=== PATIENT | male | born 1965 | race Caucasian/White ===

== ENCOUNTER 2017-05-30 10:52 | Emergency (ER) | payer OTHER ==
[2017-05-30 11:02] VITALS: BP 137/88; PULSE 98; TEMP 97.7; BMI 39.4
--- NOTE | 2017-05-30 12:10 | PDOC ---
History of Present Illness - General Chief Complaint: Edema Stated Complaint: SWOLLEN LEGS (PCP SENT) Time Seen by Provider: 05/30/17 12:10 - History of Present Illness Initial Comments: 05/30/17 12:34 Mr. Bangura is a 52 yo male w/ pmh of bilateral lower extremity edema and HTN, CKDIII who presents from [facility] Mat[facility]. Per patient he was told to come to the Emergency Room to receive a kidney biopsy. His complaints at this time include 3 weeks of leg swelling as well as some right shoulder pain. The patient denies chest pain, shortness of breath, headache and dizziness. Denies fever, chills, nausea, vomit, diarrhea and constipation. Denies dysuria, frequency, urgency and hematuria. Allergies: NKDA Past History - Past Medical History Allergies/Adverse Reactions: Allergies Allergy/AdvReac Type Severity Reaction Status Date / Time No Known Allergies Allergy Verified 05/30/17 11:03 Home Medications: Ambulatory Orders Meloxicam [Mobic] 15 mg PO DAILY #30 tablet MDD 15mg 08/17/16 COPD: No Other medical history: DENIES MEDICAL HX - Suicide/Smoking/Psychosocial Hx Smoking History: Never smoked Hx Alcohol Use: No (STOPPED DRINKING 1 YEAR AGO) Drug/Substance Use Hx: No Review of Systems - Review of Systems Comments:: 05/30/17 12:38 GENERAL/CONSTITUTIONAL: No fever or chills. No weakness. HEAD, EYES, EARS, NOSE AND THROAT: No change in vision. No ear pain or discharge. No sore throat. CARDIOVASCULAR: No chest pain or shortness of breath RESPIRATORY: No cough, wheezing, or hemoptysis. GASTROINTESTINAL: No nausea, vomiting, diarrhea or constipation. GENITOURINARY: No dysuria, frequency, or change in urination. MUSCULOSKELETAL: +Some Right shoulder pain with movement. Bilateral leg swelling reported for the last. No neck or back pain. SKIN: No rash NEUROLOGIC: No headache, vertigo, loss of consciousness, or change in strength/ sensation. ENDOCRINE: No increased thirst. No abnormal weight change HEMATOLOGIC/LYMPHATIC: No anemia, easy bleeding, or history of blood clots. ALLERGIC/IMMUNOLOGIC: No hives or skin allergy. *Physical Exam - Vital Signs Last Vital Signs Temp Pulse Resp BP Pulse Ox 97.7 F 98 H 16 137/88 98 05/30/17 10:59 05/30/17 10:59 05/30/17 10:59 05/30/17 10:59 05/30/17 10:59 - Physical Exam Comments: 05/30/17 12:39 GENERAL: Awake, alert, and fully oriented, in no acute distress HEAD: No signs of trauma, normocephalic, atraumatic EYES: PERRLA, EOMI, sclera anicteric, conjunctiva clear ENT: Auricles normal inspection, hearing grossly normal, nares patent, oropharynx clear without exudates. Moist mucosa NECK: Normal ROM, supple, no lymphadenopathy, JVD, or masses LUNGS: No distress, speaks full sentences, clear to auscultation bilaterally HEART: Regular rate and rhythm, normal S1 and S2, no murmurs, rubs or gallops, peripheral pulses normal and equal bilaterally. ABDOMEN: Soft, nontender, normoactive bowel sounds. No guarding, no rebound. No masses EXTREMITIES: +Bilateral 2+ Pedal edema. Normal range of motion. No clubbing or cyanosis. NEUROLOGICAL: Cranial nerves II through XII grossly intact. Normal speech, normal gait, no focal sensorimotor deficits SKIN: Warm, Dry, normal turgor, no rashes or lesions noted. ED Treatment Course - LABORATORY CBC & Chemistry Diagram: 05/30/17 13:07 05/30/17 13:07 Medical Decision Making - Medical Decision Making 05/30/17 12:46 Mr. Bangura is a 52 yo male w/ pmh of CKD stage 3, HTN, and bilateral edema who presents per Dr. Matias for admission for kidney biopsy. Dr. Matias consulted and able to provide more information - patient suspected to have glomerulonephritis and discussion w/ Dr. Mayorga had prompted decision for patient to present for admission to hospitalist for renal workup. Dr. Mayorga consulted for further discussion. 05/30/17 13:[address] Mayorga who expressed he was initially concerned as he did not think patient had insurance for outpatient visit. Discussed with director case management and patient is insured - Dr. Mayorga will see him outpatient pending normal labs for further follow-up. Dr. Mayorga discussed this with Dr. Matias who is in agreement. 05/30/17 13:50 Patient labs grossly wnl; will follow-up outpatient as outlined above. Patient verbalized understanding and agreement with this plan. *DC/Admit/Observation/Transfer Diagnosis at time of Disposition: Chronic kidney disease Qualifiers: Chronic kidney disease stage: stage 3 (moderate) Qualified Code(s): N18.3 - Chronic kidney disease, stage 3 (moderate) - Discharge Dispostion Disposition: HOME - Referrals Referrals: Stephon Mayorga MD [Staff Physician] - - Patient Instructions Printed Discharge Instructions: Chronic Renal Failure Additional Instructions: Please follow-up with Dr. Mayorga as discussed. Call office at provide number to schedule a tuesday appointment. Please return if you have any pain, fever, chills, or other concerning symptoms. - Post Discharge Activity
--- NOTE | 2017-05-30 12:59 | PDOC ---
Attending Attestation - HPI HPI: 05/30/17 13:51 Pt is a 52 yo M with PMHx of bilateral lower extremity edema, HTN, CKD III who presents to the ED with lower extremity edema and R shoulder pain for the past 3 weeks. Patient was seen at rheumatologists office and was sent to the ED for Kidney biopsy. Rheum: Kevin Matias - Medical Decision Making 05/30/17 13:51 12:[address] Matias via office number. Discussed patients case. Documentation prepared by Inez Tapia, acting as medical massage therapist for Inna Moore MD <Inez Tapia - Last Filed: 05/30/17 13:51> - Resident Resident Name: Chucho Nava - ED Attending Attestation I have performed the following: I have examined & evaluated the patient, The case was reviewed & discussed with the resident, I agree w/resident's findings & plan, Exceptions are as noted - Physicial Exam PE: GENERAL: Awake, alert, and fully oriented, in no acute distress HEAD: No signs of trauma EYES: PERRLA, EOMI, sclera anicteric, conjunctiva clear ENT: Auricles normal inspection, hearing grossly normal, nares patent, oropharynx clear without exudates. Moist mucosa NECK: Normal ROM, supple, no lymphadenopathy, JVD, or masses LUNGS: Breath sounds equal, clear to auscultation bilaterally. No wheezes, and no crackles HEART: Regular rate and rhythm, normal S1 and S2, no murmurs, rubs or gallops ABDOMEN: Soft, nontender, normoactive bowel sounds. No guarding, no rebound. No masses EXTREMITIES: Normal range of motion, no edema. No clubbing or cyanosis. No cords, erythema, or tenderness NEUROLOGICAL: Cranial nerves II through XII grossly intact. Normal speech, normal gait SKIN: Warm, Dry, normal turgor, no rashes or lesions noted. - Medical Decision Making Pt sent for admission for kidney biopsy, however, discussed with Dr. Mayorga. He can schedule it outpatient. Requested labs, and if electrolytes wnl, DC home. <Inna Moore - Last Filed: 05/30/17 18:20>
[2017-05-30 13:25] LABS: INR 0.96 (0.82-1.09); PROTHROMBIN TIME (PATIENT) 10.8 SEC (9.98-11.88)
[2017-05-30 13:28] LABS: ACTIVATED PTT 30.7 SECONDS (26.9-34.4)
[2017-05-30 13:30] LABS: HEMATOCRIT 33.7 % (35.4-49); HEMOGLOBIN 11.3 GM/dL (11.7-16.9); MCH 28.4 pg (25.7-33.7); MCHC 33.6 g/dl (32.0-35.9); MEAN CELL VOLUME 84.4 fl (80-96); MEAN PLT VOLUME 7.4 fl (7.5-11.1); PLATELET COUNT 304 K/MM3 (134-434); RBC 3.99 M/mm3 (4.00-5.60); RDW 15.8 % (11.9-15.9); WHITE BLOOD COUNT 6.7 K/mm3 (4.0-10.0)
[2017-05-30 13:37] LABS: ALBUMIN 2.5 g/dl (3.4-5.0); ALK PHOS 90 U/L (45-117); ANION GAP 6 (8-16); BILIRUBIN,TOTAL 0.4 mg/dL (0.2-1.0); BLOOD UREA NITROGEN 40 mg/dL (7-18); CALCIUM 8.4 mg/dL (8.5-10.1); CHLORIDE 108 mmol/L (98-107); CO2 28 mmol/L (21-32); CREATININE 2.1 mg/dL (0.7-1.3); GLUCOSE,RANDOM 95 mg/dL (74-106); POTASSIUM 4.5 mmol/L (3.5-5.1); SGOT/AST 15 U/L (15-37); SGPT/ALT 18 U/L (12-78); SODIUM 142 mmol/L (136-145); TOT PROT 6.3 g/dl (6.4-8.2)
[2017-05-30 14:01] LABS: URINE APPEARANCE CLEAR; URINE BILIRUBIN NEGATIVE (NEGATIVE); URINE BLOOD 3+ (NEGATIVE); URINE COLOR LTYELLOW; URINE GLUCOSE (UA) NEGATIVE (NEGATIVE); URINE KETONE NEGATIVE (NEGATIVE); URINE LEUK ESTERASE NEGATIVE (NEGATIVE); URINE NITRITE NEGATIVE (NEGATIVE); URINE UROBILINOGEN NEGATIVE mg/dL (0.2-1.0)
[2017-05-30 14:04] LABS: URINE PROTEIN 3+ (NEGATIVE)
[2017-05-30 14:12] LABS: EPI CELLS RARE /HPF (FEW); URINE HYALINE CAST 12 /lpf; URINE MUCUS RARE; YEAST RARE
--- NOTE | 2017-05-30 14:55 | CONSULT ---
Consult Consult Specialty:: Nephrology Reason for Consultation:: CKD - History of Present Illness Chief Complaint: lower ext edema History of Present Illness: Pt is a 52 year old make with pmhx of CKD, DM and lower extremity edema who presents to the ER for evaluation of his kidney disease. He denies shortness of breath. He denies chest pain. He denies nsaid use. He may be on meloxicam however. He does not know what meds he is on. He was under the impression that he was getting a kidney biopsy today. He has a serologic workup that is pending. He does not want to be admitted to the hospital. He denies dysuria or hematuria. - History Source History Provided By: Patient, Medical Record - Past Medical History Endocrine: Yes: Diabetes Mellitus - Alcohol/Substance Use Hx Alcohol Use: No (STOPPED DRINKING 1 YEAR AGO) - Smoking History Smoking history: Never smoked Home Medications - Allergies Allergies/Adverse Reactions: Allergies Allergy/AdvReac Type Severity Reaction Status Date / Time No Known Allergies Allergy Verified 05/30/17 11:03 - Home Medications Home Medications: Ambulatory Orders Meloxicam [Mobic] 15 mg PO DAILY #30 tablet MDD 15mg 08/17/16 Family Disease History - Family Disease History Family History: Denies Review of Systems - Review of Systems Constitutional: reports: No Symptoms Eyes: reports: No Symptoms HENT: reports: No Symptoms Neck: reports: No Symptoms Cardiovascular: reports: Edema Respiratory: reports: No Symptoms Gastrointestinal: reports: No Symptoms Genitourinary: reports: No Symptoms Musculoskeletal: reports: No Symptoms Integumentary: reports: No Symptoms Neurological: reports: No Symptoms Endocrine: reports: No Symptoms Hematology/Lymphatic: reports: No Symptoms Psychiatric: reports: No Symptoms Physical Exam Vital Signs: Vital Signs Temperature 97.7 F 05/30/17 10:59 Pulse Rate 98 H 05/30/17 10:59 Respiratory Rate 16 05/30/17 10:59 Blood Pressure 137/88 05/30/17 10:59 O2 Sat by Pulse Oximetry (%) 98 05/30/17 10:59 Constitutional: Yes: Calm Eyes: Yes: Conjunctiva Clear HENT: Yes: Atraumatic Neck: Yes: Supple Cardiovascular: Yes: S1, S2 Respiratory: Yes: CTA Bilaterally Gastrointestinal: Yes: Soft Renal/: Yes: WNL Musculoskeletal: Yes: WNL Edema: Yes Edema: LLE: Trace, RLE: Trace Neurological: Yes: Oriented Psychiatric: Yes: Oriented Labs: CBC, BMP 05/30/17 13:07 05/30/17 13:07 Laboratory Tests 05/26/17 05/27/17 05/30/17 13:50 16:34 13:07 WBC 6.7 Hgb 11.3 L Sodium BUN Creatinine Urine Protein Urine Blood BRE & SPEP Interp Pending Total Protein (BRE) Pending Albumin (BRE) Pending Albumin/Globulin (BRE) Pending DAVIDA Screen Negative c-ANCA Pending Proteinase 3 (PR3) Pending p-ANCA Pending Atypical p-ANCA Pending Double Strand DNA Ab <1 Complement C3 127 Complement C4 24 Hep Bs Antigen Negative Hep Bs Antibody Non reactive Hep Bs Antibody, Quant <3.1 L Hepatitis C Antibody 0.1 05/30/17 05/30/17 13:07 13:54 WBC Hgb Sodium 142 BUN 40 H Creatinine 2.1 H Urine Protein 3+ H Urine Blood 3+ H BRE & SPEP Interp Total Protein (BRE) Albumin (BRE) Albumin/Globulin (BRE) DAVIDA Screen c-ANCA Proteinase 3 (PR3) p-ANCA Atypical p-ANCA Double Strand DNA Ab Complement C3 Complement C4 Hep Bs Antigen Hep Bs Antibody Hep Bs Antibody, Quant Hepatitis C Antibody Problem List - Problems (1) Diabetes mellitus Code(s): E11.9 - TYPE 2 DIABETES MELLITUS WITHOUT COMPLICATIONS (2) Chronic kidney disease Code(s): N18.9 - CHRONIC KIDNEY DISEASE, UNSPECIFIED Qualifiers: Chronic kidney disease stage: stage 3 (moderate) Qualified Code(s): N18.3 - Chronic kidney disease, stage 3 (moderate) Assessment/Plan Impression 1. CKD 2. proteinuria 3. DM Plan - serologic workup is wending - will see pt in office on Tuesday - pt will bring all of his pill bottles for review - biopsy can be scheduled as outpt (pt does not want to stay anyway) - will follow serologic workup - called and discussed with rheumatology
--- NOTE | 2017-06-01 11:06 | EKG ---
Test Reason : Blood Pressure : / mmHG Vent. Rate : 058 BPM Atrial Rate : 058 BPM P-R Int : 178 ms QRS Dur : 092 ms QT Int : 412 ms P-R-T Axes : 012 021 033 degrees QTc Int : 404 ms SINUS BRADYCARDIA OTHERWISE NORMAL ECG NO PREVIOUS ECGS AVAILABLE Confirmed by ANGELO HO MD ([id number]) on 06/01/2017 11:06:09 AM Referred By: Confirmed By:ANGELO HO MD
== END 2017-05-30 14:11 | disposition home or self-care (01) ==
LOC: JER 10:52
DX: I12.9 Hypertensive chronic kidney disease with stage 1 through stage 4 chronic kidney disease, or unspecified chronic kidney disease (principal); E11.22 Type 2 diabetes mellitus with diabetic chronic kidney disease; N18.3 Chronic kidney disease, stage 3 (moderate); N17.8 Other acute kidney failure; Z79.84 Long term (current) use of oral hypoglycemic drugs
CPT/HCPCS: 36415; 80053; 81003; 81015; 85027; 85610; 85730; 86850; 86900; 86901; 93005; 93010; 99283-25

== ENCOUNTER 2017-06-09 09:26 | Day surgery (SDC) | payer OTHER ==
[2017-06-09 10:36] VITALS: BMI 39.4
[2017-06-09 10:38] VITALS: TEMP 97.5
[2017-06-09 17:55] VITALS: BP 147/90; PULSE 67
--- NOTE | 2017-06-24 14:17 | PATH ---
Surgical Pathology Report Patient Name: DENICE FELICIANO [facility]. Rec. #: [id number] /Age/Gender: 1965 (Age: 52) / M Account: [id number] Location: RADIOLOGY NUCLE Taken: 06/09/2017 Received: 06/09/2017 Reported: 06/24/2017 Physicians: Jenna Dominguez M.D. Specimen(s) Received RENAL BIOPSY Clinical History 52-year-old male with CKD STAGE III Intraoperative Consult Diagnosis Renal biopsy: Glomeruli present. Jenise Apple M.D., 06/09/17 Final Diagnosis KIDNEY, BIOPSY: FOCAL CRESCENTIC GLOMERULONEPHRITIS, PAUCI IMMUNE TYPE (PR3 ANCA-ASSOCIATED/CLINICAL), WITH MILD ACTIVITY AND MODERATE CHRONICITY. TUBULAR ATROPHY, INTERSTITIAL FIBROSIS AND INTERSTITIAL INFLAMMATION, MODERATE TO SEVERE. ARTERIOSCLEROSIS, MILD. SEE COMMENT. Comment: The immunofluorescence findings are consistent with a diagnosis of pauci immune PR3 ANCA-related glomerulonephritis. There is mild histologic activity and moderate chronicity. Electron microscopy is pending and will be reported separately in an addendum. Case sent for consultation to Dr. Phil Clark from [place], [place] ([id number]), the diagnosis above reflects his opinion. See complete report ([id number]) from [place], [place] for additional details. Electronically Signed Yolie Parks M.D. Gross Description Received in saline labeled "right renal biopsy," is a 1.5 cm in length x 0.1 cm in diameter rice, cylindrical portion of soft tissue. An intraoperative consultation is performed. The specimen is divided, placed into 10% buffered formalin, Gregory fixative and glutaraldehyde. The specimen is sent to [facility] for further studies. /06/09/201706/09/2017
== END 2017-06-09 17:30 | disposition home or self-care (01) ==
LOC: JRADIR 09:26
PROVIDERS: ATTEND Internal Medicine
PROC: 0TB03ZX Excision of Right Kidney, Percutaneous Approach, Diagnostic (ICD-10-PCS; principal; 2017-06-09)
PROC: BT41ZZZ Ultrasonography of Right Kidney (ICD-10-PCS; 2017-06-09)
DX: N05.7 Unspecified nephritic syndrome with diffuse crescentic glomerulonephritis (principal); N18.9 Chronic kidney disease, unspecified
CPT/HCPCS: 50200; 76942-TC; 87899; 88300-TC

== ENCOUNTER 2017-07-09 17:08 | Inpatient (IN) | payer OTHER ==
--- NOTE | 2017-07-09 17:52 | PDOC ---
History of Present Illness - History of Present Illness Initial Comments: 07/09/17 18:23 The patient is a 52 year old male with a history of HTN, CKD, Lower extremity Edema who presents for evaluation of lower extremity edema and rash. The patient notes that he had a recent kidney biopsy a few weeks ago and was diagnosed with glumerularnephritis and placed on predinisone. The patient noted today worsening edema as well as a rash on his right leg prompting his presentation to the ED for further evaluation. He otherwise denies fevers, chills, SOB, chest pain, abdominal pain, nausea, vomiting, or changes with urination or bowel movements. <Willie Kovacs - Last Filed: 07/09/17 18:27> <Saul Newton - Last Filed: 07/09/17 21:09> - General Chief Complaint: Edema Stated Complaint: SWELLING Time Seen by Provider: 07/09/17 17:42 Past History - Past Medical History Anemia: No Asthma: No Cancer: No Cardiac Disorders: No CVA: No COPD: No CHF: No Dementia: No Diabetes: No (DENIES) GI Disorders: No Disorders: No HTN: Yes Hypercholesterolemia: No Liver Disease: No Seizures: No Thyroid Disease: No Other medical history: kidney problems - Surgical History Abdominal Surgery: No Appendectomy: No Cardiac Surgery: No Lung Surgery: No Neurologic Surgery: No Orthopedic Surgery: Yes (RIGHT FOOT SX - 20 YRS AGO) - Suicide/Smoking/Psychosocial Hx Smoking History: Never smoked Have you smoked in the past 12 months: No Information on smoking cessation initiated: No Hx Alcohol Use: No (STOPPED DRINKING 1 YEAR AGO) Drug/Substance Use Hx: No Substance Use Type: None Hx Substance Use Treatment: No <Willie Kovacs - Last Filed: 07/09/17 18:27> <Saul Newton - Last Filed: 07/09/17 21:09> - Past Medical History Allergies/Adverse Reactions: Allergies Allergy/AdvReac Type Severity Reaction Status Date / Time No Known Allergies Allergy Verified 07/09/17 17:27 Home Medications: Ambulatory Orders Amlodipine Besylate [Norvasc -] 10 mg PO DAILY 07/09/17 Furosemide [Lasix] 20 mg PO DAILY 07/09/17 Prednisone [Deltasone] 20 mg PO BID 07/09/17 Review of Systems - Review of Systems Comments:: 07/09/17 18:25 Constitutional: No fevers, chills, fatigue, malaise HEENT: No Rhinorrhea, nasal congestion, visual changes Cardiovascular: No chest pain, syncope, palpitations, lightheadedness Respiratory: No Cough, SOB, Hemoptysis, Gastrointestinal: No Abdominal pain, Nausea, Vomiting, Constipation, Diarrhea, Melena Genitourinary: No Dysuria, Frequency, Urgency, Hesitancy, Hematuria, Flank pain Musculoskeletal: No Myalgia, arthralgia Skin: Rash, Lower Extremity Edema. No itching, bruising, pallor Neurologic: No Headache, Dizziness, Numbness, Weakness, or Tingling Psychiatric: No Hallucinations. No SI or HI <Willie Kovacs - Last Filed: 07/09/17 18:27> *Physical Exam - Vital Signs Last Vital Signs Temp Pulse Resp BP Pulse Ox 98.2 F 89 18 135/91 99 07/09/17 17:22 07/09/17 17:22 07/09/17 17:22 07/09/17 17:22 07/09/17 17:22 - Physical Exam Comments: 07/09/17 18:26 General Appearance: Nourished. No Apparent Distress HEENT: EOMI, RU. No Pharyngeal Erythema, Tonsillar Exudate, Tonsillar Erythema Neck: No Cervical Lymphadenopathy Respiratory/Chest: Lungs Clear, Normal Breath Sounds. No Crackles, Rales, Rhonchi, Wheezing Cardiovascular: Regular Rhythm, Regular Rate. No Murmur, Gallops, Rubs Gastrointestinal/Abdominal: Normal Bowel Sounds, Soft. No Guarding, Rebound, Tenderness Musculoskeletal: No CVA Tenderness Extremity: 3+ Pitting edema in the lower extremities bilaterally. Petechial rash noted on exam on the right thigh. Normal Capillary Refill Integumentary: Normal Color, Dry, Warm Neurologic: Fully Oriented, Alert, Normal Mood/Affect, Normal Response, <Willie Kovacs - Last Filed: 07/09/17 18:27> - Vital Signs Last Vital Signs Temp Pulse Resp BP Pulse Ox 98.2 F 76 18 135/91 98 07/09/17 17:22 07/09/17 18:59 07/09/17 17:22 07/09/17 17:22 07/09/17 18:59 <Saul Newton - Last Filed: 07/09/17 21:09> ED Treatment Course - LABORATORY CBC & Chemistry Diagram: 07/09/17 18:40 07/09/17 18:40 - ADDITIONAL ORDERS Additional order review: Laboratory Results 07/09/17 03 18:40 18:33 Sodium 139 Potassium 4.8 Chloride 108 H Carbon Dioxide 23 Anion Gap 8 BUN 68 H D Creatinine 2.8 H Creat Clearance w eGFR 24.01 Random Glucose 138 H D Calcium 6.9 L* Total Bilirubin 0.2 D AST 26 D ALT 37 D Alkaline Phosphatase 76 D Total Protein 4.0 L D Albumin 1.7 L D Urine Color Straw Urine Appearance Clear Urine pH 5.0 Ur Specific [place] 1.012 Urine Protein 3+ H Urine Glucose (UA) Negative Urine Ketones Negative Urine Blood 2+ H Urine Nitrite Negative Urine Bilirubin Negative Urine Urobilinogen Negative Ur Leukocyte Esterase Negative Urine WBC (Auto) 4 Urine RBC (Auto) 45 Urine Bacteria Rare Hyaline Casts 1 Granular Casts 2 Urine Mucus Rare 07/09/17 18:40 RBC 4.09 MCV 85.5 MCHC 33.8 RDW 14.1 MPV 7.0 L Neutrophils % Account Associate Lymphocytes % Account Associate Monocytes % Account Associate Eosinophils % Account Associate Basophils % Account Associate - RADIOLOGY Radiology Studies Ordered: Category Date Time Status CHEST - PA [RAD] Stat Radiology 07/09/17 20:38 Ordered <Saul Newton - Last Filed: 07/09/17 21:09> Medical Decision Making - Medical Decision Making 07/09/17 18:30 The patient is a 52 year old male with a history of HTN, CKD, Lower extremity Edema who presents for evaluation of lower extremity edema and rash. Differential includes but is not limited to: MARIUSZ, Cushings, Infectious, Metabolic Derangement. Given the patient history we will obtain a cbc, cmp, ua , dvt US to evaluate further for possible etiologies. Although it is likely his symptoms are due to his recent predinisone use. We will continue to monitor and reassess in the meantime. <Willie Kovacs - Last Filed: 07/09/17 18:27> *DC/Admit/Observation/Transfer <Willie Kovacs - Last Filed: 07/09/17 18:27> - Discharge Dispostion Admit: Yes <Saul Newton - Last Filed: 07/09/17 21:09> Diagnosis at time of Disposition: Acute on chronic renal failure Qualifiers: Acute renal failure type: unspecified Chronic kidney disease stage: unspecified stage Qualified Code(s): N17.9 - Acute kidney failure, unspecified; N18.9 - Chronic kidney disease, unspecified; N18.9 - Chronic kidney disease, unspecified Edema Qualifiers: Edema type: generalized Qualified Code(s): R60.1 - Generalized edema - Discharge Dispostion Condition at time of disposition: Fair - Referrals Referrals: Robert Snow MD [Primary Care Provider] - - Patient Instructions - Post Discharge Activity
--- NOTE | 2017-07-09 17:59 | PDOC ---
Attending Attestation - Resident Resident Name: Willie Kovacs - ED Attending Attestation I have performed the following: I have examined & evaluated the patient, The case was reviewed & discussed with the resident, I agree w/resident's findings & plan, Exceptions are as noted - Physicial Exam PE: 07/09/17 18:25 Patient is awake and alert, afebrile, hemodynamically stable; Normocephalic, atraumatic + Increased soft tissue to the upper back area consistent with buffalo hump; Face is plethoric cta rrr no sacral edema + 3 pretibial edema bilaterally + rle petechiael rash - Medical Decision Making 07/09/17 18:25 52-year-old male with history of chronic renal insufficiency, presents with worsening lower extremity edema as well as petechial rash primarily to the right thigh and right lower extremity. Will obtain CBC/CMP to evaluate for worsening renal function. Will obtain UA. Will rule out DVT with Doppler ultrasound. I suspect patient's symptoms may be related to exogenous steroid therapy. Will reassess. 07/09/17 20:[address] Joseph of renal and Dr. Matias of rheumatology. 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 Patient will require admission with increased prednisone dose to 20mg po 3 times a day by mouth for initiation of further immunosuppression by disease modifying agents. <Saul Newton - Last Filed: 07/09/17 20:23> - HPI HPI: 07/09/17 19:06 The patient is a 52 year old male, with a significant past medical history of HTN, CKD, glomerulonephritis (diagnosed a few weeks ago on prednisone) and right lower extremity edema, who presents to the emergency department with, a lower extremity edema with associated rash. As per patient his edema and rash has worsened. - Medical Decision Making 07/09/17 19:[address] Vipin Valencia, case was discussed. 07/09/17 19:[address] Stephon Mayorga's answering service, awaiting call back. 8:05: Call returned from Dr. Aguero, covering doctor for Dr. Mayorga, case was discussed 07/09/17 20:[address] Matias's answering service, awaiting call back. EXAM: Ultrasound bilateral lower extremity venous duplex HISTORY: 52-year-old male evaluate for deep vein thrombus COMPARISON: None. FINDINGS: The left and right common femoral vein proximal greater saphenous vein femoral vein popliteal vein posterior tibial vein have normal compressibility normal color flow and normal spectral Doppler waveforms. IMPRESSION:No evidence of a left or right lower extremity deep vein thrombus. Read by: Ayad Rodriguez MD 10:24pm Vent rate: 70 bpm NE interval: 172 ms QRS duration: 92 ms QT/QTc: 396/427 ms P-R-T axes: 35 7 38 Normal sinus rhythm, normal ECG <Jean Watson - Last Filed: 07/09/17 23:18> Attestations - Attestations 07/09/17 19:07 Documentation prepared by Jean Watson, acting as medical device sales representative for Saul Newton MD. <Jean Watson - Last Filed: 07/09/17 23:18>
[2017-07-09 18:47] LABS: HEMOGLOBIN 11.8 GM/dL (11.7-16.9); MCH 28.9 pg (25.7-33.7); MCHC 33.8 g/dl (32.0-35.9); MEAN CELL VOLUME 85.5 fl (80-96); PLATELET COUNT 249 K/MM3 (134-434); RBC 4.09 M/mm3 (4.00-5.60); RDW 14.1 % (11.9-15.9); WHITE BLOOD COUNT 11.2 K/mm3 (4.0-10.0)
[2017-07-09 19:08] LABS: ALBUMIN 1.7 g/dl (3.4-5.0); ALK PHOS 76 U/L (45-117); ANION GAP 8 (8-16); BILIRUBIN,TOTAL 0.2 mg/dL (0.2-1.0); BLOOD UREA NITROGEN 68 mg/dL (7-18); CHLORIDE 108 mmol/L (98-107); CO2 23 mmol/L (21-32); CREATININE 2.8 mg/dL (0.7-1.3); GLUCOSE,RANDOM 138 mg/dL (74-106); POTASSIUM 4.8 mmol/L (3.5-5.1); SGOT/AST 26 U/L (15-37); SGPT/ALT 37 U/L (12-78); SODIUM 139 mmol/L (136-145)
--- NOTE | 2017-07-09 19:48 | PDOC ---
*Physical Exam - Vital Signs Last Vital Signs Temp Pulse Resp BP Pulse Ox 98.2 F 76 18 135/91 98 07/09/17 17:22 07/09/17 18:59 07/09/17 17:22 07/09/17 17:22 07/09/17 18:59 07/09/17 19:46 Patient's care signed out to me at shift change. This is a 52 YOM with h/o HTN, CKD, glomerulonephritis (dx weeks ago via renal bx, on prednisone now) and chronic BLE edema who presents with worsening BLE edema, petechial thigh rash to RLE. If labs and US are at baseline, he can F/U with Vipin Valencia. ED Treatment Course - LABORATORY CBC & Chemistry Diagram: 07/12/17 06:00 07/12/17 06:00 - ADDITIONAL ORDERS Additional order review: Laboratory Results 07/09/17 18:40 Sodium 139 Potassium 4.8 Chloride 108 H Carbon Dioxide 23 Anion Gap 8 BUN 68 H D Creatinine 2.8 H Creat Clearance w eGFR 24.01 Random Glucose 138 H D Total Bilirubin 0.2 D AST 26 D ALT 37 D Alkaline Phosphatase 76 D Total Protein 4.0 L D Albumin 1.7 L D 07/09/17 18:40 RBC 4.09 MCV 85.5 MCHC 33.8 RDW 14.1 MPV 7.0 L Neutrophils % Wagon Driver Salesperson Lymphocytes % Wagon Driver Salesperson Monocytes % Wagon Driver Salesperson Eosinophils % Wagon Driver Salesperson Basophils % Wagon Driver Salesperson Medical Decision Making - Medical Decision Making Patient's renal function has worsened (BUN/Cr 68/2.8), also modest WBC elevation. No DVT on Duplex study. Dr. Newton spoke with Vipin Valencia, Dr. Aguero (on-call for Dr. Mayorga), and Dr. Matias. Patient's admission proceedings as noted per Dr. Newton's note. Decision to Admit order placed by Dr. Newton to IP Med/Surg Dr. Patel. *DC/Admit/Observation/Transfer Diagnosis at time of Disposition: Acute on chronic renal failure Qualifiers: Acute renal failure type: unspecified Chronic kidney disease stage: unspecified stage Qualified Code(s): N17.9 - Acute kidney failure, unspecified Edema Qualifiers: Edema type: generalized Qualified Code(s): R60.1 - Generalized edema - Referrals - Patient Instructions - Post Discharge Activity
[2017-07-09 19:54] LABS: CALCIUM 6.9 mg/dL (8.5-10.1)
[2017-07-09 20:45] LABS: URINE APPEARANCE CLEAR; URINE BILIRUBIN NEGATIVE (<2.0 mg/dL); URINE BLOOD 2+ (NEGATIVE); URINE COLOR STRAW; URINE GLUCOSE (UA) NEGATIVE (NEGATIVE); URINE KETONE NEGATIVE (NEGATIVE); URINE LEUK ESTERASE NEGATIVE (NEGATIVE); URINE NITRITE NEGATIVE (NEGATIVE); URINE UROBILINOGEN NEGATIVE mg/dL (0.2-1.0)
[2017-07-09 20:47] LABS: URINE PROTEIN 3+ (NEGATIVE)
[2017-07-09 20:48] LABS: GRANULAR CASTS 2 /lpf; URINE BACTERIA RARE /hpf (NONE SEEN); URINE HYALINE CAST 1 /lpf; URINE MUCUS RARE
--- NOTE | 2017-07-09 21:37 | HP ---
CHIEF COMPLAINT: swelling PCP: HISTORY OF PRESENT ILLNESS: This is a 52 year old male with a recent diagnosis of autoimmune glomerulonephritis with worsening renal failure who presents with complaints of bilateral leg swelling and fu/thickness, feeling of liquid in his abdomen that started this morning. No other associated symptoms. Denies BAIN, fever, chills,. n , v, abdominal pain, numbness or tingling, changes in bowel or bladder. Nephro and rheum consulted in ER. Recent Travel: no PAST MEDICAL HISTORY: ckd; dm; glomerulonephritis PAST SURGICAL HISTORY: Social History: Smoking:no Alcohol:quit many years ago; but used to drink " a lot" Drugs: no Family History: Allergies No Known Allergies Allergy (Verified 07/09/17 17:27) HOME MEDICATIONS: Home Medications Medication Instructions Recorded Amlodipine Besylate [Norvasc -] 10 mg PO DAILY 07/09/17 Furosemide [Lasix] 20 mg PO DAILY 07/09/17 Prednisone [Deltasone] 20 mg PO BID 07/09/17 REVIEW OF SYSTEMS as above PHYSICAL EXAMINATION Vital Signs - 24 hr 07/09/17 07/09/17 17:22 18:59 Temperature 98.2 F Pulse Rate 89 76 Respiratory 18 Rate Blood Pressure 135/91 O2 Sat by Pulse 99 98 Oximetry (%) GENERAL: Awake, alert, and fully oriented, in no acute distress. HEAD: Normal with no signs of trauma. EYES: Pupils equal, round and reactive to light, extraocular movements intact, sclera anicteric, conjunctiva clear. No lid lag. EARS, NOSE, THROAT: Ears normal, nares patent, oropharynx clear without exudates. Moist mucous membranes. NECK: Normal range of motion, supple without lymphadenopathy, JVD, or masses. LUNGS: Breath sounds equal, clear to auscultation bilaterally. No wheezes, and no crackles. No accessory muscle use. HEART: Regular rate and rhythm, normal S1 and S2 without murmur, rub or gallop. ABDOMEN: Soft, nontender, mildly distended, normoactive bowel sounds, some mild possible fluid shift MUSCULOSKELETAL: Normal range of motion at all joints. No bony deformities or tenderness. No CVA tenderness. UPPER EXTREMITIES: 2+ pulses, warm, well-perfused. No cyanosis. No clubbing. No peripheral edema. LOWER EXTREMITIES: 2+ pulses, warm, well-perfused. No calf tenderness. No peripheral edema. NEUROLOGICAL: Cranial nerves II-XII intact. Normal speech. Normal gait. motor 5 /5 all major muscle groups; sensation decreased on dordsum of bilateral feet to light touch; reflexes 2+ knee/ankle; pedal pulse 2+ PSYCHIATRIC: Cooperative. Good eye contact. Appropriate mood and affect. SKIN: Warm, dry, normal turgor, no rashes or lesions noted, normal capillary refill. Laboratory Results - last 24 hr 07/09/17 07/09/17 07/09/17 18:33 18:40 18:40 WBC 11.2 H D RBC 4.09 Hgb 11.8 Hct 35.0 L MCV 85.5 MCH 28.9 MCHC 33.8 RDW 14.1 Plt Count 249 MPV 7.0 L Neutrophils % Education Dean Neutrophils % (Manual) 88.0 H Lymphocytes % Education Dean Lymphocytes % (Manual) 8.0 Monocytes % Education Dean Monocytes % (Manual) 4 Eosinophils % Education Dean Eosinophils % (Manual) 0.0 Basophils % Education Dean Basophils % (Manual) 0.0 Sodium 139 Potassium 4.8 Chloride 108 H Carbon Dioxide 23 Anion Gap 8 BUN 68 H D Creatinine 2.8 H Creat Clearance w eGFR 24.01 Random Glucose 138 H D Calcium 6.9 L* Total Bilirubin 0.2 D AST 26 D ALT 37 D Alkaline Phosphatase 76 D Total Protein 4.0 L D Albumin 1.7 L D Urine Color Straw Urine Appearance Clear Urine pH 5.0 Ur Specific [place] 1.012 Urine Protein 3+ H Urine Glucose (UA) Negative Urine Ketones Negative Urine Blood 2+ H Urine Nitrite Negative Urine Bilirubin Negative Urine Urobilinogen Negative Ur Leukocyte Esterase Negative Urine WBC (Auto) 4 Urine RBC (Auto) 45 Urine Bacteria Rare Hyaline Casts 1 Granular Casts 2 Urine Mucus Rare ASSESSMENT/PLAN: This is a 52 year old male with history of CKD, DM, recent diagnosis of glomulernephritis; presents with b/ edema. 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 Patel. Visit type - Emergency Visit Emergency Visit: Yes ED Registration Date: 07/09/17 Care time: The patient presented to the Emergency Department on the above date and was hospitalized for further evaluation of their emergent condition. - New Patient This patient is new to me today: Yes Date on this admission: 07/10/17 - Critical Care Critical Care patient: No Hospitalist Screening - Colonoscopy Questionnaire Colonoscopy Questionnaire: Colonoscopy Questionnaire - Patient: 50 - 75 years old and never had a screening colonoscopy: Yes History of colon or rectal polyps, or CA: Unknown History of IBD, Crohn's disease or UC: Unknown History of abdominal radiation therapy as a child: Unknown - Relative: 1 with colon or rectal CA, or polyps at age 60 or younger: Unknown Colon or rectal CA diagnosed at age 45 or younger: Unknown Multiple relatives with colon or rectal CA: Unknown - Outcome: Screening Result: Positive Screen
[2017-07-09] MEDS ORDERED: FUROSEMIDE 40 MG TABLET (FP) PO ONE (22:00)
[2017-07-09] MEDS ORDERED: HEPARIN NA (PORCINE) 5,000 UNITS/ML 1ML VIAL ONE (22:17)
[2017-07-09] MEDS ORDERED: FUROSEMIDE 40 MG TABLET (FP) ONE (22:17)
[2017-07-09] MEDS: HEPARIN NA (PORCINE) 5,000 UNITS/ML 1ML VIAL SQ SCH (22:30)
--- NOTE | 2017-07-09 23:01 | PN ---
Teaching Attending Note Name of Resident: Maria Luisa Seaman ATTENDING PHYSICIAN STATEMENT I saw and evaluated the patient. I reviewed the resident's note and discussed the case with the resident. I agree with the resident's findings and plan as documented. SUBJECTIVE: This is a 52 year old man with a history of HTN, stage 3 CKD, who comes to the ED complaining of swelling of both legs with a rash. 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 He has been on Prednisone since then. Today he noted swelling of both legs with a rash on his right leg. The rash is not painful or itchy. He denies fever, SOB, CP. OBJECTIVE: Vital Signs Period Temp Pulse Resp BP Sys/Burch Pulse Ox Last 24 Hr 98.2 F 76-89 18 135/91 98-99 HEART: S1S2, RRR LUNGS: Clear ABDOMEN: Obese, soft, non-tender, non-distended, normal BS EXTREMITIES: 2+ edema, non-blanching purpuric rash on right leg Laboratory Tests 07/09/17 07/09/17 07/09/17 18:33 18:40 18:40 WBC 11.2 H D RBC 4.09 Hgb 11.8 Hct 35.0 L MCV 85.5 MCH 28.9 MCHC 33.8 RDW 14.1 Plt Count 249 MPV 7.0 L Neutrophils % Credit Administration Officer Neutrophils % (Manual) 88.0 H Lymphocytes % Credit Administration Officer Lymphocytes % (Manual) 8.0 Monocytes % Credit Administration Officer Monocytes % (Manual) 4 Eosinophils % Credit Administration Officer Eosinophils % (Manual) 0.0 Basophils % Credit Administration Officer Basophils % (Manual) 0.0 Sodium 139 Potassium 4.8 Chloride 108 H Carbon Dioxide 23 Anion Gap 8 BUN 68 H D Creatinine 2.8 H Creat Clearance w eGFR 24.01 Random Glucose 138 H D Calcium 6.9 L* Total Bilirubin 0.2 D AST 26 D ALT 37 D Alkaline Phosphatase 76 D Total Protein 4.0 L D Albumin 1.7 L D Urine Color Straw Urine Appearance Clear Urine pH 5.0 Ur Specific [place] 1.012 Urine Protein 3+ H Urine Glucose (UA) Negative Urine Ketones Negative Urine Blood 2+ H Urine Nitrite Negative Urine Bilirubin Negative Urine Urobilinogen Negative Ur Leukocyte Esterase Negative Urine WBC (Auto) 4 Urine RBC (Auto) 45 Urine Bacteria Rare Hyaline Casts 1 Granular Casts 2 Urine Mucus Rare Home Medications Medication Instructions Recorded Amlodipine Besylate [Norvasc -] 10 mg PO DAILY 07/09/17 Furosemide [Lasix] 20 mg PO DAILY 07/09/17 Prednisone [Deltasone] 20 mg PO BID 07/09/17 ASSESSMENT AND PLAN: This is a 52 year old man with a history of HTN, pauci immune glomerulonephritis , stage 3 CKD, who presented to the ED with swelling of both legs and a rash on his right leg. 1. Worsening stage 3 CKD secondary to pauci immune glomerulonephritis - Not responding to Prednisone - Increase Prednisone to 60 mg daily - Nephrology, rheumatology consults 2. Hypocalcemia - Corrected calcium is 8.7 3. Hypertension - Continue Norvasc, Lasix 4. Leg edema - Likely multifactorial secondary to hypoalbuminemia, Norvasc, Prednisone, worsening renal function
[2017-07-10] MEDS: HEPARIN NA (PORCINE) 5,000 UNITS/ML 1ML VIAL SQ SCH ×3 (06:20→22:22)
[2017-07-10 07:29] LABS: BASO % 0.4 % (0-2.0); EOS % 0.9 % (0-4.5); HEMATOCRIT 34.4 % (35.4-49); HEMOGLOBIN 11.8 GM/dL (11.7-16.9); LYMPH % 20.5 % (8-40); MCH 29.2 pg (25.7-33.7); MCHC 34.3 g/dl (32.0-35.9); MEAN CELL VOLUME 85.4 fl (80-96); MEAN PLT VOLUME 6.9 fl (7.5-11.1); MONO % 6.2 % (3.8-10.2); PLATELET COUNT 238 K/MM3 (134-434); RBC 4.03 M/mm3 (4.00-5.60); RDW 14.5 % (11.9-15.9); WHITE BLOOD COUNT 8.6 K/mm3 (4.0-10.0)
[2017-07-10] MEDS: amLODIPine BESYLATE 10 MG TABLET (FP) PO SCH (09:16)
[2017-07-10] MEDS: predniSONE 20 MG TABLET (UD) PO SCH (09:16)
[2017-07-10 11:06] LABS: CHLORIDE 104 mmol/L (98-107); POTASSIUM 3.8 mmol/L (3.5-5.1); SODIUM 138 mmol/L (136-145)
[2017-07-10 11:33] LABS: ALBUMIN 1.7 g/dl (3.4-5.0); ALK PHOS 65 U/L (45-117); ANION GAP 10 (8-16); BILIRUBIN,TOTAL 0.5 mg/dL (0.2-1.0); BLOOD UREA NITROGEN 62 mg/dL (7-18); CO2 24 mmol/L (21-32); CREATININE 2.3 mg/dL (0.7-1.3); GLUCOSE,RANDOM 94 mg/dL (74-106); SGOT/AST 23 U/L (15-37); SGPT/ALT 31 U/L (12-78); TOT PROT 3.8 g/dl (6.4-8.2)
--- NOTE | 2017-07-10 12:47 | CON.NEP ---
Consult Consult Specialty:: Nephrology Referred by:: Dr Patel Reason for Consultation:: Acute on CKD - History of Present Illness Chief Complaint: LE edema that has worsened History of Present Illness: This is a 52 year old male with a recent diagnosis of pauci immune ANCA related glomerulonephritis and HTN that presented to the ED with worsening LE edema. Pt noted to have some worsening azotemia compared to his baseline from a month ago while on steroid therapy so admitted for further evaluation. Pt also reports a new rash on his neck and thighs in addition to his usual facial rash. No C/O small joint pains. 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 No NSAID use No Dysuria - History Source History Provided By: Patient, Medical Record - Past Medical History Endocrine: Yes: Diabetes Mellitus - Alcohol/Substance Use Hx Alcohol Use: No (STOPPED DRINKING 1 YEAR AGO) - Smoking History Smoking history: Former smoker Have you smoked in the past 12 months: No Home Medications - Allergies Allergies/Adverse Reactions: Allergies Allergy/AdvReac Type Severity Reaction Status Date / Time No Known Allergies Allergy Verified 07/09/17 17:27 - Home Medications Home Medications: Ambulatory Orders Amlodipine Besylate [Norvasc -] 10 mg PO DAILY 07/09/17 Furosemide [Lasix] 20 mg PO DAILY 07/09/17 Prednisone [Deltasone] 20 mg PO BID 07/09/17 Family Disease History - Family Disease History Family History: Unremarkable (No F/H of lupus or vasculitis) Nephrology Consult - Height Height: 5 ft 1 in - Lab Results CBC,BMP: Laboratory Tests 05/26/17 05/26/17 05/27/17 13:50 13:50 16:34 BUN 45 H Creatinine 2.2 H Creat Clearance w eGFR Random Glucose Calcium Total Bilirubin AST ALT Alkaline Phosphatase Total Protein Albumin Urine Color Urine Appearance Urine pH Ur Specific [place] Urine Protein Urine Glucose (UA) Urine Ketones Urine Blood Urine Nitrite Urine Bilirubin Urine Urobilinogen Ur Leukocyte Esterase Urine WBC (Auto) Urine RBC (Auto) DAVIDA Screen Negative c-ANCA 1:40 H Proteinase 3 (PR3) 62.5 H p-ANCA <1:20 Atypical p-ANCA <1:20 Myeloperoxidase Ab <9.0 Double Strand DNA Ab <1 Complement C3 127 Complement C4 24 Hep Bs Antigen Negative Hep Bs Antibody Non reactive Hep Bs Antibody, Quant <3.1 L Hepatitis C Antibody 0.1 TB Test (QFT) 05/30/17 06/23/17 06/23/17 13:07 14:00 14:00 BUN 40 H 48 H Creatinine 2.1 H 2.6 H D Creat Clearance w eGFR 33.46 Random Glucose Calcium Total Bilirubin AST ALT Alkaline Phosphatase Total Protein Albumin Urine Color Urine Appearance Urine pH Ur Specific [place] Urine Protein Urine Glucose (UA) Urine Ketones Urine Blood Urine Nitrite Urine Bilirubin Urine Urobilinogen Ur Leukocyte Esterase Urine WBC (Auto) 3 Urine RBC (Auto) 312 DAVIDA Screen c-ANCA Proteinase 3 (PR3) p-ANCA Atypical p-ANCA Myeloperoxidase Ab Double Strand DNA Ab Complement C3 Complement C4 Hep Bs Antigen Hep Bs Antibody Hep Bs Antibody, Quant Hepatitis C Antibody TB Test (QFT) 06/23/17 07/09/17 07/09/17 14:00 18:33 18:40 BUN 68 H D Creatinine 2.8 H Creat Clearance w eGFR Random Glucose Calcium Total Bilirubin AST ALT Alkaline Phosphatase Total Protein Albumin Urine Color Straw Urine Appearance Clear Urine pH 5.0 Ur Specific [place] 1.012 Urine Protein 3+ H Urine Glucose (UA) Negative Urine Ketones Negative Urine Blood 2+ H Urine Nitrite Negative Urine Bilirubin Negative Urine Urobilinogen Negative Ur Leukocyte Esterase Negative Urine WBC (Auto) 4 Urine RBC (Auto) 45 DAVIDA Screen c-ANCA Proteinase 3 (PR3) p-ANCA Atypical p-ANCA Myeloperoxidase Ab Double Strand DNA Ab Complement C3 Complement C4 Hep Bs Antigen Hep Bs Antibody Hep Bs Antibody, Quant Hepatitis C Antibody TB Test (QFT) Negative 07/10/17 06:00 BUN Creatinine Creat Clearance w eGFR 30.13 Random Glucose 94 D Calcium 7.0 L Total Bilirubin 0.5 D AST 23 ALT 31 Alkaline Phosphatase 65 Total Protein 3.8 L Albumin 1.7 L Urine Color Urine Appearance Urine pH Ur Specific [place] Urine Protein Urine Glucose (UA) Urine Ketones Urine Blood Urine Nitrite Urine Bilirubin Urine Urobilinogen Ur Leukocyte Esterase Urine WBC (Auto) Urine RBC (Auto) DAVIDA Screen c-ANCA Proteinase 3 (PR3) p-ANCA Atypical p-ANCA Myeloperoxidase Ab Double Strand DNA Ab Complement C3 Complement C4 Hep Bs Antigen Hep Bs Antibody Hep Bs Antibody, Quant Hepatitis C Antibody TB Test (QFT) Laboratory Tests 07/10/17 06:00 Sodium 138 Potassium 3.8 D Chloride 104 Carbon Dioxide 24 Anion Gap 10 BUN 62 H Creatinine 2.3 H - Imaging Chest X-ray: Report Reviewed Other: Other (N/A) - Physical Examination Vital Signs: Selected Entries 07/10/17 07/10/17 01:28 08:38 Temperature 98.0 F Pulse Rate 64 Respiratory 16 Rate Blood Pressure 142/99 O2 Sat by Pulse 96 Oximetry (%) Constitutional: Yes: No Distress Cardiovascular: Yes: S1, S2. No: JVD Respiratory: Yes: CTA Bilaterally Gastrointestinal: Yes: Soft, Distention. No: Tenderness, Rebound Renal/: No: Bladder Distention Extremities: Yes: Other (Siri negative) Edema: LLE: 2+ (Up to pretibial region ), RLE: 2+ (Up to pretibial region ) Integumentary: Yes: Other (Macular rash most prominent on the neck and right lateral thigh but also on faintly on the face and lower back) Neurological: Yes: Alert, Oriented Assessment/Plan Impression Acute on CKD vs progression of the pauci immune GN that is ANCA related now with skin rash- Though creatinine is close to levels in May the BUN has risen on the steroid therapy. Note that the pathology 06/09/17 - showed Mild Histologic Activity and Moderate Chronicity HTN with Fluid retention Borderline anemia Pyuria- R/O UTI though likely from the GN Plan Continue with Prednisone as ordered for now Add Lasix 40 mgs PO daily to help control the edema and BP for now Add ACEi/Arb if azotemia remains stable Urine for Pro/cr ratio and for C+S Await Rheumatology opinion prior to considerin adding another agent for the vasculitis Dr Mayorga who is pt's usual pharmacy innovation assistant is returning tomorrow Discussed with the Hospitalist Dr Aguero
[2017-07-10] MEDS ORDERED: FUROSEMIDE 40 MG TABLET (FP) PO ONE ×2 (13:10→14:28)
[2017-07-10 14:42] VITALS: BMI 41.4
--- NOTE | 2017-07-10 14:42 | CON.NEP ---
Consult Consult Specialty:: Nephrology Referred by:: Dr Patel Reason for Consultation:: Acute on CKD - History of Present Illness Chief Complaint: LE edema History of Present Illness: This is a 52 year old man with a history of HTN, and recently diagnosed pauci immune GN that is ANCA related. Pt presented to the ED complaining of swelling of both legs with a rash. He underwent renal biopsy on 06/09/17 for worsening CKD and was found to have pauci immune glomerulonephritis that histologically was minimally active and moderate chronicity was seen. Pt was apparently discharged on BID Prednisone. 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 No NKDA - History Source History Provided By: Patient, Medical Record - Past Medical History Endocrine: Yes: Diabetes Mellitus - Alcohol/Substance Use Hx Alcohol Use: No (STOPPED DRINKING 1 YEAR AGO) - Smoking History Smoking history: Never smoked Have you smoked in the past 12 months: No Home Medications - Allergies Allergies/Adverse Reactions: Allergies Allergy/AdvReac Type Severity Reaction Status Date / Time No Known Allergies Allergy Verified 07/09/17 17:27 - Home Medications Home Medications: Ambulatory Orders Amlodipine Besylate [Norvasc -] 10 mg PO DAILY 07/09/17 Furosemide [Lasix] 20 mg PO DAILY 07/09/17 Prednisone [Deltasone] 20 mg PO BID 07/09/17 Family Disease History - Family Disease History Family History: Unremarkable (No FH of Vasculitis or SLE) Nephrology Consult - Height Height: 5 ft 1 in - Weight Weight: 219 lb 3.2 oz - BMI Body Mass Index (BMI): 41.4 - Lab Results CBC,BMP: CBC, BMP 07/10/17 06:00 07/10/17 06:00 Laboratory Tests 05/26/17 07/09/17 13:50 18:40 BUN 68 H D Creatinine 2.2 H 2.8 H U/A: Laboratory Tests 07/09/17 18:33 Urine Color Straw Urine Appearance Clear Urine pH 5.0 Ur Specific [place] 1.012 Urine Protein 3+ H Urine Glucose (UA) Negative Urine Ketones Negative Urine Blood 2+ H Urine Nitrite Negative Urine Bilirubin Negative Urine Urobilinogen Negative Ur Leukocyte Esterase Negative Urine WBC (Auto) 4 Urine RBC (Auto) 45 Hyaline Casts 1 Granular Casts 2 Anion Gap: Anion Gap Anion Gap 10 (8-16) 07/10/17 06:00 - Imaging Chest X-ray: Report Reviewed EKG: Other (N/A) - Physical Examination Vital Signs: Vital Signs Temperature 98.3 F 07/10/17 14:35 Pulse Rate 76 07/10/17 14:35 Respiratory Rate 18 07/10/17 14:35 Blood Pressure 137/90 07/10/17 14:35 O2 Sat by Pulse Oximetry (%) 96 07/10/17 01:28 Constitutional: Yes: No Distress Cardiovascular: Yes: S1, S2. No: JVD Respiratory: Yes: CTA Bilaterally Gastrointestinal: Yes: Soft. No: Tenderness, Rebound Extremities: Yes: Other (B/L Siri negative) Edema: LLE: 1+, RLE: 1+ Integumentary: Yes: Other (Macular rash on right thigh and neck regions and to lesser extend to the trunk face and hands) Neurological: Yes: Alert, Oriented Assessment/Plan Impression Acute on CKD vs progression of the pauci immune GN that is ANCA related now with skin rash- Though creatinine is close to levels in May the BUN has risen on the steroid therapy. Note that the pathology 06/09/17 - showed Mild Histologic Activity and Moderate Chronicity HTN with Fluid retention Borderline anemia Pyuria- R/O UTI though likely from the GN Corrected Ca wnl Plan Continue with Prednisone as ordered for now Add Lasix 40 mgs PO daily to help control the edema and BP for now Add ACEi/Arb if azotemia remains stable Urine for Pro/cr ratio and for C+S Await Rheumatology opinion prior to considering adding another agent for the vasculitis Dr Mayorga who is pt's usual social services specialist is returning tomorrow Discussed with the Hospitalist Dr Aguero
--- NOTE | 2017-07-10 18:54 | PN ---
Progress Note (short form) - Note Progress Note: Subjective: no fever or chills , no SOB. has LE edma . complains of rash Objective: Vital Signs: Last Vital Signs Temp Pulse Resp BP Pulse Ox 98.3 F 76 18 137/90 94 L 07/10/17 14:35 07/10/17 14:35 07/10/17 14:35 07/10/17 14:35 07/10/17 09:00 Laboratory Results - last 24 hr 07/09/17 07/09/17 07/09/17 18:33 18:40 18:40 WBC RBC Hgb Hct MCV MCH MCHC RDW Plt Count MPV Neutrophils % Neutrophils % (Manual) 88.0 H Lymphocytes % Lymphocytes % (Manual) 8.0 Monocytes % Monocytes % (Manual) 4 Eosinophils % Eosinophils % (Manual) 0.0 Basophils % Basophils % (Manual) 0.0 Sodium 139 Potassium 4.8 Chloride 108 H Carbon Dioxide 23 Anion Gap 8 BUN 68 H D Creatinine 2.8 H Creat Clearance w eGFR 24.01 Random Glucose 138 H D Calcium 6.9 L* Total Bilirubin 0.2 D AST 26 D ALT 37 D Alkaline Phosphatase 76 D Total Protein 4.0 L D Albumin 1.7 L D Urine Color Straw Urine Appearance Clear Urine pH 5.0 Ur Specific [place] 1.012 Urine Protein 3+ H Urine Glucose (UA) Negative Urine Ketones Negative Urine Blood 2+ H Urine Nitrite Negative Urine Bilirubin Negative Urine Urobilinogen Negative Ur Leukocyte Esterase Negative Urine WBC (Auto) 4 Urine RBC (Auto) 45 Urine Bacteria Rare Hyaline Casts 1 Granular Casts 2 Urine Mucus Rare 07/10/17 07/10/17 06:00 06:00 WBC 8.6 RBC 4.03 Hgb 11.8 Hct 34.4 L MCV 85.4 MCH 29.2 MCHC 34.3 RDW 14.5 Plt Count 238 MPV 6.9 L Neutrophils % 72.0 D Neutrophils % (Manual) Lymphocytes % 20.5 D Lymphocytes % (Manual) Monocytes % 6.2 Monocytes % (Manual) Eosinophils % 0.9 Eosinophils % (Manual) Basophils % 0.4 Basophils % (Manual) Sodium 138 Potassium 3.8 D Chloride 104 Carbon Dioxide 24 Anion Gap 10 BUN 62 H Creatinine 2.3 H Creat Clearance w eGFR 30.13 Random Glucose 94 D Calcium 7.0 L Total Bilirubin 0.5 D AST 23 ALT 31 Alkaline Phosphatase 65 Total Protein 3.8 L Albumin 1.7 L Urine Color Urine Appearance Urine pH Ur Specific [place] Urine Protein Urine Glucose (UA) Urine Ketones Urine Blood Urine Nitrite Urine Bilirubin Urine Urobilinogen Ur Leukocyte Esterase Urine WBC (Auto) Urine RBC (Auto) Urine Bacteria Hyaline Casts Granular Casts Urine Mucus Physical Exam: NAD , pleasant MMM CV: RRR Lungs; CTAB And; soft , NT, ND , NL BS Ext" 2+ pitting edema especially on feet skin " papular rash on upper thighs , upper chest, and dry thick crusted rash on lower back and dorsal hands Assessment/Plan: 52 y/o man with h/o HTN and 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 now cr back to [facility] renal bx on 06/09 with cresentic glomerulonephritis /Pauci immune cont prednisone 60 daily lasix daily d/w Dr. bass follow renal and rheum recs 2- HTN: cont norvasc DVT PX Visit type - Emergency Visit Emergency Visit: Yes ED Registration Date: 07/09/17 Care time: The patient presented to the Emergency Department on the above date and was hospitalized for further evaluation of their emergent condition. - New Patient This patient is new to me today: Yes Date on this admission: 07/10/17 - Critical Care Critical Care patient: No
--- NOTE | 2017-07-10 21:32 | EKG ---
Test Reason : Blood Pressure : / mmHG Vent. Rate : 070 BPM Atrial Rate : 070 BPM P-R Int : 172 ms QRS Dur : 092 ms QT Int : 396 ms P-R-T Axes : 035 007 038 degrees QTc Int : 427 ms NORMAL SINUS RHYTHM NORMAL ECG WHEN COMPARED WITH ECG OF 30-MAY-2017 13:36, NO SIGNIFICANT CHANGE WAS FOUND Confirmed by AMOS ALEXANDRE MD ([id number]) on 07/10/2017 9:31:51 PM Referred By: Confirmed By:AMOS ALEXANDRE MD
[2017-07-10] MEDS ORDERED: predniSONE 20 MG TABLET (UD) PO SCH (21:34)
[2017-07-10 21:50] LABS: URINE CREATININE 66.3 mg/dL (20-370)
[2017-07-10 21:51] LABS: RATIO URIN PROTEIN/URIN CREAT 6.015 MG/DL
[2017-07-11] MEDS: HEPARIN NA (PORCINE) 5,000 UNITS/ML 1ML VIAL SQ SCH ×3 (06:06→22:24)
[2017-07-11] MEDS: FUROSEMIDE 40 MG TABLET (FP) PO SCH (09:15)
[2017-07-11] MEDS: predniSONE 20 MG TABLET (UD) PO SCH (09:15)
[2017-07-11] MEDS: amLODIPine BESYLATE 10 MG TABLET (FP) PO SCH (09:15)
[2017-07-11 09:41] LABS: ANION GAP 8 (8-16); BLOOD UREA NITROGEN 59 mg/dL (7-18); CHLORIDE 105 mmol/L (98-107); CO2 25 mmol/L (21-32); CREATININE 2.4 mg/dL (0.7-1.3); GLUCOSE,RANDOM 149 mg/dL (74-106); POTASSIUM 4.2 mmol/L (3.5-5.1); SODIUM 138 mmol/L (136-145)
[2017-07-11 09:49] LABS: CALCIUM 6.9 mg/dL (8.5-10.1)
--- NOTE | 2017-07-11 12:44 | CONSULT ---
Consult Consult Specialty:: Rheumatology - History of Present Illness History of Present Illness: 52 year old male with Granulomatosis with Polyangiitis, limited (kidney involvement). The patient was admitted with progressive edema in face and lower limbs. . On August 2016 the patient had an episode of precordial chest pain. He was admitted at [facility] and he had angioplasty. Few days later (n 09/02/16) the patient had surgery for sinusitis. After the surgery he developed arthralgia in most peripheral joints which resolved spontaneously. I initially saw him in my office on 05/26/17. The patient denies skin rash, oral ulcers, dry eyes, dry mouth, Raynaud's phenomenon, shortness of breath, chest pain, abdominal pain or fever. Laboratory work-up from 05/31/17 revealed a CBC with a WBC of 4.8, Hgb 10.3, HCT 30.6 and platelets 314. Glucose was 107, creatinine 2.18, BUN 46, eGFR34, protein 5.4, and liver function tests were normal. Laboratory work-up from 05/26/17 revealed C-ANCA 1:40 and proteinase-3: 62.5. DAVIDA , anti-DNAds, P-ANCA, myeloperoxidase, serology for hepatitis B and C were all negative. Complement was normal (C3:127 and C4: 24). On 05/30/17 Creatinine was 2.1, and urinalysis with protein 3+ and blood 3+. Work-up from 06/23/16 revealed a creatinine of 2.6. Quantiferon negative, CBC with WBC of 6.9, Hgb 11.7, Hgb 33.1 and platelets 310. Urinalysis with protein 3 + and blood 3+. 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 Tubular atrophy, interstitial fibrosis and interstitial inflammation, moderate to severe. The patient was started on Prednisone 60 mg /d and we were awaiting for insurance authorization to start Rituximab. In the last few days he had progressive edema in face and lower limbs, He denies joint pain, cough, chest pain or shortness of breath. On admission Duplex US was negative for DVT and CXR was normal. - History Source History Provided By: Patient, Medical Record Limitations to Obtaining History: No Limitations - Past Medical History Cardio/Vascular: Yes: Other (History of chest pain. Cardiac cathetherization was apparently normal.) Rheumatology: Yes: Other (See HPI) Endocrine: Yes: Diabetes Mellitus - Alcohol/Substance Use Hx Alcohol Use: No (STOPPED DRINKING 1 YEAR AGO) - Smoking History Smoking history: Never smoked Have you smoked in the past 12 months: No Home Medications - Allergies Allergies/Adverse Reactions: Allergies Allergy/AdvReac Type Severity Reaction Status Date / Time No Known Allergies Allergy Verified 07/09/17 17:27 - Home Medications Home Medications: Ambulatory Orders Amlodipine Besylate [Norvasc -] 10 mg PO DAILY 07/09/17 Furosemide [Lasix] 20 mg PO DAILY 07/09/17 Prednisone [Deltasone] 20 mg PO BID 07/09/17 Review of Systems - Review of Systems Constitutional: reports: Malaise, Night Sweats Eyes: reports: No Symptoms HENT: reports: No Symptoms, Ocular Prosthesis Neck: reports: No Symptoms Cardiovascular: reports: No Symptoms Respiratory: reports: No Symptoms Gastrointestinal: reports: No Symptoms Musculoskeletal: reports: Other (Peripheral edema) Physical Exam Vital Signs: Vital Signs Temperature 98.0 F 07/11/17 09:00 Pulse Rate 70 07/11/17 09:00 Respiratory Rate 18 07/11/17 09:00 Blood Pressure 146/98 07/11/17 09:00 O2 Sat by Pulse Oximetry (%) 98 07/11/17 09:00 Constitutional: Yes: No Distress Eyes: Yes: WNL HENT: Yes: WNL Neck: Yes: WNL Cardiovascular: Yes: WNL Respiratory: Yes: WNL Gastrointestinal: Yes: WNL Extremities: Yes: Other Edema: Yes (Pitting edema in both leg) Labs: CBC, BMP 07/10/17 06:00 07/11/17 08:50 Laboratory Tests 07/09/17 07/10/17 07/10/17 18:33 06:00 20:15 Calcium 7.0 L Total Bilirubin 0.5 D AST 23 ALT 31 Alkaline Phosphatase 65 Total Protein 3.8 L Albumin 1.7 L Urine Color Straw Urine Appearance Clear Urine pH 5.0 Ur Specific Red[place] 1.012 Urine Protein 3+ H Urine Glucose (UA) Negative Urine Ketones Negative Urine Blood 2+ H Urine Nitrite Negative Urine Bilirubin Negative Urine Urobilinogen Negative Ur Leukocyte Esterase Negative Urine WBC (Auto) 4 Urine RBC (Auto) 45 Urine Bacteria Rare Hyaline Casts 1 Urine Mucus Rare U Random Total Protein 397 H Urine Creatinine 66.3 Protein/Creatinin Ratio 6.015 Problem List - Problems (1) Granulomatosis with polyangiitis with renal involvement Assessment/Plan: Active renal disease. No evidence of lung or other organ involvement. Plan: Rituximab with Rave protocol (375 mg/m2 once per week for 4 doses). Continue Prednisone 60 mg/d. I sent the protocol to the 7th floor. Probably it will be started tomorrow. Code(s): M31.31 - SONYA'S GRANULOMATOSIS WITH RENAL INVOLVEMENT
[2017-07-11 13:32] LABS: BASO % 0.8 % (0-2.0); EOS % 0.8 % (0-4.5); HEMATOCRIT 39.6 % (35.4-49); HEMOGLOBIN 13.2 GM/dL (11.7-16.9); LYMPH % 15.7 % (8-40); MCH 28.7 pg (25.7-33.7); MCHC 33.2 g/dl (32.0-35.9); MEAN CELL VOLUME 86.5 fl (80-96); MEAN PLT VOLUME 7.4 fl (7.5-11.1); NEUT % 78.7 % (42.8-82.8); PLATELET COUNT 270 K/MM3 (134-434); RBC 4.58 M/mm3 (4.00-5.60); RDW 14.9 % (11.9-15.9); WHITE BLOOD COUNT 12.2 K/mm3 (4.0-10.0)
[2017-07-11 13:41] LABS: PHOSPHOROUS 3.9 mg/dL (2.5-4.9)
--- NOTE | 2017-07-11 15:05 | PN ---
Physical Exam: SUBJECTIVE: Patient seen and examined No acute events overnight. Patient feels well this morning. Patient has diffuse rash. OBJECTIVE: Vital Signs Period Temp Pulse Resp BP Sys/Burch Pulse Ox Last 24 Hr 97.4 F-98.1 F 70-88 16-18 138-155/79-98 97-98 GENERAL: The patient is awake, alert, and fully oriented, in no acute distress. HEAD: Normal with no signs of trauma. EYES: Extraocular movements intact, sclera anicteric, conjunctiva clear. No ptosis. ENT: Oropharynx clear without exudates, moist mucous membranes. +oral lesions NECK: Trachea midline, full range of motion, supple. LUNGS: Breath sounds equal, clear to auscultation bilaterally, no wheezes, no crackles, no accessory muscle use. HEART: Regular rate and rhythm, S1, S2 without murmur, rub or gallop. ABDOMEN: Soft, nontender, nondistended, normoactive bowel sounds, no guarding, no rebound, no hepatosplenomegaly, no masses. EXTREMITIES: 2+ pulses, warm, well-perfused, 2+ pitting pedal edema NEUROLOGICAL: Cranial nerves II through XII grossly intact. Normal speech, gait not observed. PSYCH: Normal mood, normal affect. SKIN: Warm, dry, normal turgor, maculopapular rash on neck, shoulders, thighs and hyperpigmented scaly plaques on bilateral dorsal hands. Laboratory Results - last 24 hr 07/10/17 07/11/17 07/11/17 20:15 08:50 08:50 WBC 12.2 H D RBC 4.58 Hgb 13.2 D Hct 39.6 D MCV 86.5 MCH 28.7 MCHC 33.2 RDW 14.9 Plt Count 270 MPV 7.4 L Neutrophils % 78.7 Lymphocytes % 15.7 D Monocytes % 4.0 Eosinophils % 0.8 Basophils % 0.8 Sodium Cancelled Potassium Cancelled Chloride Cancelled Carbon Dioxide Cancelled Anion Gap Cancelled BUN Cancelled Creatinine Cancelled Random Glucose Cancelled Calcium Cancelled Phosphorus Cancelled U Random Total Protein 397 H Urine Creatinine 66.3 Protein/Creatinin Ratio 6.015 07/11/17 08:50 WBC RBC Hgb Hct MCV MCH MCHC RDW Plt Count MPV Neutrophils % Lymphocytes % Monocytes % Eosinophils % Basophils % Sodium 138 Potassium 4.2 Chloride 105 Carbon Dioxide 25 Anion Gap 8 BUN 59 H Creatinine 2.4 H Random Glucose 149 H D Calcium 6.9 L* Phosphorus 3.9 U Random Total Protein Urine Creatinine Protein/Creatinin Ratio Active Medications Generic Name Dose Route Start Last Admin Trade Name Freq PRN Reason Stop Dose Admin Amlodipine Besylate 10 mg 07/10/17 10:00 07/11/17 09:15 Norvasc - PO 10 mg DAILY RADHA Administration Furosemide 40 mg 07/11/17 10:00 07/11/17 09:15 Lasix - PO 40 mg DAILY RADHA Administration Heparin Sodium (Porcine) 5,000 unit 07/09/17 22:00 07/11/17 13:52 Heparin - SQ 5,000 unit TID RADHA Administration Prednisone 60 mg 07/10/17 00:36 07/11/17 09:15 Deltasone - PO 60 mg DAILY RADHA Administration ASSESSMENT/PLAN: 52 year old M with pmh of HTN and recent diagnosis of pauci immune glomerulonephritis presented with LE edema and diffuse maculopapular rash #CKD, likely 2/2 to Granulomatosis with polyangiitis. Cr back to baseline -Continue prednisone 60 mg po daily -Will be transferred to 7th floor for rituxamab and Rave protocol per Dr. Matias -Lasix 40 mg po daily -Rheum/Renal consulted #HTN -Continue norvasc 10 mg po daily #FEN/GI -No IVF -wnl -Sodium controlled/Renal diet PPx: Heparin 5000 u sq tid Visit type - Emergency Visit Emergency Visit: Yes ED Registration Date: 07/09/17 Care time: The patient presented to the Emergency Department on the above date and was hospitalized for further evaluation of their emergent condition. - New Patient This patient is new to me today: No - Critical Care Critical Care patient: No
[2017-07-11] MEDS ORDERED: FUROSEMIDE 40 MG TABLET (FP) PO ONE (16:14)
--- NOTE | 2017-07-11 16:14 | PN ---
Progress Note, Physician History of Present Illness: Pt seen and examined at bedside. He is awake and alert. He denies cough or hemoptysis. He denies gross hematuria. He complains of lower ext swelling. - Current Medication List Current Medications: Active Medications Acetaminophen (Tylenol -) 1,000 mg PO ONCE ONE Stop: 07/12/17 10:01 Amlodipine Besylate (Norvasc -) 10 mg PO DAILY [facility] Last Admin: 07/11/17 09:15 Dose: 10 mg Diphenhydramine HCl (Benadryl -) 25 mg PO ONCE ONE Stop: 07/12/17 08:01 Furosemide (Lasix -) 40 mg PO DAILY [facility] Last Admin: 07/11/17 09:15 Dose: 40 mg Heparin Sodium (Porcine) (Heparin -) 5,000 unit SQ TID [facility] Last Admin: 07/11/17 13:52 Dose: 5,000 unit Rituximab 757 mg/ Dextrose 378 mls @ 94.5 mls/hr IVPB ONCE ONE Stop: 07/12/17 12:29 Methylprednisolone Sodium Succinate (Solu-Medrol -) 100 mg IVPUSH ONCE ONE Stop: 07/12/17 08:01 Prednisone (Deltasone -) 60 mg PO DAILY [facility] Last Admin: 07/11/17 09:15 Dose: 60 mg - Objective Vital Signs: Vital Signs Temperature 98.1 F 07/11/17 15:46 Pulse Rate 91 H 07/11/17 15:46 Respiratory Rate 20 07/11/17 15:46 Blood Pressure 161/97 07/11/17 15:46 O2 Sat by Pulse Oximetry (%) 98 07/11/17 09:00 Constitutional: Yes: Calm Eyes: Yes: Conjunctiva Clear HENT: Yes: Atraumatic Cardiovascular: Yes: S1, S2 Respiratory: Yes: CTA Bilaterally Gastrointestinal: Yes: Soft, Abdomen, Obese Genitourinary: Yes: WNL Musculoskeletal: Yes: WNL Edema: Yes Edema: LLE: 2+, RLE: 2+ Integumentary: Yes: Rash Neurological: Yes: Oriented Psychiatric: Yes: Oriented Labs: CBC, BMP 07/11/17 08:50 07/11/17 08:50 - ....Imaging Chest X-ray: Report Reviewed Problem List - Problems (1) Edema Code(s): R60.9 - EDEMA, UNSPECIFIED Qualifiers: Edema type: generalized Qualified Code(s): R60.1 - Generalized edema (2) Granulomatosis with polyangiitis with renal involvement Code(s): M31.31 - SONYA'S GRANULOMATOSIS WITH RENAL INVOLVEMENT (3) Chronic kidney disease Code(s): N18.9 - CHRONIC KIDNEY DISEASE, UNSPECIFIED Qualifiers: Chronic kidney disease stage: stage 3 (moderate) Qualified Code(s): N18.3 - Chronic kidney disease, stage 3 (moderate) (4) Diabetes mellitus Code(s): E11.9 - TYPE 2 DIABETES MELLITUS WITHOUT COMPLICATIONS Assessment/Plan Current Medications Generic Name Dose Route Start Last Admin Trade Name Freq PRN Reason Stop Dose Admin Acetaminophen 1,000 mg 07/12/17 10:00 Tylenol - PO 07/12/17 10:01 ONCE ONE Amlodipine Besylate 10 mg 07/10/17 10:00 07/11/17 09:15 Norvasc - PO 10 mg DAILY RADHA Administration Diphenhydramine HCl 25 mg 07/12/17 08:00 Benadryl - PO 07/12/17 08:01 ONCE ONE Furosemide 40 mg 07/11/17 10:00 07/11/17 09:15 Lasix - PO 40 mg DAILY RADHA Administration Heparin Sodium (Porcine) 5,000 unit 07/09/17 22:00 07/11/17 13:52 Heparin - SQ 5,000 unit TID RADHA Administration Rituximab 757 mg/ Dextrose 378 mls @ 94.5 mls/hr 07/12/17 08:30 IVPB 07/12/17 12:29 ONCE ONE Methylprednisolone Sodium Succinate 100 mg 07/12/17 08:00 Solu-Medrol - IVPUSH 07/12/17 08:01 ONCE ONE Prednisone 60 mg 07/10/17 00:36 07/11/17 09:15 Deltasone - PO 60 mg DAILY RADHA Administration Impression 1. vasculitis - pauci-immunie 2. CKD 3. proteinuria 4. HTN Plan - cont with steroids - pt to start rituximab - cont lasix, can give extra dose - repeat labs in am - will repeat urine studies in a few days Dr Mayorga
--- NOTE | 2017-07-11 17:52 | PN ---
Teaching Attending Note Name of Resident: Wilmer Quinn ATTENDING PHYSICIAN STATEMENT I saw and evaluated the patient. I reviewed the resident's note and discussed the case with the resident. I agree with the resident's findings and plan as documented. 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
[2017-07-12] MEDS: HEPARIN NA (PORCINE) 5,000 UNITS/ML 1ML VIAL SQ SCH ×3 (06:19→22:45)
[2017-07-12 07:45] LABS: BASO % 0.7 % (0-2.0); EOS % 0.5 % (0-4.5); HEMATOCRIT 34.9 % (35.4-49); HEMOGLOBIN 11.7 GM/dL (11.7-16.9); LYMPH % 14.6 % (8-40); MCH 28.8 pg (25.7-33.7); MCHC 33.7 g/dl (32.0-35.9); MEAN CELL VOLUME 85.4 fl (80-96); NEUT % 78.2 % (42.8-82.8); PLATELET COUNT 229 K/MM3 (134-434); RBC 4.08 M/mm3 (4.00-5.60); RDW 14.3 % (11.9-15.9); WHITE BLOOD COUNT 9.8 K/mm3 (4.0-10.0)
[2017-07-12] MEDS ORDERED: methylPREDNISolone NA SUCC 125 MG/2 ML VIAL IVPUSH ONE (08:00)
[2017-07-12] MEDS ORDERED: diphenhydrAMINE HCL 25 MG CAPSULE (FP) PO ONE (08:00)
[2017-07-12 08:02] LABS: CHLORIDE 105 mmol/L (98-107); SODIUM 140 mmol/L (136-145)
[2017-07-12 08:09] LABS: ALBUMIN 1.7 g/dl (3.4-5.0); ALK PHOS 69 U/L (45-117); ANION GAP 11 (8-16); BILIRUBIN,TOTAL 0.6 mg/dL (0.2-1.0); BLOOD UREA NITROGEN 67 mg/dL (7-18); CHOLESTEROL 395 mg/dL (50-200); CO2 24 mmol/L (21-32); CREATININE 2.3 mg/dL (0.7-1.3); GLUCOSE,RANDOM 100 mg/dL (74-106); HDL CHOLESTEROL 56 mg/dL (40-60); LDL CHOLESTEROL (ONLY SJRH) 282 mg/dL (5-100); MAGNESIUM 2.1 mg/dL (1.8-2.4); PHOSPHOROUS 3.9 mg/dL (2.5-4.9); SGOT/AST 9 U/L (15-37); SGPT/ALT 24 U/L (12-78); TOT PROT 4.1 g/dl (6.4-8.2); TRIGLYCERIDES 310 mg/dL (35-160)
[2017-07-12] MEDS ORDERED: DEXTROSE 5% IVPB ONE (08:30)
[2017-07-12] MEDS ORDERED: RITUXIMAB IVPB ONE (08:30)
[2017-07-12] MEDS ORDERED: WATER IVPB ONE (08:30)
[2017-07-12 08:44] LABS: CALCIUM 6.6 mg/dL (8.5-10.1)
[2017-07-12] MEDS: amLODIPine BESYLATE 10 MG TABLET (FP) PO SCH (09:11)
[2017-07-12] MEDS: predniSONE 20 MG TABLET (UD) PO SCH (09:11)
[2017-07-12] MEDS: FUROSEMIDE 40 MG TABLET (FP) PO SCH (09:11)
[2017-07-12] MEDS ORDERED: ACETAMINOPHEN 500 MG TABLET (FP) PO ONE (10:00)
[2017-07-12] MEDS ORDERED: FAMOTIDINE 20 MG/50 ML IVPB 20 MG/50 ML MG IVPB ONE (12:15)
[2017-07-12] MEDS ORDERED: SODIUM CHLORIDE 500 ML IV ONE (12:15)
[2017-07-12] MEDS ORDERED: FUROSEMIDE 40 MG TABLET (FP) PO ONE ×2 (13:26→14:48)
[2017-07-12] MEDS ORDERED: methylPREDNISolone NA SUCC 40 MG/1 ML VIAL IVPUSH ONE (13:30)
--- NOTE | 2017-07-12 13:55 | PN ---
Physical Exam: SUBJECTIVE: Patient seen and examined No acute events overnight. Patient feels well this morning. Rash is improving OBJECTIVE: Vital Signs Period Temp Pulse Resp BP Sys/Burch Pulse Ox Last 24 Hr 97.4 F-98.2 F 67-91 18-20 131-161/76-98 98-100 GENERAL: The patient is awake, alert, and fully oriented, in no acute distress. HEAD: Normal with no signs of trauma. EYES: Extraocular movements intact, sclera anicteric, conjunctiva clear. No ptosis. ENT: Oropharynx clear without exudates, moist mucous membranes. +oral lesions-- improving NECK: Trachea midline, full range of motion, supple. LUNGS: Breath sounds equal, clear to auscultation bilaterally, no wheezes, no crackles, no accessory muscle use. HEART: Regular rate and rhythm, S1, S2 without murmur, rub or gallop. ABDOMEN: Soft, nontender, nondistended, normoactive bowel sounds, no guarding, no rebound, no hepatosplenomegaly, no masses. EXTREMITIES: 2+ pulses, warm, well-perfused, 2+ pitting pedal edema NEUROLOGICAL: Cranial nerves II through XII grossly intact. Normal speech, gait not observed. PSYCH: Normal mood, normal affect. SKIN: Warm, dry, normal turgor, maculopapular rash on neck, shoulders, thighs and hyperpigmented scaly plaques on bilateral dorsal hands. Laboratory Results - last 24 hr 07/11/17 07/12/17 07/12/17 08:50 06:00 06:00 WBC 12.2 H D 9.8 RBC 4.58 4.08 Hgb 13.2 D 11.7 D Hct 39.6 D 34.9 L MCV 86.5 85.4 MCH 28.7 28.8 MCHC 33.2 33.7 RDW 14.9 14.3 Plt Count 270 229 MPV 7.4 L 7.0 L Neutrophils % 78.7 78.2 Lymphocytes % 15.7 D 14.6 Monocytes % 4.0 6.0 Eosinophils % 0.8 0.5 Basophils % 0.8 0.7 Sodium 140 Potassium 4.0 Chloride 105 Carbon Dioxide 24 Anion Gap 11 BUN 67 H Creatinine 2.3 H Creat Clearance w eGFR 30.13 Random Glucose 100 D Calcium 6.6 L* Phosphorus 3.9 Magnesium 2.1 Total Bilirubin 0.6 AST 9 L D ALT 24 D Alkaline Phosphatase 69 Total Protein 4.1 L Albumin 1.7 L Triglycerides Cholesterol Total LDL Cholesterol HDL Cholesterol 07/12/17 06:00 WBC RBC Hgb Hct MCV MCH MCHC RDW Plt Count MPV Neutrophils % Lymphocytes % Monocytes % Eosinophils % Basophils % Sodium Potassium Chloride Carbon Dioxide Anion Gap BUN Creatinine Creat Clearance w eGFR Random Glucose Calcium Phosphorus Magnesium Total Bilirubin AST ALT Alkaline Phosphatase Total Protein Albumin Triglycerides 310 H Cholesterol 395 H Total LDL Cholesterol 282 H HDL Cholesterol 56 Active Medications Generic Name Dose Route Start Last Admin Trade Name Freq PRN Reason Stop Dose Admin Amlodipine Besylate 10 mg 07/10/17 10:00 07/12/17 09:11 Norvasc - PO 10 mg DAILY RADHA Administration Atorvastatin Calcium 20 mg 07/12/17 22:00 Lipitor - PO HS RADHA Furosemide 40 mg 07/11/17 10:00 07/12/17 09:11 Lasix - PO 40 mg DAILY RADHA Administration Heparin Sodium (Porcine) 5,000 unit 07/09/17 22:00 07/12/17 06:19 Heparin - SQ 5,000 unit TID RADHA Administration Prednisone 60 mg 07/10/17 00:36 07/12/17 09:11 Deltasone - PO 60 mg DAILY RADHA Administration ASSESSMENT/PLAN: 52 year old M with pmh of HTN and recent diagnosis of pauci immune glomerulonephritis presented with LE edema and diffuse maculopapular rash #CKD, likely 2/2 to Granulomatosis with polyangiitis. Cr back to baseline -Continue prednisone 60 mg po daily -Rituxamab and Rave protocol per Dr. Matias, pt unable to tolerate 2/2 to reaction. -Lasix 40 mg po daily, extra dose of lasix today given -Rheum/Renal consulted #HTN -Continue norvasc 10 mg po daily #HLD -Lipitor 20 mg started #FEN/GI -No IVF -wnl -Sodium controlled/Renal diet PPx: Heparin 5000 u sq tid Visit type - Emergency Visit Emergency Visit: Yes ED Registration Date: 07/09/17 Care time: The patient presented to the Emergency Department on the above date and was hospitalized for further evaluation of their emergent condition. - New Patient This patient is new to me today: No - Critical Care Critical Care patient: No
--- NOTE | 2017-07-12 14:48 | PN ---
Progress Note, Physician History of Present Illness: Pt seen and examined at bedside. He is awake and alert. He had an allergic reaction to the rituximab yesterday. - Current Medication List Current Medications: Active Medications Amlodipine Besylate (Norvasc -) 10 mg PO DAILY [facility] Last Admin: 07/12/17 09:11 Dose: 10 mg Atorvastatin Calcium (Lipitor -) 20 mg PO HS [facility] Furosemide (Lasix -) 40 mg PO DAILY [facility] Last Admin: 07/12/17 09:11 Dose: 40 mg Heparin Sodium (Porcine) (Heparin -) 5,000 unit SQ TID [facility] Last Admin: 07/12/17 06:19 Dose: 5,000 unit Prednisone (Deltasone -) 60 mg PO DAILY [facility] Last Admin: 07/12/17 09:11 Dose: 60 mg - Objective Vital Signs: Vital Signs Temperature 98.0 F 07/12/17 14:35 Pulse Rate 83 07/12/17 14:35 Respiratory Rate 20 07/12/17 14:35 Blood Pressure 136/86 07/12/17 14:35 O2 Sat by Pulse Oximetry (%) 100 07/12/17 13:15 Constitutional: Yes: Calm Eyes: Yes: Conjunctiva Clear HENT: Yes: Atraumatic Cardiovascular: Yes: S1, S2 Respiratory: Yes: CTA Bilaterally Gastrointestinal: Yes: Normal Bowel Sounds, Soft Genitourinary: Yes: WNL Musculoskeletal: Yes: WNL Edema: Yes Edema: LLE: 2+, RLE: 2+ Integumentary: Yes: Rash Neurological: Yes: Oriented Psychiatric: Yes: Oriented Labs: CBC, BMP 07/12/17 06:00 07/12/17 06:00 Problem List - Problems (1) Edema Code(s): R60.9 - EDEMA, UNSPECIFIED Qualifiers: Edema type: generalized Qualified Code(s): R60.1 - Generalized edema (2) Granulomatosis with polyangiitis with renal involvement Code(s): M31.31 - SONYA'S GRANULOMATOSIS WITH RENAL INVOLVEMENT (3) Chronic kidney disease Code(s): N18.9 - CHRONIC KIDNEY DISEASE, UNSPECIFIED Qualifiers: Chronic kidney disease stage: stage 3 (moderate) Qualified Code(s): N18.3 - Chronic kidney disease, stage 3 (moderate) (4) Diabetes mellitus Code(s): E11.9 - TYPE 2 DIABETES MELLITUS WITHOUT COMPLICATIONS Assessment/Plan Current Medications Generic Name Dose Route Start Last Admin Trade Name Jeremy PRN Reason Stop Dose Admin Amlodipine Besylate 10 mg 07/10/17 10:00 07/12/17 09:11 Norvasc - PO 10 mg DAILY RADHA Administration Atorvastatin Calcium 20 mg 07/12/17 22:00 Lipitor - PO HS RADHA Furosemide 40 mg 07/11/17 10:00 07/12/17 09:11 Lasix - PO 40 mg DAILY RADHA Administration Heparin Sodium (Porcine) 5,000 unit 07/09/17 22:00 07/12/17 06:19 Heparin - SQ 5,000 unit TID RDAHA Administration Prednisone 60 mg 07/10/17 00:36 07/12/17 09:11 Deltasone - PO 60 mg DAILY RADHA Administration Impression 1. vasculitis - pauci-immunie 2. CKD 3. proteinuria 4. 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
[2017-07-12] MEDS ORDERED: PT OWN MED DRAWER 7, Y5N ONE (16:54)
--- NOTE | 2017-07-12 18:26 | PN ---
Teaching Attending Note Name of Resident: Wilmer Quinn ATTENDING PHYSICIAN STATEMENT I saw and evaluated the patient. I reviewed the resident's note and discussed the case with the resident. I agree with the resident's findings and plan as documented. SUBJECTIVE: No fever or chills. has no Abd pain or SOB OBJECTIVE: NAD , pleasant MMM CV: RRR Lungs; CTAB Ext: 2+ pitting edema especially on feet skin: papular rash on upper thighs , upper chest,and upper arms , improved .almost resolved on neck . 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 - possibly for Cyclophosphamide - cont prednisone 60 - cont lasix . 2- HTN: Norvasc , possible switch to HANY I tomorrow if renal function remains stable DVT px
[2017-07-12] MEDS: ATORVASTATIN CA 20 MG TABLET (FP) PO SCH (22:45)
[2017-07-12] MEDS ORDERED: METOPROLOL TARTRATE 25 MG TABLET (FP) PO ONE (22:58)
[2017-07-13] MEDS: HEPARIN NA (PORCINE) 5,000 UNITS/ML 1ML VIAL SQ SCH ×3 (06:07→21:21)
[2017-07-13 07:33] LABS: BASO % 0.2 % (0-2.0); HEMATOCRIT 34.5 % (35.4-49); HEMOGLOBIN 11.6 GM/dL (11.7-16.9); LYMPH % 3.4 % (8-40); MCH 28.6 pg (25.7-33.7); MCHC 33.6 g/dl (32.0-35.9); MEAN PLT VOLUME 6.8 fl (7.5-11.1); MONO % 2.1 % (3.8-10.2); NEUT % 94.3 % (42.8-82.8); PLATELET COUNT 235 K/MM3 (134-434); RBC 4.06 M/mm3 (4.00-5.60); RDW 14.6 % (11.9-15.9); WHITE BLOOD COUNT 10.9 K/mm3 (4.0-10.0)
[2017-07-13 07:55] LABS: ANION GAP 9 (8-16); BLOOD UREA NITROGEN 68 mg/dL (7-18); CHLORIDE 106 mmol/L (98-107); CO2 23 mmol/L (21-32); CREATININE 2.7 mg/dL (0.7-1.3); GLUCOSE,RANDOM 159 mg/dL (74-106); POTASSIUM 4.3 mmol/L (3.5-5.1); SODIUM 138 mmol/L (136-145)
[2017-07-13 09:28] LABS: CALCIUM 6.9 mg/dL (8.5-10.1)
[2017-07-13] MEDS: predniSONE 20 MG TABLET (UD) PO SCH (11:15)
[2017-07-13] MEDS: FUROSEMIDE 40 MG TABLET (FP) PO SCH (11:17)
[2017-07-13] MEDS: amLODIPine BESYLATE 10 MG TABLET (FP) PO SCH (11:17)
--- NOTE | 2017-07-13 13:28 | PN ---
Progress Note, Physician History of Present Illness: Pt seen and examined at bedside. He is awake and alert. He denies shortness of breath. - Current Medication List Current Medications: Active Medications Amlodipine Besylate (Norvasc -) 10 mg PO DAILY [facility] Last Admin: 07/13/17 11:17 Dose: 10 mg Atorvastatin Calcium (Lipitor -) 20 mg PO HS [facility] Last Admin: 07/12/17 22:45 Dose: 20 mg Furosemide (Lasix -) 40 mg PO DAILY [facility] Last Admin: 07/13/17 11:17 Dose: 40 mg Heparin Sodium (Porcine) (Heparin -) 5,000 unit SQ TID [facility] Last Admin: 07/13/17 06:07 Dose: 5,000 unit Prednisone (Deltasone -) 60 mg PO DAILY [facility] Last Admin: 07/13/17 11:15 Dose: 60 mg - Objective Vital Signs: Vital Signs Temperature 98 F 07/13/17 11:11 Pulse Rate 68 07/13/17 11:11 Respiratory Rate 18 07/13/17 11:11 Blood Pressure 159/80 07/13/17 11:11 O2 Sat by Pulse Oximetry (%) 100 07/12/17 22:00 Constitutional: Yes: Calm Eyes: Yes: Conjunctiva Clear HENT: Yes: Atraumatic Neck: Yes: Supple Cardiovascular: Yes: S1, S2 Respiratory: Yes: CTA Bilaterally Gastrointestinal: Yes: Soft Genitourinary: Yes: WNL Musculoskeletal: Yes: WNL Edema: Yes Edema: LLE: 2+, RLE: 2+ Neurological: Yes: Oriented Psychiatric: Yes: Oriented Labs: CBC, BMP 07/13/17 06:00 07/13/17 06:00 Problem List - Problems (1) Edema Code(s): R60.9 - EDEMA, UNSPECIFIED Qualifiers: Edema type: generalized Qualified Code(s): R60.1 - Generalized edema (2) Granulomatosis with polyangiitis with renal involvement Code(s): M31.31 - SONYA'S GRANULOMATOSIS WITH RENAL INVOLVEMENT (3) Chronic kidney disease Code(s): N18.9 - CHRONIC KIDNEY DISEASE, UNSPECIFIED Qualifiers: Chronic kidney disease stage: stage 3 (moderate) Qualified Code(s): N18.3 - Chronic kidney disease, stage 3 (moderate) (4) Diabetes mellitus Code(s): E11.9 - TYPE 2 DIABETES MELLITUS WITHOUT COMPLICATIONS Assessment/Plan Current Medications Generic Name Dose Route Start Last Admin Trade Name Jeremy PRN Reason Stop Dose Admin Amlodipine Besylate 10 mg 07/10/17 10:00 07/13/17 11:17 Norvasc - PO 10 mg DAILY RADHA Administration Atorvastatin Calcium 20 mg 07/12/17 22:00 07/12/17 22:45 Lipitor - PO 20 mg HS RADHA Administration Furosemide 40 mg 07/11/17 10:00 07/13/17 11:17 Lasix - PO 40 mg DAILY RADHA Administration Heparin Sodium (Porcine) 5,000 unit 07/09/17 22:00 07/13/17 06:07 Heparin - SQ 5,000 unit TID RADHA Administration Prednisone 60 mg 07/10/17 00:36 07/13/17 11:15 Deltasone - PO 60 mg DAILY RADHA Administration Impression 1. vasculitis - pauci-immunie 2. CKD 3. proteinuria 4. 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
--- NOTE | 2017-07-13 13:37 | PN ---
<Wilmer Quinn - Last Filed: 07/13/17 13:46> Physical Exam: SUBJECTIVE: Patient seen and examined No acute events overnight. Patient feels well this morning. Rash is improving. denies fever, chills, sob, chest pain, abd pain OBJECTIVE: Vital Signs Period Temp Pulse Resp BP Sys/Burch Pulse Ox Last 24 Hr 97.3 F-98.5 F 65-85 18-20 136-163/71-96 100 GENERAL: The patient is awake, alert, and fully oriented, in no acute distress. HEAD: Normal with no signs of trauma. EYES: Extraocular movements intact, sclera anicteric, conjunctiva clear. No ptosis. ENT: Oropharynx clear without exudates, moist mucous membranes. +oral lesions-- improving NECK: Trachea midline, full range of motion, supple. LUNGS: Breath sounds equal, clear to auscultation bilaterally, no wheezes, no crackles, no accessory muscle use. HEART: Regular rate and rhythm, S1, S2 without murmur, rub or gallop. ABDOMEN: Soft, nontender, nondistended, normoactive bowel sounds, no guarding, no rebound, no hepatosplenomegaly, no masses. EXTREMITIES: 2+ pulses, warm, well-perfused, 2+ pitting pedal edema NEUROLOGICAL: Cranial nerves II through XII grossly intact. Normal speech, gait not observed. PSYCH: Normal mood, normal affect. SKIN: Warm, dry, normal turgor, maculopapular rash on neck, shoulders, thighs and hyperpigmented scaly plaques on bilateral dorsal hands--improving Laboratory Results - last 24 hr 07/13/17 07/13/17 07/13/17 06:00 06:00 11:13 WBC 10.9 H RBC 4.06 Hgb 11.6 L Hct 34.5 L MCV 85.0 MCH 28.6 MCHC 33.6 RDW 14.6 Plt Count 235 MPV 6.8 L Neutrophils % 94.3 H D Lymphocytes % 3.4 L D Monocytes % 2.1 L Eosinophils % 0.0 D Basophils % 0.2 Sodium 138 Potassium 4.3 Chloride 106 Carbon Dioxide 23 Anion Gap 9 BUN 68 H Creatinine 2.7 H POC Glucometer 114 Random Glucose 159 H D Calcium 6.9 L* Active Medications Generic Name Dose Route Start Last Admin Trade Name Freq PRN Reason Stop Dose Admin Amlodipine Besylate 10 mg 07/10/17 10:00 07/13/17 11:17 Norvasc - PO 10 mg DAILY RADHA Administration Atorvastatin Calcium 20 mg 07/12/17 22:00 07/12/17 22:45 Lipitor - PO 20 mg HS RADHA Administration Furosemide 40 mg 07/11/17 10:00 07/13/17 11:17 Lasix - PO 40 mg DAILY RADHA Administration Heparin Sodium (Porcine) 5,000 unit 07/09/17 22:00 07/13/17 06:07 Heparin - SQ 5,000 unit TID RADHA Administration Prednisone 60 mg 07/10/17 00:36 07/13/17 11:15 Deltasone - PO 60 mg DAILY RADHA Administration ASSESSMENT/PLAN: 52 year old M with pmh of HTN and recent diagnosis of pauci immune glomerulonephritis presented with LE edema and diffuse maculopapular rash #CKD, likely 2/2 to Granulomatosis with polyangiitis. Cr back to baseline -Continue prednisone 60 mg po daily -Patient unable to tolerate Rituxamab and Rave protocol -Continue lasix 40 mg po daily -Rheum/Renal consulted #HTN -Continue norvasc 10 mg po daily, will hold off on Wu-I or ARB #HLD -Lipitor 20 mg started #FEN/GI -No IVF -wnl -Sodium controlled/Renal diet PPx: Heparin 5000 u sq tid Visit type - Emergency Visit Emergency Visit: Yes ED Registration Date: 07/09/17 Care time: The patient presented to the Emergency Department on the above date and was hospitalized for further evaluation of their emergent condition. - New Patient This patient is new to me today: No - Critical Care Critical Care patient: No <Fernanda Frausto - Last Filed: 07/13/17 19:39> Physical Exam: Patient seen and examined. Patient is a 52 year old M with pmh of HTN and recent diagnosis of pauci immune glomerulonephritis presented with LE edema and diffuse maculopapular rash with CKD with Granulomatosis with polyangiitis. Cr back to baseline, on prednisone 60 mg po daily. s/p Rituxamab, patient had an allergic rxn to it. and was discontinued. Rheum/Renal consult appreciated. Vital Signs Temperature 97.8 F 07/13/17 18:09 Pulse Rate 68 07/13/17 18:09 Respiratory Rate 18 07/13/17 18:09 Blood Pressure 147/89 07/13/17 18:09 O2 Sat by Pulse Oximetry (%) 100 07/12/17 22:00 CBCD WBC 10.9 K/mm3 (4.0-10.0) H 07/13/17 06:00 RBC 4.06 M/mm3 (4.00-5.60) 07/13/17 06:00 Hgb 11.6 GM/dL (11.7-16.9) L 07/13/17 06:00 Hct 34.5 % (35.4-49) L 07/13/17 06:00 MCV 85.0 fl (80-96) 07/13/17 06:00 MCHC 33.6 g/dl (32.0-35.9) 07/13/17 06:00 RDW 14.6 % (11.9-15.9) 07/13/17 06:00 Plt Count 235 K/MM3 (134-434) 07/13/17 06:00 MPV 6.8 fl (7.5-11.1) L 07/13/17 06:00 CMP Sodium 138 mmol/L (136-145) 07/13/17 06:00 Potassium 4.3 mmol/L (3.5-5.1) 07/13/17 06:00 Chloride 106 mmol/L (98-107) 07/13/17 06:00 Carbon Dioxide 23 mmol/L (21-32) 07/13/17 06:00 Anion Gap 9 (8-16) 07/13/17 06:00 BUN 68 mg/dL (7-18) H 07/13/17 06:00 Creatinine 2.7 mg/dL (0.7-1.3) H 07/13/17 06:00 Creat Clearance w eGFR 30.13 (>60) 07/12/17 06:00 Random Glucose 159 mg/dL (74-106) H D 07/13/17 06:00 Calcium 6.9 mg/dL (8.5-10.1) L* 07/13/17 06:00 Total Bilirubin 0.6 mg/dL (0.2-1.0) 07/12/17 06:00 AST 9 U/L (15-37) L D 07/12/17 06:00 ALT 24 U/L (12-78) D 07/12/17 06:00 Alkaline Phosphatase 69 U/L (45-117) 07/12/17 06:00 Total Protein 4.1 g/dl (6.4-8.2) L 07/12/17 06:00 Albumin 1.7 g/dl (3.4-5.0) L 07/12/17 06:00 Current Medications Generic Name Dose Route Start Last Admin Trade Name Jeremy PRN Reason Stop Dose Admin Amlodipine Besylate 10 mg 07/10/17 10:00 07/13/17 11:17 Norvasc - PO 10 mg DAILY RADHA Administration Atorvastatin Calcium 20 mg 07/12/17 22:00 07/12/17 22:45 Lipitor - PO 20 mg HS RADHA Administration Furosemide 40 mg 07/11/17 10:00 07/13/17 11:17 Lasix - PO 40 mg DAILY RADHA Administration Heparin Sodium (Porcine) 5,000 unit 07/09/17 22:00 07/13/17 16:55 Heparin - SQ Not Given TID RADHA Prednisone 60 mg 07/10/17 00:36 07/13/17 11:15 Deltasone - PO 60 mg DAILY RADHA Administration Home Medications Medication Instructions Recorded Amlodipine Besylate [Norvasc -] 10 mg PO DAILY 07/09/17 Furosemide [Lasix] 20 mg PO DAILY 07/09/17 Prednisone [Deltasone] 20 mg PO BID 07/09/17
[2017-07-13] MEDS: ATORVASTATIN CA 20 MG TABLET (FP) PO SCH (21:21)
[2017-07-14] MEDS: HEPARIN NA (PORCINE) 5,000 UNITS/ML 1ML VIAL SQ SCH ×3 (06:06→21:34)
[2017-07-14 07:59] LABS: ANION GAP 10 (8-16); BLOOD UREA NITROGEN 64 mg/dL (7-18); CALCIUM 7.1 mg/dL (8.5-10.1); CHLORIDE 106 mmol/L (98-107); CO2 25 mmol/L (21-32); GLUCOSE,RANDOM 118 mg/dL (74-106); POTASSIUM 4.2 mmol/L (3.5-5.1); SODIUM 141 mmol/L (136-145)
[2017-07-14 08:01] LABS: CREATININE 2.3 mg/dL (0.7-1.3)
[2017-07-14 08:02] LABS: BASO % 0.4 % (0-2.0); EOS % 0.1 % (0-4.5); HEMATOCRIT 35.7 % (35.4-49); HEMOGLOBIN 12.1 GM/dL (11.7-16.9); LYMPH % 7.5 % (8-40); MCH 28.8 pg (25.7-33.7); MCHC 33.8 g/dl (32.0-35.9); MEAN CELL VOLUME 85.1 fl (80-96); MEAN PLT VOLUME 6.9 fl (7.5-11.1); PLATELET COUNT 234 K/MM3 (134-434); RBC 4.19 M/mm3 (4.00-5.60); RDW 14.4 % (11.9-15.9); WHITE BLOOD COUNT 11.2 K/mm3 (4.0-10.0)
[2017-07-14] MEDS: predniSONE 20 MG TABLET (UD) PO SCH (09:16)
[2017-07-14] MEDS: amLODIPine BESYLATE 10 MG TABLET (FP) PO SCH (09:16)
[2017-07-14] MEDS: FUROSEMIDE 40 MG TABLET (FP) PO SCH (09:17)
--- NOTE | 2017-07-14 11:06 | PN ---
<Wilmer Quinn - Last Filed: 07/14/17 16:20> Physical Exam: SUBJECTIVE: Patient seen and examined No acute events overnight. Patient feels well this morning. Rash is improving. denies fever, chills, sob, chest pain, abd pain OBJECTIVE: Vital Signs Period Temp Pulse Resp BP Sys/Bruch Pulse Ox Last 24 Hr 97.7 F-98.2 F 60-80 18-18 134-159/80-97 96-98 GENERAL: The patient is awake, alert, and fully oriented, in no acute distress. HEAD: Normal with no signs of trauma. EYES: Extraocular movements intact, sclera anicteric, conjunctiva clear. No ptosis. ENT: Oropharynx clear without exudates, moist mucous membranes. +oral lesions NECK: Trachea midline, full range of motion, supple. LUNGS: Breath sounds equal, clear to auscultation bilaterally, no wheezes, no crackles, no accessory muscle use. HEART: Regular rate and rhythm, S1, S2 without murmur, rub or gallop. ABDOMEN: Soft, nontender, nondistended, normoactive bowel sounds, no guarding, no rebound, no hepatosplenomegaly, no masses. EXTREMITIES: 2+ pulses, warm, well-perfused, 2+ pitting pedal edema NEUROLOGICAL: Cranial nerves II through XII grossly intact. Normal speech, gait not observed. PSYCH: Normal mood, normal affect. SKIN: Warm, dry, normal turgor, maculopapular rash on neck, shoulders, thighs and hyperpigmented scaly plaques on bilateral dorsal hands--improving Laboratory Results - last 24 hr 07/13/17 07/13/17 07/14/17 11:13 17:35 06:00 WBC 11.2 H RBC 4.19 Hgb 12.1 Hct 35.7 MCV 85.1 MCH 28.8 MCHC 33.8 RDW 14.4 Plt Count 234 MPV 6.9 L Neutrophils % 86.0 H Lymphocytes % 7.5 L D Monocytes % 6.0 D Eosinophils % 0.1 D Basophils % 0.4 Sodium Potassium Chloride Carbon Dioxide Anion Gap BUN Creatinine POC Glucometer 114 256 Random Glucose Calcium 07/14/17 06:00 WBC RBC Hgb Hct MCV MCH MCHC RDW Plt Count MPV Neutrophils % Lymphocytes % Monocytes % Eosinophils % Basophils % Sodium 141 Potassium 4.2 Chloride 106 Carbon Dioxide 25 Anion Gap 10 BUN 64 H Creatinine 2.3 H POC Glucometer Random Glucose 118 H D Calcium 7.1 L Active Medications Generic Name Dose Route Start Last Admin Trade Name Jeremy PRN Reason Stop Dose Admin Amlodipine Besylate 10 mg 07/10/17 10:00 07/14/17 09:16 Norvasc - PO 10 mg DAILY RADHA Administration Atorvastatin Calcium 20 mg 07/12/17 22:00 07/13/17 21:21 Lipitor - PO 20 mg HS RADHA Administration Furosemide 40 mg 07/11/17 10:00 07/14/17 09:17 Lasix - PO 40 mg DAILY RADHA Administration Heparin Sodium (Porcine) 5,000 unit 07/09/17 22:00 07/14/17 06:06 Heparin - SQ 5,000 unit TID RADHA Administration Prednisone 60 mg 07/10/17 00:36 07/14/17 09:16 Deltasone - PO 60 mg DAILY RADHA Administration ASSESSMENT/PLAN: 52 year old M with pmh of HTN and recent diagnosis of pauci immune glomerulonephritis presented with LE edema and diffuse maculopapular rash #CKD, likely 2/2 to Granulomatosis with polyangiitis. Cr back to baseline -Continue prednisone 60 mg po daily -Patient was unable to tolerate Rituxamab and Rave protocol -Cytoxan tomorrow -Continue lasix 40 mg po daily -Rheum/Renal consulted #HTN -Continue norvasc 10 mg po daily, will hold off on Wu-I or ARB #HLD -Lipitor 20 mg #FEN/GI -No IVF -wnl -Sodium controlled/Renal diet PPx: Heparin 5000 u sq tid Visit type - Emergency Visit Emergency Visit: Yes ED Registration Date: 07/09/17 Care time: The patient presented to the Emergency Department on the above date and was hospitalized for further evaluation of their emergent condition. - New Patient This patient is new to me today: No - Critical Care Critical Care patient: No <Fernanda Frausto - Last Filed: 07/14/17 19:02> Physical Exam: Patient's allergic reaction is improving due to Ritaxan, is arranged to receive to have Cytoxan IV, will monitor closely since had a reaction to Ritaxan.
--- NOTE | 2017-07-14 14:36 | PN ---
Progress Note, Physician History of Present Illness: Pt seen and examined at bedside. He is awake and alert. He denies shortness of breath. - Current Medication List Current Medications: Active Medications Amlodipine Besylate (Norvasc -) 10 mg PO DAILY [facility] Last Admin: 07/14/17 09:16 Dose: 10 mg Atorvastatin Calcium (Lipitor -) 20 mg PO HS [facility] Last Admin: 07/13/17 21:21 Dose: 20 mg Furosemide (Lasix -) 40 mg PO DAILY [facility] Last Admin: 07/14/17 09:17 Dose: 40 mg Heparin Sodium (Porcine) (Heparin -) 5,000 unit SQ TID [facility] Last Admin: 07/14/17 13:48 Dose: 5,000 unit Cyclophosphamide 1,000 mg/ (Sodium Chloride) 300 mls @ 300 mls/hr IVPB ONCE ONE Stop: 07/15/17 10:59 Prednisone (Deltasone -) 60 mg PO DAILY [facility] Last Admin: 07/14/17 09:16 Dose: 60 mg - Objective Vital Signs: Vital Signs Temperature 98.2 F 07/14/17 09:00 Pulse Rate 80 07/14/17 09:00 Respiratory Rate 18 07/14/17 09:00 Blood Pressure 140/92 07/14/17 09:00 O2 Sat by Pulse Oximetry (%) 98 07/14/17 09:00 Constitutional: Yes: Calm Eyes: Yes: Conjunctiva Clear HENT: Yes: Atraumatic Neck: Yes: Supple Cardiovascular: Yes: S1, S2 Respiratory: Yes: CTA Bilaterally Gastrointestinal: Yes: Normal Bowel Sounds Genitourinary: Yes: WNL Musculoskeletal: Yes: WNL Edema: Yes Edema: LLE: 2+, RLE: 2+ Neurological: Yes: Oriented Psychiatric: Yes: Oriented Labs: CBC, BMP 07/14/17 06:00 07/14/17 06:00 Problem List - Problems (1) Edema Code(s): R60.9 - EDEMA, UNSPECIFIED Qualifiers: Edema type: generalized Qualified Code(s): R60.1 - Generalized edema (2) Granulomatosis with polyangiitis with renal involvement Code(s): M31.31 - SONYA'S GRANULOMATOSIS WITH RENAL INVOLVEMENT (3) Chronic kidney disease Code(s): N18.9 - CHRONIC KIDNEY DISEASE, UNSPECIFIED Qualifiers: Chronic kidney disease stage: stage 3 (moderate) Qualified Code(s): N18.3 - Chronic kidney disease, stage 3 (moderate) (4) Diabetes mellitus Code(s): E11.9 - TYPE 2 DIABETES MELLITUS WITHOUT COMPLICATIONS Assessment/Plan Current Medications Generic Name Dose Route Start Last Admin Trade Name Jeremy PRN Reason Stop Dose Admin Amlodipine Besylate 10 mg 07/10/17 10:00 07/14/17 09:16 Norvasc - PO 10 mg DAILY RADHA Administration Atorvastatin Calcium 20 mg 07/12/17 22:00 07/13/17 21:21 Lipitor - PO 20 mg HS RADHA Administration Furosemide 40 mg 07/11/17 10:00 07/14/17 09:17 Lasix - PO 40 mg DAILY RADHA Administration Heparin Sodium (Porcine) 5,000 unit 07/09/17 22:00 07/14/17 13:48 Heparin - SQ 5,000 unit TID RADHA Administration Cyclophosphamide 1,000 mg/ 300 mls @ 300 mls/hr 07/15/17 10:00 Sodium Chloride IVPB 07/15/17 10:59 ONCE ONE Prednisone 60 mg 07/10/17 00:36 07/14/17 09:16 Deltasone - PO 60 mg DAILY RADHA Administration Impression 1. vasculitis - pauci-immunie 2. CKD 3. proteinuria 4. HTN Plan - will start low dose amanda and titrate as tolerated - discussed with rheum, pt will start cytoxan tomorrow - discussed with medica team - cont with lasix - cont steroids - elevate legs Dr Mayorga
--- NOTE | 2017-07-14 15:25 | PN ---
Progress Note (short form) - Note Progress Note: Patient is feeling well. Improvement in edema. He denies SOB, arthralgia or skin rash. P/E Lungs clear, no active joints. Pitting edema in legs. I am aware of intolerance to Rituximab. As discussed with Dr. Mayorga, I will start Cyclophosphamide IV monthly pulses. I explained to the patient possible side effects, he agreed to the treatment. Based on chronic kidneydisease I will start 500 mg/m2. Protocol in chart. Loraine Matias MD ] Problem List - Problems (1) Granulomatosis with polyangiitis with renal involvement Code(s): M31.31 - SONYA'S GRANULOMATOSIS WITH RENAL INVOLVEMENT
[2017-07-14] MEDS: ATORVASTATIN CA 20 MG TABLET (FP) PO SCH (21:34)
[2017-07-15] MEDS: HEPARIN NA (PORCINE) 5,000 UNITS/ML 1ML VIAL SQ SCH ×2 (06:33→13:09)
[2017-07-15 08:15] LABS: BASO % 0.4 % (0-2.0); EOS % 0.3 % (0-4.5); HEMATOCRIT 36.9 % (35.4-49); HEMOGLOBIN 12.5 GM/dL (11.7-16.9); LYMPH % 10.8 % (8-40); MCH 28.9 pg (25.7-33.7); MCHC 33.8 g/dl (32.0-35.9); MEAN CELL VOLUME 85.5 fl (80-96); MONO % 5.8 % (3.8-10.2); NEUT % 82.7 % (42.8-82.8); PLATELET COUNT 240 K/MM3 (134-434); RBC 4.31 M/mm3 (4.00-5.60); WHITE BLOOD COUNT 10.2 K/mm3 (4.0-10.0)
[2017-07-15 08:35] LABS: CHLORIDE 103 mmol/L (98-107); POTASSIUM 4.4 mmol/L (3.5-5.1); SODIUM 138 mmol/L (136-145)
[2017-07-15 08:43] LABS: ANION GAP 7 (8-16); BLOOD UREA NITROGEN 57 mg/dL (7-18); CO2 28 mmol/L (21-32); CREATININE 2.2 mg/dL (0.7-1.3); GLUCOSE,RANDOM 97 mg/dL (74-106)
[2017-07-15] MEDS: amLODIPine BESYLATE 10 MG TABLET (FP) PO SCH (09:42)
[2017-07-15] MEDS: predniSONE 20 MG TABLET (UD) PO SCH (09:42)
[2017-07-15] MEDS: FUROSEMIDE 40 MG TABLET (FP) PO SCH (09:42)
[2017-07-15] MEDS ORDERED: SODIUM CHLORIDE 0.45% 1,000 ML IV ONE ×2 (09:45→13:45)
[2017-07-15] MEDS ORDERED: CYCLOPHOSPHAMIDE INJECTION 1,000 MG in SODIUM CHLORIDE 250 ML IVPB ONE ×2 (10:00→12:45)
[2017-07-15 11:12] LABS: ALBUMIN 1.7 g/dl (3.4-5.0); ALK PHOS 78 U/L (45-117); BILIRUBIN,TOTAL 0.3 mg/dL (0.2-1.0); MAGNESIUM 1.8 mg/dL (1.8-2.4); PHOSPHOROUS 3.3 mg/dL (2.5-4.9); SGOT/AST 10 U/L (15-37); SGPT/ALT 33 U/L (12-78); TOT PROT 4.1 g/dl (6.4-8.2); URIC ACID 7.2 mg/dL (2.6-7.2)
[2017-07-15] MEDS ORDERED: GRANISETRON HCL 1 MG TABLET PO ONE (11:15)
[2017-07-15] MEDS ORDERED: MESNA IVPB ONE ×3 (11:45→16:45)
[2017-07-15] MEDS ORDERED: WATER IVPB ONE ×3 (11:45→16:45)
[2017-07-15] MEDS ORDERED: DEXTROSE 5% IVPB ONE ×3 (11:45→16:45)
--- NOTE | 2017-07-15 14:38 | PN ---
Progress Note, Physician History of Present Illness: Pt seen and examined at bedside. He is currently getting cyclophosphamide. He denies shortness of breath. - Current Medication List Current Medications: Active Medications Amlodipine Besylate (Norvasc -) 10 mg PO DAILY [facility] Last Admin: 07/15/17 09:42 Dose: 10 mg Atorvastatin Calcium (Lipitor -) 20 mg PO HS [facility] Last Admin: 07/14/17 21:34 Dose: 20 mg Furosemide (Lasix -) 40 mg PO DAILY [facility] Last Admin: 07/15/17 09:42 Dose: 40 mg Heparin Sodium (Porcine) (Heparin -) 5,000 unit SQ TID [facility] Last Admin: 07/15/17 13:09 Dose: 5,000 unit Sodium Chloride (1/2 Normal Saline) 1,600 mls @ 400 mls/hr IV ONCE ONE Stop: 07/15/17 17:44 Last Admin: 07/15/17 14:07 Dose: 400 mls/hr [place] 330 mg/ Dextrose 103.3 mls @ 206.6 mls/hr IVPB ONCE ONE Stop: 07/15/17 15:14 Mes[place] 330 mg/ Dextrose 103.3 mls @ 206.6 mls/hr IVPB ONCE ONE Stop: 07/15/17 17:14 Lisinopril (Prinivil) 5 mg PO DAILY [facility] Prednisone (Deltasone -) 60 mg PO DAILY [facility] Last Admin: 07/15/17 09:42 Dose: 60 mg - Objective Vital Signs: Vital Signs Temperature 98.0 F 07/15/17 09:00 Pulse Rate 78 07/15/17 09:00 Respiratory Rate 19 07/15/17 09:00 Blood Pressure 162/105 07/15/17 09:00 O2 Sat by Pulse Oximetry (%) 97 07/15/17 09:00 Constitutional: Yes: Calm Eyes: Yes: Conjunctiva Clear HENT: Yes: Atraumatic Neck: Yes: Supple Cardiovascular: Yes: S1, S2 Respiratory: Yes: CTA Bilaterally Gastrointestinal: Yes: Soft Genitourinary: Yes: WNL Musculoskeletal: Yes: WNL Edema: Yes Edema: LLE: 1+, RLE: 1+ Neurological: Yes: Oriented Psychiatric: Yes: Oriented Labs: CBC, BMP 07/15/17 06:00 Problem List - Problems (1) Edema Code(s): R60.9 - EDEMA, UNSPECIFIED Qualifiers: Edema type: generalized Qualified Code(s): R60.1 - Generalized edema (2) Granulomatosis with polyangiitis with renal involvement Code(s): M31.31 - SONYA'S GRANULOMATOSIS WITH RENAL INVOLVEMENT (3) Chronic kidney disease Code(s): N18.9 - CHRONIC KIDNEY DISEASE, UNSPECIFIED Qualifiers: Chronic kidney disease stage: stage 3 (moderate) Qualified Code(s): N18.3 - Chronic kidney disease, stage 3 (moderate) (4) Diabetes mellitus Code(s): E11.9 - TYPE 2 DIABETES MELLITUS WITHOUT COMPLICATIONS Assessment/Plan Current Medications Generic Name Dose Route Start Last Admin Trade Name Freq PRN Reason Stop Dose Admin Amlodipine Besylate 10 mg 07/10/17 10:00 07/15/17 09:42 Norvasc - PO 10 mg DAILY RADHA Administration Atorvastatin Calcium 20 mg 07/12/17 22:00 07/14/17 21:34 Lipitor - PO 20 mg HS RADHA Administration Furosemide 40 mg 07/11/17 10:00 07/15/17 09:42 Lasix - PO 40 mg DAILY RADHA Administration Heparin Sodium (Porcine) 5,000 unit 07/09/17 22:00 07/15/17 13:09 Heparin - SQ 5,000 unit TID RADHA Administration Sodium Chloride 1,600 mls @ 400 mls/hr 07/15/17 13:45 07/15/17 14:07 1/2 Normal Saline IV 07/15/17 17:44 400 mls/hr ONCE ONE Administration Mesna 330 mg/ Dextrose 103.3 mls @ 206.6 mls/hr 07/15/17 14:45 IVPB 07/15/17 15:14 ONCE ONE [place] 330 mg/ Dextrose 103.3 mls @ 206.6 mls/hr 07/15/17 16:45 IVPB 07/15/17 17:14 ONCE ONE Lisinopril 5 mg 07/16/17 10:00 Prinivil PO DAILY RADHA Prednisone 60 mg 07/10/17 00:36 07/15/17 09:42 Deltasone - PO 60 mg DAILY RADHA Administration Impression 1. vasculitis - pauci-immunie 2. CKD 3. proteinuria 4. HTN Plan - pt getting cyclophosphamide today - start lisinopril for proteinuria, please give script on discharge - rheum input appreciated - discussed with medical team - cont with lasix - cont steroids - elevate legs Dr Mayorga
--- NOTE | 2017-07-15 18:17 | DS ---
Physical Exam: Microbiology 07/10/17 20:15 Urine - Urine Clean Catch Urine Culture - Final NO GROWTH OBTAINED Selected Entries 07/15/17 07/15/17 09:00 15:10 Temperature 98.2 F Pulse Rate 86 Respiratory 20 Rate Blood Pressure 155/86 O2 Sat by Pulse 97 Oximetry (%) Oxygen Delivery Room Air Method Laboratory Tests 07/12/17 07/12/17 07/13/17 06:00 06:00 06:00 WBC Hgb Hct Plt Count Sodium Potassium Chloride Carbon Dioxide Anion Gap BUN Creatinine 2.3 H 2.7 H Triglycerides 310 H Cholesterol 395 H Total LDL Cholesterol 282 H HDL Cholesterol 56 07/14/17 07/15/17 07/15/17 06:00 06:00 06:00 WBC 10.2 H Hgb 12.5 Hct 36.9 Plt Count 240 Sodium 138 Potassium 4.4 Chloride 103 Carbon Dioxide 28 Anion Gap 7 L BUN 57 H Creatinine 2.3 H 2.2 H Triglycerides Cholesterol Total LDL Cholesterol HDL Cholesterol Imaging- Vascular study- No acute DVT CXR- Negative Echo- LV normal, Mild LA dilation, no pericardial effusion HOSPITAL COURSE: Date of Admission:07/09/17 Date of Discharge: 07/15/17 52 year old male with a recent diagnosis of Pauci-immune glomerulonephritis with worsening renal failure who presented with complaints of bilateral leg swelling and rash. He was admitted for acute on chronic CKD vs progression of his glomerulonephritis. Patient was treated with PO lasix, prednisone 60 mg, and norvasc for BP. Patient was initially started on rituximab and rave protocol , but had an adverse reaction with facial and truncal redness, hives all under chin and on neck, and rash of ant/post chest. Rituximab was stopped. patient was treated via hypersensitivity guideliens. On 07/15, patient underwent treatment with cyclophosphamide. Patient will f/u outpatient with Tierra Villanueva, and his PCP. He will need his CBC, CMP, Mg, Phos, and UA checked outpatient. Prior to d/c he was started on Lisinopril 5 mg, which he will continue. Minutes to complete discharge: 45 Discharge Summary Reason For Visit: ACUTE RENAL FAILURE SUPERIMPOSED ON CHRONIC KIDNEY Current Active Problems Acute on chronic renal failure (Acute) Granulomatosis with polyangiitis with renal involvement (Acute) HLD (hyperlipidemia) (Chronic) HTN (hypertension) (Chronic) Condition: Stable - Instructions Diet, Activity, Other Instructions: You were in the hospital for worsening lower leg swelling and a rash. This was found to be worsening of your kidney disease. You had an allergic reaction to rituximab, please avoid this medication in the future. Please follow up with your pcp within 1 week. Please follow up with Dr. Matias in 2 weeks. Please follow up with Dr. Mayorga within 1 week. You will need labs before you go to Dr. Matias's office. You have been given a prescription. You will also need a lipid panel in 6-8 weeks. Your next cyclophosphamide treatment will be in 1 month. The following adjustments to your medications have been made: Please take lipitor 40 mg at night, lisinopril 5 mg daily, and take lasix 40 mg by mouth daily. Otherwise, continue your other home medications. If you have chest pain, shortness of breath, or any new/worsening symptoms please come back to the hospital immediately. Referrals: Kevin Matias MD [Staff Physician] - 2 Weeks Robert Snow MD [Primary Care Provider] - Stephon Mayorga MD [Staff Physician] - 07/20/17 Disposition: HOME - Home Medications Comprehensive Discharge Medication List: Ambulatory Orders Amlodipine Besylate [Norvasc -] 10 mg PO DAILY 07/09/17 Prednisone [Deltasone] 20 mg PO BID 07/09/17 Atorvastatin Ca [Lipitor] 20 mg PO HS #30 tablet 07/15/17 Furosemide [Lasix -] 40 mg PO DAILY #30 tablet 07/15/17 Lisinopril [Prinivil] 5 mg PO DAILY #30 tablet 07/15/17 Miscellaneous Drug Not In Syst [Outpatient Lab Test] 1 each ASDIR #1 misc This patient is new to me today: No Emergency Visit: Yes ED Registration Date: 07/09/17 Care time: The patient presented to the Emergency Department on the above date and was hospitalized for further evaluation of their emergent condition. Critical Care patient: No - Discharge Referral Referred to [facility] No
[2017-07-15 19:53] VITALS: BP 154/92; PULSE 87; TEMP 98
[2017-07-16] MEDS ORDERED: LISINOPRIL 5 MG TABLET (FP) PO SCH (10:00)
== END 2017-07-15 20:52 | disposition home or self-care (01) | DRG 546 ==
LOC: JER 17:08 → JERBED 21:09 → J5S 07-10 00:35 → J7W 07-11 15:40
PROVIDERS: ADMIT Internal Medicine; ATTEND Internal Medicine
DX: M30.0 Polyarteritis nodosa (principal); N17.9 Acute kidney failure, unspecified; I13.0 Hypertensive heart and chronic kidney disease with heart failure and stage 1 through stage 4 chronic kidney disease, or unspecified chronic kidney disease; L92.8 Other granulomatous disorders of the skin and subcutaneous tissue; E11.22 Type 2 diabetes mellitus with diabetic chronic kidney disease; N18.3 Chronic kidney disease, stage 3 (moderate); E83.51 Hypocalcemia; R21 Rash and other nonspecific skin eruption; L27.0 Generalized skin eruption due to drugs and medicaments taken internally; T45.1X5A Adverse effect of antineoplastic and immunosuppressive drugs, initial encounter
CPT/HCPCS: 36415; 71045-TC-FY; 71046-TC-FY; 80048; 80053; 80061; 81003; 81015; 82570; 82962; 83721; 83735; 84100; 84156; 84550; 85025; 87086; 93005; 93010; 93306-TC; 93970-TC; 96367; 96375; 96413; 99283-25; 99285-25; J1644; J9070; J9209; J9310

== ENCOUNTER 2017-08-17 09:10 | Day surgery (SDC) | payer OTHER ==
[~2017-08-17 09:10] MED LIST: SODIUM CHLORIDE 0.45% 1,000 ML IV ONE
[2017-08-17] MEDS ORDERED: DEXTROSE 5% IVPB ONE ×3 (10:00→15:30)
[2017-08-17] MEDS ORDERED: MESNA IVPB ONE ×3 (10:00→15:30)
[2017-08-17] MEDS ORDERED: WATER IVPB ONE ×3 (10:00→15:30)
[2017-08-17] MEDS ORDERED: GRANISETRON HCL 1 MG TABLET PO ONE (10:00)
[2017-08-17] MEDS ORDERED: CYCLOPHOSPHAMIDE INJECTION 1,000 MG in SODIUM CHLORIDE 250 ML IVPB ONE (10:30)
[2017-08-17 10:39] LABS: HEMATOCRIT 29.5 % (35.4-49); HEMOGLOBIN 10.2 GM/dL (11.7-16.9); MCH 30.1 pg (25.7-33.7); MCHC 34.7 g/dl (32.0-35.9); MEAN CELL VOLUME 86.6 fl (80-96); MEAN PLT VOLUME 6.7 fl (7.5-11.1); PLATELET COUNT 257 K/MM3 (134-434); RBC 3.41 M/mm3 (4.00-5.60); RDW 15.9 % (11.9-15.9); WHITE BLOOD COUNT 9.4 K/mm3 (4.0-10.0)
[2017-08-17 11:07] LABS: ALBUMIN 2.5 g/dl (3.4-5.0); ANION GAP 11 (8-16); BILIRUBIN,TOTAL 0.4 mg/dL (0.2-1.0); BLOOD UREA NITROGEN 73 mg/dL (7-18); CALCIUM 7.7 mg/dL (8.5-10.1); CHLORIDE 109 mmol/L (98-107); CO2 19 mmol/L (21-32); CREATININE 2.3 mg/dL (0.7-1.3); GLUCOSE,RANDOM 159 mg/dL (74-106); POTASSIUM 4.7 mmol/L (3.5-5.1); SGOT/AST 34 U/L (15-37); SGPT/ALT 52 U/L (12-78); SODIUM 139 mmol/L (136-145); TOT PROT 4.6 g/dl (6.4-8.2)
[2017-08-17 11:08] LABS: ALK PHOS 82 U/L (45-117)
[2017-08-17] MEDS ORDERED: SODIUM CHLORIDE 0.45% 1,000 ML IV SCH (11:30)
[2017-08-17 18:45] VITALS: BP 136/87; PULSE 86; TEMP 98.1
== END 2017-08-17 18:45 | disposition home or self-care (01) ==
LOC: JINFUSION 09:10 → J7W 09:13 → JINFUSION 18:45
PROVIDERS: ATTEND Internal Medicine Rheumatology
PROC: 3E03305 Introduction of Other Antineoplastic into Peripheral Vein, Percutaneous Approach (ICD-10-PCS; principal; 2017-08-17)
PROC: 3E0337Z Introduction of Electrolytic and Water Balance Substance into Peripheral Vein, Percutaneous Approach (ICD-10-PCS; 2017-08-17)
DX: Z51.11 Encounter for antineoplastic chemotherapy (principal); N18.3 Chronic kidney disease, stage 3 (moderate); M31.31 Wegener's granulomatosis with renal involvement
CPT/HCPCS: 36415; 80053; 85025; 96361; 96413; 96415; 96417; J9070; J9209

== ENCOUNTER 2017-09-16 08:20 | Day surgery (SDC) | payer OTHER ==
[2017-09-16] MEDS ORDERED: GRANISETRON HCL 1 MG TABLET PO ONE (09:30)
[2017-09-16] MEDS ORDERED: DEXTROSE 5% IVPB ONE ×3 (10:00→15:30)
[2017-09-16] MEDS ORDERED: WATER IVPB ONE ×3 (10:00→15:30)
[2017-09-16] MEDS ORDERED: MESNA IVPB ONE ×3 (10:00→15:30)
[2017-09-16] MEDS ORDERED: CYCLOPHOSPHAMIDE INJECTION 1,000 MG in SODIUM CHLORIDE 250 ML IVPB ONE (10:30)
[2017-09-16 10:36] LABS: BASO % 0.6 % (0-2.0); HEMOGLOBIN 8.9 GM/dL (11.7-16.9); LYMPH % 36.6 % (8-40); MCH 30.3 pg (25.7-33.7); MCHC 34.4 g/dl (32.0-35.9); MEAN CELL VOLUME 88.1 fl (80-96); MEAN PLT VOLUME 6.1 fl (7.5-11.1); MONO % 10.3 % (3.8-10.2); NEUT % 51.5 % (42.8-82.8); PLATELET COUNT 360 K/MM3 (134-434); RBC 2.95 M/mm3 (4.00-5.60); RDW 16.5 % (11.9-15.9); WHITE BLOOD COUNT 4.6 K/mm3 (4.0-10.0)
[2017-09-16 11:01] LABS: ALBUMIN 2.7 g/dl (3.4-5.0); ALK PHOS 108 U/L (45-117); ANION GAP 7 (8-16); BILIRUBIN,TOTAL 0.3 mg/dL (0.2-1.0); BLOOD UREA NITROGEN 49 mg/dL (7-18); CALCIUM 7.9 mg/dL (8.5-10.1); CHLORIDE 109 mmol/L (98-107); CO2 26 mmol/L (21-32); CREATININE 2.6 mg/dL (0.7-1.3); GLUCOSE,RANDOM 105 mg/dL (74-106); POTASSIUM 4.7 mmol/L (3.5-5.1); SGOT/AST 16 U/L (15-37); SGPT/ALT 21 U/L (12-78); SODIUM 142 mmol/L (136-145); TOT PROT 5.4 g/dl (6.4-8.2)
[2017-09-16 11:16] LABS: URINE APPEARANCE CLEAR; URINE BILIRUBIN NEGATIVE (<2.0 mg/dL); URINE BLOOD NEGATIVE (NEGATIVE); URINE COLOR STRAW; URINE GLUCOSE (UA) NEGATIVE (NEGATIVE); URINE KETONE NEGATIVE (NEGATIVE); URINE LEUK ESTERASE NEGATIVE (NEGATIVE); URINE NITRITE NEGATIVE (NEGATIVE); URINE UROBILINOGEN NEGATIVE mg/dL (0.2-1.0)
[2017-09-16 11:19] LABS: URINE PROTEIN 2+ (NEGATIVE)
[2017-09-16 11:20] LABS: URINE MUCUS RARE
[2017-09-16] MEDS ORDERED: SODIUM CHLORIDE 0.45% 1,000 ML IV SCH (11:30)
[2017-09-16 13:04] LABS: ERYTHROCYTE SEDIMENTATION RATE 102 mm/hr (0-20)
[2017-09-16 18:32] VITALS: BP 135/75; PULSE 82; TEMP 98.1
== END 2017-09-16 18:36 | disposition home or self-care (01) ==
LOC: JINFUSION 08:20 → J7W 08:23 → JINFUSION 18:36
PROVIDERS: ATTEND Internal Medicine Rheumatology
PROC: 3E04305 Introduction of Other Antineoplastic into Central Vein, Percutaneous Approach (ICD-10-PCS; principal; 2017-09-16)
PROC: 3E043GC Introduction of Other Therapeutic Substance into Central Vein, Percutaneous Approach (ICD-10-PCS; 2017-09-16)
PROC: 3E0437Z Introduction of Electrolytic and Water Balance Substance into Central Vein, Percutaneous Approach (ICD-10-PCS; 2017-09-16)
DX: Z51.11 Encounter for antineoplastic chemotherapy (principal); M31.31 Wegener's granulomatosis with renal involvement
CPT/HCPCS: 36415; 80053; 81003; 81015; 85025; 85651; 96361; 96366; 96367; 96413; 96415; 96417; J9070; J9209

== ENCOUNTER 2017-09-30 20:17 | Emergency (ER) | payer OTHER ==
[2017-09-30 20:29] VITALS: BP 127/67; PULSE 85; TEMP 98.1; BMI 36.6
--- NOTE | 2017-09-30 21:36 | PDOC ---
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 Past History - Travel Traveled outside of the country in the last 30 days: No Close contact w/someone who was outside of country & ill: No - Past Medical History Allergies/Adverse Reactions: Allergies Allergy/AdvReac Type Severity Reaction Status Date / Time rituximab [From Rituxan] AdvReac Intermediate Hives Verified 09/30/17 20:25 Home Medications: Ambulatory Orders Atorvastatin Ca [Lipitor] 20 mg PO HS #30 tablet 07/15/17 Furosemide [Lasix -] 40 mg PO DAILY #30 tablet 07/15/17 Lisinopril [Prinivil] 5 mg PO DAILY #30 tablet 07/15/17 Amlodipine Besylate 10 mg PO ASDIR 09/30/17 Montelukast Na [Singulair -] 10 mg PO HS 09/30/17 Pentoxifylline [Trental -] 400 mg PO BID 09/30/17 Sulfamethoxazole/Trimethoprim [Bactrim Ds -] 1 tab PO DAILY 09/30/17 Anemia: No Asthma: No Cancer: No Cardiac Disorders: No CVA: No COPD: No CHF: No Dementia: No Diabetes: No (DENIES) GI Disorders: No Disorders: No HTN: Yes Hypercholesterolemia: Yes Liver Disease: No Seizures: No Thyroid Disease: No - Surgical History Abdominal Surgery: No Appendectomy: No Cardiac Surgery: No Lung Surgery: No Neurologic Surgery: No Orthopedic Surgery: Yes (RIGHT FOOT SX - 20 YRS AGO) - Suicide/Smoking/Psychosocial Hx Smoking History: Never smoked Have you smoked in the past 12 months: No Hx Alcohol Use: No (STOPPED DRINKING 1 YEAR AGO) Drug/Substance Use Hx: No Substance Use Type: None Hx Substance Use Treatment: No Review of Systems - Review of Systems Able to Perform ROS?: Yes Is the patient limited Luxembourgish proficient: Yes Constitutional: Yes: See HPI. No: Symptoms Reported, Fever, Malaise HEENTM: No: Symptoms Reported Respiratory: No: Symptoms reported Integumentary: Yes: Symptoms Reported, See HPI, Lesions, Other All Other Systems: Reviewed and Negative *Physical Exam - Vital Signs Last Vital Signs Temp Pulse Resp BP Pulse Ox 98.1 F 85 18 127/67 100 09/30/17 20:25 09/30/17 20:25 09/30/17 20:25 09/30/17 20:25 09/30/17 20:25 - Physical Exam General Appearance: Yes: Nourished, Appropriately Dressed. No: Apparent Distress HEENT: positive: RU, Normal ENT Inspection, TMs Normal, Pharynx Normal Neck: positive: Supple. negative: Tender, Lymphadenopathy (R), Lymphadenopathy (L) Respiratory/Chest: positive: Lungs Clear Gastrointestinal/Abdominal: positive: Soft (small 3 cm live tick embedded in left lateral abdomen wall. No redness, swelling, tenderness at site.) Integumentary: positive: Normal Color, Dry, Warm Neurologic: positive: cylinder checker II-XII NML intact, Fully Oriented, Alert, Normal Mood/ Affect, Normal Response, Motor Strength 5/5 Progress Note - Progress Note Progress Note: Live tick excised from left abdomen, dressed with bacitracin and bandage. Given 200 mg of doxycycline *DC/Admit/Observation/Transfer Diagnosis at time of Disposition: Tick bite of abdomen Qualifiers: Encounter type: initial encounter Qualified Code(s): S30.861A - Insect bite ( nonvenomous) of abdominal wall, initial encounter; W57.XXXA - Bitten or stung by nonvenomous insect and other nonvenomous arthropods, initial encounter - Discharge Dispostion Disposition: HOME Condition at time of disposition: Stable Decision to Admit order: No - Referrals Referrals: Robert Snow MD [Primary Care Provider] - - Patient Instructions Printed Discharge Instructions: How to Remove a Tick Additional Instructions: apply warm soaks to abdomen 3-4 times a day And reapply bacitracin ointment to area. You may received 200 mg of doxycycline as 1 time treatment for deer tick and possible Lyme's disease exposure. Notify physician you have been treated for potential Lyme disease and follow-up as needed - Post Discharge Activity Forms/Work/School Notes: Back to Work
[2017-09-30] MEDS ORDERED: DOXYCYCLINE HYCLATE 100 MG CAPSULE PO ONE ×2 (21:54→21:55)
[2017-09-30] MEDS ORDERED: BACITRACIN 15 GM TUBE TOPICAL OINTMENT ONE (21:54)
== END 2017-09-30 22:03 | disposition home or self-care (01) ==
LOC: JER 20:17 → JERFT 20:17
DX: S30.861A Insect bite (nonvenomous) of abdominal wall, initial encounter (principal); W57.XXXA Bitten or stung by nonvenomous insect and other nonvenomous arthropods, initial encounter; Y93.H2 Activity, gardening and landscaping; Y92.89 Other specified places as the place of occurrence of the external cause; Y99.0 Civilian activity done for income or pay
CPT/HCPCS: 99281-25

== ENCOUNTER 2017-10-17 08:41 | Day surgery (SDC) | payer OTHER ==
[2017-10-17] MEDS ORDERED: DEXTROSE 5% IVPB ONE ×3 (10:00→15:30)
[2017-10-17] MEDS ORDERED: WATER IVPB ONE ×3 (10:00→15:30)
[2017-10-17] MEDS ORDERED: MESNA IVPB ONE ×3 (10:00→15:30)
[2017-10-17] MEDS ORDERED: GRANISETRON HCL 1 MG TABLET PO ONE (10:00)
[2017-10-17 10:13] VITALS: BP 118/74; PULSE 72; TEMP 98.1
[2017-10-17] MEDS ORDERED: CYCLOPHOSPHAMIDE INJECTION 1,000 MG in SODIUM CHLORIDE 250 ML IVPB ONE (10:30)
[2017-10-17] MEDS ORDERED: SODIUM CHLORIDE 0.45% 1,000 ML IV SCH (11:30)
== END 2017-10-17 20:54 | disposition home or self-care (01) ==
LOC: JINFUSION 08:41 → J7W 08:44 → JINFUSION 20:54
PROVIDERS: ATTEND Internal Medicine Rheumatology
PROC: 3E03305 Introduction of Other Antineoplastic into Peripheral Vein, Percutaneous Approach (ICD-10-PCS; principal; 2017-10-17)
PROC: 3E0337Z Introduction of Electrolytic and Water Balance Substance into Peripheral Vein, Percutaneous Approach (ICD-10-PCS; 2017-10-17)
DX: M31.31 Wegener's granulomatosis with renal involvement (principal)
CPT/HCPCS: 96361; 96367; 96413; 96417; J9070; J9209

== ENCOUNTER 2017-11-16 08:31 | Day surgery (SDC) | payer OTHER ==
[~2017-11-16 08:31] MED LIST changes: +CYCLOPHOSPHAMIDE INJECTION 1,000 MG in SODIUM CHLORIDE 250 ML IVPB ONE; +DEXTROSE 5% IVPB ONE; +GRANISETRON HCL 1 MG TABLET PO ONE; +MESNA IVPB ONE; +SODIUM CHLORIDE 0.45% IV ONE; +WATER IVPB ONE
[2017-11-16] MEDS ORDERED: GRANISETRON HCL 1 MG TABLET PO ONE (09:30)
[2017-11-16] MEDS ORDERED: MESNA IVPB ONE ×3 (09:30→15:00)
[2017-11-16] MEDS ORDERED: DEXTROSE 5% IVPB ONE ×3 (09:30→15:00)
[2017-11-16] MEDS ORDERED: WATER IVPB ONE ×3 (09:30→15:00)
[2017-11-16] MEDS: SODIUM CHLORIDE 0.45% 1,000 ML IV ONE ×2 (09:45→11:15)
[2017-11-16] MEDS ORDERED: CYCLOPHOSPHAMIDE INJECTION 1,000 MG in SODIUM CHLORIDE 250 ML IVPB ONE (10:00)
[2017-11-16 10:18] LABS: BASO % 1.1 % (0-2.0); EOS % 1.3 % (0-4.5); HEMOGLOBIN 10.1 GM/dL (11.7-16.9); LYMPH % 27.7 % (8-40); MCH 30.8 pg (25.7-33.7); MCHC 34.9 g/dl (32.0-35.9); MEAN CELL VOLUME 88.4 fl (80-96); MEAN PLT VOLUME 7.5 fl (7.5-11.1); MONO % 9.4 % (3.8-10.2); NEUT % 60.5 % (42.8-82.8); PLATELET COUNT 254 K/MM3 (134-434); RBC 3.28 M/mm3 (4.00-5.60); RDW 12.6 % (11.9-15.9); WHITE BLOOD COUNT 3.8 K/mm3 (4.0-10.0)
[2017-11-16 10:32] LABS: ALBUMIN 3.5 g/dl (3.4-5.0); ANION GAP 9 (8-16); BLOOD UREA NITROGEN 50 mg/dL (7-18); CALCIUM 8.4 mg/dL (8.5-10.1); CHLORIDE 111 mmol/L (98-107); CO2 24 mmol/L (21-32); CREATININE 2.8 mg/dL (0.7-1.3); MAGNESIUM 2.2 mg/dL (1.8-2.4); POTASSIUM 4.8 mmol/L (3.5-5.1); SGOT/AST 15 U/L (15-37); SGPT/ALT 22 U/L (12-78); SODIUM 144 mmol/L (136-145)
[2017-11-16 10:37] LABS: ALK PHOS 95 U/L (45-117); BILIRUBIN,TOTAL 0.5 mg/dL (0.2-1.0); GLUCOSE,RANDOM 95 mg/dL (74-106); PREALBUMIN 35.3 mg/dl (20-40); TOT PROT 5.8 g/dl (6.4-8.2)
[2017-11-16] MEDS ORDERED: SODIUM CHLORIDE 0.45% IV ONE (11:05)
[2017-11-16 12:25] LABS: URINE APPEARANCE CLEAR; URINE BILIRUBIN NEGATIVE (<2.0 mg/dL); URINE COLOR STRAW; URINE GLUCOSE (UA) NEGATIVE (NEGATIVE); URINE KETONE NEGATIVE (NEGATIVE); URINE LEUK ESTERASE NEGATIVE (NEGATIVE); URINE NITRITE NEGATIVE (NEGATIVE); URINE UROBILINOGEN NEGATIVE mg/dL (0.2-1.0)
[2017-11-16 12:26] LABS: URINE PROTEIN 2+ (NEGATIVE)
[2017-11-16 12:37] LABS: URINE MUCUS RARE
[2017-11-16 13:45] VITALS: TEMP 97.9
[2017-11-16 17:47] VITALS: BP 141/94; PULSE 69
== END 2017-11-16 19:23 | disposition home or self-care (01) ==
LOC: JINFUSION 08:31 → J7W 08:31 → JINFUSION 19:23
PROVIDERS: ATTEND Internal Medicine Rheumatology
DX: M31.31 Wegener's granulomatosis with renal involvement (principal)
CPT/HCPCS: 36415; 80053; 81003; 81015; 83735; 84134; 85025; 96361; 96413; 96417; J9070; J9209

== ENCOUNTER 2017-12-23 07:47 | Day surgery (SDC) | payer OTHER ==
[~2017-12-23 07:47] MED LIST changes: -CYCLOPHOSPHAMIDE INJECTION 1,000 MG in SODIUM CHLORIDE 250 ML IVPB ONE; -DEXTROSE 5% IVPB ONE; -GRANISETRON HCL 1 MG TABLET PO ONE; -MESNA IVPB ONE; -SODIUM CHLORIDE 0.45% 1,000 ML IV ONE; -WATER IVPB ONE
[2017-12-23] MEDS ORDERED: SODIUM CHLORIDE 0.45% 1,000 ML IV ONE (08:00)
[2017-12-23 08:41] LABS: BASO % 1.1 % (0-2.0); EOS % 1.6 % (0-4.5); HEMATOCRIT 32.2 % (35.4-49); HEMOGLOBIN 11.1 GM/dL (11.7-16.9); LYMPH % 20.3 % (8-40); MCH 29.6 pg (25.7-33.7); MCHC 34.4 g/dl (32.0-35.9); MEAN PLT VOLUME 7.4 fl (7.5-11.1); PLATELET COUNT 256 K/MM3 (134-434); RBC 3.74 M/mm3 (4.00-5.60); RDW 13.1 % (11.9-15.9); WHITE BLOOD COUNT 5.1 K/mm3 (4.0-10.0)
[2017-12-23 08:55] VITALS: TEMP 98.1
[2017-12-23 09:00] LABS: ALBUMIN 2.3 g/dl (3.4-5.0); ANION GAP 8 MMOL/L (8-16); BLOOD UREA NITROGEN 43 mg/dL (7-18); CHLORIDE 125 mmol/L (98-107); CO2 17 mmol/L (21-32); CREATININE 1.9 mg/dL (0.7-1.3); GLUCOSE,RANDOM 72 mg/dL (74-106); SGPT/ALT 17 U/L (12-78); SODIUM 150 mmol/L (136-145)
[2017-12-23 09:11] LABS: ALK PHOS 72 U/L (45-117); BILIRUBIN,TOTAL 0.4 mg/dL (0.2-1.0); PREALBUMIN 26.4 mg/dl (20-40); TOT PROT 4.2 g/dl (6.4-8.2)
[2017-12-23 09:12] LABS: MAGNESIUM 1.6 mg/dL (1.8-2.4); POTASSIUM 3.6 mmol/L (3.5-5.1); SGOT/AST 25 U/L (15-37)
[2017-12-23 09:13] LABS: CALCIUM 5.7 mg/dL (8.5-10.1)
[2017-12-23] MEDS ORDERED: MESNA IVPB ONE ×3 (10:00→15:30)
[2017-12-23] MEDS ORDERED: DEXTROSE 5% IVPB ONE ×3 (10:00→15:30)
[2017-12-23] MEDS ORDERED: GRANISETRON HCL 1 MG TABLET PO ONE (10:00)
[2017-12-23] MEDS ORDERED: WATER IVPB ONE ×3 (10:00→15:30)
[2017-12-23] MEDS ORDERED: CYCLOPHOSPHAMIDE INJECTION 1,000 MG in SODIUM CHLORIDE 250 ML IVPB ONE (10:30)
[2017-12-23] MEDS ORDERED: MAGNESIUM SULF 50% (8.12 MEQ/2 ML-1 GM VIAL) IVPB ONE (11:00)
[2017-12-23 18:10] VITALS: BP 124/73; PULSE 70
== END 2017-12-23 18:10 | disposition home or self-care (01) ==
LOC: JINFUSION 07:47 → J7W 07:54 → JINFUSION 18:10
PROVIDERS: ATTEND Internal Medicine Rheumatology
DX: M31.31 Wegener's granulomatosis with renal involvement (principal)
CPT/HCPCS: 36415; 80053; 83735; 84134; 85025; 96361; 96367; 96413; 96417; J9070; J9209

== ENCOUNTER 2018-01-07 16:57 | Emergency (ER) | payer OTHER ==
[2018-01-07 17:39] VITALS: BP 132/74; PULSE 69; TEMP 99.6; BMI 31.6
[2018-01-07] MEDS ORDERED: ACETAMINOPHEN 325 MG TABLET (FP) PO ONE (18:21)
[2018-01-07] MEDS ORDERED: ACETAMINOPHEN 325 MG TABLET (FP) ONE (18:26)
--- NOTE | 2018-01-07 18:26 | PDOC ---
History of Present Illness - General Chief Complaint: Pain, Acute Stated Complaint: PAIN Time Seen by Provider: 01/07/18 18:05 History Source: Patient Exam Limitations: No Limitations (joint pain X 1yr) Past History - Travel Traveled outside of the country in the last 30 days: No Close contact w/someone who was outside of country & ill: No - Past Medical History Allergies/Adverse Reactions: Allergies Allergy/AdvReac Type Severity Reaction Status Date / Time rituximab [From Rituxan] AdvReac Intermediate Hives Verified 01/07/18 17:32 Home Medications: Ambulatory Orders Atorvastatin Ca [Lipitor] 20 mg PO HS #30 tablet 07/15/17 Furosemide [Lasix -] 40 mg PO DAILY #30 tablet 07/15/17 Lisinopril [Prinivil] 5 mg PO DAILY #30 tablet 07/15/17 Amlodipine Besylate 10 mg PO ASDIR 09/30/17 Montelukast Na [Singulair -] 10 mg PO HS 09/30/17 Pentoxifylline [Trental -] 400 mg PO BID 09/30/17 Anemia: No Asthma: No Cancer: No Cardiac Disorders: No CVA: No COPD: No CHF: No Dementia: No Diabetes: No (DENIES) GI Disorders: No Disorders: No HTN: Yes Hypercholesterolemia: Yes Liver Disease: No Seizures: No Thyroid Disease: No - Surgical History Abdominal Surgery: No Appendectomy: No Cardiac Surgery: No Lung Surgery: No Neurologic Surgery: No Orthopedic Surgery: Yes (RIGHT FOOT SX - 20 YRS AGO) - Suicide/Smoking/Psychosocial Hx Smoking History: Never smoked Have you smoked in the past 12 months: No Hx Alcohol Use: No Drug/Substance Use Hx: No Substance Use Type: None Hx Substance Use Treatment: No Review of Systems - Review of Systems Able to Perform ROS?: Yes Is the patient limited Swazi proficient: No Constitutional: No: Chills, Fever Musculoskeletal: Yes: Joint Pain. No: Gout, Joint Swelling, Muscle Pain, Muscle Weakness, Neck Pain, Joint Stiffness, Other *Physical Exam - Vital Signs Last Vital Signs Temp Pulse Resp BP Pulse Ox 99.6 F 69 18 132/74 99 01/07/18 17:32 01/07/18 17:32 01/07/18 17:32 01/07/18 17:32 01/07/18 17:32 - Physical Exam General Appearance: Yes: Nourished Respiratory/Chest: positive: Lungs Clear, Normal Breath Sounds Cardiovascular: positive: Regular Rhythm, Regular Rate, S1, S2 Extremity: positive: Normal Capillary Refill, Normal Inspection Integumentary: positive: Normal Color, Dry Neurologic: positive: career services manager II-XII NML intact, Fully Oriented, Alert Medical Decision Making - Medical Decision Making 01/07/18 18:22 52 years old with hypertension chronic renal insufficiency with a baseline creatinine of 2< he presents with generalized joint pain x 1 year, denies any joint pain, f/c. plan Tylenol rheum referral *DC/Admit/Observation/Transfer Diagnosis at time of Disposition: Joint pain Qualifiers: Joint pain location: unspecified Qualified Code(s): M25.50 - Pain in unspecified joint - Discharge Dispostion Disposition: HOME Condition at time of disposition: Good Decision to Admit order: No - Referrals Referrals: Yoni Muller MD [Staff Physician] - 3 days - Patient Instructions Printed Discharge Instructions: DI for Arthralgia Additional Instructions: please take Tylenol for pain f/u with Rheumology as previously advised - Post Discharge Activity
== END 2018-01-07 18:27 | disposition home or self-care (01) ==
LOC: JER 16:57 → JERFT 16:57
DX: M25.50 Pain in unspecified joint (principal); I10 Essential (primary) hypertension; E78.00 Pure hypercholesterolemia, unspecified
CPT/HCPCS: 99281-25

== ENCOUNTER 2018-10-25 20:24 | Inpatient (IN) | payer OTHER ==
--- NOTE | 2018-10-25 20:30 | PDOC ---
Rapid Medical Evaluation Time Seen by Provider: 10/25/18 20:27 Medical Evaluation: Allergies Allergy/AdvReac Type Severity Reaction Status Date / Time rituximab [From Rituxan] AdvReac Intermediate Hives Verified 01/07/18 17:32 10/25/18 20:28 HPI: nausea, vomiting and diarrhea tic on neck 6 days PE:No gross deficits ORDERS: tic panel Discharge Disposition - Diagnosis Tick bite - Referrals - Patient Instructions - Post Discharge Activity
[2018-10-25] MEDS ORDERED: SODIUM CHLORIDE 0.9% 500 ML INFUS.BAG IV ONE (21:45)
[2018-10-25] MEDS ORDERED: ONDANSETRON 4 MG/2 ML VIAL IVPUSH ONE (21:57)
--- NOTE | 2018-10-25 22:00 | PDOC ---
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 He denies any abdominal pain, fever, chills, sick contacts, travel, or unusual foods, and also denies any blood in the vomit or diarrhea. He states that he has not felt like eating anything, but he has tried to stay hydrated. However, everything he tries to drink results in vomiting, including water and Pedialyte. He stopped taking his medications after Tuesday as he was unable to keep them down. In addition to the diarrhea and vomiting, his also noted a tick on the left side of his neck today. He thinks that it may have been present since last , as that was the last time he was out in the [facility]. Past History - Past Medical History Allergies/Adverse Reactions: Allergies Allergy/AdvReac Type Severity Reaction Status Date / Time rituximab [From Rituxan] AdvReac Intermediate Hives Verified 10/25/18 20:36 Home Medications: Ambulatory Orders Atorvastatin Ca [Lipitor] 20 mg PO HS #30 tablet 07/15/17 Furosemide [Lasix -] 40 mg PO DAILY #30 tablet 07/15/17 Lisinopril [Prinivil] 5 mg PO DAILY #30 tablet 07/15/17 Amlodipine Besylate 10 mg PO ASDIR 09/30/17 Montelukast Na [Singulair -] 10 mg PO HS 09/30/17 Pentoxifylline [Trental -] 400 mg PO BID 09/30/17 Anemia: No Asthma: No Cancer: No Cardiac Disorders: No CVA: No COPD: No CHF: No Dementia: No Diabetes: No (DENIES) GI Disorders: No Disorders: No HTN: Yes Hypercholesterolemia: Yes Liver Disease: No Seizures: No Thyroid Disease: No - Surgical History Abdominal Surgery: No Appendectomy: No Cardiac Surgery: No Lung Surgery: No Neurologic Surgery: No Orthopedic Surgery: Yes (RIGHT FOOT SX - 20 YRS AGO) - Suicide/Smoking/Psychosocial Hx Smoking History: Unknown if ever smoked Have you smoked in the past 12 months: No Information on smoking cessation initiated: No Hx Alcohol Use: No Drug/Substance Use Hx: No Substance Use Type: None Hx Substance Use Treatment: No Review of Systems - Review of Systems Comments:: General: No fevers, no chills, no weight or appetite change, no malaise HEENT: No changes in vision, no changes in hearing, no congestion, no sore throat CV: No chest pain, no palpitations, no LE edema Pulm: No SOB, no cough, no wheezing GI: No nausea or vomiting, +diarrhea, no melena : No frequency, no urgency, no dysuria Musc: No back pain, no joint swelling, no recent injury Skin: No rash, no lesions, no erythema Endo: No excessive thirst, no heat/cold intolerance Heme: No unusual bruising or bleeding, no swollen glands Neuro: No syncope, no numbness/tingling, no focal weakness Vasc: No claudication Psych: No recent change in mood, no SI or HI *Physical Exam - Vital Signs Last Vital Signs Temp Pulse Resp BP Pulse Ox 98.5 F 116 H 16 134/77 100 10/25/18 20:31 10/25/18 20:31 10/25/18 20:31 10/25/18 20:31 10/25/18 20:31 - Physical Exam Comments: General: Comfortable, no acute distress HEENT: PERRL, EOMI, MMM, voice normal, normal neck ROM Cards: RRR, no murmur appreciated Pulm: Comfortable on room air, clear to auscultation bilaterally Abd: Soft, nontender, nondistended Rectal: Normal tone, no blood noted, no perianal lesions Ext: Atraumatic. No LE edema. ROM intact Vasc: Extremities WWP Skin: Normal color, no rashes or lesions. Tick on left neck. 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 He was also noted to have a tick on the left neck. - Most likely gastroenteritis as he has no fever or systemic s/s of infection. Could have electrolyte abnormalities - Tick to be removed - CBC, chemistry, IVF, zofran - Tick panel ordered in [facility] 10/25/18 22:43 - Thorough skin exam completed, no additional ticks noted - Tick removed. Head intact. Appears to be a dog tick - IV placed, labs sent, fluid started by wv 10/26/18 00:24 - EKG w/ NSR, HR 60, normal axis, normal intervals, no ST changes. - Labs notable for leukopenia. Anemia to 7.3, most recent in August was 8.9. Will send FOBT - MARIUSZ w/ creatinine to 4.0 from 3 previously, likely due to dehydration - Will likely need admission for repeat CBC, monitoring - FOBT sent by Dr Parker 10/26/18 01:33 - Occult blood negative - Microblog sent to hospitalist for admission 10/26/18 02:12 - Updated pt regarding results and plan for admission. Agrees w plan - Sign out given to Dr Mejía. Will admit to Dr Davies's team Discussed with Dr Moore. Melody Barber PGY2 *DC/Admit/Observation/Transfer Diagnosis at time of Disposition: Vomiting and diarrhea Acute on chronic renal failure Qualifiers: Acute renal failure type: unspecified Chronic kidney disease stage: unspecified stage Qualified Code(s): N17.9 - Acute kidney failure, unspecified Anemia Qualifiers: Anemia type: due to chronic kidney disease Chronic kidney disease stage: unspecified stage Qualified Code(s): N18.9 - Chronic kidney disease, unspecified - Discharge Dispostion Decision to Admit order: Yes - Referrals - Patient Instructions - Post Discharge Activity
[2018-10-25] MEDS ORDERED: ONDANSETRON 4 MG/2 ML VIAL ONE (22:45)
[2018-10-25 22:47] LABS: BASO % 0.6 % (0-2.0); EOS % 1.8 % (0-4.5); HEMATOCRIT 21.5 % (35.4-49); HEMOGLOBIN 7.3 GM/dL (11.7-16.9); LYMPH % 53.4 % (8-40); MCH 33.5 pg (25.7-33.7); MCHC 33.7 g/dl (32.0-35.9); MEAN CELL VOLUME 99.4 fl (80-96); MEAN PLT VOLUME 6.5 fl (7.5-11.1); NEUT % 38.2 % (42.8-82.8); PLATELET COUNT 199 K/MM3 (134-434); RBC 2.17 M/mm3 (4.00-5.60); RDW 17.9 % (11.9-15.9); WHITE BLOOD COUNT 2.1 K/mm3 (4.0-10.0)
--- NOTE | 2018-10-25 23:06 | PDOC ---
Attending Attestation - Resident Resident Name: Melody Barber - ED Attending Attestation I have performed the following: I have examined & evaluated the patient, The case was reviewed & discussed with the resident, I agree w/resident's findings & plan - HPI HPI: 10/25/18 23:04 53-year-old male with nausea vomiting diarrhea and abdominal bloating. - Physicial Exam PE: 10/25/18 23:04 agree with resident exam - Medical Decision Making 10/25/18 23:04 53-year-old well-appearing male with vomiting diarrhea and abdominal bloating Patient was incidentally found to have a tick which was removed in its entirety from the left neck There is no concerning associated rash or headache Plan for labs, IV fluids and antiemetics reevaluation and hopeful discharge home if improved
[2018-10-26 00:11] LABS: ALBUMIN 3.4 g/dl (3.4-5.0); ALK PHOS 63 U/L (45-117); ANION GAP 7 MMOL/L (8-16); BILIRUBIN,TOTAL 1.1 mg/dL (0.2-1); BLOOD UREA NITROGEN 55.1 mg/dL (7-18); CALCIUM 7.7 mg/dL (8.5-10.1); CHLORIDE 114 mmol/L (98-107); CO2 22 mmol/L (21-32); GLUCOSE,RANDOM 83 mg/dL (74-106); POTASSIUM 4.7 mmol/L (3.5-5.1); SGOT/AST 12 U/L (15-37); SGPT/ALT 22 U/L (13-61); SODIUM 143 mmol/L (136-145); TOT PROT 5.5 g/dl (6.4-8.2)
--- NOTE | 2018-10-26 01:56 | PN ---
Teaching Attending Note Name of Resident: Morena Mejía ATTENDING PHYSICIAN STATEMENT I saw and evaluated the patient. I reviewed the resident's note and discussed the case with the resident. I agree with the resident's findings and plan as documented. SUBJECTIVE: Seen and examined; please refer to resident note for HPI/PMH/PSH/FH/SH/ROS. Briefly, this is a 53 y/o presenting for bloating and abdominal pain with several days of diarrhea and 1 day NBNB vomiting found to have MARIUSZ on CKD and incidental tick bite. OBJECTIVE: NAD, AAO, resting comfortably in bed No rashes, bite area noted. NC AT EOMI PERRLA RRR s1/2 no mgr Lungs CTAB, w/ sym exp NT ND +BS CN2-12 wnl, no fnd Normal mood, appropriate behavior. EKG reviewed CBC reviewed; Hb 7-range which is a >1g drop from earlier baseline with MCV99 and increased RDW. 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 Following up CT abdomen/ pelvis and empirically hydrating with LR (given hyperchloremia) and PRN antiemitics. If gastritis component giving trial of protonix. Consider stool studies if persistent diarrhea when inpatient. -MARIUSZ could be 2/2 prerenal vs. worsening underlying glomerulonephritis (hasn't taken meds in several days, follows with Dr. Matias). Checking FeUrea. Is on multiple nephrotoxic medications (TMP/SMX, lasix, HANY) which will be held. Can look at renal anatomy on CT. Trend BMP and UOP. -Hasn't been on medications for several days for his rheum issues; is supposed to be on MTX and steroids and gets cyclophosphamide. Can resume and consider consulting his rheum. -Check RUQ US -Macrocytic anemia noted; med list also noted. Given negative FOBT and new macrocytosis will check B12/folate; lymphocytosis with low-normal plts noted, as well as leukopenia. Consider heme consult. Check peripheral smear and reticulocyte count, as well. -In terms of the tick bite, it would have been recent considering the tick is still attached. There is no rash or symptoms of erlichosis, babesiosis, or lyme. Furthermore it would be near impossible for the titers to come positive in such a quick matter, so I chose to DC the labs ordered in ER. He can followup OP vs IP for this if he develops stereotyped sx of tick-bourne illness. Monitor for rashes, etc. If this happens would be more helpful sending titers later; unclear of time of exact exposure to tick and would want more time for Ab develop
[2018-10-26] MEDS ORDERED: LACTATED RINGERS SOLUTION 1,000 ML IV SCH (04:00)
[2018-10-26] MEDS ORDERED: ONDANSETRON 4 MG/2 ML VIAL IVPUSH PRN (04:10)
[2018-10-26] MEDS ORDERED: amLODIPine BESYLATE 10 MG TABLET (FP) PO SCH (04:30)
--- NOTE | 2018-10-26 04:43 | HP ---
<Morena Mejía - Last Filed: 10/26/18 09:14> CHIEF COMPLAINT:Diarrhea and vomiting PCP: HISTORY OF PRESENT ILLNESS: 53 year old male with PMH significant for granulomatis polyangitis with glomerulonephritis, HTN, HLD, CKD stage3, who presents today with diarrhea for 6 days, and vomiting of 1 day. He has 2-3 episodes per day of diarrhea over the last 6 days, and 2 episodes of vomiting today which is what brought him to the hospital. He denies any blood in the stool, and no blood seen in his vomitus. He reports decreased appetite, and has not eaten solid foods for the last 3 days which has led to him missing all of his medication since then. He feels as though he is distended today. He denies any abdominal pain, nausea, fever, chills, dysuria, hematuria, chest pain, SOB, and no one at home is having similar symptoms to him, and no changes in his diet. He has never had a colonoscopy or EGD done. ER course was notable for: (1)Dog Tick was found on neck and removed. (2)Zofran was given and 1L NS (3)FOBT was done and found to be negative in ED. EKG was completed- no change. Recent Travel: none PAST MEDICAL HISTORY: granulomatosis polyangitis with glomerulonephritis, HTN, HLD, CKD stage 3 PAST SURGICAL HISTORY: RIght foot surgery 20 years ago Social History: Smoking:Denies Alcohol:Denies Drugs: Denies Family History: Denies significant family medical history Allergies rituximab [From Rituxan] Adverse Reaction (Intermediate, Verified 10/25/18 20:36 ) Hives 07/12/17 SUSPECTED ADR TO RITUXAN RX: MILD: ERYTHEMA. MODERATE: URTICARIA, HIVES. HSR PROTOCOL GUIDELINES INITIATED WHICH INCLUDED: BENADRYL,SOLU-MEDROL, FAMOTIDINE AND NS BEING GIVEN. NOTIFIED HOME MEDICATIONS: Home Medications Medication Instructions Recorded Atorvastatin Ca [Lipitor] 20 mg PO HS #30 tablet 07/15/17 Furosemide [Lasix -] 40 mg PO DAILY #30 tablet 07/15/17 Lisinopril [Prinivil] 5 mg PO DAILY #30 tablet 07/15/17 Amlodipine Besylate 10 mg PO ASDIR 09/30/17 Montelukast Na [Singulair -] 10 mg PO HS 09/30/17 Pentoxifylline [Trental -] 400 mg PO BID 09/30/17 REVIEW OF SYSTEMS As above CONSTITUTIONAL: loss of appetite Absent: fever, chills, diaphoresis, generalized weakness, malaise, CARDIOVASCULAR: Absent: chest pain, syncope, palpitations, irregular heart rate, lightheadedness , peripheral edema RESPIRATORY: Absent: cough, shortness of breath, dyspnea with exertion, orthopnea, wheezing, stridor, hemoptysis GASTROINTESTINAL:abdominal distension, Absent: abdominal pain, nausea, constipation, melena, hematochezia GENITOURINARY: Absent: dysuria, frequency, urgency, hesitancy, hematuria, flank pain, genital pain HEMATOLOGIC/IMMUNOLOGIC: Absent: easy bleeding, easy bruising, lymphadenopathy, frequent infections NEUROLOGIC: Absent: headache, focal weakness or paresthesias, dizziness, unsteady gait, seizure, mental status changes, PHYSICAL EXAMINATION Vital Signs - 24 hr 10/25/18 20:31 Temperature 98.5 F Pulse Rate 116 H Respiratory 16 Rate Blood Pressure 134/77 O2 Sat by Pulse 100 Oximetry (%) GENERAL: Awake, alert, and fully oriented, in no acute distress. HEAD: Normal with no signs of trauma. EARS, NOSE, THROAT: Ears normal, nares patent, oropharynx clear without exudates. Moist mucous membranes. NECK: Normal range of motion, supple without lymphadenopathy, JVD, or masses. LUNGS: Breath sounds equal, clear to auscultation bilaterally. No wheezes, and no crackles. No accessory muscle use. HEART: Regular rate and rhythm, normal S1 and S2 without murmur, rub or gallop. ABDOMEN: Soft, nontender, normoactive bowel sounds, no guarding, no rebound, no masses. No hepatomegaly or splenomegaly. MUSCULOSKELETAL: Normal range of motion at all joints. No bony deformities or tenderness. No CVA tenderness. UPPER EXTREMITIES: 2+ pulses, warm, well-perfused. No cyanosis. No clubbing. No peripheral edema. LOWER EXTREMITIES: 2+ pulses, warm, well-perfused. No calf tenderness. No peripheral edema. . SKIN: Warm, dry, normal turgor, no rashes or lesions noted, normal capillary refill. Laboratory Results - last 24 hr 10/25/18 10/25/18 10/25/18 22:40 23:30 23:30 WBC 2.1 L RBC 2.17 L Hgb 7.3 L Hct 21.5 L D MCV 99.4 H D MCH 33.5 MCHC 33.7 RDW 17.9 H Plt Count 199 D MPV 6.5 L D Absolute Neuts (auto) 0.8 L Neutrophils % 38.2 L D Lymphocytes % 53.4 H D Monocytes % 6.0 Eosinophils % 1.8 Basophils % 0.6 Nucleated RBC % 0 Sodium 143 Potassium 4.7 Chloride 114 H Carbon Dioxide 22 Anion Gap 7 L BUN 55.1 H Creatinine 4.0 H Est GFR (CKD-EPI)AfAm 18.68 Est GFR (CKD-EPI)NonAf 16.12 Random Glucose 83 Calcium 7.7 L Total Bilirubin 1.1 H AST 12 L ALT 22 Alkaline Phosphatase 63 Creatine Kinase 148 Cancelled Troponin I < 0.02 Cancelled Total Protein 5.5 L Albumin 3.4 Stool Occult Blood 10/26/18 00:50 WBC RBC Hgb Hct MCV MCH MCHC RDW Plt Count MPV Absolute Neuts (auto) Neutrophils % Lymphocytes % Monocytes % Eosinophils % Basophils % Nucleated RBC % Sodium Potassium Chloride Carbon Dioxide Anion Gap BUN Creatinine Est GFR (CKD-EPI)AfAm Est GFR (CKD-EPI)NonAf Random Glucose Calcium Total Bilirubin AST ALT Alkaline Phosphatase Creatine Kinase Troponin I Total Protein Albumin Stool Occult Blood Negative ASSESSMENT/PLAN: 53 M with PMH significant for granulomatosis with polyangitis with glomerulonephritis, CKD stage 3, HTN, HLD, who presents with diarrhea for 6 days and 1 day of NBNB emesis. Patient has not been able to eat, has noted drop of hemoglobin to 7.3, and MARIUSZ on CKD. 1)6 days of diarrhea and 1 day NBNB emesis LR @75 ml/hr CT Abd/pelvis to rule out colitis and narrow differential Protonix 40 mg PO QDaily for possible gastritis Zofran 2mg IV Q6H PRN 2) MARIUSZ on CKD FeUrea Urine Creatinine levels Trend BMP Holding lasix, TMP-SMX, lisinopril Assess kidney on CT Abd/Pelvis 3) Anemia and Leukopenia B12 Folate ESR CRP 4)Granulomatosis with polyangitis Restart prednisone 5mg PO Qdaily Restart montelukast 10 mg PO BID 5) HTN Restart amlodipine 10 mg Qdaily 6) HLD Restart Atorvastatin 20 mg Qdaily DVT prophylaxis: SCDs F: 75 ml/hr LR E: Monitor BMP N: Sodium controlled diet Dispo: Admit to medicine floors Problem List - Problem (1) Acute on chronic renal failure Code(s): N17.9 - ACUTE KIDNEY FAILURE, UNSPECIFIED; N18.9 - CHRONIC KIDNEY DISEASE, UNSPECIFIED Qualifiers: Acute renal failure type: unspecified Chronic kidney disease stage: unspecified stage Qualified Code(s): N17.9 - Acute kidney failure, unspecified ; N18.9 - Chronic kidney disease, unspecified (2) Anemia Code(s): D64.9 - ANEMIA, UNSPECIFIED Qualifiers: Anemia type: due to chronic kidney disease Chronic kidney disease stage: unspecified stage Qualified Code(s): N18.9 - Chronic kidney disease, unspecified; D63.1 - Anemia in chronic kidney disease (3) Vomiting and diarrhea Code(s): R11.10 - VOMITING, UNSPECIFIED; R19.7 - DIARRHEA, UNSPECIFIED (4) Chronic kidney disease Code(s): N18.9 - CHRONIC KIDNEY DISEASE, UNSPECIFIED Qualifiers: Chronic kidney disease stage: stage 3 (moderate) Qualified Code(s): N18.3 - Chronic kidney disease, stage 3 (moderate) (5) Diabetes mellitus Code(s): E11.9 - TYPE 2 DIABETES MELLITUS WITHOUT COMPLICATIONS (6) Granulomatosis with polyangiitis with renal involvement Code(s): M31.31 - SONYA'S GRANULOMATOSIS WITH RENAL INVOLVEMENT (7) Joint pain Code(s): M25.50 - PAIN IN UNSPECIFIED JOINT Qualifiers: Joint pain location: unspecified Qualified Code(s): M25.50 - Pain in unspecified joint (8) Tick bite of abdomen Code(s): S30.861A - INSECT BITE (NONVENOMOUS) OF ABDOMINAL WALL, INIT ENCNTR; W57.XXXA - BIT/STUNG BY NONVENOM INSECT & OTH NONVENOM ARTHROPODS, INIT Qualifiers: Encounter type: initial encounter Qualified Code(s): S30.861A - Insect bite (nonvenomous) of abdominal wall, initial encounter; W57.XXXA - Bitten or stung by nonvenomous insect and other nonvenomous arthropods, initial encounter (9) HLD (hyperlipidemia) Code(s): E78.5 - HYPERLIPIDEMIA, UNSPECIFIED (10) HTN (hypertension) Code(s): I10 - ESSENTIAL (PRIMARY) HYPERTENSION Visit type - Emergency Visit Emergency Visit: Yes ED Registration Date: 10/26/18 Care time: The patient presented to the Emergency Department on the above date and was hospitalized for further evaluation of their emergent condition. - New Patient This patient is new to me today: Yes Date on this admission: 10/26/18 - Critical Care Critical Care patient: No ATTENDING PHYSICIAN STATEMENT I saw and evaluated the patient. I reviewed the resident's note and discussed the case with the resident. I agree with the resident's findings and plan as documented. SUBJECTIVE: OBJECTIVE: ASSESSMENT AND PLAN: <Ky Davies - Last Filed: 11/26/18 20:33> Seen and examined; verified all vital parts of historical info and PE. Please see my own note for further discussion. Agree with above aside from as supplemented by myself. FH asked and noncontributory ATTENDING PHYSICIAN STATEMENT I saw and evaluated the patient. I reviewed the resident's note and discussed the case with the resident. I agree with the resident's findings and plan as documented. SUBJECTIVE: OBJECTIVE: ASSESSMENT AND PLAN:
[2018-10-26] MEDS ORDERED: amLODIPine BESYLATE 5 MG TABLET (FP) ONE (04:47)
[2018-10-26 06:31] LABS: BASO % 0.5 % (0-2.0); HEMATOCRIT 20.3 % (35.4-49); MCH 33.5 pg (25.7-33.7); MCHC 33.6 g/dl (32.0-35.9); MEAN CELL VOLUME 99.6 fl (80-96); MEAN PLT VOLUME 6.3 fl (7.5-11.1); MONO % 5.7 % (3.8-10.2); NEUT % 32.8 % (42.8-82.8); PLATELET COUNT 183 K/MM3 (134-434); RBC 2.03 M/mm3 (4.00-5.60); RDW 17.8 % (11.9-15.9)
[2018-10-26 06:58] LABS: WHITE BLOOD COUNT 1.9 K/mm3 (4.0-10.0)
[2018-10-26 06:59] LABS: HEMOGLOBIN 6.8 GM/dL (11.7-16.9)
[2018-10-26 07:27] LABS: ALBUMIN 3.2 g/dl (3.4-5.0); BILIRUBIN,TOTAL 0.9 mg/dL (0.2-1); BLOOD UREA NITROGEN 52.8 mg/dL (7-18); CALCIUM 7.7 mg/dL (8.5-10.1); CREATININE 3.6 mg/dL (0.55-1.3); POTASSIUM 4.4 mmol/L (3.5-5.1); TOT PROT 5.1 g/dl (6.4-8.2)
[2018-10-26 08:39] LABS: EPI CELLS 0.3 /HPF (0-5/HPF); HYALINE CASTS 4 /lpf (0-8); URINE APPEARANCE CLEAR; URINE BACTERIA 0.8 /hpf (NEGATIVE); URINE BILIRUBIN NEGATIVE (NEGATIVE); URINE COLOR YELLOW; URINE GLUCOSE (UA) NEGATIVE (NEGATIVE); URINE KETONE NEGATIVE (NEGATIVE); URINE LEUK ESTERASE NEGATIVE (NEGATIVE); URINE NITRITE NEGATIVE (NEGATIVE); URINE PROTEIN 2+ (NEGATIVE); URINE RBC 1 /hpf (0-4); URINE UROBILINOGEN 0.2 mg/dL (0.2-1.0); URINE WBC 0 /hpf (0-5)
[2018-10-26 10:56] LABS: ANISOCYTOSIS 0; MACROCYTOSIS 0; PLATELET ESTIMATE NORMAL
[2018-10-26] MEDS: PANTOPRAZOLE 40 MG TABLET (FP) PO SCH (11:22)
[2018-10-26] MEDS: DOXYCYCLINE INJECTION 100 MG in DEXTROSE 5%-WATER - 100 ML IVPB SCH ×2 (11:22→21:25)
[2018-10-26] MEDS: predniSONE 5 MG TABLET (UD) PO SCH (11:22)
[2018-10-26 12:18] VITALS: BMI 30.2
--- NOTE | 2018-10-26 12:37 | PN ---
Teaching Attending Note Name of Resident: Marce Whyte ATTENDING PHYSICIAN STATEMENT I saw and evaluated the patient. I reviewed the resident's note and discussed the case with the resident. I agree with the resident's findings and plan as documented. SUBJECTIVE:states nausea/vomiting and diarrhea has resolved. was having diarrhea for 5 days about 3-4/day and developed vomiting yesterday which prompted his ER visit. has not had appetite during this time and did not take his home medications as he does not take them on an empty stomach. Engorged tick was found on him in the ER and removed. 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 has been on stable dose of prednisone for over a year. denies CP, SOB , fever, chills, N/V/C/D, hematuria, melena or BRBPR. never had colonoscopy or blood transfusion in the past nobody else in household is sick with similar symptoms. no medications changes, no recent travel OBJECTIVE: Last Vital Signs Temp Pulse Resp BP Pulse Ox 98.7 F 61 20 124/73 99 10/26/18 12:13 10/26/18 12:13 10/26/18 12:13 10/26/18 12:13 10/26/18 08:29 General NAD HEENT no ticks appreciated on the scalp. location where tick was removed there is no erythema or rashes CV S1 S2 RRR no murmur/rub/gallop lungs CTA B/L no wheezing/rales/rhonchi Abdomen soft NT/ND no rebound or guarding. no BS Extremities no pedal edema skin no rashes or lesions. no other ticks found ASSESSMENT AND PLAN: 53yo M with PMH HTN, CKD, wegners on MTX and prednisone presented to the ER with Nausea/vomiting and diarrhea and found to have an engorged tick on him in the ER 1.Sepsis due to suspected GI source vs ricketsial infection- tachy with neutropenia on presentation. symptoms abated. CT abdomen done but awaiting read. would have to r/o common symptoms of colitis or diverticulitis although those typically present also with abdominal pain. also found to have tick on him for unknown period of time. concern for erhlichia or anaplasmosis with pancytopenia although normal liver enzymes. will try to determine if tick was sent for analysis. check stools for O&P and culture, check retic count, Bcx, HIV , rickettsial titers. ID consult. neutropenic precautions. will ideally need colonoscopy but not emergent at this time. FOBT negative 2. Macrocytic anemia- no reports of bleeding. repeat CBC and transfuse PRBC if hgb <7. Vitamin B12 and folate levels pending. 3. acute on CKD- possible due to dehydration from volume losses vs not taking his medication. will give gentle hydration and encourage po intake of fluids. monitor renal function. f/u CT scan to evaluate kidneys as well 4. GB polyp- found on u/s imaging. will need repeat u/s to follow up 5. HTN- controlled. re-start home medications 6. Wegners- on mtx and pred. will cont 7. DVT ppx- scd. hold pharmacologic in setting of acute anemia
--- NOTE | 2018-10-26 12:43 | PN ---
Progress Note (short form) - Note Progress Note: ID CONSULT DICTATED 53 Y/O MALE PMH VASCULITIS ON MTX/PREDNISONE ADMITTED WITH N/V/D. TICK REMOVED FROM NECK ON PRESENTATION. 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 NO F/C, HEADACHE, OR RASH PLT, LFTS WNL ?TICK RELATED ILLNESS ( ANAPLASMA, BABESIA) ? MTX RELATED OBTAIN TICK SEROLOGIES EMPIRIC DOXYCYCLINE ANEMIA/ HEMOLYSIS W/U HOLD MTX NEUTROPENIC PRECAUTIONS
--- NOTE | 2018-10-26 13:31 | CONS ---
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 He was admitted to the hospital on October 25, 2018, with a several-day history of non-bloody diarrhea, 1-day history of nausea, vomiting. 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 He lives in [place]. He states that no other people in his family have been suffering from gastrointestinal illnesses. He denies any recent antibiotic use. No recent travel. He presented to the hospital, where he was found to be leukopenic and neutropenic as well as severely anemic. His renal function was slightly worse than his baseline. While being evaluated, he was noted to have a tick imbedded on the left posterior neck, which was removed. He denies any fever or chills. No arthralgias or myalgias. No rash. Past medical history positive for Adelaida's diagnosed in 2018. He has been treated with prednisone 5 mg daily and weekly methotrexate. Past medical history also includes hypertension, hyperlipidemia, chronic kidney disease. Allergies to RITUXAN (hives). MEDICATIONS: Lipitor, Lasix, lisinopril, amlodipine, Singulair, Trental, prednisone 5 mg daily, methotrexate weekly. SOCIAL HISTORY: As per HPI. He is originally from [facility]. He has been living in the [place] for 30 years. Nonsmoker, nondrinker. No history of illicit drugs. LABORATORY DATA: White count 2.1, 32 neutrophils, 59 lymphocytes, 5 monocytes, 2 eosinophils, absolute neutrophil count 600. Hematocrit 20.3, platelets 183. BUN 52, creatinine 3.6. Urinalysis negative. Sedimentation rate 19. PHYSICAL EXAMINATION: General: He is awake and alert, he is not acutely toxic appearing. No acute distress. Vital Signs: Temperature 99.1. Blood pressure 130/70. Pulse 70, regular. Respirations 18 per minute. ENT: Sclerae anicteric. Oropharynx negative. Neck: Supple. No palpable nodes. Heart Sounds: S1, S2. No murmur. Lungs: Clear. Abdomen: Soft. No tenderness elicited. No palpable liver or spleen. Extremities: Negative for edema. No rashes noted. IMPRESSION: A 53-year-old man with a history of vasculitis, on methotrexate and prednisone, now admitted with nausea, vomiting, and diarrhea. Tick removed from neck on presentation. Noted to be leukopenic/neutropenic and anemic. 1. Rule out tick-related illness (anaplasma, Babesia, Lyme, [place] spotted fever). 2. Rule out methotrexate-related leukopenia. 3. Vasculitis, on immunosuppressive therapy. 4. Chronic kidney disease. Obtain tick serologies, Lyme titer and a plasma PCR, Ehrlichia titer, Babesia PCR, peripheral smear for parasites. Empiric doxycycline. Anemia and hemolysis workup. Would consider hematology evaluation. Would hold methotrexate. Neutropenia precautions. Thank you for the kind referral. AMARIS LOGAN M.D. YAMILEX/[id number]
[2018-10-26 14:15] LABS: BASO % 0.5 % (0-2.0); EOS % 2.4 % (0-4.5); HEMATOCRIT 21.1 % (35.4-49); HEMOGLOBIN 7.1 GM/dL (11.7-16.9); RDW 17.6 % (11.9-15.9)
[2018-10-26 14:22] LABS: LYMPH % 54.5 % (8-40); MCH 33.4 pg (25.7-33.7); MCHC 33.7 g/dl (32.0-35.9); MEAN CELL VOLUME 99.1 fl (80-96); MEAN PLT VOLUME 6.3 fl (7.5-11.1); MONO % 5.9 % (3.8-10.2); NEUT % 36.7 % (42.8-82.8); PLATELET COUNT 187 K/MM3 (134-434); RBC 2.13 M/mm3 (4.00-5.60)
[2018-10-26 14:48] LABS: ALBUMIN 3.3 g/dl (3.4-5.0); BILIRUBIN,TOTAL 0.7 mg/dL (0.2-1); BLOOD UREA NITROGEN 50.1 mg/dL (7-18); CALCIUM 7.9 mg/dL (8.5-10.1); CREATININE 3.5 mg/dL (0.55-1.3); POTASSIUM 4.2 mmol/L (3.5-5.1); TOT PROT 5.3 g/dl (6.4-8.2)
[2018-10-26 15:15] LABS: ANISOCYTOSIS 1+; MACROCYTOSIS 1+; PLATELET ESTIMATE NORMAL
[2018-10-26 15:18] LABS: WHITE BLOOD COUNT 1.7 K/mm3 (4.0-10.0)
--- NOTE | 2018-10-26 16:58 | PN ---
Physical Exam: SUBJECTIVE: Patient seen and examined at bedside. Endorsed 2 episodes non- bloody diarrhea this morning. No emesis today. OBJECTIVE: Vital Signs Period Temp Pulse Resp BP Sys/Burhc Pulse Ox Last 24 Hr 98.1 F-99.1 F 61-116 16-20 121-134/70-77 98-100 GENERAL: The patient is awake, alert, and fully oriented, in no acute distress. HEENT: NCAT. No jaundice. LUNGS: Breath sounds equal, clear to auscultation bilaterally, no wheezes, no crackles, no accessory muscle use. HEART: Regular rate and rhythm, S1, S2 without murmur, rub or gallop. ABDOMEN: Soft, diffuse mild tenderness to palpation. Bowel sounds +. EXTREMITIES: No edema noted Laboratory Results - last 24 hr Laboratory Last Values WBC 1.7 K/mm3 (4.0-10.0) L* 10/26/18 13:39 RBC 2.13 M/mm3 (4.00-5.60) L 10/26/18 13:39 Hgb 7.1 GM/dL (11.7-16.9) L 10/26/18 13:39 Hct 21.1 % (35.4-49) L 10/26/18 13:39 MCV 99.1 fl (80-96) H 10/26/18 13:39 MCH 33.4 pg (25.7-33.7) 10/26/18 13:39 MCHC 33.7 g/dl (32.0-35.9) 10/26/18 13:39 RDW 17.6 % (11.9-15.9) H 10/26/18 13:39 Plt Count 187 K/MM3 (134-434) 10/26/18 13:39 MPV 6.3 fl (7.5-11.1) L 10/26/18 13:39 Absolute Neuts (auto) 0.6 K/mm3 (1.5-8.0) L 10/26/18 13:39 Total Counted Cancelled 10/26/18 13:39 Neutrophils % 36.7 % (42.8-82.8) L 10/26/18 13:39 Neutrophils % (Manual) 31.0 % (42.8-82.8) L D 10/26/18 13:39 Band Neutrophils % 0.0 % 10/26/18 13:39 Lymphocytes % 54.5 % (8-40) H 10/26/18 13:39 Lymphocytes % (Manual) 56.0 % (8-40) H 10/26/18 13:39 Monocytes % 5.9 % (3.8-10.2) 10/26/18 13:39 Monocytes % (Manual) 7 % (3.8-10.2) 10/26/18 13:39 Eosinophils % 2.4 % (0-4.5) 10/26/18 13:39 Eosinophils % (Manual) 2.0 % (0-4.5) 10/26/18 13:39 Basophils % 0.5 % (0-2.0) 10/26/18 13:39 Basophils % (Manual) 0.0 % (0-2.0) 10/26/18 13:39 Myelocytes % (Man) 0 % (0-2) 10/26/18 13:39 Promyelocytes % (Man) 0 % (0-2) 10/26/18 13:39 Blast Cells % (Manual) 0 % (0-0) 10/26/18 13:39 Nucleated RBC % 0 % (0-0) 10/26/18 13:39 Metamyelocytes 0 % (0-2) 10/26/18 13:39 Differential Comment Cancelled 10/26/18 13:39 Hypersegmented Neuts Cancelled 10/26/18 13:39 Plasma Cells Cancelled 10/26/18 13:39 Smudge Cells Cancelled 10/26/18 13:39 Other Cell Type Cancelled 10/26/18 13:39 Hypochromia 0 10/26/18 13:39 Toxic Granulation Cancelled 10/26/18 13:39 Dohle Bodies Cancelled 10/26/18 13:39 Mitchell Rods Cancelled 10/26/18 13:39 Platelet Estimate Normal 10/26/18 13:39 Platelet Comment Cancelled 10/26/18 13:39 Platelet Comment Cancelled 10/26/18 13:39 Polychromasia 1+ 10/26/18 13:39 Poikilocytosis 1+ 10/26/18 13:39 Basophilic Stippling Cancelled 10/26/18 13:39 Anisocytosis 1+ 10/26/18 13:39 Microcytosis 0 10/26/18 13:39 Macrocytosis 1+ 10/26/18 13:39 Spherocytes Cancelled 10/26/18 13:39 Siderocytes Cancelled 10/26/18 13:39 Sickle Cells Cancelled 10/26/18 13:39 Target Cells Cancelled 10/26/18 13:39 Tear Drop Cells Cancelled 10/26/18 13:39 Ovalocytes Cancelled 10/26/18 13:39 Stomatocytes Cancelled 10/26/18 13:39 Helmet Cells Cancelled 10/26/18 13:39 [place] Bodies Cancelled 10/26/18 13:39 [place] Rings Cancelled 10/26/18 13:39 Rossi Cells Cancelled 10/26/18 13:39 Acanthocytes (Spur) Cancelled 10/26/18 13:39 Rouleaux Cancelled 10/26/18 13:39 Fragmented RBCs Cancelled 10/26/18 13:39 Schistocytes Cancelled 10/26/18 13:39 ESR 19 mm/hr (0-20) 10/26/18 06:18 Retic Count 0.48 % (0.5-1.5) L 10/26/18 10:05 Sodium 143 mmol/L (136-145) 10/26/18 13:39 Potassium 4.2 mmol/L (3.5-5.1) 10/26/18 13:39 Chloride 113 mmol/L (98-107) H 10/26/18 13:39 Carbon Dioxide 24 mmol/L (21-32) 10/26/18 13:39 Anion Gap 6 MMOL/L (8-16) L 10/26/18 13:39 BUN 50.1 mg/dL (7-18) H 10/26/18 13:39 Creatinine 3.5 mg/dL (0.55-1.3) H 10/26/18 13:39 Est GFR (CKD-EPI)AfAm 21.96 10/26/18 13:39 Est GFR (CKD-EPI)NonAf 18.94 10/26/18 13:39 Random Glucose 92 mg/dL (74-106) 10/26/18 13:39 Calcium 7.9 mg/dL (8.5-10.1) L 10/26/18 13:39 Magnesium 2.0 mg/dL (1.8-2.4) 10/26/18 06:18 Total Bilirubin 0.7 mg/dL (0.2-1) 10/26/18 13:39 AST 8 U/L (15-37) L 10/26/18 13:39 ALT 21 U/L (13-61) 10/26/18 13:39 Alkaline Phosphatase 62 U/L (45-117) 10/26/18 13:39 Creatine Kinase 148 U/L (26-308) 10/25/18 23:30 Troponin I < 0.02 ng/ml (0.00-0.05) 10/25/18 23:30 C-Reactive Protein 2.1 MG/DL (0.00-0.3) H 10/26/18 06:18 Total Protein 5.3 g/dl (6.4-8.2) L 10/26/18 13:39 Albumin 3.3 g/dl (3.4-5.0) L 10/26/18 13:39 Vitamin B12 289 pg/ml (193-986) 10/26/18 06:18 Serum Folate 12 ng/mL (3.1-17.5) 10/26/18 06:18 Urine Color Yellow 10/26/18 08:20 Urine Appearance Clear 10/26/18 08:20 Urine pH 5.0 (5.0-8.0) 10/26/18 08:20 Ur Specific [place] 1.010 (1.010-1.035) 10/26/18 08:20 Urine Protein 2+ (NEGATIVE) H 10/26/18 08:20 Urine Glucose (UA) Negative (NEGATIVE) 10/26/18 08:20 Urine Ketones Negative (NEGATIVE) 10/26/18 08:20 Urine Blood Negative (NEGATIVE) 10/26/18 08:20 Urine Nitrite Negative (NEGATIVE) 10/26/18 08:20 Urine Bilirubin Negative (NEGATIVE) 10/26/18 08:20 Urine Urobilinogen 0.2 mg/dL (0.2-1.0) 10/26/18 08:20 Ur Leukocyte Esterase Negative (NEGATIVE) 10/26/18 08:20 Urine WBC (Auto) 0 /hpf (0-5) 10/26/18 08:20 Urine RBC (Auto) 1 /hpf (0-4) 10/26/18 08:20 Urine Casts (Auto) 4 /lpf (0-8) 10/26/18 08:20 U Epithel Cells (Auto) 0.3 /HPF (0-5/HPF) 10/26/18 08:20 Urine Bacteria (Auto) 0.8 /hpf (NEGATIVE) 10/26/18 08:20 Ur Random Creatinine 83.0 mg/dL (30-150) 10/26/18 08:20 Ur Random Urea Nitrogn 431 mg/dL (350-1000) 10/26/18 08:20 Stool Occult Blood Negative (NEGATIVE) 10/26/18 00:50 HIV 1&2 Antibody Screen Negative 10/26/18 10:05 HIV P24 Antigen Negative 10/26/18 10:05 Active Medications Generic Name Dose Route Start Last Admin Trade Name Freq PRN Reason Stop Dose Admin Amlodipine Besylate 10 mg 10/26/18 04:30 10/26/18 04:57 Norvasc - PO 10 mg ASDIR RADHA Administration Atorvastatin Calcium 20 mg 10/26/18 22:00 Lipitor - PO HS RADHA Lactated Ringer's 1,000 mls @ 75 mls/hr 10/26/18 04:00 10/26/18 04:57 Lactated Ringers Solution IV 75 mls/hr ASDIR RADHA Administration Doxycycline Hyclate 100 mg/ 100 mls @ 100 mls/hr 10/26/18 10:45 10/26/18 11: 22 Dextrose IVPB 100 mls/hr BID RADHA Administration Montelukast Sodium 10 mg 10/26/18 22:00 Singulair - PO HS RADHA Ondansetron HCl 2 mg 10/26/18 04:10 Zofran Injection IVPUSH Q6H PRN NAUSEA Pantoprazole Sodium 40 mg 10/26/18 10:00 10/26/18 11:22 Protonix - PO 40 mg DAILY RADHA Administration Prednisone 5 mg 10/26/18 10:00 10/26/18 11:22 Deltasone - PO 5 mg DAILY RADHA Administration ASSESSMENT/PLAN: 53 y.o. male w/ PMH significant for granulomatis polyangitis with glomerulonephritis, HTN, HLD, CKD stage 3, who presented with diarrhea x 6 d & emesis x 1 day. #Sepsis 2/2 Diarrhea of undetermined origin -Tachycardia on adm, resolved -Neutropenia; on neutropenic precautions -Abd U/S: Fatty infiltration of the liver. 0.3 cm the gallbladder neck polyp. Follow-up ultrasound in one year is suggested. -CT abd/pel pending read -No recent hx of travel;stool studies ordered -f/u HIV test -IVF: LR -Pantoprazole 40 #Tick bite -F/u Lyme series -Monitor for rashes/ fevers -Doxycycline 100mg IV BID #MARIUSZ on CKD -trend cr -avoid nephrotoxic drugs #Wegeners granulomatosis -On prednisone -Holding MTX as per ID #HTN -Amlodipine 10 #HLD -Atorvastatin 20 #FEN -IVF: LR -Hyperchloremic -Sodium controlled diet #DVT PPX -SCDs Visit type - Emergency Visit Emergency Visit: No - New Patient This patient is new to me today: No - Critical Care Critical Care patient: No ATTENDING PHYSICIAN STATEMENT I saw and evaluated the patient. I reviewed the resident's note and discussed the case with the resident. I agree with the resident's findings and plan as documented. SUBJECTIVE: OBJECTIVE: ASSESSMENT AND PLAN:
[2018-10-26] MEDS ORDERED: MONTELUKAST NA 10 MG TABLET PO SCH (22:00)
[2018-10-26] MEDS ORDERED: ATORVASTATIN CA 20 MG TABLET (FP) PO SCH (22:00)
[2018-10-27 07:28] LABS: BASO % 0.3 % (0-2.0); HEMATOCRIT 20.5 % (35.4-49); HEMOGLOBIN 7.1 GM/dL (11.7-16.9); LYMPH % 40.3 % (8-40); MCH 34.2 pg (25.7-33.7); MCHC 34.5 g/dl (32.0-35.9); MEAN CELL VOLUME 98.9 fl (80-96); MEAN PLT VOLUME 6.8 fl (7.5-11.1); MONO % 5.4 % (3.8-10.2); PLATELET COUNT 171 K/MM3 (134-434); RBC 2.07 M/mm3 (4.00-5.60); RDW 17.6 % (11.9-15.9); WHITE BLOOD COUNT 2.4 K/mm3 (4.0-10.0)
[2018-10-27 08:02] LABS: ALBUMIN 3.2 g/dl (3.4-5.0); BILIRUBIN,TOTAL 0.6 mg/dL (0.2-1); BLOOD UREA NITROGEN 46.1 mg/dL (7-18); CREATININE 3.1 mg/dL (0.55-1.3); PHOSPHOROUS 3.4 mg/dL (2.5-4.9); POTASSIUM 4.3 mmol/L (3.5-5.1); TOT PROT 5.1 g/dl (6.4-8.2)
[2018-10-27] MEDS: PANTOPRAZOLE 40 MG TABLET (FP) PO SCH (09:58)
[2018-10-27] MEDS: DOXYCYCLINE INJECTION 100 MG in DEXTROSE 5%-WATER - 100 ML IVPB SCH (09:58)
[2018-10-27] MEDS: predniSONE 5 MG TABLET (UD) PO SCH (09:59)
[2018-10-27] MEDS ORDERED: amLODIPine BESYLATE 10 MG TABLET (FP) PO SCH (10:00)
--- NOTE | 2018-10-27 12:54 | PN ---
Physical Exam: SUBJECTIVE: Patient seen and examined at bedside. No episodes of diarrhea or emesis overnight. Patient denies any pain. OBJECTIVE: Vital Signs Period Temp Pulse Resp BP Sys/Burch Pulse Ox Last 24 Hr 97.6 F-98.4 F 60-68 18-20 108-144/67-76 98-100 GENERAL: AOx3. NAD HEENT: NCAT LUNGS: Breath sounds equal, clear to auscultation bilaterally, no wheezes, no crackles, no accessory muscle use. HEART: Regular rate and rhythm, S1, S2 without murmur, rub or gallop. ABDOMEN: Soft, nontender, nondistended, normoactive bowel sounds, no guarding, no masses. EXTREMITIES: 2+ pulses b/l UE & LE, no edema. Skin: No rashes or lesions noted Laboratory Results - last 24 hr Laboratory Last Values WBC 2.4 K/mm3 (4.0-10.0) L 10/27/18 05:58 RBC 2.07 M/mm3 (4.00-5.60) L 10/27/18 05:58 Hgb 7.1 GM/dL (11.7-16.9) L 10/27/18 05:58 Hct 20.5 % (35.4-49) L 10/27/18 05:58 MCV 98.9 fl (80-96) H 10/27/18 05:58 MCH 34.2 pg (25.7-33.7) H 10/27/18 05:58 MCHC 34.5 g/dl (32.0-35.9) 10/27/18 05:58 RDW 17.6 % (11.9-15.9) H 10/27/18 05:58 Plt Count 171 K/MM3 (134-434) 10/27/18 05:58 MPV 6.8 fl (7.5-11.1) L 10/27/18 05:58 Absolute Neuts (auto) 1.2 K/mm3 (1.5-8.0) L 10/27/18 05:58 Total Counted Cancelled 10/26/18 13:39 Neutrophils % 52.0 % (42.8-82.8) D 10/27/18 05:58 Neutrophils % (Manual) 31.0 % (42.8-82.8) L D 10/26/18 13:39 Band Neutrophils % 0.0 % 10/26/18 13:39 Lymphocytes % 40.3 % (8-40) H D 10/27/18 05:58 Lymphocytes % (Manual) 56.0 % (8-40) H 10/26/18 13:39 Monocytes % 5.4 % (3.8-10.2) 10/27/18 05:58 Monocytes % (Manual) 7 % (3.8-10.2) 10/26/18 13:39 Eosinophils % 2.0 % (0-4.5) 10/27/18 05:58 Eosinophils % (Manual) 2.0 % (0-4.5) 10/26/18 13:39 Basophils % 0.3 % (0-2.0) 10/27/18 05:58 Basophils % (Manual) 0.0 % (0-2.0) 10/26/18 13:39 Myelocytes % (Man) 0 % (0-2) 10/26/18 13:39 Promyelocytes % (Man) 0 % (0-2) 10/26/18 13:39 Blast Cells % (Manual) 0 % (0-0) 10/26/18 13:39 Nucleated RBC % 0 % (0-0) 10/27/18 05:58 Metamyelocytes 0 % (0-2) 10/26/18 13:39 Differential Comment Cancelled 10/26/18 13:39 Hypersegmented Neuts Cancelled 10/26/18 13:39 Plasma Cells Cancelled 10/26/18 13:39 Smudge Cells Cancelled 10/26/18 13:39 Other Cell Type Cancelled 10/26/18 13:39 Hypochromia 0 10/26/18 13:39 Toxic Granulation Cancelled 10/26/18 13:39 Dohle Bodies Cancelled 10/26/18 13:39 Mitchell Rods Cancelled 10/26/18 13:39 Platelet Estimate Normal 10/26/18 13:39 Platelet Comment Cancelled 10/26/18 13:39 Platelet Comment Cancelled 10/26/18 13:39 Polychromasia 1+ 10/26/18 13:39 Poikilocytosis 1+ 10/26/18 13:39 Basophilic Stippling Cancelled 10/26/18 13:39 Anisocytosis 1+ 10/26/18 13:39 Microcytosis 0 10/26/18 13:39 Macrocytosis 1+ 10/26/18 13:39 Spherocytes Cancelled 10/26/18 13:39 Siderocytes Cancelled 10/26/18 13:39 Sickle Cells Cancelled 10/26/18 13:39 Target Cells Cancelled 10/26/18 13:39 Tear Drop Cells Cancelled 10/26/18 13:39 Ovalocytes Cancelled 10/26/18 13:39 Stomatocytes Cancelled 10/26/18 13:39 Helmet Cells Cancelled 10/26/18 13:39 Banda-[place] Bodies Cancelled 10/26/18 13:39 [place] Rings Cancelled 10/26/18 13:39 [place] Cells Cancelled 10/26/18 13:39 Acanthocytes (Spur) Cancelled 10/26/18 13:39 Rouleaux Cancelled 10/26/18 13:39 Fragmented RBCs Cancelled 10/26/18 13:39 Schistocytes Cancelled 10/26/18 13:39 ESR 19 mm/hr (0-20) 10/26/18 06:18 Retic Count 0.48 % (0.5-1.5) L 10/26/18 10:05 Sodium 142 mmol/L (136-145) 10/27/18 05:58 Potassium 4.3 mmol/L (3.5-5.1) 10/27/18 05:58 Chloride 113 mmol/L (98-107) H 10/27/18 05:58 Carbon Dioxide 24 mmol/L (21-32) 10/27/18 05:58 Anion Gap 4 MMOL/L (8-16) L 10/27/18 05:58 BUN 46.1 mg/dL (7-18) H 10/27/18 05:58 Creatinine 3.1 mg/dL (0.55-1.3) H 10/27/18 05:58 Est GFR (CKD-EPI)AfAm 25.43 10/27/18 05:58 Est GFR (CKD-EPI)NonAf 21.94 10/27/18 05:58 Random Glucose 90 mg/dL (74-106) 10/27/18 05:58 Calcium 8.0 mg/dL (8.5-10.1) L 10/27/18 05:58 Phosphorus 3.4 mg/dL (2.5-4.9) 10/27/18 05:58 Magnesium 2.0 mg/dL (1.8-2.4) 10/27/18 05:58 Total Bilirubin 0.6 mg/dL (0.2-1) 10/27/18 05:58 AST 9 U/L (15-37) L 10/27/18 05:58 ALT 19 U/L (13-61) 10/27/18 05:58 Alkaline Phosphatase 64 U/L (45-117) 10/27/18 05:58 LD Total 164 U/L (87-246) 10/26/18 13:39 Creatine Kinase 148 U/L (26-308) 10/25/18 23:30 Troponin I < 0.02 ng/ml (0.00-0.05) 10/25/18 23:30 C-Reactive Protein 2.1 MG/DL (0.00-0.3) H 10/26/18 06:18 Total Protein 5.1 g/dl (6.4-8.2) L 10/27/18 05:58 Albumin 3.2 g/dl (3.4-5.0) L 10/27/18 05:58 Vitamin B12 289 pg/ml (193-986) 10/26/18 06:18 Folate 914 ng/mL (>498) 10/26/18 06:18 Serum Folate 12 ng/mL (3.1-17.5) 10/26/18 06:18 Folate Hemolysate 184.7 ng/mL (Not Estab.) 10/26/18 06:18 Urine Color Yellow 10/26/18 08:20 Urine Appearance Clear 10/26/18 08:20 Urine pH 5.0 (5.0-8.0) 10/26/18 08:20 Ur Specific [place] 1.010 (1.010-1.035) 10/26/18 08:20 Urine Protein 2+ (NEGATIVE) H 10/26/18 08:20 Urine Glucose (UA) Negative (NEGATIVE) 10/26/18 08:20 Urine Ketones Negative (NEGATIVE) 10/26/18 08:20 Urine Blood Negative (NEGATIVE) 10/26/18 08:20 Urine Nitrite Negative (NEGATIVE) 10/26/18 08:20 Urine Bilirubin Negative (NEGATIVE) 10/26/18 08:20 Urine Urobilinogen 0.2 mg/dL (0.2-1.0) 10/26/18 08:20 Ur Leukocyte Esterase Negative (NEGATIVE) 10/26/18 08:20 Urine WBC (Auto) 0 /hpf (0-5) 10/26/18 08:20 Urine RBC (Auto) 1 /hpf (0-4) 10/26/18 08:20 Urine Casts (Auto) 4 /lpf (0-8) 10/26/18 08:20 U Epithel Cells (Auto) 0.3 /HPF (0-5/HPF) 10/26/18 08:20 Urine Bacteria (Auto) 0.8 /hpf (NEGATIVE) 10/26/18 08:20 Ur Random Creatinine 83.0 mg/dL (30-150) 10/26/18 08:20 Ur Random Urea Nitrogn 431 mg/dL (350-1000) 10/26/18 08:20 Stool Occult Blood Negative (NEGATIVE) 10/26/18 00:50 HIV 1&2 Antibody Screen Negative 10/27/18 05:58 HIV P24 Antigen Negative 10/27/18 05:58 Active Medications Generic Name Dose Route Start Last Admin Trade Name Freq PRN Reason Stop Dose Admin Amlodipine Besylate 10 mg 10/27/18 10:00 10/27/18 09:59 Norvasc - PO 10 mg DAILY RADHA Administration Atorvastatin Calcium 20 mg 10/26/18 22:00 10/26/18 21:25 Lipitor - PO 20 mg HS RADHA Administration Doxycycline Hyclate 100 mg/ 100 mls @ 100 mls/hr 10/26/18 10:45 10/27/18 09: 58 Dextrose IVPB 100 mls/hr BID RADHA Administration Montelukast Sodium 10 mg 10/26/18 22:00 10/26/18 21:25 Singulair - PO 10 mg HS RADHA Administration Ondansetron HCl 2 mg 10/26/18 04:10 Zofran Injection IVPUSH Q6H PRN NAUSEA Pantoprazole Sodium 40 mg 10/26/18 10:00 10/27/18 09:58 Protonix - PO 40 mg DAILY RADHA Administration Prednisone 5 mg 10/26/18 10:00 10/27/18 09:59 Deltasone - PO 5 mg DAILY RADHA Administration ASSESSMENT/PLAN: 53 y.o. M PMH granulomatis polyangitis with glomerulonephritis, HTN, HLD, CKD stage 3 presented with diarrhea x 6 d and emesis x 1 day. #Sepsis 2/2 diarrhea of undeterined origin, resolving -Diarrhea resolved; emesis resolved -VS WNL -Neutropenia resolving (WBC 2.4); ANC 1248, d/c'ed neutropenic precautions -Abd US neg for acute pathology -CT abd/pel: No evidence of colitis or acute pathology within the abdomen or pelvis. -Blood cx NGTD -Periph blod smear neg for parasite -HIV neg -Pt tolerating PO water; IVF d/c'ed -Pantoprazole 40 -Holding MTX -ID following: recs PCR #Tick bite -F/u Lyme series: Ehrlichia, anaplasma, babesia -Empiric Doxy 100mg IV BID (Day #2 abx) #MARIUSZ on CKD -Cr downtrending -Holding MTX -F/u nephro outpatient (Dr. Mayorga) #Granulomatis polyangitis with glomerulonephritis -On prednisone -Holding MTX #HTN -Amlodipine 10 #HLD -Atorvastatin 2 #FEN -No IVF; pt tolerating PO -Monitoring lytes -Sodium controlled diet #DVT PPX -SCDs ATTENDING PHYSICIAN STATEMENT I saw and evaluated the patient. I reviewed the resident's note and discussed the case with the resident. I agree with the resident's findings and plan as documented. SUBJECTIVE: OBJECTIVE: ASSESSMENT AND PLAN:
--- NOTE | 2018-10-27 13:57 | PN ---
Teaching Attending Note Name of Resident: Marce Whyte ATTENDING PHYSICIAN STATEMENT I saw and evaluated the patient. I reviewed the resident's note and discussed the case with the resident. I agree with the resident's findings and plan as documented. SUBJECTIVE:asymptomatic. states nausea and diarrhea has resolved. denies CP, SOB , fever, chills, N/V/C/D OBJECTIVE: Last Vital Signs Temp Pulse Resp BP Pulse Ox 98.4 F 60 18 123/76 98 10/27/18 08:46 10/27/18 08:46 10/27/18 09:00 10/27/18 08:46 10/27/18 09:00 General NAD CV S1 S2 RRR no murmur/rub/gallop lungs CTA B/L no wheezing/rales/rhonchi Abdomen soft NT/ND no rebound or guarding. no BS Extremities no pedal edema skin no rashes or lesions. no other ticks found ASSESSMENT AND PLAN: 53yo M with PMH HTN, CKD, wegners on MTX and prednisone presented to the ER with Nausea/vomiting and diarrhea and found to have an engorged tick on him in the ER 1.Sepsis due to suspected GI source vs ricketsial infection- asymptomatic. neutropenia improving. Bcx and blood smear negative. can d/c on doxy for total of 14 days. ID recommends holding MTX until evaluated by rheumatology. will need to f/u with serologies with ID as outpatient. 2. Macrocytic anemia- no reports of bleeding. Hgb stable. Vitamin B12 and folate levels normal 3. acute on CKD- possible due to dehydration from volume losses vs not taking his medication.resolved. can d/c IVF 4. GB polyp- found on u/s imaging. will need repeat u/s to follow up 5. HTN- controlled. re-start home medications 6. Wegners- on mtx and pred. will cont 7. DVT ppx- scd. hold pharmacologic in setting of acute anemia 8. can d/c home with rheum and ID follow up as outpatient
[2018-10-27 15:11] VITALS: BP 117/60; PULSE 69; TEMP 98.8
--- NOTE | 2018-10-27 15:24 | PN ---
Progress Note, Physician History of Present Illness: FEELS WELL OOB IN CHAIR OFFERS NO COMPLAINT NO C/O FEVER/ CHILLS NO HEADACHE NO BODYACHE AFEBRILE WBC IMPROVED - Current Medication List Current Medications: Active Medications Amlodipine Besylate (Norvasc -) 10 mg PO DAILY [facility] Last Admin: 10/27/18 09:59 Dose: 10 mg Atorvastatin Calcium (Lipitor -) 20 mg PO HS [facility] Last Admin: 10/26/18 21:25 Dose: 20 mg Doxycycline Hyclate 100 mg/ (Dextrose) 100 mls @ 100 mls/hr IVPB BID [facility] Last Admin: 10/27/18 09:58 Dose: 100 mls/hr Montelukast Sodium (Singulair -) 10 mg PO HS [facility] Last Admin: 10/26/18 21:25 Dose: 10 mg Ondansetron HCl (Zofran Injection) 2 mg IVPUSH Q6H PRN PRN Reason: NAUSEA Pantoprazole Sodium (Protonix -) 40 mg PO DAILY [facility] Last Admin: 10/27/18 09:58 Dose: 40 mg Prednisone (Deltasone -) 5 mg PO DAILY [facility] Last Admin: 10/27/18 09:59 Dose: 5 mg - Objective Vital Signs: Vital Signs Temperature 98.8 F 10/27/18 15:09 Pulse Rate 69 10/27/18 15:09 Respiratory Rate 18 10/27/18 15:09 Blood Pressure 117/60 10/27/18 15:09 O2 Sat by Pulse Oximetry (%) 98 10/27/18 09:00 Constitutional: Yes: No Distress Eyes: Yes: Conjunctiva Clear Cardiovascular: Yes: Regular Rate and Rhythm, S1, S2 Respiratory: Yes: CTA Bilaterally Gastrointestinal: Yes: Normal Bowel Sounds, Soft. No: Tenderness Edema: No Labs: CBC, BMP 10/27/18 05:58 10/27/18 05:58 Assessment/Plan LEUKOPENIA/ ANEMIA ? MTX-INDUCED R/O TICK RELATED ILLNESS AWAIT SEROLOGIES COMPLETE 14D COURSE DOXYCYCLINE OUTPATIENT RHEUMATOLOGY F/U
--- NOTE | 2018-10-27 17:08 | DS ---
Physical Exam: SUBJECTIVE: Patient seen and examined at bedside. No episodes of diarrhea or emesis overnight. Patient denies any pain. OBJECTIVE: Vital Signs Period Temp Pulse Resp BP Sys/Burch Pulse Ox Last 24 Hr 97.6 F-98.8 F 60-69 18-20 108-144/60-76 98-100 PHYSICAL EXAM GENERAL: AOx3. NAD HEENT: NCAT LUNGS: Breath sounds equal, clear to auscultation bilaterally, no wheezes, no crackles, no accessory muscle use. HEART: Regular rate and rhythm, S1, S2 without murmur, rub or gallop. ABDOMEN: Soft, nontender, nondistended, normoactive bowel sounds, no guarding, no masses. EXTREMITIES: 2+ pulses b/l UE & LE, no edema. Skin: No rashes or lesions noted LABS Laboratory Results - last 24 hr Laboratory Last Values WBC 2.4 K/mm3 (4.0-10.0) L 10/27/18 05:58 RBC 2.07 M/mm3 (4.00-5.60) L 10/27/18 05:58 Hgb 7.1 GM/dL (11.7-16.9) L 10/27/18 05:58 Hct 20.5 % (35.4-49) L 10/27/18 05:58 MCV 98.9 fl (80-96) H 10/27/18 05:58 MCH 34.2 pg (25.7-33.7) H 10/27/18 05:58 MCHC 34.5 g/dl (32.0-35.9) 10/27/18 05:58 RDW 17.6 % (11.9-15.9) H 10/27/18 05:58 Plt Count 171 K/MM3 (134-434) 10/27/18 05:58 MPV 6.8 fl (7.5-11.1) L 10/27/18 05:58 Absolute Neuts (auto) 1.2 K/mm3 (1.5-8.0) L 10/27/18 05:58 Total Counted Cancelled 10/26/18 13:39 Neutrophils % 52.0 % (42.8-82.8) D 10/27/18 05:58 Neutrophils % (Manual) 31.0 % (42.8-82.8) L D 10/26/18 13:39 Band Neutrophils % 0.0 % 10/26/18 13:39 Lymphocytes % 40.3 % (8-40) H D 10/27/18 05:58 Lymphocytes % (Manual) 56.0 % (8-40) H 10/26/18 13:39 Monocytes % 5.4 % (3.8-10.2) 10/27/18 05:58 Monocytes % (Manual) 7 % (3.8-10.2) 10/26/18 13:39 Eosinophils % 2.0 % (0-4.5) 10/27/18 05:58 Eosinophils % (Manual) 2.0 % (0-4.5) 10/26/18 13:39 Basophils % 0.3 % (0-2.0) 10/27/18 05:58 Basophils % (Manual) 0.0 % (0-2.0) 10/26/18 13:39 Myelocytes % (Man) 0 % (0-2) 10/26/18 13:39 Promyelocytes % (Man) 0 % (0-2) 10/26/18 13:39 Blast Cells % (Manual) 0 % (0-0) 10/26/18 13:39 Nucleated RBC % 0 % (0-0) 10/27/18 05:58 Metamyelocytes 0 % (0-2) 10/26/18 13:39 Differential Comment Cancelled 10/26/18 13:39 Hypersegmented Neuts Cancelled 10/26/18 13:39 Plasma Cells Cancelled 10/26/18 13:39 Smudge Cells Cancelled 10/26/18 13:39 Other Cell Type Cancelled 10/26/18 13:39 Hypochromia 0 10/26/18 13:39 Toxic Granulation Cancelled 10/26/18 13:39 Dohle Bodies Cancelled 10/26/18 13:39 Mitchell Rods Cancelled 10/26/18 13:39 Platelet Estimate Normal 10/26/18 13:39 Platelet Comment Cancelled 10/26/18 13:39 Platelet Comment Cancelled 10/26/18 13:39 Polychromasia 1+ 10/26/18 13:39 Poikilocytosis 1+ 10/26/18 13:39 Basophilic Stippling Cancelled 10/26/18 13:39 Anisocytosis 1+ 07/11/19 13:39 Microcytosis 0 10/26/18 13:39 Macrocytosis 1+ 10/26/18 13:39 Spherocytes Cancelled 10/26/18 13:39 Siderocytes Cancelled 10/26/18 13:39 Sickle Cells Cancelled 10/26/18 13:39 Target Cells Cancelled 10/26/18 13:39 Tear Drop Cells Cancelled 10/26/18 13:39 Ovalocytes Cancelled 10/26/18 13:39 Stomatocytes Cancelled 10/26/18 13:39 Helmet Cells Cancelled 10/26/18 13:39 Banda-[place] Bodies Cancelled 10/26/18 13:39 Alpha Rings Cancelled 10/26/18 13:39 [place] Cells Cancelled 10/26/18 13:39 Acanthocytes (Spur) Cancelled 10/26/18 13:39 Rouleaux Cancelled 10/26/18 13:39 Fragmented RBCs Cancelled 10/26/18 13:39 Schistocytes Cancelled 10/26/18 13:39 ESR 19 mm/hr (0-20) 10/26/18 06:18 Retic Count 0.48 % (0.5-1.5) L 10/26/18 10:05 Hematology Comments No Result Required. 10/26/18 06:18 Sodium 142 mmol/L (136-145) 10/27/18 05:58 Potassium 4.3 mmol/L (3.5-5.1) 10/27/18 05:58 Chloride 113 mmol/L (98-107) H 10/27/18 05:58 Carbon Dioxide 24 mmol/L (21-32) 10/27/18 05:58 Anion Gap 4 MMOL/L (8-16) L 10/27/18 05:58 BUN 46.1 mg/dL (7-18) H 10/27/18 05:58 Creatinine 3.1 mg/dL (0.55-1.3) H 10/27/18 05:58 Est GFR (CKD-EPI)AfAm 25.43 10/27/18 05:58 Est GFR (CKD-EPI)NonAf 21.94 10/27/18 05:58 Random Glucose 90 mg/dL (74-106) 10/27/18 05:58 Calcium 8.0 mg/dL (8.5-10.1) L 10/27/18 05:58 Phosphorus 3.4 mg/dL (2.5-4.9) 10/27/18 05:58 Magnesium 2.0 mg/dL (1.8-2.4) 10/27/18 05:58 Total Bilirubin 0.6 mg/dL (0.2-1) 10/27/18 05:58 AST 9 U/L (15-37) L 10/27/18 05:58 ALT 19 U/L (13-61) 10/27/18 05:58 Alkaline Phosphatase 64 U/L (45-117) 10/27/18 05:58 LD Total 164 U/L (87-246) 10/26/18 13:39 Creatine Kinase 148 U/L (26-308) 10/25/18 23:30 Troponin I < 0.02 ng/ml (0.00-0.05) 10/25/18 23:30 C-Reactive Protein 2.1 MG/DL (0.00-0.3) H 10/26/18 06:18 Total Protein 5.1 g/dl (6.4-8.2) L 10/27/18 05:58 Albumin 3.2 g/dl (3.4-5.0) L 10/27/18 05:58 Vitamin B12 289 pg/ml (193-986) 10/26/18 06:18 Folate 914 ng/mL (>498) 10/26/18 06:18 Serum Folate 12 ng/mL (3.1-17.5) 10/26/18 06:18 Folate Hemolysate 184.7 ng/mL (Not Estab.) 10/26/18 06:18 Urine Color Yellow 10/26/18 08:20 Urine Appearance Clear 10/26/18 08:20 Urine pH 5.0 (5.0-8.0) 10/26/18 08:20 Ur Specific [place] 1.010 (1.010-1.035) 10/26/18 08:20 Urine Protein 2+ (NEGATIVE) H 10/26/18 08:20 Urine Glucose (UA) Negative (NEGATIVE) 10/26/18 08:20 Urine Ketones Negative (NEGATIVE) 10/26/18 08:20 Urine Blood Negative (NEGATIVE) 10/26/18 08:20 Urine Nitrite Negative (NEGATIVE) 10/26/18 08:20 Urine Bilirubin Negative (NEGATIVE) 10/26/18 08:20 Urine Urobilinogen 0.2 mg/dL (0.2-1.0) 10/26/18 08:20 Ur Leukocyte Esterase Negative (NEGATIVE) 10/26/18 08:20 Urine WBC (Auto) 0 /hpf (0-5) 10/26/18 08:20 Urine RBC (Auto) 1 /hpf (0-4) 10/26/18 08:20 Urine Casts (Auto) 4 /lpf (0-8) 10/26/18 08:20 U Epithel Cells (Auto) 0.3 /HPF (0-5/HPF) 10/26/18 08:20 Urine Bacteria (Auto) 0.8 /hpf (NEGATIVE) 10/26/18 08:20 Ur Random Creatinine 83.0 mg/dL (30-150) 10/26/18 08:20 Ur Random Urea Nitrogn 431 mg/dL (350-1000) 10/26/18 08:20 Stool Occult Blood Negative (NEGATIVE) 10/26/18 00:50 HIV 1&2 Antibody Screen Negative 10/27/18 05:58 HIV P24 Antigen Negative 10/27/18 05:58 HOSPITAL COURSE: 53 y.o. M PMH granulomatous polyangitis with glomerulonephritis, HTN, HLD, CKD stage 3 presented with diarrhea x 6 d and emesis x 1 day. Pt admitted for multiple episodes diarrhea and vomiting which has since resolved. He was also found to have a tick on his neck which was removed. Lymes series sent, no rashes observed. While in the hospital he received IVF and doxycycline for empiric Lymes coverage. He will continue taking doxycycline for a total of 2 weeks. Methotrexate held d/t diarrhea. Pt will f/u with his master at arms for optimization of his granulomatous polyangitis medications. Incidental finding of 0.3cm GB polyp for which patient will f/u with his PCP. Pt is clinically stable. Date of Admission:10/26/18 CT abd/pel: No evidence of colitis or acute pathology within the abdomen or pelvis. Please see above discussion. US abd: Fatty infiltration of the liver. 0.3 cm the gallbladder neck polyp. Follow-up ultrasound in one year is suggested. Date of Discharge: 10/27/18 Minutes to complete discharge: 36 Discharge Summary Reason For Visit: VOMITING AND DIARRHEA, ANEMIA, ACUTE RENAL FAILURE Current Active Problems Acute on chronic renal failure (Acute) Anemia (Acute) Vomiting and diarrhea (Acute) - Instructions Diet, Activity, Other Instructions: You presented to the hospital for diarrhea. You had imaging done which did not reveal any signs of infection. You were treated with IV fluids. While you were here, you had an ultrasound of your abdomen which showed a polyp in your gallbladder. It is very important that you follow up with your primary care doctor for a repeat ultrasound and management as this can possibly be cancerous. Medication Changes: 1. Please do not take your methotrexate until you follow up with your master at arms as this medication may have caused your diarrhea. 2. Please continue taking Doxycycline 100mg twice per day. You will stop taking this medication on 11/08/18. Follow up with the following physicians: 1. Primary care provider in 1 week 2. Hr Shared Services Consultant (Dr. Matias) in 1 week. 3. Marketing Executive (Dr. Mayorga) in 1 week You are being discharged to your home. Please continue taking all other medications as prescribed. Please return to the ER if you have any signs or symptoms of chest pain, shortness of breath, confusion, dizziness, abdominal pain, diarrhea, fatigue, fevers, vomiting, muscle pains or weakness. Please return to the ER if symptoms persist, worsen, or new symptoms arise. Referrals: Kevin Matias MD [Primary Care Provider] - Stephon Mayorga MD [Staff Physician] - - Home Medications Comprehensive Discharge Medication List: Ambulatory Orders Atorvastatin Ca [Lipitor] 20 mg PO HS #30 tablet 07/15/17 Furosemide [Lasix -] 40 mg PO DAILY #30 tablet 07/15/17 Amlodipine Besylate 10 mg PO ASDIR 09/30/17 Montelukast Na [Singulair -] 10 mg PO HS 09/30/17 Allopurinol [Zyloprim -] 200 mg PO DAILY 10/26/18 Folic Acid 1 mg PO DAILY 10/26/18 Methotrexate [Mexate -] 2.5 mg PO WEEKLY 10/26/18 Prednisone 5 mg PO DAILY 10/26/18 Doxycycline Monohydrate [Monodox] 100 mg PO Q12H #24 capsule 10/27/18 This patient is new to me today: No Emergency Visit: No Critical Care patient: No - Discharge Referral Referred to [facility] No ATTENDING PHYSICIAN STATEMENT I saw and evaluated the patient. I reviewed the resident's note and discussed the case with the resident. I agree with the resident's findings and plan as documented. SUBJECTIVE: OBJECTIVE: ASSESSMENT AND PLAN:
[2018-10-30 14:10] LABS: E.chaff HME IgG Negative (Neg:<1:64)
[2018-10-30 18:09] LABS: BABESIA MICROTI ANTIBODY IGG <1:10 (Neg:<1:10); BABESIA MICROTI ANTIBODY IGM <1:10 (Neg:<1:10)
--- NOTE | 2018-12-11 14:04 | EKG ---
Test Reason : Blood Pressure : / mmHG Vent. Rate : 060 BPM Atrial Rate : 060 BPM P-R Int : 168 ms QRS Dur : 086 ms QT Int : 420 ms P-R-T Axes : 039 032 043 degrees QTc Int : 420 ms NORMAL SINUS RHYTHM NORMAL ECG WHEN COMPARED WITH ECG OF 09-JUL-2017 22:20, NO SIGNIFICANT CHANGE WAS FOUND Confirmed by AMANDA GALVEZ MD ([id number]) on 10/26/2018 5:07:57 PM Also confirmed by AMANDA GALVEZ MD ([id number]), [employer] ([id number]) on 12/11/2018 2:03:57 PM Referred By: Confirmed By:AMANDA GALVEZ MD
== END 2018-10-27 18:10 | disposition home or self-care (01) | DRG 469 ==
LOC: JER 20:24 → JERBED 10-26 02:14 → J7W 10-26 10:02
PROVIDERS: ADMIT Internal Medicine; ATTEND Internal Medicine
DX: N17.9 Acute kidney failure, unspecified (principal); E78.00 Pure hypercholesterolemia, unspecified; E86.0 Dehydration; I12.9 Hypertensive chronic kidney disease with stage 1 through stage 4 chronic kidney disease, or unspecified chronic kidney disease; N18.3 Chronic kidney disease, stage 3 (moderate); S30.861A Insect bite (nonvenomous) of abdominal wall, initial encounter; W57.XXXA Bitten or stung by nonvenomous insect and other nonvenomous arthropods, initial encounter; D63.1 Anemia in chronic kidney disease; R00.0 Tachycardia, unspecified; K82.4 Cholesterolosis of gallbladder; E87.8 Other disorders of electrolyte and fluid balance, not elsewhere classified; R19.7 Diarrhea, unspecified; D70.9 Neutropenia, unspecified; E78.5 Hyperlipidemia, unspecified; M30.0 Polyarteritis nodosa; L92.9 Granulomatous disorder of the skin and subcutaneous tissue, unspecified; M31.30 Wegener's granulomatosis without renal involvement; R11.2 Nausea with vomiting, unspecified
CPT/HCPCS: 36415; 74176-TC; 76705-TC; 80053; 81003; 82272; 82550; 82565; 82607; 82746; 82747; 82930; 83010; 83615; 83735; 84100; 84484; 84540; 85014; 85025; 85044; 85651; 86140; 86618; 86666; 86753; 87040; 87207; 87389; 87798; 93005; 93010; 99284-25

== ENCOUNTER 2019-03-22 16:48 | Inpatient (IN) | payer MEDICARE, OTHER ==
--- NOTE | 2019-03-22 18:54 | PDOC ---
History of Present Illness - General Chief Complaint: Back Pain Stated Complaint: DIALYSIS Time Seen by Provider: 03/22/19 17:46 - History of Present Illness Initial Comments: 03/22/19 18:55 53M with no pmh sent by Dr. Mayorga for evaluation and dialysis tomorrow. Patient found to be in renal failure, acute on chronic, with creatinine increasing from 5.7 to 7.8, possibly from vascvulitis/use of antibiotics every day for a year. Patient is asymptomatic, still produces urine. Denies fever, chills, n/v/d, abdominal pain or flank pain. No dysuria. PCP: Dr. Rodríguez Past History - Past Medical History Allergies/Adverse Reactions: Allergies Allergy/AdvReac Type Severity Reaction Status Date / Time rituximab [From Rituxan] Allergy Intermediate Hives Verified 03/22/19 17:10 Home Medications: Ambulatory Orders Atorvastatin Ca [Lipitor] 20 mg PO HS #30 tablet 07/15/17 Furosemide [Lasix -] 40 mg PO DAILY #30 tablet 07/15/17 Amlodipine Besylate 10 mg PO ASDIR 09/30/17 Montelukast Na [Singulair -] 10 mg PO HS 09/30/17 Allopurinol [Zyloprim -] 200 mg PO DAILY 10/26/18 Folic Acid 1 mg PO DAILY 10/26/18 Methotrexate [Mexate -] 2.5 mg PO WEEKLY 10/26/18 Prednisone 5 mg PO DAILY 10/26/18 Doxycycline Monohydrate [Monodox] 100 mg PO Q12H #24 capsule 10/27/18 Anemia: No Asthma: No Cancer: No Cardiac Disorders: No CVA: No COPD: No CHF: No Dementia: No Diabetes: No (DENIES) GI Disorders: No Disorders: Yes (CKD STAGE 3) HTN: Yes Hypercholesterolemia: Yes Liver Disease: No Seizures: No Thyroid Disease: No - Surgical History Abdominal Surgery: No Appendectomy: No Cardiac Surgery: No Lung Surgery: No Neurologic Surgery: No Orthopedic Surgery: Yes (RIGHT FOOT SX - 20 YRS AGO) - Psycho Social/Smoking Cessation Hx Smoking History: Never smoked Have you smoked in the past 12 months: No Number of Cigarettes Smoked Daily: 0 Hx Alcohol Use: No Drug/Substance Use Hx: No Substance Use Type: None Hx Substance Use Treatment: No Review of Systems - Review of Systems Able to Perform ROS?: Yes Is the patient limited Malaysian proficient: No Constitutional: No: Symptoms Reported HEENTM: No: Symptoms Reported Respiratory: No: Symptoms reported Cardiac (ROS): No: Symptoms Reported ABD/GI: No: Symptoms Reported : No: Symptoms Reported Musculoskeletal: No: Symptoms Reported Integumentary: No: Symptoms Reported Neurological: No: Symptoms reported All Other Systems: Reviewed and Negative *Physical Exam - Vital Signs Last Vital Signs Temp Pulse Resp BP Pulse Ox 98.5 F 78 18 153/93 94 L 03/22/19 18:36 03/22/19 18:36 03/22/19 17:11 03/22/19 18:36 03/22/19 18:36 - Physical Exam General Appearance: Yes: Nourished, Appropriately Dressed. No: Apparent Distress HEENT: positive: EOMI, RU, Normal ENT Inspection Respiratory/Chest: positive: Lungs Clear, Normal Breath Sounds. negative: Chest Tender, Respiratory Distress Cardiovascular: positive: Regular Rhythm, Regular Rate, S1, S2 Gastrointestinal/Abdominal: positive: Normal Bowel Sounds, Flat, Soft. negative : Tender Musculoskeletal: positive: Normal Inspection. negative: CVA Tenderness Extremity: positive: Normal Capillary Refill, Normal Inspection, Normal Range of Motion Integumentary: positive: Normal Color, Dry, Warm Neurologic: positive: Fully Oriented, Alert, Normal Mood/Affect, Normal Response , Motor Strength 5/5 ED Treatment Course - LABORATORY CBC & Chemistry Diagram: 03/22/19 18:20 03/22/19 18:20 - RADIOLOGY Radiology Studies Ordered: Category Date Time Status CHEST X-RAY PORTABLE* [RAD] Stat Radiology 03/22/19 18:04 Ordered Medical Decision Making - Medical Decision Making 03/22/19 19:02 Asymtpomatic 53m with ESRD requiring dialysis. Will get basic labs, ekg, CXR and admit to hospitalist. Discharge - Discharge Information Problems reviewed: Yes Clinical Impression/Diagnosis: End-stage renal disease needing dialysis Condition: Guarded - Admission Yes - Follow up/Referral Referrals: Jocelin Leon MD [Primary Care Provider] - - Patient Discharge Instructions - Post Discharge Activity
[2019-03-22 18:55] LABS: BASO % 0.7 % (0-2.0); EOS % 0.9 % (0-4.5); HEMATOCRIT 26.3 % (35.4-49); HEMOGLOBIN 8.8 GM/dL (11.7-16.9); LYMPH % 11.9 % (8-40); MCH 29.6 pg (25.7-33.7); MCHC 33.3 g/dl (32.0-35.9); MEAN CELL VOLUME 88.7 fl (80-96); MONO % 8.4 % (3.8-10.2); NEUT % 78.1 % (42.8-82.8); PLATELET COUNT 274 K/MM3 (134-434); RBC 2.97 M/mm3 (4.00-5.60); RDW 15.3 % (11.9-15.9); WHITE BLOOD COUNT 7.4 K/mm3 (4.0-10.0)
[2019-03-22 19:07] LABS: PROTHROMBIN TIME (PATIENT) 11.8 SEC (9.7-13.0)
[2019-03-22 19:10] LABS: ACTIVATED PTT 31.5 SECONDS (25.2-36.5)
--- NOTE | 2019-03-22 19:16 | PN ---
Teaching Attending Note Name of Resident: Olga Fritz ATTENDING PHYSICIAN STATEMENT I saw and evaluated the patient. I reviewed the resident's note and discussed the case with the resident. I agree with the resident's findings and plan as documented. 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 He was advised by his baseball sewer hand to report to the ER for AV fistula placement and dialysis. While in the ER, patients only complaint is 1 day of left posterior chest wall pain worsened when sitting and decreased appetite. He denies shortness of breath, fevers, chills, headache, dizziness, nausea, vomiting, diarrhea, constipation, dysuria, frequency, urgency or hematuria. 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 Denies tobacco, alcohol or illicit drug use. No recent travel or sick contact. OBJECTIVE: Alert Vital Signs Period Temp Pulse Resp BP Sys/Burch Pulse Ox Last 24 Hr 98.4 F-98.5 F 78-85 18 153-155/88-93 94-97 HEENT: No Jaundice, eye redness or discharge, PERRLA, EOMI. Normocephalic, atraumatic. External ears are normal and hearing is grossly intact. No nasal discharge. Neck: Supple, nontender. No palpable adenopathy or thyromegaly. No JVD Chest: Good effort. Clear to auscultation and percussion. Heart: Regular. No S3, rub or murmur Abdomen: Not distended, soft, nontender and no HSM. No rebound or guarding. Normal bowel sounds. Ext: Peripheral pulses intact. No leg edema. Skin: Warm and dry. No petechiae, rash or ecchymosis. Neuro: Alert. Oriented x3. CN 2-12 grossly intact. Sensation grossly intact in all four extremities and DTR are symmetric. Psych: Appropriate mood and affect. Good insight. Home Medications Medication Instructions Recorded Atorvastatin Ca [Lipitor] 20 mg PO HS #30 tablet 07/15/17 Furosemide [Lasix -] 40 mg PO DAILY #30 tablet 07/15/17 Amlodipine Besylate 10 mg PO ASDIR 09/30/17 Montelukast Na [Singulair -] 10 mg PO HS 09/30/17 Allopurinol [Zyloprim -] 200 mg PO DAILY 10/26/18 Folic Acid 1 mg PO DAILY 10/26/18 Methotrexate [Mexate -] 2.5 mg PO WEEKLY 10/26/18 Prednisone 5 mg PO DAILY 10/26/18 Doxycycline Monohydrate [Monodox] 100 mg PO Q12H #24 capsule 10/27/18 Abnormal Lab Results 03/22/19 03/22/19 18:20 18:20 RBC 2.97 L Hgb 8.8 L Hct 26.3 L MPV 7.0 L Chloride 109 H BUN 95.8 H Creatinine 7.6 H* Random Glucose 109 H Calcium 7.1 L Total Protein 5.9 L Albumin 3.1 L ASSESSMENT AND PLAN: 1. ESRD for AV fistula creation - CKD caused by Adelaida's granulomatosis. Hypocalcemia likely a component of renal osteodystrophy/2o hyperparathyroidism. Will check PTH and phosphate and treat accordingly. Will consult nephrology and vascular surgery. EKG shows NSR with no ischemic changes. Continue to avoid nephrotoxic agents such as NSAIDS, aminoglycosides, contrast dyes and certain Alternative medicine products. Will continue comprehensive care for all of patients comorbid conditions. 2. Hypoalbuminemia - Possibly due to combined effects of malnutrition and inflammation associated with comorbid chronic conditions. Will ensure adequate dietary protein intake and also consult senior planning analyst. 3. Anemia - Likely mostly due to CKD. Will do basic anemia work up including serial stool guaiacs, reticulocyte count and iron studies. Would benefit from Procrit therapy once iron replete. 4. Overweight Counseled on the risks associated with being overweight. Will provide patient all the necessary assistance, counseling and positive reinforcement to facilitate weight loss. Consult senior planning analyst. 5. Hypertension - Restart suitable outpatient antihypertensive drugs when clinically appropriate and ensure adequate dialytic fluid removal. Revise regimen to ensure [id number] excellent BP control and public relations counselor patient on the injurious effects of uncontrolled hypertension. Nonpharmacologic measures to control hypertension like weight loss, salt restriction and exercise discussed. Importance of adherence to treatment regimen and attainment of normotension emphasized. 6. DVT prophylaxis - Heparin 5000u sq tid. 7. Advance directives - Full code
--- NOTE | 2019-03-22 19:19 | PDOC ---
*Physical Exam - Vital Signs Last Vital Signs Temp Pulse Resp BP Pulse Ox 98.5 F 78 18 153/93 94 L 03/22/19 18:36 03/22/19 18:36 03/22/19 17:11 03/22/19 18:36 03/22/19 18:36 ED Treatment Course - LABORATORY CBC & Chemistry Diagram: 03/22/19 18:20 03/22/19 18:20 - ADDITIONAL ORDERS Additional order review: Laboratory Results 03/22/19 18:20 PT with INR 11.80 INR 1.00 PTT (Actin FS) 31.5 03/22/19 18:20 RBC 2.97 L MCV 88.7 MCHC 33.3 RDW 15.3 MPV 7.0 L Neutrophils % 78.1 D Lymphocytes % 11.9 D Monocytes % 8.4 Eosinophils % 0.9 Basophils % 0.7 Medical Decision Making - Medical Decision Making 03/22/19 19:[address] Jaimes, patient sent by Dr. Mayorga for dialysis. Will f/u labs, admit. 03/22/19 19:53 Cr 7.6, patient admitted for dialysis. Discharge - Discharge Information Problems reviewed: Yes Clinical Impression/Diagnosis: End-stage renal disease needing dialysis Condition: Guarded - Follow up/Referral - Patient Discharge Instructions - Post Discharge Activity
--- NOTE | 2019-03-22 19:24 | PDOC ---
Documentation entered by Jean Watson SCRIBE, acting as scribe for Ursula Stock MD. Ursula Stock MD: This documentation has been prepared by the Shirley jules Nirvannie, SCRIBE, under my direction and personally reviewed by me in its entirety. I confirm that the documentation accurately reflects all work, treatment, procedures, and medical decision making performed by me. Attending Attestation - Resident Resident Name: Alfonso Jaimes - ED Attending Attestation I have performed the following: I have examined & evaluated the patient, The case was reviewed & discussed with the resident, I agree w/resident's findings & plan - HPI HPI: 03/22/19 19:13 The patient is a 53 year old male, with a significant past medical history of HTN, vasculitis (on Cyclosporin), CKD, and recent flu who presents to the emergency department for dialysis placement. As per patient, he was advised by his semiconductor manufacturing technician to report to the ED for fistula placement and dialysis. While in the ED, patients only complaint is 1 day of left posterior flank ,posterior rib pain. worsened when sitting and overall decreased appetite. He denies any recent shortness of breath. denies chest pain. He denies any recent fevers, chills, headache or dizziness. He denies any recent nausea, vomit , diarrhea or constipation. . He denies any recent dysuria, frequency, urgency or hematuria. Allergies: NKA Primary Care Physician: Dr. Leon 03/22/19 19:22 - Physicial Exam PE: 03/22/19 19:22 Awake alert no acute distress lungs are clear bilaterally heart is regular without murmurs rubs or gallops abdomen is soft nontender extremities are warm and well-perfused there is no noted peripheral edema calf soft nontender patient has 2+ peripheral and symmetric pulses neurologically awake alert and oriented x3 - Medical Decision Making 03/22/19 19:23 53-year-old male history of end-stage renal disease from vasculitis previously on cyclosporine here today for worsening renal disease and needing dialysis. Patient denies any shortness of breath does have recent decreased appetite denies any chest pain or dizziness does have some left posterior upper rib pain and flank pain. Denies any dysuria or frequency urgency or hematuria. Differential includes hyperkalemia, pulmonary edema, UTI pyelonephritis, plan CBC CMP UA chest x-ray EKG patient will likely require admission for worsening renal disease will require dialysis access and likely dialysis. Will discuss with 's morning and patient's PCP for admission Heart Score/ECG Review #1 General ECG Interpretation: Sinus Rhythm (79), Normal Rate, Normal Intervals, No acute ischemic changes
[2019-03-22 19:26] LABS: ALBUMIN 3.1 g/dl (3.4-5.0); BILIRUBIN,TOTAL 0.4 mg/dL (0.2-1); BLOOD UREA NITROGEN 95.8 mg/dL (7-18); CALCIUM 7.1 mg/dL (8.5-10.1); POTASSIUM 4.4 mmol/L (3.5-5.1); TOT PROT 5.9 g/dl (6.4-8.2)
[2019-03-22 19:28] LABS: CREATININE 7.6 mg/dL (0.55-1.3)
--- NOTE | 2019-03-22 20:27 | HP ---
CHIEF COMPLAINT: ESRD for HD PCP: Dr. 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 Patient was diagnosed with GPA about 2 years ago and since then has been followed up closely by rheum and nephro. Patient reports recent flu a few days ago and since has resolved, and currently denies any fevers, chills, headache, dizziness, chest pain, SOB, abdominal pain, diarrhea, urinary symptoms. Patient admitted for AV fistula placement and dialysis. 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 MODERATE: URTICARIA, HIVES. HSR PROTOCOL GUIDELINES INITIATED WHICH INCLUDED: BENADRYL,SOLU-MEDROL, FAMOTIDINE AND NS BEING GIVEN. NOTIFIED HOME MEDICATIONS: Home Medications Medication Instructions Recorded Atorvastatin Ca [Lipitor] 20 mg PO HS #30 tablet 07/15/17 Furosemide [Lasix -] 40 mg PO DAILY #30 tablet 07/15/17 Amlodipine Besylate 10 mg PO ASDIR 09/30/17 Montelukast Na [Singulair -] 10 mg PO HS 09/30/17 Allopurinol [Zyloprim -] 200 mg PO DAILY 10/26/18 Folic Acid 1 mg PO DAILY 10/26/18 Methotrexate [Mexate -] 2.5 mg PO WEEKLY 10/26/18 Prednisone 5 mg PO DAILY 10/26/18 Doxycycline Monohydrate [Monodox] 100 mg PO Q12H #24 capsule 10/27/18 REVIEW OF SYSTEMS CONSTITUTIONAL: Absent: fever, chills, diaphoresis, generalized weakness, malaise, loss of appetite, weight change HEENT: Absent: rhinorrhea, nasal congestion, throat pain, throat swelling, difficulty swallowing, mouth swelling, ear pain, eye pain, visual changes CARDIOVASCULAR: Absent: chest pain, syncope, palpitations, irregular heart rate, lightheadedness , peripheral edema RESPIRATORY: Absent: cough, shortness of breath, dyspnea with exertion, orthopnea, wheezing, stridor, hemoptysis GASTROINTESTINAL: Absent: abdominal pain, abdominal distension, nausea, vomiting, diarrhea, constipation, melena, hematochezia GENITOURINARY: Absent: dysuria, frequency, urgency, hesitancy, hematuria, flank pain, genital pain MUSCULOSKELETAL: Absent: myalgia, arthralgia, joint swelling, back pain, neck pain SKIN: Absent: rash, itching, pallor HEMATOLOGIC/IMMUNOLOGIC: Absent: easy bleeding, easy bruising, lymphadenopathy, frequent infections ENDOCRINE: Absent: unexplained weight gain, unexplained weight loss, heat intolerance, cold intolerance NEUROLOGIC: Absent: headache, focal weakness or paresthesias, dizziness, unsteady gait, seizure, mental status changes, bladder or bowel incontinence PSYCHIATRIC: Absent: anxiety, depression, suicidal or homicidal ideation, hallucinations. PHYSICAL EXAMINATION Vital Signs - 24 hr 03/22/19 03/22/19 17:11 18:36 Temperature 98.4 F 98.5 F Pulse Rate 85 Pulse Rate [ 78 Left Apical] Respiratory 18 Rate Blood Pressure 155/88 Blood Pressure 153/93 [Right Arm] O2 Sat by Pulse 97 94 L Oximetry (%) GENERAL: Awake, alert, and fully oriented, in no acute distress. HEAD: Normal with no signs of trauma. EYES: PERRLA, EOMI, sclera anicteric, conjunctiva clear. EARS, NOSE, THROAT: Moist mucous membranes. NECK: Normal range of motion, supple without lymphadenopathy, JVD, or masses. LUNGS: Breath sounds equal, clear to auscultation bilaterally. HEART: Regular rate and rhythm, normal S1 and S2 without murmur, rub or gallop. ABDOMEN: Soft, nontender, not distended, normoactive bowel sounds. MUSCULOSKELETAL: Normal range of motion at all joints. UPPER EXTREMITIES: 2+ pulses, warm, well-perfused. LOWER EXTREMITIES: 2+ pulses, warm, well-perfused. No peripheral edema. NEUROLOGICAL: Cranial nerves II-XII intact. Normal speech. Normal gait. PSYCHIATRIC: Cooperative. Good eye contact. Appropriate mood and affect. SKIN: Warm, dry, normal turgor. Laboratory Results - last 24 hr 03/22/19 03/22/19 03/22/19 18:20 18:20 18:20 WBC 7.4 RBC 2.97 L Hgb 8.8 L Hct 26.3 L MCV 88.7 MCH 29.6 MCHC 33.3 RDW 15.3 Plt Count 274 MPV 7.0 L Absolute Neuts (auto) 5.8 Neutrophils % 78.1 D Lymphocytes % 11.9 D Monocytes % 8.4 Eosinophils % 0.9 Basophils % 0.7 Nucleated RBC % 0 PT with INR 11.80 INR 1.00 PTT (Actin FS) 31.5 Sodium 139 Potassium 4.4 Chloride 109 H Carbon Dioxide 21 Anion Gap 9 BUN 95.8 H Creatinine 7.6 H* Est GFR (CKD-EPI)AfAm 8.60 Est GFR (CKD-EPI)NonAf 7.42 Random Glucose 109 H Calcium 7.1 L Total Bilirubin 0.4 AST 26 ALT 34 Alkaline Phosphatase 111 Total Protein 5.9 L Albumin 3.1 L Blood Type Antibody Screen 03/22/19 18:20 WBC RBC Hgb Hct MCV MCH MCHC RDW Plt Count MPV Absolute Neuts (auto) Neutrophils % Lymphocytes % Monocytes % Eosinophils % Basophils % Nucleated RBC % PT with INR INR PTT (Actin FS) Sodium Potassium Chloride Carbon Dioxide Anion Gap BUN Creatinine Est GFR (CKD-EPI)AfAm Est GFR (CKD-EPI)NonAf Random Glucose Calcium Total Bilirubin AST ALT Alkaline Phosphatase Total Protein Albumin Blood Type O POSITIVE Antibody Screen Negative ASSESSMENT/PLAN: Patient is a 53 year old male with past medical history of HTN, HLD, 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 #CKD 2/2 GPA with GN -Cr 7.6 with GFR of 8.6 -Nephrology (Dr. Mayorga) consulted. -Vascular (Dr. Mir) consulted -for AV fistula creation -Plan for dialysis -will keep patient NPO for now for possible surgery tomorrow -continue home meds Leflunomide and Prednisone -continue home Lasix #Normocytic anemia -likely 2/2 ACD, CKD -will do iron studies, stool occult and retic ct -continue to monitor H/H #Hypertension -On Lasix 40mg daily #Hyperlipidemia -Continue home Lipitor #FEN -Not on any standing fluids -Electrolytes wnl, routine bmp monitoring -NPO except meds #Prophylaxis -SCDs -early ambulation #Disposition -full code -admit to med surg Visit type - Emergency Visit Emergency Visit: Yes ED Registration Date: 03/22/19 Care time: The patient presented to the Emergency Department on the above date and was hospitalized for further evaluation of their emergent condition. - New Patient This patient is new to me today: Yes Date on this admission: 03/22/19 - Critical Care Critical Care patient: No ATTENDING PHYSICIAN STATEMENT I saw and evaluated the patient. I reviewed the resident's note and discussed the case with the resident. I agree with the resident's findings and plan as documented. SUBJECTIVE: OBJECTIVE: ASSESSMENT AND PLAN:
[2019-03-22] MEDS ORDERED: FLUTICASONE PROP 0.05% 16 GM NASAL SPRAY NS PRN (22:12)
[2019-03-23] MEDS ORDERED: HEPARIN NA (PORCINE) 5,000 UNITS/ML 1ML VIAL SQ SCH (06:00)
[2019-03-23 07:35] LABS: BASO % 0.7 % (0-2.0); EOS % 1.2 % (0-4.5); HEMATOCRIT 22.6 % (35.4-49); HEMOGLOBIN 7.6 GM/dL (11.7-16.9); LYMPH % 16.7 % (8-40); MCH 29.7 pg (25.7-33.7); MCHC 33.6 g/dl (32.0-35.9); MEAN CELL VOLUME 88.4 fl (80-96); MEAN PLT VOLUME 7.1 fl (7.5-11.1); MONO % 10.8 % (3.8-10.2); NEUT % 70.6 % (42.8-82.8); PLATELET COUNT 248 K/MM3 (134-434); RBC 2.56 M/mm3 (4.00-5.60); RDW 15.3 % (11.9-15.9); WHITE BLOOD COUNT 6.6 K/mm3 (4.0-10.0)
[2019-03-23 07:42] LABS: BLOOD UREA NITROGEN 93.9 mg/dL (7-18); CALCIUM 7.3 mg/dL (8.5-10.1); MAGNESIUM 2.1 mg/dL (1.8-2.4); PHOSPHOROUS 4.7 mg/dL (2.5-4.9); POTASSIUM 3.7 mmol/L (3.5-5.1)
[2019-03-23 07:44] LABS: CREATININE 7.7 mg/dL (0.55-1.3)
[2019-03-23] MEDS ORDERED: FUROSEMIDE 40 MG TABLET (FP) PO SCH (10:00)
[2019-03-23] MEDS ORDERED: LEFLUNOMIDE 20 MG PO SCH (10:00)
[2019-03-23] MEDS ORDERED: predniSONE 5 MG TABLET (UD) PO SCH (10:00)
[2019-03-23] MEDS ORDERED: ALLOPURINOL 100 MG TABLET (FP) PO SCH (10:00)
[2019-03-23] MEDS ORDERED: FOLIC ACID 1 MG TABLET (FP) PO SCH (10:00)
[2019-03-23] MEDS ORDERED: LEFLUNOMIDE 10 MG TABLET PO SCH (10:00)
[2019-03-23 10:25] LABS: INR 1.04 (0.83-1.09); PROTHROMBIN TIME (PATIENT) 12.3 SEC (9.7-13.0)
[2019-03-23 10:27] LABS: ACTIVATED PTT 30.8 SECONDS (25.2-36.5)
--- NOTE | 2019-03-23 10:44 | CONSULT ---
- Consultation REQUESTING PROVIDER: CONSULT REQUEST: We have been asked to surgically evaluate this patient for renal failure and need for access. PCP:Ravin Garces MD HISTORY OF PRESENT ILLNESS: 53yo M h/o renal failure for autoimmune issues. Pt was seen by Dr. Mayorga and was felt that he needed to start HD so was sent for access and initiate HD. Pt denies any acute issues at this time, except for some mild nausea. Pt states he has never had HD before. PMHx: HLD, HTN, Glomerulonephritis, vasculitis Home Medications Medication Instructions Recorded Atorvastatin Ca [Lipitor] 20 mg PO HS #30 tablet 07/15/17 Furosemide [Lasix -] 40 mg PO DAILY #30 tablet 07/15/17 Montelukast Na [Singulair -] 10 mg PO HS 09/30/17 Allopurinol [Zyloprim -] 300 mg PO DAILY 10/26/18 Folic Acid 1 mg PO DAILY 10/26/18 Methotrexate [Mexate -] 2.5 mg PO WEEKLY 10/26/18 Prednisone 5 mg PO DAILY 10/26/18 Doxycycline Monohydrate [Monodox] 100 mg PO Q12H #24 capsule 10/27/18 Leflunomide 20 mg PO DAILY 03/22/19 Sulfamethoxazole/Trimethoprim 1 tablet PO WEEKLY 03/22/19 [Sulfamethoxazole-Tmp Ds Tablet] Allergies Allergy/AdvReac Type Severity Reaction Status Date / Time rituximab [From Rituxan] Allergy Intermediate Hives Verified 03/22/19 17:10 REVIEW OF SYSTEMS: CONSTITUTIONAL: Absent: fever, chills, diaphoresis, generalized weakness, malaise, loss of appetite, weight change CARDIOVASCULAR: Absent: chest pain, syncope, palpitations, irregular heart rate, lightheadedness , peripheral edema RESPIRATORY: Absent: cough, shortness of breath, dyspnea with exertion, wheezing, stridor, hemoptysis GASTROINTESTINAL: Absent: abdominal pain, abdominal distension, vomiting, diarrhea, constipation, melena, hematochezia PHYSICAL EXAM: GENERAL: Awake, alert, and fully oriented, in no acute distress. HEAD: Normal with no signs of trauma. EYES: PERRL, sclera anicteric, conjunctiva clear. NECK: Normal ROM, supple without lymphadenopathy, JVD, or masses. LUNGS: breathing comfortably, No accessory muscle use. HEART: Regular rate and rhythm. ABDOMEN: Soft, nontender, not distended, normoactive bowel sounds, no guarding, no rebound, no masses. No organomegaly. UPPER EXTREMITIES: 2+ pulses, warm, well-perfused. No cyanosis. Cap refill <2 seconds. No peripheral edema. NEUROLOGICAL: Normal speech, gait not observed. PSYCH: Cooperative. Good eye contact. Appropriate mood and affect. SKIN: Warm, dry, normal turgor, no rashes or lesions noted. Vital Signs Temperature 99.1 F 03/23/19 07:23 Pulse Rate 88 03/23/19 10:16 Respiratory Rate 20 03/23/19 10:16 Blood Pressure 148/82 03/23/19 10:16 O2 Sat by Pulse Oximetry (%) 95 03/23/19 10:16 Lab Results WBC 6.6 K/mm3 (4.0-10.0) 03/23/19 06:30 RBC 2.56 M/mm3 (4.00-5.60) L 03/23/19 06:30 Hgb 7.6 GM/dL (11.7-16.9) L 03/23/19 06:30 Hct 22.6 % (35.4-49) L 03/23/19 06:30 MCV 88.4 fl (80-96) 03/23/19 06:30 MCHC 33.6 g/dl (32.0-35.9) 03/23/19 06:30 RDW 15.3 % (11.9-15.9) 03/23/19 06:30 Plt Count 248 K/MM3 (134-434) 03/23/19 06:30 Sodium 141 mmol/L (136-145) 03/23/19 06:30 Potassium 3.7 mmol/L (3.5-5.1) 03/23/19 06:30 Chloride 110 mmol/L (98-107) H 03/23/19 06:30 Carbon Dioxide 22 mmol/L (21-32) 03/23/19 06:30 Anion Gap 9 MMOL/L (8-16) 03/23/19 06:30 BUN 93.9 mg/dL (7-18) H 03/23/19 06:30 Creatinine 7.7 mg/dL (0.55-1.3) H* 03/23/19 06:30 Random Glucose 84 mg/dL (74-106) 03/23/19 06:30 Calcium 7.3 mg/dL (8.5-10.1) L 03/23/19 06:30 Blood Type O POSITIVE 03/22/19 18:20 Antibody Screen Negative 03/22/19 18:20 INR 1.04 (0.83-1.09) 03/23/19 06:30 Problem List - Problems (1) Chronic kidney disease Assessment/Plan: Plan -will plan to place permacath today in the OR. -NPO, IV fluids -medical clearance Case discussed with Dr. Mir who agrees with plan Code(s): N18.9 - CHRONIC KIDNEY DISEASE, UNSPECIFIED Qualifiers: Chronic kidney disease stage: stage 3 (moderate) Qualified Code(s): N18.3 - Chronic kidney disease, stage 3 (moderate)
--- NOTE | 2019-03-23 11:43 | EKG ---
Test Reason : Blood Pressure : / mmHG Vent. Rate : 079 BPM Atrial Rate : 079 BPM P-R Int : 148 ms QRS Dur : 096 ms QT Int : 390 ms P-R-T Axes : 030 005 036 degrees QTc Int : 447 ms NORMAL SINUS RHYTHM NORMAL ECG WHEN COMPARED WITH ECG OF 25-OCT-2018 23:37, NO SIGNIFICANT CHANGE WAS FOUND Confirmed by AMARIS ESPINOSA MD ([id number]) on 03/23/2019 11:43:14 AM Referred By: Confirmed By:AMARIS ESPINOSA MD
[2019-03-23] MEDS ORDERED: LIDOCAINE HCL 1%, 10 MG/ML (20ML VIAL) ONE (12:20)
[2019-03-23] MEDS ORDERED: MIDAZOLAM HCL 2 MG/2 ML SINGLE DOSE VIAL ONE (13:00)
[2019-03-23] MEDS ORDERED: ceFAZolin SODIUM 1 GM VIAL IVPB ONE (13:02)
[2019-03-23] MEDS ORDERED: LIDOCAINE HCL 1%, 10 MG/ML (20ML VIAL) NR ONE ×2 (13:16)
[2019-03-23] MEDS ORDERED: HEPARIN NA (PORCINE) 5,000 UNITS/ML 1ML VIAL IP ONE ×2 (13:18)
--- NOTE | 2019-03-23 14:34 | OP ---
Operative Note - Note: Operative Date: 03/30/19 Pre-Operative Diagnosis: ARF Operation: Insertion of permacath Post-Operative Diagnosis: Same as Pre-op Surgeon: Raad Mir Anesthesia: Fractional Estimated Blood Loss (mls): 10 Operative Report Dictated: Yes
[2019-03-23] MEDS ORDERED: SODIUM CHLORIDE 250 ML IV PRN (15:10)
[2019-03-23] MEDS ORDERED: FLU VACCINE QUAD 60 MCG/0.5 ML (MDV 19-20) IM ONE (15:16)
--- NOTE | 2019-03-23 15:16 | CONSULT ---
Consult Consult Specialty:: Nephrology Reason for Consultation:: CKD - History of Present Illness Chief Complaint: sent in for worsening renal function History of Present Illness: Pt is a 53 year old male with pmhx of vasculitis, htn. and ckd who presents to the ER with worsening application internship. I saw him in the office on Tuesday. He has history of vasculitis. His renal function has been progressively worsening. He has increased fatigue and decreased appetite. he denies chest pain. He agreed to come to the hospital to start HD. - History Source History Provided By: Patient, Medical Record - Past Medical History Cardio/Vascular: Yes: HTN, Other (History of chest pain. Cardiac cathetherization was apparently normal.) Renal/: Yes: Renal Inusuff Rheumatology: Yes: Other (pauci immunie vasculitis) Endocrine: Yes: Diabetes Mellitus - Alcohol/Substance Use Hx Alcohol Use: No - Smoking History Smoking history: Never smoked Have you smoked in the past 12 months: No Aproximately how many cigarettes per day: 0 Home Medications - Allergies Allergies/Adverse Reactions: Allergies Allergy/AdvReac Type Severity Reaction Status Date / Time rituximab [From Rituxan] Allergy Intermediate Hives Verified 03/22/19 17:10 - Home Medications Home Medications: Ambulatory Orders Atorvastatin Ca [Lipitor] 20 mg PO HS #30 tablet 07/15/17 Furosemide [Lasix -] 40 mg PO DAILY #30 tablet 07/15/17 Montelukast Na [Singulair -] 10 mg PO HS 09/30/17 Allopurinol [Zyloprim -] 300 mg PO DAILY 10/26/18 Folic Acid 1 mg PO DAILY 10/26/18 Methotrexate [Mexate -] 2.5 mg PO WEEKLY 10/26/18 Prednisone 5 mg PO DAILY 10/26/18 Doxycycline Monohydrate [Monodox] 100 mg PO Q12H #24 capsule 10/27/18 Leflunomide 20 mg PO DAILY 03/22/19 Sulfamethoxazole/Trimethoprim [Sulfamethoxazole-Tmp Ds Tablet] 1 tablet PO WEEKLY 03/22/19 Family Medical History Family History: Denies Review of Systems - Review of Systems Constitutional: reports: Malaise Eyes: reports: No Symptoms HENT: reports: No Symptoms Neck: reports: No Symptoms Cardiovascular: reports: No Symptoms Respiratory: reports: No Symptoms Gastrointestinal: reports: No Symptoms Genitourinary: reports: No Symptoms Musculoskeletal: reports: No Symptoms Integumentary: reports: No Symptoms Neurological: reports: No Symptoms Endocrine: reports: No Symptoms Hematology/Lymphatic: reports: No Symptoms Psychiatric: reports: No Symptoms Physical Exam Vital Signs: Vital Signs Temperature 99.2 F 03/23/19 14:30 Pulse Rate 87 03/23/19 14:30 Respiratory Rate 20 03/23/19 14:30 Blood Pressure 156/94 03/23/19 14:30 O2 Sat by Pulse Oximetry (%) 95 03/23/19 14:30 Constitutional: Yes: Calm Eyes: Yes: Conjunctiva Clear HENT: Yes: Atraumatic Neck: Yes: Supple Cardiovascular: Yes: S1, S2 Respiratory: Yes: CTA Bilaterally Gastrointestinal: Yes: Normal Bowel Sounds, Soft Renal/: Yes: WNL Musculoskeletal: Yes: WNL Edema: No Neurological: Yes: Oriented Psychiatric: Yes: Oriented Labs: CBC, BMP 03/23/19 06:30 03/23/19 06:30 Imaging - Results Chest X-ray: Report Reviewed Problem List - Problems (1) End-stage renal disease needing dialysis Code(s): N18.6 - END STAGE RENAL DISEASE; Z99.2 - DEPENDENCE ON RENAL DIALYSIS (2) Anemia Code(s): D64.9 - ANEMIA, UNSPECIFIED Qualifiers: Anemia type: due to chronic kidney disease Chronic kidney disease stage: unspecified stage Qualified Code(s): N18.9 - Chronic kidney disease, unspecified; D63.1 - Anemia in chronic kidney disease Assessment/Plan Current Medications Generic Name Dose Route Start Last Admin Trade Name Freq PRN Reason Stop Dose Admin Allopurinol 300 mg 03/23/19 10:00 03/23/19 10:16 Zyloprim - PO 300 mg DAILY RADHA Administration Atorvastatin Calcium 20 mg 03/23/19 22:00 Lipitor - PO HS RADHA Fentanyl 25 mcg 03/23/19 13:43 Sublimaze Injection - IVPUSH [id number] PRN PAIN-PACU ORDER X 4 DOSES ONLY Fluticasone Propionate 1 spray 03/22/19 22:12 Flonase - NS DAILY PRN NASAL CONGESTION Folic Acid 1 mg 03/23/19 10:00 03/23/19 10:16 Folic Acid - PO 1 mg DAILY RADHA Administration Furosemide 40 mg 03/23/19 10:00 03/23/19 10:16 Lasix - PO 40 mg DAILY RADHA Administration Sodium Chloride 250 mls @ 3,000 mls/hr 03/23/19 15:10 Normal Saline - IV 03/24/19 15:10 PRN PRN Hypotension during Dialysis Leflunomide 20 mg 03/23/19 10:00 03/23/19 10:16 Arava - PO 20 mg DAILY RADHA Administration Montelukast Sodium 10 mg 03/23/19 22:00 Singulair - PO HS RADHA Prednisone 5 mg 03/23/19 10:00 03/23/19 10:16 Deltasone - PO 5 mg DAILY RADHA Administration Impression 1. vasculitis - pauci-immunie 2. ESRD 3. proteinuria 4. HTN 5. anemia Plan - HD today - d/c lasix - renal diet - access placed today, will need fistula - discussed with medical team
--- NOTE | 2019-03-23 15:34 | PN ---
Physical Exam: SUBJECTIVE: Patient seen and examined in the morning. No acute events overnight. Patient has no complaints of chest pain, shortness of breath, abdominal pain, nausea, vomiting, diarrhea. OBJECTIVE: Vital Signs Period Temp Pulse Resp BP Sys/Burch Pulse Ox Last 24 Hr 98.4 F-99.8 F 78-91 17-20 146-161/70-96 92-98 GENERAL: The patient is awake, alert, and fully oriented, in no acute distress. HEAD: Normal with no signs of trauma. EYES: PERRL, extraocular movements intact, sclera anicteric, conjunctiva clear. ENT: Ears normal, nares patent, oropharynx clear without exudates, moist mucous membranes. NECK: Trachea midline, full range of motion, supple. LUNGS: Breath sounds equal, clear to auscultation bilaterally, no wheezes, no crackles, no accessory muscle use. HEART: Regular rate and rhythm, S1, S2 , 2/6 systolic murmur ABDOMEN: Soft, nontender, nondistended, normoactive bowel sounds, no guarding EXTREMITIES: 2+ pulses, warm, well-perfused, no edema. NEUROLOGICAL: Cranial nerves II through XII grossly intact. PSYCH: Normal mood, normal affect. SKIN: Warm, dry, normal turgor, no rashes or lesions noted Laboratory Results - last 24 hr 03/22/19 03/22/19 03/22/19 18:20 18:20 18:20 WBC 7.4 RBC 2.97 L Hgb 8.8 L Hct 26.3 L MCV 88.7 MCH 29.6 MCHC 33.3 RDW 15.3 Plt Count 274 MPV 7.0 L Absolute Neuts (auto) 5.8 Neutrophils % 78.1 D Lymphocytes % 11.9 D Monocytes % 8.4 Eosinophils % 0.9 Basophils % 0.7 Nucleated RBC % 0 Retic Count PT with INR 11.80 INR 1.00 PTT (Actin FS) 31.5 Sodium 139 Potassium 4.4 Chloride 109 H Carbon Dioxide 21 Anion Gap 9 BUN 95.8 H Creatinine 7.6 H* Est GFR (CKD-EPI)AfAm 8.60 Est GFR (CKD-EPI)NonAf 7.42 Random Glucose 109 H Calcium 7.1 L Phosphorus Magnesium Iron TIBC Iron Saturation Unsaturated IBC Ferritin Total Bilirubin 0.4 AST 26 ALT 34 Alkaline Phosphatase 111 Total Protein 5.9 L Albumin 3.1 L TSH Blood Type Antibody Screen 03/22/19 03/23/19 03/23/19 18:20 06:30 06:30 WBC 6.6 RBC 2.56 L Hgb 7.6 L Hct 22.6 L MCV 88.4 MCH 29.7 MCHC 33.6 RDW 15.3 Plt Count 248 MPV 7.1 L Absolute Neuts (auto) 4.7 Neutrophils % 70.6 Lymphocytes % 16.7 D Monocytes % 10.8 H Eosinophils % 1.2 Basophils % 0.7 Nucleated RBC % 0 Retic Count PT with INR 12.30 INR 1.04 PTT (Actin FS) 30.8 Sodium Potassium Chloride Carbon Dioxide Anion Gap BUN Creatinine Est GFR (CKD-EPI)AfAm Est GFR (CKD-EPI)NonAf Random Glucose Calcium Phosphorus Magnesium Iron TIBC Iron Saturation Unsaturated IBC Ferritin Total Bilirubin AST ALT Alkaline Phosphatase Total Protein Albumin TSH Blood Type O POSITIVE Antibody Screen Negative 03/23/19 03/23/19 03/23/19 06:30 06:30 06:30 WBC RBC Hgb Hct MCV MCH MCHC RDW Plt Count MPV Absolute Neuts (auto) Neutrophils % Lymphocytes % Monocytes % Eosinophils % Basophils % Nucleated RBC % Retic Count 1.51 H D PT with INR INR PTT (Actin FS) Sodium 141 Potassium 3.7 Chloride 110 H Carbon Dioxide 22 Anion Gap 9 BUN 93.9 H Creatinine 7.7 H* Est GFR (CKD-EPI)AfAm 8.46 Est GFR (CKD-EPI)NonAf 7.30 Random Glucose 84 Calcium 7.3 L Phosphorus 4.7 Magnesium 2.1 Iron 17 L TIBC 216 L Iron Saturation 7 L Unsaturated IBC 199 L Ferritin 309.2 Total Bilirubin AST ALT Alkaline Phosphatase Total Protein Albumin TSH 1.42 D Blood Type Antibody Screen Active Medications Generic Name Dose Route Start Last Admin Trade Name Freq PRN Reason Stop Dose Admin Allopurinol 300 mg 03/23/19 10:00 03/23/19 10:16 Zyloprim - PO 300 mg DAILY RADHA Administration Atorvastatin Calcium 20 mg 03/23/19 22:00 Lipitor - PO HS RADHA Fentanyl 25 mcg 03/23/19 13:43 Sublimaze Injection - IVPUSH [id number] PRN PAIN-PACU ORDER X 4 DOSES ONLY Fluticasone Propionate 1 spray 03/22/19 22:12 Flonase - NS DAILY PRN NASAL CONGESTION Folic Acid 1 mg 03/23/19 10:00 03/23/19 10:16 Folic Acid - PO 1 mg DAILY RADHA Administration Furosemide 40 mg 03/23/19 10:00 03/23/19 10:16 Lasix - PO 40 mg DAILY RADHA Administration Sodium Chloride 250 mls @ 3,000 mls/hr 03/23/19 15:10 Normal Saline - IV 03/24/19 15:10 PRN PRN Hypotension during Dialysis Leflunomide 20 mg 03/23/19 10:00 03/23/19 10:16 Arava - PO 20 mg DAILY RADHA Administration Montelukast Sodium 10 mg 03/23/19 22:00 Singulair - PO HS RADHA Prednisone 5 mg 03/23/19 10:00 03/23/19 10:16 Deltasone - PO 5 mg DAILY RADHA Administration ASSESSMENT/PLAN: 53 M PMH of HTN, HLD, 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 1)ESRD -Creatinine of 7.7, GFR of 8.46 -Had permacath placed, will have dialysis today. 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 - New Patient This patient is new to me today: Yes Date on this admission: 03/23/19 - Critical Care Critical Care patient: No ATTENDING PHYSICIAN STATEMENT I saw and evaluated the patient. I reviewed the resident's note and discussed the case with the resident. I agree with the resident's findings and plan as documented. SUBJECTIVE: OBJECTIVE: ASSESSMENT AND PLAN:
--- NOTE | 2019-03-23 19:14 | PN ---
Teaching Attending Note Name of Resident: Morena Mejía ATTENDING PHYSICIAN STATEMENT I saw and evaluated the patient. I reviewed the resident's note and discussed the case with the resident. I agree with the resident's findings and plan as documented. SUBJECTIVE: complains only of nausea. No SOB. Mild LE edema. OBJECTIVE: Afebrile, Hemodynamically Stable. Last Vital Signs Temp Pulse Resp BP Pulse Ox 97.8 F 84 20 140/105 H 95 03/23/19 15:25 03/23/19 18:00 03/23/19 18:00 03/23/19 18:00 03/23/19 15:16 HEENT - Atraumatic, Normocephalic. Heart - S1, S2, RRR Lungs - decreased air entry at bases Abdomen - Soft, non-tender. Bowel Sounds normal. Extremities - mild edema LEs, No calf tenderness. Neuro - AAO x 3. Tone/Power normal all extremities. Laboratory Results - last 24 hr 03/22/19 03/22/19 03/23/19 18:20 18:20 06:30 WBC 6.6 RBC 2.56 L Hgb 7.6 L Hct 22.6 L MCV 88.4 MCH 29.7 MCHC 33.6 RDW 15.3 Plt Count 248 MPV 7.1 L Absolute Neuts (auto) 4.7 Neutrophils % 70.6 Lymphocytes % 16.7 D Monocytes % 10.8 H Eosinophils % 1.2 Basophils % 0.7 Nucleated RBC % 0 Retic Count PT with INR INR PTT (Actin FS) Sodium 139 Potassium 4.4 Chloride 109 H Carbon Dioxide 21 Anion Gap 9 BUN 95.8 H Creatinine 7.6 H* Est GFR (CKD-EPI)AfAm 8.60 Est GFR (CKD-EPI)NonAf 7.42 Random Glucose 109 H Calcium 7.1 L Phosphorus Magnesium Iron TIBC Iron Saturation Unsaturated IBC Ferritin Total Bilirubin 0.4 AST 26 ALT 34 Alkaline Phosphatase 111 Total Protein 5.9 L Albumin 3.1 L TSH Blood Type O POSITIVE Antibody Screen Negative 03/23/19 03/23/19 03/23/19 06:30 06:30 06:30 WBC RBC Hgb Hct MCV MCH MCHC RDW Plt Count MPV Absolute Neuts (auto) Neutrophils % Lymphocytes % Monocytes % Eosinophils % Basophils % Nucleated RBC % Retic Count 1.51 H D PT with INR 12.30 INR 1.04 PTT (Actin FS) 30.8 Sodium 141 Potassium 3.7 Chloride 110 H Carbon Dioxide 22 Anion Gap 9 BUN 93.9 H Creatinine 7.7 H* Est GFR (CKD-EPI)AfAm 8.46 Est GFR (CKD-EPI)NonAf 7.30 Random Glucose 84 Calcium 7.3 L Phosphorus 4.7 Magnesium 2.1 Iron TIBC Iron Saturation Unsaturated IBC Ferritin Total Bilirubin AST ALT Alkaline Phosphatase Total Protein Albumin TSH 1.42 D Blood Type Antibody Screen 03/23/19 06:30 WBC RBC Hgb Hct MCV MCH MCHC RDW Plt Count MPV Absolute Neuts (auto) Neutrophils % Lymphocytes % Monocytes % Eosinophils % Basophils % Nucleated RBC % Retic Count PT with INR INR PTT (Actin FS) Sodium Potassium Chloride Carbon Dioxide Anion Gap BUN Creatinine Est GFR (CKD-EPI)AfAm Est GFR (CKD-EPI)NonAf Random Glucose Calcium Phosphorus Magnesium Iron 17 L TIBC 216 L Iron Saturation 7 L Unsaturated IBC 199 L Ferritin 309.2 Total Bilirubin AST ALT Alkaline Phosphatase Total Protein Albumin TSH Blood Type Antibody Screen Current Medications Generic Name Dose Route Start Last Admin Trade Name Freq PRN Reason Stop Dose Admin Allopurinol 300 mg 03/23/19 10:00 03/23/19 10:16 Zyloprim - PO 300 mg DAILY RADHA Administration Atorvastatin Calcium 20 mg 03/23/19 22:00 Lipitor - PO HS RADHA Fentanyl 25 mcg 03/23/19 13:43 Sublimaze Injection - IVPUSH [id number] PRN PAIN-PACU ORDER X 4 DOSES ONLY Fluticasone Propionate 1 spray 03/22/19 22:12 Flonase - NS DAILY PRN NASAL CONGESTION Folic Acid 1 mg 03/23/19 10:00 03/23/19 10:16 Folic Acid - PO 1 mg DAILY RADHA Administration Furosemide 40 mg 03/23/19 10:00 03/23/19 10:16 Lasix - PO 40 mg DAILY RADHA Administration Sodium Chloride 250 mls @ 3,000 mls/hr 03/23/19 15:10 Normal Saline - IV 03/24/19 15:10 PRN PRN Hypotension during Dialysis Leflunomide 20 mg 03/23/19 10:00 03/23/19 10:16 Arava - PO 20 mg DAILY RADHA Administration Montelukast Sodium 10 mg 03/23/19 22:00 Singulair - PO HS RADHA Prednisone 5 mg 03/23/19 10:00 03/23/19 10:16 Deltasone - PO 5 mg DAILY RADHA Administration ASSESSMENT AND PLAN: 53 year old male with past medical history of HTN, HLD, 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 1. ESRD sec to Granulomatous polyangiitis - Admitted for permacath placement and initiation on HD s/p R permacath placement today For 1st session HD today Npehrology/Vascular Surgery following. Continue Leflunomide and Prednisone Continue Lasix as per Neph 2. HLD - on Lipitor. 3. Normocytic Anemia sec to ESRD Iron Sat 7%/Ferritin 309 Further management as per Nephrology.
[2019-03-23] MEDS ORDERED: FLUTICASONE PROP 0.05% 16 GM NASAL SPRAY NS PRN (19:29)
[2019-03-23] MEDS: MONTELUKAST NA 10 MG TABLET PO SCH (21:08)
[2019-03-23] MEDS: ATORVASTATIN CA 20 MG TABLET (FP) PO SCH (21:08)
[2019-03-23] MEDS ORDERED: ATORVASTATIN CA 20 MG TABLET (FP) PO SCH (22:00)
[2019-03-23] MEDS ORDERED: MONTELUKAST NA 10 MG TABLET PO SCH (22:00)
[2019-03-24 09:19] LABS: BLOOD UREA NITROGEN 64.6 mg/dL (7-18); CALCIUM 7.7 mg/dL (8.5-10.1); CREATININE 6.4 mg/dL (0.55-1.3)
[2019-03-24] MEDS ORDERED: PT OWN MED DRAWER 7, Y5N ONE (09:32)
[2019-03-24] MEDS: FOLIC ACID 1 MG TABLET (FP) PO SCH (09:34)
[2019-03-24] MEDS: LEFLUNOMIDE 10 MG TABLET PO SCH (09:34)
[2019-03-24] MEDS: ALLOPURINOL 100 MG TABLET (FP) PO SCH (09:34)
[2019-03-24] MEDS: predniSONE 5 MG TABLET (UD) PO SCH (09:34)
[2019-03-24] MEDS ORDERED: FUROSEMIDE 40 MG TABLET (FP) PO SCH (10:00)
--- NOTE | 2019-03-24 10:38 | PN ---
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 denies complaints pt states that his antibiotics destroyed his kidneys Last Vital Signs Temp Pulse Resp BP Pulse Ox 98.4 F 76 20 140/86 95 03/24/19 05:53 03/24/19 05:53 03/24/19 09:00 03/24/19 05:53 03/24/19 09:00 chest has a permcath on right chest lungs clear cvs s1s2 rr abd soft ext no edema neuro a+ox3 CBC, BMP 03/23/19 06:30 03/24/19 07:50 Current Medications Generic Name Dose Route Start Last Admin Trade Name Freq PRN Reason Stop Dose Admin Allopurinol 300 mg 03/24/19 10:00 03/24/19 09:34 Zyloprim - PO 300 mg DAILY RADHA Administration Atorvastatin Calcium 20 mg 03/23/19 22:00 03/23/19 21:08 Lipitor - PO 20 mg HS RADHA Administration Fentanyl 25 mcg 03/23/19 19:29 Sublimaze Injection - IVPUSH [id number] PRN PAIN-PACU ORDER X 4 DOSES ONLY Fluticasone Propionate 1 spray 03/23/19 19:29 Flonase - NS DAILY PRN NASAL CONGESTION Folic Acid 1 mg 03/24/19 10:00 03/24/19 09:34 Folic Acid - PO 1 mg DAILY RADHA Administration Sodium Chloride 250 mls @ 3,000 mls/hr 03/23/19 15:10 Normal Saline - IV 03/24/19 15:10 PRN PRN Hypotension during Dialysis Leflunomide 20 mg 03/24/19 10:00 03/24/19 09:34 Arava - PO 20 mg DAILY RADHA Administration Montelukast Sodium 10 mg 03/23/19 22:00 03/23/19 21:08 Singulair - PO 10 mg HS RADHA Administration Prednisone 5 mg 03/24/19 10:00 03/24/19 09:34 Deltasone - PO 5 mg DAILY RADHA Administration Impression 1. vasculitis - pauci-immunie, ANCA pos 2. 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 proteinuria 4. HTN 5. anemia Plan was dialyzed yesterday needs fistula would ask rheum to follow up vasculitis symptoms may improve whiole on dialysis MV
--- NOTE | 2019-03-24 15:56 | PN ---
Physical Exam: SUBJECTIVE: Patient seen and examined at bedside. No acute events overnight. OBJECTIVE: Vital Signs Period Temp Pulse Resp BP Sys/Burch Pulse Ox Last 24 Hr 98 F-99.9 F 71-90 16-20 134-159/80-105 95-95 GENERAL: NAD HEAD: Normal with no signs of trauma. ENT: MMM NECK: Trachea midline, full range of motion, supple. LUNGS:CTA b/l HEART: SM, RRR S1S2 ABDOMEN: Soft, nontender, nondistended CHESt: R sided Permacath in place EXTREMITIES: Mild edema NEUROLOGICAL: Cranial nerves II through XII grossly intact. Laboratory Results - last 24 hr 03/23/19 03/24/19 06:30 07:50 Sodium 137 Potassium 4.0 Chloride 101 Carbon Dioxide 27 Anion Gap 10 BUN 64.6 H Creatinine 6.4 H Est GFR (CKD-EPI)AfAm 10.58 Est GFR (CKD-EPI)NonAf 9.13 Random Glucose 93 Calcium 7.7 L PTH Intact 188 H Active Medications Generic Name Dose Route Start Last Admin Trade Name Freq PRN Reason Stop Dose Admin Allopurinol 300 mg 03/24/19 10:00 03/24/19 09:34 Zyloprim - PO 300 mg DAILY RADHA Administration Atorvastatin Calcium 20 mg 03/23/19 22:00 03/23/19 21:08 Lipitor - PO 20 mg HS RADHA Administration Fentanyl 25 mcg 03/23/19 19:29 Sublimaze Injection - IVPUSH [id number] PRN PAIN-PACU ORDER X 4 DOSES ONLY Fluticasone Propionate 1 spray 03/23/19 19:29 Flonase - NS DAILY PRN NASAL CONGESTION Folic Acid 1 mg 03/24/19 10:00 03/24/19 09:34 Folic Acid - PO 1 mg DAILY RADHA Administration Sodium Chloride 250 mls @ 3,000 mls/hr 03/23/19 15:10 Normal Saline - IV 03/24/19 15:10 PRN PRN Hypotension during Dialysis Leflunomide 20 mg 03/24/19 10:00 03/24/19 09:34 Arava - PO 20 mg DAILY RADHA Administration Montelukast Sodium 10 mg 03/23/19 22:00 03/23/19 21:08 Singulair - PO 10 mg HS RADHA Administration Prednisone 5 mg 03/24/19 10:00 03/24/19 09:34 Deltasone - PO 5 mg DAILY RADHA Administration ASSESSMENT/PLAN: 53 M PMH of HTN, HLD, 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 1)ESRD -Creatinine of 7.7, GFR of 8.46 from 03/23/2019 -Had permacath placed, had dialysis yesterday. For possible Dialysis again today. 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 Recs appreciated 3)Normoctyic anemia -Follow CBC 4)HTN -Currently holding Lasix 5)HLD -Continue Lipitor 20 mg PO HS F: Oral Hydration E: Trend CMP N: Renal diet DVT: SCDs Dispo: Med-Surg Visit type - Emergency Visit Emergency Visit: Yes ED Registration Date: 03/22/19 Care time: The patient presented to the Emergency Department on the above date and was hospitalized for further evaluation of their emergent condition. - New Patient This patient is new to me today: No - Critical Care Critical Care patient: No - Discharge Referral Referred to [facility] Med [facility].C[facility] No ATTENDING PHYSICIAN STATEMENT I saw and evaluated the patient. I reviewed the resident's note and discussed the case with the resident. I agree with the resident's findings and plan as documented. SUBJECTIVE: OBJECTIVE: ASSESSMENT AND PLAN:
--- NOTE | 2019-03-24 19:04 | PN ---
Teaching Attending Note Name of Resident: Israel Guidry ATTENDING PHYSICIAN STATEMENT I saw and evaluated the patient. I reviewed the resident's note and discussed the case with the resident. I agree with the resident's findings and plan as documented. SUBJECTIVE: Feels well - no complaints. No further nausea. No CP/SOB. OBJECTIVE: Afebrile, Hemodynamically Stable. Last Vital Signs Temp Pulse Resp BP Pulse Ox 98.8 F 90 20 139/86 95 03/24/19 13:48 03/24/19 13:48 03/24/19 13:48 03/24/19 13:48 03/24/19 09:00 Heart - S1, S2, SM Lungs - decreased air entry at bases. RIJ Permacath Abdomen - Soft, non-tender. Bowel Sounds normal. Extremities - mild edema, No calf tenderness. Neuro - AAO x 3. Tone/Power normal all extremities. Laboratory Results - last 24 hr 03/23/19 03/24/19 06:30 07:50 Sodium 137 Potassium 4.0 Chloride 101 Carbon Dioxide 27 Anion Gap 10 BUN 64.6 H Creatinine 6.4 H Est GFR (CKD-EPI)AfAm 10.58 Est GFR (CKD-EPI)NonAf 9.13 Random Glucose 93 Calcium 7.7 L PTH Intact 188 H Current Medications Generic Name Dose Route Start Last Admin Trade Name Jeremy PRN Reason Stop Dose Admin Allopurinol 300 mg 03/24/19 10:00 03/24/19 09:34 Zyloprim - PO 300 mg DAILY RADHA Administration Atorvastatin Calcium 20 mg 03/23/19 22:00 03/23/19 21:08 Lipitor - PO 20 mg HS RADHA Administration Fentanyl 25 mcg 03/23/19 19:29 Sublimaze Injection - IVPUSH [id number] PRN PAIN-PACU ORDER X 4 DOSES ONLY Fluticasone Propionate 1 spray 03/23/19 19:29 Flonase - NS DAILY PRN NASAL CONGESTION Folic Acid 1 mg 03/24/19 10:00 03/24/19 09:34 Folic Acid - PO 1 mg DAILY RADHA Administration Sodium Chloride 250 mls @ 3,000 mls/hr 03/23/19 15:10 Normal Saline - IV 03/24/19 15:10 PRN PRN Hypotension during Dialysis Leflunomide 20 mg 03/24/19 10:00 03/24/19 09:34 Arava - PO 20 mg DAILY RADHA Administration Montelukast Sodium 10 mg 03/23/19 22:00 03/23/19 21:08 Singulair - PO 10 mg HS RADHA Administration Prednisone 5 mg 03/24/19 10:00 03/24/19 09:34 Deltasone - PO 5 mg DAILY RADHA Administration Home Medications Medication Instructions Recorded Atorvastatin Ca [Lipitor] 20 mg PO HS #30 tablet 07/15/17 Furosemide [Lasix -] 40 mg PO DAILY #30 tablet 07/15/17 Montelukast Na [Singulair -] 10 mg PO HS 09/30/17 Allopurinol [Zyloprim -] 300 mg PO DAILY 10/26/18 Folic Acid 1 mg PO DAILY 10/26/18 Methotrexate [Mexate -] 2.5 mg PO WEEKLY 10/26/18 Prednisone 5 mg PO DAILY 10/26/18 Doxycycline Monohydrate [Monodox] 100 mg PO Q12H #24 capsule 10/27/18 Leflunomide 20 mg PO DAILY 03/22/19 Sulfamethoxazole/Trimethoprim 1 tablet PO WEEKLY 03/22/19 [Sulfamethoxazole-Tmp Ds Tablet] ASSESSMENT AND PLAN: 53 year old male with past medical history of HTN, HLD, 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 1. ESRD sec to Granulomatous polyangiitis - Admitted for permacath placement and initiation on HD s/p R permacath placement s/p 1st session HD - scheduled for repeat HD today Nephrology/Vascular Surgery following. Continue Leflunomide and Prednisone Discontinue Lasix as per Neph Rhematology consult requested. 2. HLD - on Lipitor. 3. Normocytic Anemia sec to ESRD Iron Sat 7%/Ferritin 309 Further management as per Nephrology. DVT Px - Will start Heparin SQ
[2019-03-24] MEDS: MONTELUKAST NA 10 MG TABLET PO SCH (21:26)
[2019-03-24] MEDS: ATORVASTATIN CA 20 MG TABLET (FP) PO SCH (21:26)
[2019-03-24] MEDS: HEPARIN NA (PORCINE) 5,000 UNITS/ML 1ML VIAL SQ SCH (21:27)
[2019-03-25] MEDS ORDERED: PT OWN MED DRAWER 7, Y5N ONE (10:04)
[2019-03-25] MEDS: predniSONE 5 MG TABLET (UD) PO SCH (10:05)
[2019-03-25] MEDS: LEFLUNOMIDE 10 MG TABLET PO SCH (10:05)
[2019-03-25] MEDS: ALLOPURINOL 100 MG TABLET (FP) PO SCH (10:05)
[2019-03-25] MEDS: FOLIC ACID 1 MG TABLET (FP) PO SCH (10:05)
[2019-03-25] MEDS: HEPARIN NA (PORCINE) 5,000 UNITS/ML 1ML VIAL SQ SCH ×2 (10:07→22:00)
[2019-03-25] MEDS ORDERED: SODIUM CHLORIDE 250 ML IV PRN (11:56)
--- NOTE | 2019-03-25 11:56 | PN ---
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 denies complaints pt states that his antibiotics destroyed his kidneys feels well Last Vital Signs Temp Pulse Resp BP Pulse Ox 98.8 F 74 20 144/89 95 03/25/19 06:14 03/25/19 06:14 03/25/19 06:14 03/25/19 06:14 03/24/19 21:00 chest has a permcath on right chest lungs clear cvs s1s2 rr abd soft ext no edema neuro a+ox3 CBC, BMP 03/23/19 06:30 03/24/19 07:50 Current Medications Generic Name Dose Route Start Last Admin Trade Name Freq PRN Reason Stop Dose Admin Allopurinol 300 mg 03/24/19 10:00 03/25/19 10:05 Zyloprim - PO 300 mg DAILY RADHA Administration Atorvastatin Calcium 20 mg 03/23/19 22:00 03/24/19 21:26 Lipitor - PO 20 mg HS RADHA Administration Fluticasone Propionate 1 spray 03/23/19 19:29 Flonase - NS DAILY PRN NASAL CONGESTION Folic Acid 1 mg 03/24/19 10:00 03/25/19 10:05 Folic Acid - PO 1 mg DAILY RADHA Administration Heparin Sodium (Porcine) 5,000 unit 03/24/19 22:00 03/25/19 10:07 Heparin - SQ 5,000 unit BID RADHA Administration Sodium Chloride 250 mls @ 3,000 mls/hr 03/23/19 15:10 Normal Saline - IV 03/24/19 15:10 PRN PRN Hypotension during Dialysis Leflunomide 20 mg 03/24/19 10:00 03/25/19 10:05 Arava - PO 20 mg DAILY RADHA Administration Montelukast Sodium 10 mg 03/23/19 22:00 03/24/19 21:26 Singulair - PO 10 mg HS RADHA Administration Prednisone 5 mg 03/24/19 10:00 03/25/19 10:05 Deltasone - PO 5 mg DAILY RADHA Administration Impression 1. vasculitis - pauci-immunie, ANCA pos 2. 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 proteinuria 4. HTN 5. anemia Plan will order hd for tomorrow needs fistula would ask rheum to follow up vasculitis symptoms may improve while on dialysis MV
[2019-03-25 13:55] LABS: EOS % 1.6 % (0-4.5); HEMATOCRIT 22.5 % (35.4-49); HEMOGLOBIN 7.4 GM/dL (11.7-16.9); LYMPH % 9.8 % (8-40); MCH 29.7 pg (25.7-33.7); MCHC 33.1 g/dl (32.0-35.9); MEAN CELL VOLUME 89.5 fl (80-96); MONO % 7.8 % (3.8-10.2); NEUT % 79.8 % (42.8-82.8); PLATELET COUNT 215 K/MM3 (134-434); RBC 2.51 M/mm3 (4.00-5.60); WHITE BLOOD COUNT 5.6 K/mm3 (4.0-10.0)
[2019-03-25 14:25] LABS: POTASSIUM 3.5 mmol/L (3.5-5.1)
[2019-03-25 14:36] LABS: CREATININE 7.5 mg/dL (0.55-1.3)
[2019-03-25 14:37] LABS: CALCIUM 6.7 mg/dL (8.5-10.1)
--- NOTE | 2019-03-25 15:19 | CONSULT ---
Consult Consult Specialty:: Rheumatology - History of Present Illness History of Present Illness: 53 year old male with PMH of Hypertension and gout. 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 Admitted with progression of kidney disease. Treated in the past with IV pulse steroid and cyclophosphamide IV monthly pulses (07/15/17-12/23/17) (patient was intolerant to Rituximab). Presently on Leflunomide 20 mg/d and Prednisone 5 mg/d. Gouty arthritis on Allopurinol 300 mg/d. Laboratory work-up from 02/28/19 revealed creatine 4.2, eGFR 15.3. Urinalysis with blood 2+ and protein 3+. On admission creatinine 7.6 and eGFR 7.42. CXR was normal. Serology for hepatitis B and C was negative. Quantiferon (08/17/17) was negative. The patient was admitted for AV fistula placement and hemodialysis. He denies shortness of breath, chest pain, nausea, vomiting, abdominal pain or fever. - History Source History Provided By: Patient, Medical Record - Past Medical History Cardio/Vascular: Yes: HTN, Other (History of chest pain. Cardiac cathetherization was apparently normal.) Renal/: Yes: Renal Inusuff Rheumatology: Yes: Other (pauci immunie vasculitis) Endocrine: Yes: Diabetes Mellitus - Alcohol/Substance Use Hx Alcohol Use: No - Smoking History Smoking history: Never smoked Have you smoked in the past 12 months: No Aproximately how many cigarettes per day: 0 Home Medications - Allergies Allergies/Adverse Reactions: Allergies Allergy/AdvReac Type Severity Reaction Status Date / Time rituximab [From Rituxan] Allergy Intermediate Hives Verified 03/22/19 17:10 - Home Medications Home Medications: Ambulatory Orders Atorvastatin Ca [Lipitor] 20 mg PO HS #30 tablet 07/15/17 Furosemide [Lasix -] 40 mg PO DAILY #30 tablet 07/15/17 Montelukast Na [Singulair -] 10 mg PO HS 09/30/17 Allopurinol [Zyloprim -] 300 mg PO DAILY 10/26/18 Folic Acid 1 mg PO DAILY 10/26/18 Methotrexate [Mexate -] 2.5 mg PO WEEKLY 10/26/18 Prednisone 5 mg PO DAILY 10/26/18 Doxycycline Monohydrate [Monodox] 100 mg PO Q12H #24 capsule 10/27/18 Leflunomide 20 mg PO DAILY 03/22/19 Sulfamethoxazole/Trimethoprim [Sulfamethoxazole-Tmp Ds Tablet] 1 tablet PO WEEKLY 03/22/19 Review of Systems - Review of Systems Constitutional: reports: No Symptoms Eyes: reports: No Symptoms HENT: reports: No Symptoms Neck: reports: No Symptoms Cardiovascular: reports: No Symptoms Respiratory: reports: No Symptoms Gastrointestinal: reports: No Symptoms Musculoskeletal: reports: No Symptoms Physical Exam Vital Signs: Vital Signs Temperature 98.7 F 03/25/19 14:46 Pulse Rate 86 03/25/19 14:46 Respiratory Rate 20 03/25/19 14:46 Blood Pressure 139/80 03/25/19 14:46 O2 Sat by Pulse Oximetry (%) 95 03/24/19 21:00 Constitutional: Yes: No Distress Eyes: Yes: WNL HENT: Yes: WNL Neck: Yes: WNL Cardiovascular: Yes: WNL Respiratory: Yes: WNL Musculoskeletal: Yes: Other (No active joints.) Labs: CBC, BMP 03/25/19 13:10 03/25/19 13:10 Problem List - Problems (1) Granulomatosis with polyangiitis with renal involvement Assessment/Plan: Granulomatosis with Polyangiitis, proteinase-3 positive, 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 Intolerance to Rituximab and poor response to Cyclophosphamide IV pulses. Presently disease is probably no active. Admitted for AV fistula placement and hemodialysis. Code(s): M31.31 - SONYA'S GRANULOMATOSIS WITH RENAL INVOLVEMENT
--- NOTE | 2019-03-25 15:22 | PN ---
Progress Note (short form) - Note Progress Note: SUBJECTIVE: Feels well - no complaints. No further nausea. No CP/SOB. OBJECTIVE: Afebrile, Hemodynamically Stable. Last Vital Signs Temp Pulse Resp BP Pulse Ox 98.7 F 86 20 139/80 95 03/25/19 14:46 03/25/19 14:46 03/25/19 14:46 03/25/19 14:46 03/24/19 21:00 Heart - S1, S2, SM Lungs - decreased air entry at bases. RIJ Permacath Abdomen - Soft, non-tender. Bowel Sounds normal. Extremities - mild edema, No calf tenderness. Neuro - AAO x 3. Tone/Power normal all extremities. 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 Laboratory Results - last 24 hr 03/23/19 03/23/19 03/25/19 15:30 15:30 13:10 WBC 5.6 RBC 2.51 L Hgb 7.4 L Hct 22.5 L MCV 89.5 MCH 29.7 MCHC 33.1 RDW 15.0 Plt Count 215 MPV 7.0 L Absolute Neuts (auto) 4.4 Neutrophils % 79.8 Lymphocytes % 9.8 D Monocytes % 7.8 Eosinophils % 1.6 Basophils % 1.0 Nucleated RBC % 0 Sodium Potassium Chloride Carbon Dioxide Anion Gap BUN Creatinine Est GFR (CKD-EPI)AfAm Est GFR (CKD-EPI)NonAf Random Glucose Calcium Hep Bs Antigen Negative Hep C Ab Diagnostic <0.1 03/25/19 13:10 WBC RBC Hgb Hct MCV MCH MCHC RDW Plt Count MPV Absolute Neuts (auto) Neutrophils % Lymphocytes % Monocytes % Eosinophils % Basophils % Nucleated RBC % Sodium 136 Potassium 3.5 Chloride 100 Carbon Dioxide 25 Anion Gap 11 BUN 78.0 H Creatinine 7.5 H* Est GFR (CKD-EPI)AfAm 8.74 Est GFR (CKD-EPI)NonAf 7.54 Random Glucose 160 H Calcium 6.7 L* Hep Bs Antigen Hep C Ab Diagnostic Current Medications Generic Name Dose Route Start Last Admin Trade Name Freq PRN Reason Stop Dose Admin Allopurinol 300 mg 03/24/19 10:00 03/25/19 10:05 Zyloprim - PO 300 mg DAILY RADHA Administration Atorvastatin Calcium 20 mg 03/23/19 22:00 03/24/19 21:26 Lipitor - PO 20 mg HS RADHA Administration Epoetin Kosta 4,000 unit 03/25/19 11:58 Procrit - IVPUSH 03/25/19 11:59 ONCE ONE Fluticasone Propionate 1 spray 03/23/19 19:29 Flonase - NS DAILY PRN NASAL CONGESTION Folic Acid 1 mg 03/24/19 10:00 03/25/19 10:05 Folic Acid - PO 1 mg DAILY RADHA Administration Heparin Sodium (Porcine) 5,000 unit 03/24/19 22:00 03/25/19 10:07 Heparin - SQ 5,000 unit BID RADHA Administration Sodium Chloride 250 mls @ 3,000 mls/hr 03/23/19 15:10 Normal Saline - IV 03/24/19 15:10 PRN PRN Hypotension during Dialysis Sodium Chloride 250 mls @ 3,000 mls/hr 03/25/19 11:56 Normal Saline - IV 03/26/19 11:56 PRN PRN Hypotension during Dialysis Leflunomide 20 mg 03/24/19 10:00 03/25/19 10:05 Arava - PO 20 mg DAILY RADHA Administration Montelukast Sodium 10 mg 03/23/19 22:00 03/24/19 21:26 Singulair - PO 10 mg HS RADHA Administration Prednisone 5 mg 03/24/19 10:00 03/25/19 10:05 Deltasone - PO 5 mg DAILY RADHA Administration Home Medications Medication Instructions Recorded Atorvastatin Ca [Lipitor] 20 mg PO HS #30 tablet 07/15/17 Furosemide [Lasix -] 40 mg PO DAILY #30 tablet 07/15/17 Montelukast Na [Singulair -] 10 mg PO HS 09/30/17 Allopurinol [Zyloprim -] 300 mg PO DAILY 10/26/18 Folic Acid 1 mg PO DAILY 10/26/18 Methotrexate [Mexate -] 2.5 mg PO WEEKLY 10/26/18 Prednisone 5 mg PO DAILY 10/26/18 Doxycycline Monohydrate [Monodox] 100 mg PO Q12H #24 capsule 10/27/18 Leflunomide 20 mg PO DAILY 03/22/19 Sulfamethoxazole/Trimethoprim 1 tablet PO WEEKLY 03/22/19 [Sulfamethoxazole-Tmp Ds Tablet] ASSESSMENT AND PLAN: 53 year old male with past medical history of HTN, HLD, Granulomatous polyangiitis with pauci-immune glomerulonephritis, Vasculitis (on cyclophosphamide/Methotrexate), presented to the ED as advised by his taxonomist for further management of worsening CKD and worsneing Uremia with nausea. 1. ESRD sec to Granulomatous polyangiitis (no lung involvement) - Admitted for permacath placement and initiation on HD s/p R permacath placement s/p 1st session HD 03/23 - scheduled for repeat HD 03/26 Nephrology/Vascular Surgery following. Continue Leflunomide and Prednisone (intolerant to Rituximab and poor response to Cyclophosphamide IV pulses) Discontinue Lasix as per Neph Arterial/Venous UE Duplex for vein mapping scheduled 03/26 for eventual IV fistula. Rhematology consulted. 2. HLD - on Lipitor. 3. Normocytic Anemia sec to ESRD - H/H 7.4/22.9 Iron Sat 7%/Ferritin 309 Further management including consideration for Epo as per Nephrology. 4. Hypocalcemia sec ESRD, Elevated PTH - Nephrology input requested re: Hypocalcemia - recommend starting Calcitriol. Low dose 0.25mcg daily started. DVT Px - Heparin SQ Dispo - awaiting placement at a HD center as he is a newly initiated HD patient. Visit type - Emergency Visit Emergency Visit: Yes ED Registration Date: 03/22/19 Care time: The patient presented to the Emergency Department on the above date and was hospitalized for further evaluation of their emergent condition. - New Patient This patient is new to me today: No - Critical Care Critical Care patient: No - Discharge Referral Referred to [facility] Med P.C.: No
[2019-03-25] MEDS: CALCITRIOL 0.25 MCG CAPSULE (FP) PO SCH (17:09)
[2019-03-25] MEDS: ATORVASTATIN CA 20 MG TABLET (FP) PO SCH (22:00)
[2019-03-25] MEDS: MONTELUKAST NA 10 MG TABLET PO SCH (22:00)
[2019-03-26] MEDS ORDERED: EPOETIN ALFA 2,000 UNIT/1 ML VIAL IVPUSH ONE (09:15)
[2019-03-26 10:10] LABS: HEMATOCRIT 22.2 % (35.4-49); HEMOGLOBIN 7.2 GM/dL (11.7-16.9); MCH 29.3 pg (25.7-33.7); MCHC 32.3 g/dl (32.0-35.9); MEAN CELL VOLUME 90.5 fl (80-96); PLATELET COUNT 202 K/MM3 (134-434); RBC 2.45 M/mm3 (4.00-5.60); RDW 15.3 % (11.9-15.9); WHITE BLOOD COUNT 4.4 K/mm3 (4.0-10.0)
--- NOTE | 2019-03-26 10:14 | PN ---
Progress Note (short form) - Note Progress Note: VASCULAR SURGERY POD #3 s/p Permacath Insertion Currently in dialysis. No complaints. Denies n/v/f/c, CP, palpitations, SOB or FRANK. Last Vital Signs Temp Pulse Resp BP Pulse Ox 98 F 82 20 143/90 96 03/26/19 09:59 03/26/19 09:59 03/26/19 09:59 03/26/19 09:59 03/26/19 09:00 CBC, BMP 03/26/19 09:10 Problem List - Problems (1) End-stage renal disease needing dialysis Assessment/Plan: 53 yo male POD #3 s/p Permacath insertion. Normocytic Anemia sec to ESRD. 1. HD today via PC 2. Vein mapping ordered 3. Plan for AVF 4. Tight glycemic control 5. Diet: Renal/DM/Sodium controlled Code(s): N18.6 - END STAGE RENAL DISEASE; Z99.2 - DEPENDENCE ON RENAL DIALYSIS (2) Diabetes mellitus Code(s): E11.9 - TYPE 2 DIABETES MELLITUS WITHOUT COMPLICATIONS (3) Granulomatosis with polyangiitis with renal involvement Code(s): M31.31 - SONYA'S GRANULOMATOSIS WITH RENAL INVOLVEMENT (4) HLD (hyperlipidemia) Code(s): E78.5 - HYPERLIPIDEMIA, UNSPECIFIED (5) HTN (hypertension) Code(s): I10 - ESSENTIAL (PRIMARY) HYPERTENSION
[2019-03-26 10:39] LABS: ALBUMIN 2.4 g/dl (3.4-5.0); BLOOD UREA NITROGEN 88.5 mg/dL (7-18); CALCIUM 7.3 mg/dL (8.5-10.1); PHOSPHOROUS 5.2 mg/dL (2.5-4.9); TOT PROT 4.8 g/dl (6.4-8.2)
[2019-03-26 10:40] LABS: BILIRUBIN,TOTAL 0.3 mg/dL (0.2-1); POTASSIUM 3.6 mmol/L (3.5-5.1)
[2019-03-26 10:45] LABS: CREATININE 7.8 mg/dL (0.55-1.3)
[2019-03-26] MEDS ORDERED: EPOETIN ALFA 10,000 UNIT/1 ML VIAL IVPUSH ONE (11:21)
[2019-03-26] MEDS: predniSONE 5 MG TABLET (UD) PO SCH (13:18)
[2019-03-26] MEDS: ALLOPURINOL 100 MG TABLET (FP) PO SCH (13:18)
[2019-03-26] MEDS: FOLIC ACID 1 MG TABLET (FP) PO SCH (13:18)
[2019-03-26] MEDS: CALCITRIOL 0.25 MCG CAPSULE (FP) PO SCH (13:18)
[2019-03-26] MEDS: LEFLUNOMIDE 10 MG TABLET PO SCH (13:19)
[2019-03-26] MEDS: HEPARIN NA (PORCINE) 5,000 UNITS/ML 1ML VIAL SQ SCH ×2 (13:19→21:25)
--- NOTE | 2019-03-26 13:59 | PN ---
Progress Note, Physician History of Present Illness: Pt seen and examined at bedside. He is awake and alert. He tolerated HD. - Current Medication List Current Medications: Active Medications Allopurinol (Zyloprim -) 300 mg PO DAILY [facility] Last Admin: 03/26/19 13:18 Dose: 300 mg Atorvastatin Calcium (Lipitor -) 20 mg PO HS [facility] Last Admin: 03/25/19 22:00 Dose: 20 mg Calcitriol (Rocaltrol -) 0.25 mcg PO DAILY [facility] Last Admin: 03/26/19 13:18 Dose: 0.25 mcg Epoetin Kosta (Procrit -) 5,000 unit IVPUSH ONCE ONE Stop: 03/26/19 11:22 Fluticasone Propionate (Flonase -) 1 spray NS DAILY PRN PRN Reason: NASAL CONGESTION Folic Acid (Folic Acid -) 1 mg PO DAILY [facility] Last Admin: 03/26/19 13:18 Dose: 1 mg Heparin Sodium (Porcine) (Heparin -) 5,000 unit SQ BID [facility] Last Admin: 03/26/19 13:19 Dose: 5,000 unit Iron Sucrose 100 mg/ Sodium (Chloride) 100 mls @ 200 mls/hr IVPB ONCE ONE Stop: 03/26/19 14:25 Leflunomide (Arava -) 20 mg PO DAILY [facility] Last Admin: 03/26/19 13:19 Dose: 20 mg Montelukast Sodium (Singulair -) 10 mg PO HS [facility] Last Admin: 03/25/19 22:00 Dose: 10 mg Prednisone (Deltasone -) 5 mg PO DAILY [facility] Last Admin: 03/26/19 13:18 Dose: 5 mg - Objective Vital Signs: Vital Signs Temperature 98 F 03/26/19 09:59 Pulse Rate 91 H 03/26/19 13:20 Respiratory Rate 18 03/26/19 12:45 Blood Pressure 149/95 03/26/19 13:20 O2 Sat by Pulse Oximetry (%) 96 03/26/19 09:00 Constitutional: Yes: Calm Eyes: Yes: Conjunctiva Clear HENT: Yes: Atraumatic Neck: Yes: Supple Cardiovascular: Yes: S1, S2 Respiratory: Yes: CTA Bilaterally Gastrointestinal: Yes: Soft Genitourinary: Yes: WNL Musculoskeletal: Yes: WNL Edema: No Neurological: Yes: Oriented Psychiatric: Yes: Oriented Labs: CBC, BMP 03/26/19 09:10 03/26/19 09:10 INR, PTT INR 1.04 (0.83-1.09) 03/23/19 06:30 Problem List - Problems (1) End-stage renal disease needing dialysis Code(s): N18.6 - END STAGE RENAL DISEASE; Z99.2 - DEPENDENCE ON RENAL DIALYSIS (2) Anemia Code(s): D64.9 - ANEMIA, UNSPECIFIED Qualifiers: Anemia type: due to chronic kidney disease Chronic kidney disease stage: unspecified stage Qualified Code(s): N18.9 - Chronic kidney disease, unspecified; D63.1 - Anemia in chronic kidney disease Assessment/Plan Current Medications Generic Name Dose Route Start Last Admin Trade Name Freq PRN Reason Stop Dose Admin Allopurinol 300 mg 03/24/19 10:00 03/26/19 13:18 Zyloprim - PO 300 mg DAILY RADHA Administration Atorvastatin Calcium 20 mg 03/23/19 22:00 03/25/19 22:00 Lipitor - PO 20 mg HS RADHA Administration Calcitriol 0.25 mcg 03/25/19 16:00 03/26/19 13:18 Rocaltrol - PO 0.25 mcg DAILY RADHA Administration Epoetin Kosta 5,000 unit 03/26/19 11:21 Procrit - IVPUSH 03/26/19 11:22 ONCE ONE Fluticasone Propionate 1 spray 03/23/19 19:29 Flonase - NS DAILY PRN NASAL CONGESTION Folic Acid 1 mg 03/24/19 10:00 03/26/19 13:18 Folic Acid - PO 1 mg DAILY RADHA Administration Heparin Sodium (Porcine) 5,000 unit 03/24/19 22:00 03/26/19 13:19 Heparin - SQ 5,000 unit BID RADHA Administration Iron Sucrose 100 mg/ Sodium 100 mls @ 200 mls/hr 03/26/19 13:56 Chloride IVPB 03/26/19 14:25 ONCE ONE Leflunomide 20 mg 03/24/19 10:00 03/26/19 13:19 Arava - PO 20 mg DAILY RADHA Administration Montelukast Sodium 10 mg 03/23/19 22:00 03/25/19 22:00 Singulair - PO 10 mg HS RADHA Administration Prednisone 5 mg 03/24/19 10:00 03/26/19 13:18 Deltasone - PO 5 mg DAILY RADHA Administration Impression 1. vasculitis - pauci-immunie 2. ESRD 3. proteinuria 4. HTN 5. anemia Plan - rheum follow up for steroids as he is on 5 mg of prednisone - HD today - vascular for fistula - will need HD placement - renal diet - discussed with medical team - loyd/holger
--- NOTE | 2019-03-26 14:19 | PN ---
Physical Exam: SUBJECTIVE: Patient seen and examined in the morning. No acute events overnight. No complaints of chest pain, shortness of breath, abdominal bernabe, nausea, vomiting, diarrhea. OBJECTIVE: Vital Signs Period Temp Pulse Resp BP Sys/Burch Pulse Ox Last 24 Hr 98 F-98.7 F 67-91 18-20 132-167/72-108 96 GENERAL: The patient is awake, alert, and fully oriented, in no acute distress. HEAD: Normal with no signs of trauma. EYES: PERRL, extraocular movements intact, sclera anicteric, conjunctiva clear. ENT: Ears normal, nares patent, oropharynx clear without exudates, moist mucous membranes. NECK: Trachea midline, full range of motion, supple. LUNGS: Breath sounds equal, clear to auscultation bilaterally, no wheezes. HEART: Regular rate and rhythm, S1, S2 without murmur, rub or gallop. ABDOMEN: Soft, nontender, nondistended, normoactive bowel sounds, no guarding. EXTREMITIES: 2+ pulses, warm, well-perfused, no edema. NEUROLOGICAL: Cranial nerves II through XII grossly intact. PSYCH: Normal mood, normal affect. SKIN: permacath in place, no erythema around site. Laboratory Results - last 24 hr 03/25/19 03/26/19 03/26/19 13:10 09:10 09:10 WBC 4.4 RBC 2.45 L Hgb 7.2 L Hct 22.2 L MCV 90.5 MCH 29.3 MCHC 32.3 RDW 15.3 Plt Count 202 MPV 7.0 L Sodium 136 140 Potassium 3.5 3.6 Chloride 100 102 Carbon Dioxide 25 27 Anion Gap 11 11 BUN 78.0 H 88.5 H Creatinine 7.5 H* 7.8 H* Est GFR (CKD-EPI)AfAm 8.74 8.33 Est GFR (CKD-EPI)NonAf 7.54 7.19 Random Glucose 160 H 149 H Calcium 6.7 L* 7.3 L Phosphorus 5.2 H Total Bilirubin 0.3 AST 21 ALT 22 Alkaline Phosphatase 105 Total Protein 4.8 L Albumin 2.4 L Blood Type Antibody Screen 03/26/19 09:10 WBC RBC Hgb Hct MCV MCH MCHC RDW Plt Count MPV Sodium Potassium Chloride Carbon Dioxide Anion Gap BUN Creatinine Est GFR (CKD-EPI)AfAm Est GFR (CKD-EPI)NonAf Random Glucose Calcium Phosphorus Total Bilirubin AST ALT Alkaline Phosphatase Total Protein Albumin Blood Type O POSITIVE Antibody Screen Negative Active Medications Generic Name Dose Route Start Last Admin Trade Name Jeremy PRN Reason Stop Dose Admin Allopurinol 300 mg 03/24/19 10:00 03/26/19 13:18 Zyloprim - PO 300 mg DAILY RADHA Administration Atorvastatin Calcium 20 mg 03/23/19 22:00 03/25/19 22:00 Lipitor - PO 20 mg HS RADHA Administration Calcitriol 0.25 mcg 03/25/19 16:00 03/26/19 13:18 Rocaltrol - PO 0.25 mcg DAILY RADHA Administration Epoetin Kosta 5,000 unit 03/26/19 11:21 Procrit - IVPUSH 03/26/19 11:22 ONCE ONE Fluticasone Propionate 1 spray 03/23/19 19:29 Flonase - NS DAILY PRN NASAL CONGESTION Folic Acid 1 mg 03/24/19 10:00 03/26/19 13:18 Folic Acid - PO 1 mg DAILY RADHA Administration Heparin Sodium (Porcine) 5,000 unit 03/24/19 22:00 03/26/19 13:19 Heparin - SQ 5,000 unit BID RADHA Administration Iron Sucrose 100 mg/ Sodium 100 mls @ 200 mls/hr 03/26/19 13:56 Chloride IVPB 03/26/19 14:25 ONCE ONE Leflunomide 20 mg 03/24/19 10:00 03/26/19 13:19 Arava - PO 20 mg DAILY RADHA Administration Montelukast Sodium 10 mg 03/23/19 22:00 03/25/19 22:00 Singulair - PO 10 mg HS RADHA Administration Prednisone 5 mg 03/24/19 10:00 03/26/19 13:18 Deltasone - PO 5 mg DAILY RADHA Administration ASSESSMENT/PLAN: 53 M PMH of HTN, HLD, Granulomatous polyangiitis with pauci-immune glomerulonepthritis, vasculitis, who present to the ED from computer information systems professor for ESRD. 1)ESRD -Tolerated HD today. -Permacath in place, for vascular mapping today -Creatinine of 7.8, GFR of 71.9 -Vascular consulted, appreciate recs -Nephrology consulted, appreciate recs 2)Granulomatous polyangiitis with pauci-immune glomerulonepthritis -Continue Prednisone 5mg PO Daily -Continue Singulair 10 mg PO HS -Continue leflunomide 20 mg PO Daily -Rheumatology consulted, appreciate recs 3)Normoctyic anemia -Follow CBC -Iron deficiency anemia -Procrit 5000 units 4)HTN -Currently holding Lasix, 5)HLD -Continue Lipitor 20 mg PO HS F: Oral Hydration E: Trend CMP N: Renal diet DVT: SCDs Dispo: Admitted to medicine floors Visit type - Emergency Visit Emergency Visit: Yes ED Registration Date: 03/22/19 Care time: The patient presented to the Emergency Department on the above date and was hospitalized for further evaluation of their emergent condition. - New Patient This patient is new to me today: No - Critical Care Critical Care patient: No ATTENDING PHYSICIAN STATEMENT I saw and evaluated the patient. I reviewed the resident's note and discussed the case with the resident. I agree with the resident's findings and plan as documented. SUBJECTIVE: OBJECTIVE: ASSESSMENT AND PLAN:
[2019-03-26] MEDS ORDERED: IRON SUCROSE INJECTION 100 MG in SODIUM CHLORIDE 95 ML IVPB ONE (17:00)
--- NOTE | 2019-03-26 17:52 | PN ---
Teaching Attending Note Name of Resident: Morena Mejía ATTENDING PHYSICIAN STATEMENT I saw and evaluated the patient. I reviewed the resident's note and discussed the case with the resident. I agree with the resident's findings and plan as documented with exceptions below. SUBJECTIVE: Patient seen and examined, getting HD, no complaints. OBJECTIVE: Vital Signs Period Temp Pulse Resp BP Sys/Burch Pulse Ox Last 24 Hr 98 F-98.5 F 67-91 18-20 132-167/72-108 96 Intake & Output 03/23/19 03/24/19 03/25/19 03/26/19 23:59 23:59 23:59 23:59 Intake Total 620 1240 1400 540 Output Total 1300 Balance 620 1240 1400 -760 Weight 178 lb 8 oz 177 lb 175 lb 7 oz 179 lb General: seen around 11:30 AM in HD, no acute distress Neck: soft Chest: CTAb, no rales or wheezing Right permacath placement Abdomen: soft, NT, ND Extremities: no edema Home Medications Medication Instructions Recorded Atorvastatin Ca [Lipitor] 20 mg PO HS #30 tablet 07/15/17 Furosemide [Lasix -] 40 mg PO DAILY #30 tablet 07/15/17 Montelukast Na [Singulair -] 10 mg PO HS 09/30/17 Allopurinol [Zyloprim -] 300 mg PO DAILY 10/26/18 Folic Acid 1 mg PO DAILY 10/26/18 Methotrexate [Mexate -] 2.5 mg PO WEEKLY 10/26/18 Prednisone 5 mg PO DAILY 10/26/18 Doxycycline Monohydrate [Monodox] 100 mg PO Q12H #24 capsule 10/27/18 Leflunomide 20 mg PO DAILY 03/22/19 Sulfamethoxazole/Trimethoprim 1 tablet PO WEEKLY 03/22/19 [Sulfamethoxazole-Tmp Ds Tablet] Active Medications Allopurinol (Zyloprim -) 300 mg PO DAILY [facility] Last Admin: 03/26/19 13:18 Dose: 300 mg Atorvastatin Calcium (Lipitor -) 20 mg PO HS [facility] Last Admin: 03/25/19 22:00 Dose: 20 mg Calcitriol (Rocaltrol -) 0.25 mcg PO DAILY [facility] Last Admin: 03/26/19 13:18 Dose: 0.25 mcg Epoetin Kosta (Procrit -) 5,000 unit IVPUSH ONCE ONE Stop: 03/26/19 11:22 Fluticasone Propionate (Flonase -) 1 spray NS DAILY PRN PRN Reason: NASAL CONGESTION Folic Acid (Folic Acid -) 1 mg PO DAILY [facility] Last Admin: 03/26/19 13:18 Dose: 1 mg Heparin Sodium (Porcine) (Heparin -) 5,000 unit SQ BID [facility] Last Admin: 03/26/19 13:19 Dose: 5,000 unit Leflunomide (Arava -) 20 mg PO DAILY [facility] Last Admin: 03/26/19 13:19 Dose: 20 mg Montelukast Sodium (Singulair -) 10 mg PO HS [facility] Last Admin: 03/25/19 22:00 Dose: 10 mg Prednisone (Deltasone -) 5 mg PO DAILY [facility] Last Admin: 03/26/19 13:18 Dose: 5 mg Laboratory Results - last 24 hr 03/26/19 03/26/19 03/26/19 09:10 09:10 09:10 WBC 4.4 RBC 2.45 L Hgb 7.2 L Hct 22.2 L MCV 90.5 MCH 29.3 MCHC 32.3 RDW 15.3 Plt Count 202 MPV 7.0 L Sodium 140 Potassium 3.6 Chloride 102 Carbon Dioxide 27 Anion Gap 11 BUN 88.5 H Creatinine 7.8 H* Est GFR (CKD-EPI)AfAm 8.33 Est GFR (CKD-EPI)NonAf 7.19 Random Glucose 149 H Calcium 7.3 L Phosphorus 5.2 H Total Bilirubin 0.3 AST 21 ALT 22 Alkaline Phosphatase 105 Total Protein 4.8 L Albumin 2.4 L Blood Type O POSITIVE Antibody Screen Negative ASSESSMENT AND PLAN: 53 year old male with past medical history of HTN, HLD, Granulomatous polyangiitis with pauci-immune glomerulonephritis, Vasculitis (on cyclophosphamide/Methotrexate), presented to the ED as advised by his certified medication technician for further management of worsening CKD and worsneing Uremia with nausea. 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 Hypertensive, discussed with renal, start amlodipine. s/p Erythropoeitin with HD. IV iron per renal. Start on oral suppl. Vascular surgery input noted. s/p permacath placement. Plan for vein mapping/Av fistula placement if inhouse rheumatology input n oted Leflunomide/prednisone. Continue lipitor. calcitriol. DVTPPX heparin Dispo pending outpatient HD arrangements. discussed with patient.
[2019-03-26] MEDS: MONTELUKAST NA 10 MG TABLET PO SCH (21:26)
[2019-03-26] MEDS: ATORVASTATIN CA 20 MG TABLET (FP) PO SCH (21:26)
[2019-03-27 08:46] LABS: BASO % 0.7 % (0-2.0); EOS % 0.7 % (0-4.5); HEMATOCRIT 22.5 % (35.4-49); HEMOGLOBIN 7.4 GM/dL (11.7-16.9); LYMPH % 18.2 % (8-40); MCH 29.1 pg (25.7-33.7); MCHC 32.7 g/dl (32.0-35.9); MEAN PLT VOLUME 6.9 fl (7.5-11.1); MONO % 9.4 % (3.8-10.2); PLATELET COUNT 207 K/MM3 (134-434); RBC 2.53 M/mm3 (4.00-5.60); RDW 15.2 % (11.9-15.9); WHITE BLOOD COUNT 6.9 K/mm3 (4.0-10.0)
[2019-03-27 09:48] LABS: BLOOD UREA NITROGEN 55.3 mg/dL (7-18); CALCIUM 7.7 mg/dL (8.5-10.1); CREATININE 5.6 mg/dL (0.55-1.3); POTASSIUM 4.3 mmol/L (3.5-5.1)
[2019-03-27] MEDS: ALLOPURINOL 100 MG TABLET (FP) PO SCH (10:41)
[2019-03-27] MEDS: FOLIC ACID 1 MG TABLET (FP) PO SCH (10:41)
[2019-03-27] MEDS: LEFLUNOMIDE 10 MG TABLET PO SCH (10:41)
[2019-03-27] MEDS: predniSONE 5 MG TABLET (UD) PO SCH (10:41)
[2019-03-27] MEDS: HEPARIN NA (PORCINE) 5,000 UNITS/ML 1ML VIAL SQ SCH ×2 (10:41→21:14)
[2019-03-27] MEDS: CALCITRIOL 0.25 MCG CAPSULE (FP) PO SCH (10:41)
--- NOTE | 2019-03-27 14:20 | PN ---
Physical Exam: SUBJECTIVE: Patient seen and examined in the morning. No acute events overnight. No complaints of chest pain, shortness of breath, abdominal pain, nausea, vomiting, diarrhea. OBJECTIVE: Vital Signs Period Temp Pulse Resp BP Sys/Burch Pulse Ox Last 24 Hr 98.3 F-99.2 F 79-110 20-20 134-146/76-100 96-96 GENERAL: The patient is awake, alert, and fully oriented, in no acute distress. HEAD: Normal with no signs of trauma. EYES: PERRL, extraocular movements intact, sclera anicteric, conjunctiva clear. ENT: Ears normal, nares patent, oropharynx clear without exudates, moist mucous membranes. NECK: Trachea midline, full range of motion, supple. LUNGS: Breath sounds equal, clear to auscultation bilaterally, no wheezes. HEART: Regular rate and rhythm, S1, S2 without murmur, rub or gallop. ABDOMEN: Soft, nontender, nondistended, normoactive bowel sounds, no guarding. EXTREMITIES: 2+ pulses, warm, well-perfused, no edema. NEUROLOGICAL: Cranial nerves II through XII grossly intact. PSYCH: Normal mood, normal affect. SKIN: permacath in place, no erythema around site. Laboratory Results - last 24 hr 03/27/19 03/27/19 07:10 07:10 WBC 6.9 RBC 2.53 L Hgb 7.4 L Hct 22.5 L MCV 89.0 MCH 29.1 MCHC 32.7 RDW 15.2 Plt Count 207 MPV 6.9 L Absolute Neuts (auto) 4.9 Neutrophils % 71.0 Lymphocytes % 18.2 D Monocytes % 9.4 Eosinophils % 0.7 Basophils % 0.7 Nucleated RBC % 0 Sodium 137 Potassium 4.3 Chloride 100 Carbon Dioxide 27 Anion Gap 10 BUN 55.3 H Creatinine 5.6 H Est GFR (CKD-EPI)AfAm 12.44 Est GFR (CKD-EPI)NonAf 10.73 Random Glucose 84 Calcium 7.7 L Active Medications Generic Name Dose Route Start Last Admin Trade Name Freq PRN Reason Stop Dose Admin Allopurinol 300 mg 03/24/19 10:00 03/27/19 10:41 Zyloprim - PO 300 mg DAILY RADHA Administration Atorvastatin Calcium 20 mg 03/23/19 22:00 03/26/19 21:26 Lipitor - PO 20 mg HS RADHA Administration Calcitriol 0.25 mcg 03/25/19 16:00 03/27/19 10:41 Rocaltrol - PO 0.25 mcg DAILY RADHA Administration Epoetin Kosta 5,000 unit 03/26/19 11:21 Procrit - IVPUSH 03/26/19 11:22 ONCE ONE Fluticasone Propionate 1 spray 03/23/19 19:29 Flonase - NS DAILY PRN NASAL CONGESTION Folic Acid 1 mg 03/24/19 10:00 03/27/19 10:41 Folic Acid - PO 1 mg DAILY RADHA Administration Heparin Sodium (Porcine) 5,000 unit 03/24/19 22:00 03/27/19 10:41 Heparin - SQ 5,000 unit BID RADHA Administration Leflunomide 20 mg 03/24/19 10:00 03/27/19 10:41 Arava - PO 20 mg DAILY RADHA Administration Montelukast Sodium 10 mg 03/23/19 22:00 03/26/19 21:26 Singulair - PO 10 mg HS RADHA Administration Prednisone 5 mg 03/24/19 10:00 03/27/19 10:41 Deltasone - PO 5 mg DAILY RADHA Administration ASSESSMENT/PLAN: 53 M PMH of HTN, HLD, 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 1)ESRD -HD tomorrow. -Permacath in place. -Will have fistula created on 03/29 on the left arm. 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 5)HLD -Continue Lipitor 20 mg PO HS F: Oral Hydration E: Trend CMP N: Renal diet DVT: SCDs Dispo: Admitted to medicine floors Visit type - Emergency Visit Emergency Visit: Yes ED Registration Date: 03/22/19 Care time: The patient presented to the Emergency Department on the above date and was hospitalized for further evaluation of their emergent condition. - New Patient This patient is new to me today: No - Critical Care Critical Care patient: No ATTENDING PHYSICIAN STATEMENT I saw and evaluated the patient. I reviewed the resident's note and discussed the case with the resident. I agree with the resident's findings and plan as documented. SUBJECTIVE: OBJECTIVE: ASSESSMENT AND PLAN:
--- NOTE | 2019-03-27 15:54 | PN ---
Teaching Attending Note Name of Resident: Morena Mejía ATTENDING PHYSICIAN STATEMENT I saw and evaluated the patient. I reviewed the resident's note and discussed the case with the resident. I agree with the resident's findings and plan as documented with exceptions below. SUBJECTIVE: patient seen and examined, no complaints. OBJECTIVE: Vital Signs Period Temp Pulse Resp BP Sys/Burch Pulse Ox Last 24 Hr 98.3 F-99.2 F 79-110 20-20 130-143/76-100 96-96 Intake & Output 03/24/19 03/25/19 03/26/19 03/27/19 23:59 23:59 23:59 23:59 Intake Total 1240 1400 690 610 Output Total 1300 Balance 1240 1400 -610 610 Weight 177 lb 175 lb 7 oz 179 lb 179 lb General: sitting in bed in no acute distress chest: CTAB, no rales or wheezing Abdomen:soft, NT Extremities: no edema Home Medications Medication Instructions Recorded Atorvastatin Ca [Lipitor] 20 mg PO HS #30 tablet 07/15/17 Furosemide [Lasix -] 40 mg PO DAILY #30 tablet 07/15/17 Montelukast Na [Singulair -] 10 mg PO HS 09/30/17 Allopurinol [Zyloprim -] 300 mg PO DAILY 10/26/18 Folic Acid 1 mg PO DAILY 10/26/18 Methotrexate [Mexate -] 2.5 mg PO WEEKLY 10/26/18 Prednisone 5 mg PO DAILY 10/26/18 Doxycycline Monohydrate [Monodox] 100 mg PO Q12H #24 capsule 10/27/18 Leflunomide 20 mg PO DAILY 03/22/19 Sulfamethoxazole/Trimethoprim 1 tablet PO WEEKLY 03/22/19 [Sulfamethoxazole-Tmp Ds Tablet] Active Medications Allopurinol (Zyloprim -) 300 mg PO DAILY [facility] Last Admin: 03/27/19 10:41 Dose: 300 mg Atorvastatin Calcium (Lipitor -) 20 mg PO [facility] Last Admin: 03/26/19 21:26 Dose: 20 mg Calcitriol (Rocaltrol -) 0.25 mcg PO DAILY [facility] Last Admin: 03/27/19 10:41 Dose: 0.25 mcg Epoetin Kosta (Procrit -) 5,000 unit IVPUSH ONCE ONE Stop: 03/26/19 11:22 Fluticasone Propionate (Flonase -) 1 spray NS DAILY PRN PRN Reason: NASAL CONGESTION Folic Acid (Folic Acid -) 1 mg PO DAILY [facility] Last Admin: 03/27/19 10:41 Dose: 1 mg Heparin Sodium (Porcine) (Heparin -) 5,000 unit SQ BID [facility] Last Admin: 03/27/19 10:41 Dose: 5,000 unit Leflunomide (Arava -) 20 mg PO DAILY [facility] Last Admin: 03/27/19 10:41 Dose: 20 mg Montelukast Sodium (Singulair -) 10 mg PO HS [facility] Last Admin: 03/26/19 21:26 Dose: 10 mg Prednisone (Deltasone -) 5 mg PO DAILY [facility] Last Admin: 03/27/19 10:41 Dose: 5 mg Laboratory Results - last 24 hr 03/27/19 03/27/19 07:10 07:10 WBC 6.9 RBC 2.53 L Hgb 7.4 L Hct 22.5 L MCV 89.0 MCH 29.1 MCHC 32.7 RDW 15.2 Plt Count 207 MPV 6.9 L Absolute Neuts (auto) 4.9 Neutrophils % 71.0 Lymphocytes % 18.2 D Monocytes % 9.4 Eosinophils % 0.7 Basophils % 0.7 Nucleated RBC % 0 Sodium 137 Potassium 4.3 Chloride 100 Carbon Dioxide 27 Anion Gap 10 BUN 55.3 H Creatinine 5.6 H Est GFR (CKD-EPI)AfAm 12.44 Est GFR (CKD-EPI)NonAf 10.73 Random Glucose 84 Calcium 7.7 L ASSESSMENT AND PLAN: 53 year old male with past medical history of HTN, HLD, Granulomatous polyangiitis with pauci-immune glomerulonephritis, Vasculitis (on cyclophosphamide/Methotrexate), 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 BP improved, will hold off on starting anti-hypertensives and monitor as patient receiving fluid removal with HD. s/p Erythropoeitin with HD. IV iron per renal. Start on oral suppl. Vascular surgery input noted. s/p permacath placement. Plan for vein mapping/Av fistula placement if inhouse rheumatology input n oted Leflunomide/prednisone. Continue lipitor. calcitriol. DVTPPX heparin Dispo pending outpatient HD arrangements. discussed with patient.
--- NOTE | 2019-03-27 16:54 | PN ---
Progress Note, Physician History of Present Illness: Pt seen and examined at bedside. He is awake and alert. He denies shortness of breath. - Current Medication List Current Medications: Active Medications Allopurinol (Zyloprim -) 300 mg PO DAILY [facility] Last Admin: 03/27/19 10:41 Dose: 300 mg Atorvastatin Calcium (Lipitor -) 20 mg PO HS [facility] Last Admin: 03/26/19 21:26 Dose: 20 mg Calcitriol (Rocaltrol -) 0.25 mcg PO DAILY [facility] Last Admin: 03/27/19 10:41 Dose: 0.25 mcg Epoetin Kosta (Procrit -) 5,000 unit IVPUSH ONCE ONE Stop: 03/26/19 11:22 Ferrous Sulfate (Feosol -) 325 mg PO DAILY [facility] Fluticasone Propionate (Flonase -) 1 spray NS DAILY PRN PRN Reason: NASAL CONGESTION Folic Acid (Folic Acid -) 1 mg PO DAILY [facility] Last Admin: 03/27/19 10:41 Dose: 1 mg Heparin Sodium (Porcine) (Heparin -) 5,000 unit SQ BID [facility] Last Admin: 03/27/19 10:41 Dose: 5,000 unit Leflunomide (Arava -) 20 mg PO DAILY [facility] Last Admin: 03/27/19 10:41 Dose: 20 mg Montelukast Sodium (Singulair -) 10 mg PO HS [facility] Last Admin: 03/26/19 21:26 Dose: 10 mg Prednisone (Deltasone -) 5 mg PO DAILY [facility] Last Admin: 03/27/19 10:41 Dose: 5 mg - Objective Vital Signs: Vital Signs Temperature 98.7 F 03/27/19 14:19 Pulse Rate 79 03/27/19 14:19 Respiratory Rate 20 03/27/19 09:43 Blood Pressure 130/80 03/27/19 14:19 O2 Sat by Pulse Oximetry (%) 96 03/27/19 09:00 Constitutional: Yes: Calm Eyes: Yes: Conjunctiva Clear HENT: Yes: Atraumatic Neck: Yes: Supple Cardiovascular: Yes: S1, S2 Respiratory: Yes: CTA Bilaterally Gastrointestinal: Yes: Soft Genitourinary: Yes: WNL Musculoskeletal: Yes: WNL Edema: No Neurological: Yes: Oriented Psychiatric: Yes: Oriented Labs: CBC, BMP 03/27/19 07:10 03/27/19 07:10 INR, PTT INR 1.04 (0.83-1.09) 03/23/19 06:30 Problem List - Problems (1) End-stage renal disease needing dialysis Code(s): N18.6 - END STAGE RENAL DISEASE; Z99.2 - DEPENDENCE ON RENAL DIALYSIS (2) Anemia Code(s): D64.9 - ANEMIA, UNSPECIFIED Qualifiers: Anemia type: due to chronic kidney disease Chronic kidney disease stage: unspecified stage Qualified Code(s): N18.9 - Chronic kidney disease, unspecified; D63.1 - Anemia in chronic kidney disease Assessment/Plan Current Medications Generic Name Dose Route Start Last Admin Trade Name Freq PRN Reason Stop Dose Admin Allopurinol 300 mg 03/24/19 10:00 03/27/19 10:41 Zyloprim - PO 300 mg DAILY RADHA Administration Atorvastatin Calcium 20 mg 03/23/19 22:00 03/26/19 21:26 Lipitor - PO 20 mg HS RADHA Administration Calcitriol 0.25 mcg 03/25/19 16:00 03/27/19 10:41 Rocaltrol - PO 0.25 mcg DAILY RADHA Administration Epoetin Kosta 5,000 unit 03/26/19 11:21 Procrit - IVPUSH 03/26/19 11:22 ONCE ONE Ferrous Sulfate 325 mg 03/28/19 10:00 Feosol - PO DAILY RADHA Fluticasone Propionate 1 spray 03/23/19 19:29 Flonase - NS DAILY PRN NASAL CONGESTION Folic Acid 1 mg 03/24/19 10:00 03/27/19 10:41 Folic Acid - PO 1 mg DAILY RADHA Administration Heparin Sodium (Porcine) 5,000 unit 03/24/19 22:00 03/27/19 10:41 Heparin - SQ 5,000 unit BID RADHA Administration Leflunomide 20 mg 03/24/19 10:00 03/27/19 10:41 Arava - PO 20 mg DAILY RADHA Administration Montelukast Sodium 10 mg 03/23/19 22:00 03/26/19 21:26 Singulair - PO 10 mg HS RADHA Administration Prednisone 5 mg 03/24/19 10:00 03/27/19 10:41 Deltasone - PO 5 mg DAILY RADHA Administration Impression 1. vasculitis - pauci-immunie 2. ESRD 3. proteinuria 4. HTN 5. anemia Plan - HD tomorrow - epogen for anemia - will give venofer - vascular for fistula - will need HD placement - renal diet
[2019-03-27] MEDS: MONTELUKAST NA 10 MG TABLET PO SCH (21:14)
[2019-03-27] MEDS: ATORVASTATIN CA 20 MG TABLET (FP) PO SCH (21:14)
[2019-03-28] MEDS ORDERED: EPOETIN ALFA 2,000 UNIT/1 ML VIAL IVPUSH ONE (08:00)
[2019-03-28] MEDS ORDERED: SODIUM CHLORIDE 250 ML IV PRN (08:00)
[2019-03-28] MEDS ORDERED: IRON SUCROSE INJECTION 100 MG in SODIUM CHLORIDE 95 ML IVPB ONE (08:00)
[2019-03-28 09:11] LABS: BASO % 0.8 % (0-2.0); EOS % 1.1 % (0-4.5); HEMATOCRIT 20.6 % (35.4-49); LYMPH % 23.3 % (8-40); MCH 30.6 pg (25.7-33.7); MCHC 34.1 g/dl (32.0-35.9); MEAN CELL VOLUME 89.8 fl (80-96); MEAN PLT VOLUME 6.9 fl (7.5-11.1); MONO % 4.9 % (3.8-10.2); NEUT % 69.9 % (42.8-82.8); PLATELET COUNT 191 K/MM3 (134-434); RBC 2.29 M/mm3 (4.00-5.60); RDW 14.9 % (11.9-15.9); WHITE BLOOD COUNT 4.8 K/mm3 (4.0-10.0)
[2019-03-28 09:30] LABS: BLOOD UREA NITROGEN 52.8 mg/dL (7-18); CALCIUM 7.8 mg/dL (8.5-10.1); CREATININE 4.6 mg/dL (0.55-1.3); POTASSIUM 3.6 mmol/L (3.5-5.1)
--- NOTE | 2019-03-28 10:07 | SPA.PREOP ---
- PRE-OP NOTE Dx: ESRD on HD via PC Planned Procedure: LUE AVF, possible graft Surgeon: Raad Mir Last Vital Signs Temp Pulse Resp BP Pulse Ox 97.4 F L 77 18 138/95 96 03/28/19 08:10 03/28/19 09:15 03/28/19 09:15 03/28/19 09:15 03/27/19 21:00 Lab Results WBC 4.8 K/mm3 (4.0-10.0) 03/28/19 08:35 RBC 2.29 M/mm3 (4.00-5.60) L 03/28/19 08:35 Hgb 7.0 GM/dL (11.7-16.9) L 03/28/19 08:35 Hct 20.6 % (35.4-49) L 03/28/19 08:35 MCV 89.8 fl (80-96) 03/28/19 08:35 MCHC 34.1 g/dl (32.0-35.9) 03/28/19 08:35 RDW 14.9 % (11.9-15.9) 03/28/19 08:35 Plt Count 191 K/MM3 (134-434) 03/28/19 08:35 Sodium 138 mmol/L (136-145) 03/28/19 08:35 Potassium 3.6 mmol/L (3.5-5.1) 03/28/19 08:35 Chloride 102 mmol/L (98-107) 03/28/19 08:35 Carbon Dioxide 29 mmol/L (21-32) 03/28/19 08:35 Anion Gap 7 MMOL/L (8-16) L 03/28/19 08:35 BUN 52.8 mg/dL (7-18) H 03/28/19 08:35 Creatinine 4.6 mg/dL (0.55-1.3) H 03/28/19 08:35 Random Glucose 185 mg/dL (74-106) H 03/28/19 08:35 Calcium 7.8 mg/dL (8.5-10.1) L 03/28/19 08:35 Blood Type O POSITIVE 03/26/19 09:10 Antibody Screen Negative 03/26/19 09:10 INR 1.04 (0.83-1.09) 03/23/19 06:30 - ASSESSMENT/PLAN 1. Make NPO after midnight except po meds 2. GI/DVT PPX 3. Medical optimization / clearance 4. Consent to be obtained by surgeon after risks, benefits and alternatives discussed with patient and or Health Care Proxy. Problem List - Problems (1) End-stage renal disease needing dialysis Code(s): N18.6 - END STAGE RENAL DISEASE; Z99.2 - DEPENDENCE ON RENAL DIALYSIS (2) Diabetes mellitus Code(s): E11.9 - TYPE 2 DIABETES MELLITUS WITHOUT COMPLICATIONS (3) Granulomatosis with polyangiitis with renal involvement Code(s): M31.31 - SONYA'S GRANULOMATOSIS WITH RENAL INVOLVEMENT (4) HLD (hyperlipidemia) Code(s): E78.5 - HYPERLIPIDEMIA, UNSPECIFIED (5) HTN (hypertension) Code(s): I10 - ESSENTIAL (PRIMARY) HYPERTENSION Visit type - Case Type Case Type: ED Admission
[2019-03-28] MEDS: predniSONE 5 MG TABLET (UD) PO SCH (12:08)
[2019-03-28] MEDS: HEPARIN NA (PORCINE) 5,000 UNITS/ML 1ML VIAL SQ SCH ×2 (12:08→21:57)
[2019-03-28] MEDS: ALLOPURINOL 100 MG TABLET (FP) PO SCH (12:08)
[2019-03-28] MEDS: FOLIC ACID 1 MG TABLET (FP) PO SCH (12:08)
[2019-03-28] MEDS: FERROUS SO4 325 MG TABLET (FP) PO SCH (12:08)
[2019-03-28] MEDS: CALCITRIOL 0.25 MCG CAPSULE (FP) PO SCH (12:09)
[2019-03-28] MEDS: LEFLUNOMIDE 10 MG TABLET PO SCH (12:09)
[2019-03-28 12:34] LABS: BLOOD UREA NITROGEN 22.2 mg/dL (7-18); CREATININE 2.3 mg/dL (0.55-1.3)
--- NOTE | 2019-03-28 13:07 | PN ---
Physical Exam: SUBJECTIVE: Patient seen and examined in the morning. No acute events overnight. No complaints of chest pain, shortness of breath, abdominal pain, nausea, vomiting, diarrhea, fever or chills. OBJECTIVE: Vital Signs Period Temp Pulse Resp BP Sys/Burch Pulse Ox Last 24 Hr 97.3 F-98.7 F 62-98 18-20 130-160/57-100 96 GENERAL: The patient is awake, alert, and fully oriented, in no acute distress. HEAD: Normal with no signs of trauma. EYES: PERRL, extraocular movements intact, sclera anicteric, conjunctiva clear. ENT: Ears normal, nares patent, oropharynx clear without exudates, moist mucous membranes. NECK: Trachea midline, full range of motion, supple. LUNGS: Breath sounds equal, clear to auscultation bilaterally, no wheezes, no crackles, no accessory muscle use. HEART: Regular rate and rhythm, S1, S2 , 2/6 systolic murmur ABDOMEN: Soft, nontender, nondistended, normoactive bowel sounds, no guarding EXTREMITIES: 2+ pulses, warm, well-perfused, no edema. NEUROLOGICAL: Cranial nerves II through XII grossly intact. PSYCH: Normal mood, normal affect. SKIN: Warm, dry, normal turgor, no rashes or lesions noted Laboratory Results - last 24 hr 03/26/19 03/26/19 03/27/19 09:10 21:20 11:30 WBC RBC Hgb Hct MCV MCH MCHC RDW Plt Count MPV Absolute Neuts (auto) Neutrophils % Lymphocytes % Monocytes % Eosinophils % Basophils % Nucleated RBC % Sodium Potassium Chloride Carbon Dioxide Anion Gap BUN Creatinine Est GFR (CKD-EPI)AfAm Est GFR (CKD-EPI)NonAf Random Glucose Calcium Hep C Ab Diagnostic <0.1 Hepatitis C Ab (EIA) <0.1 Blood Type O POSITIVE Antibody Screen Negative Crossmatch See Detail 03/28/19 03/28/19 03/28/19 08:35 08:35 11:40 WBC 4.8 RBC 2.29 L Hgb 7.0 L Hct 20.6 L MCV 89.8 MCH 30.6 MCHC 34.1 RDW 14.9 Plt Count 191 MPV 6.9 L Absolute Neuts (auto) 3.3 Neutrophils % 69.9 Lymphocytes % 23.3 D Monocytes % 4.9 Eosinophils % 1.1 Basophils % 0.8 Nucleated RBC % 0 Sodium 138 Potassium 3.6 Chloride 102 Carbon Dioxide 29 Anion Gap 7 L BUN 52.8 H 22.2 H Creatinine 4.6 H 2.3 H Est GFR (CKD-EPI)AfAm 15.78 36.48 Est GFR (CKD-EPI)NonAf 13.61 31.47 Random Glucose 185 H Calcium 7.8 L Hep C Ab Diagnostic Hepatitis C Ab (EIA) Blood Type Antibody Screen Crossmatch Active Medications Generic Name Dose Route Start Last Admin Trade Name Freq PRN Reason Stop Dose Admin Allopurinol 300 mg 03/24/19 10:00 03/28/19 12:08 Zyloprim - PO 300 mg DAILY RADHA Administration Atorvastatin Calcium 20 mg 03/23/19 22:00 03/27/19 21:14 Lipitor - PO 20 mg HS RADHA Administration Calcitriol 0.25 mcg 03/25/19 16:00 03/28/19 12:09 Rocaltrol - PO 0.25 mcg DAILY RADHA Administration Epoetin Kosta 5,000 unit 03/26/19 11:21 Procrit - IVPUSH 03/26/19 11:22 ONCE ONE Ferrous Sulfate 325 mg 03/28/19 10:00 03/28/19 12:08 Feosol - PO 325 mg DAILY RADHA Administration Fluticasone Propionate 1 spray 03/23/19 19:29 Flonase - NS DAILY PRN NASAL CONGESTION Folic Acid 1 mg 03/24/19 10:00 03/28/19 12:08 Folic Acid - PO 1 mg DAILY RADHA Administration Heparin Sodium (Porcine) 5,000 unit 03/24/19 22:00 03/28/19 12:08 Heparin - SQ 5,000 unit BID RADHA Administration Leflunomide 20 mg 03/24/19 10:00 03/28/19 12:09 Arava - PO 20 mg DAILY RADHA Administration Montelukast Sodium 10 mg 03/23/19 22:00 03/27/19 21:14 Singulair - PO 10 mg HS RADHA Administration Prednisone 5 mg 03/24/19 10:00 03/28/19 12:08 Deltasone - PO 5 mg DAILY RADHA Administration ASSESSMENT/PLAN: 53 M PMH of HTN, HLD, 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 1)ESRD -Tolerated HD today. -Permacath in place. -Will have fistula created on 03/29 on the left arm. 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 4)HTN -Currently holding Lasix -monitoring BP, will hold anti hypertensive medication for now as patient is normotensive 5)HLD -Continue Lipitor 20 mg PO HS F: Oral Hydration E: Trend CMP N: Renal diet DVT: SCDs Dispo: Admitted to medicine floors Visit type - Emergency Visit Emergency Visit: Yes ED Registration Date: 03/22/19 Care time: The patient presented to the Emergency Department on the above date and was hospitalized for further evaluation of their emergent condition. - New Patient This patient is new to me today: No - Critical Care Critical Care patient: No ATTENDING PHYSICIAN STATEMENT I saw and evaluated the patient. I reviewed the resident's note and discussed the case with the resident. I agree with the resident's findings and plan as documented. SUBJECTIVE: OBJECTIVE: ASSESSMENT AND PLAN:
--- NOTE | 2019-03-28 13:44 | PN ---
Progress Note, Physician History of Present Illness: Pt seen and examined at bedside. He tolerated HD. - Current Medication List Current Medications: Active Medications Allopurinol (Zyloprim -) 300 mg PO DAILY [facility] Last Admin: 03/28/19 12:08 Dose: 300 mg Atorvastatin Calcium (Lipitor -) 20 mg PO HS [facility] Last Admin: 03/27/19 21:14 Dose: 20 mg Calcitriol (Rocaltrol -) 0.25 mcg PO DAILY [facility] Last Admin: 03/28/19 12:09 Dose: 0.25 mcg Epoetin Kosta (Procrit -) 5,000 unit IVPUSH ONCE ONE Stop: 03/26/19 11:22 Ferrous Sulfate (Feosol -) 325 mg PO DAILY [facility] Last Admin: 03/28/19 12:08 Dose: 325 mg Fluticasone Propionate (Flonase -) 1 spray NS DAILY PRN PRN Reason: NASAL CONGESTION Folic Acid (Folic Acid -) 1 mg PO DAILY [facility] Last Admin: 03/28/19 12:08 Dose: 1 mg Heparin Sodium (Porcine) (Heparin -) 5,000 unit SQ BID [facility] Last Admin: 03/28/19 12:08 Dose: 5,000 unit Leflunomide (Arava -) 20 mg PO DAILY [facility] Last Admin: 03/28/19 12:09 Dose: 20 mg Montelukast Sodium (Singulair -) 10 mg PO HS [facility] Last Admin: 03/27/19 21:14 Dose: 10 mg Prednisone (Deltasone -) 5 mg PO DAILY [facility] Last Admin: 03/28/19 12:08 Dose: 5 mg - Objective Vital Signs: Vital Signs Temperature 98.7 F 03/28/19 12:07 Pulse Rate 98 H 03/28/19 12:16 Respiratory Rate 18 03/28/19 12:16 Blood Pressure 155/100 03/28/19 12:16 O2 Sat by Pulse Oximetry (%) 96 03/27/19 21:00 Constitutional: Yes: Calm Eyes: Yes: Conjunctiva Clear HENT: Yes: Atraumatic Neck: Yes: Supple Cardiovascular: Yes: S1, S2 Respiratory: Yes: CTA Bilaterally Gastrointestinal: Yes: Soft Genitourinary: Yes: WNL Musculoskeletal: Yes: WNL Edema: No Neurological: Yes: Oriented Psychiatric: Yes: Oriented Labs: CBC, BMP 03/28/19 08:35 03/28/19 11:40 INR, PTT INR 1.04 (0.83-1.09) 03/23/19 06:30 Problem List - Problems (1) End-stage renal disease needing dialysis Code(s): N18.6 - END STAGE RENAL DISEASE; Z99.2 - DEPENDENCE ON RENAL DIALYSIS (2) Anemia Code(s): D64.9 - ANEMIA, UNSPECIFIED Qualifiers: Anemia type: due to chronic kidney disease Chronic kidney disease stage: unspecified stage Qualified Code(s): N18.9 - Chronic kidney disease, unspecified; D63.1 - Anemia in chronic kidney disease Assessment/Plan Current Medications Generic Name Dose Route Start Last Admin Trade Name Freq PRN Reason Stop Dose Admin Allopurinol 300 mg 03/24/19 10:00 03/28/19 12:08 Zyloprim - PO 300 mg DAILY RADHA Administration Atorvastatin Calcium 20 mg 03/23/19 22:00 03/27/19 21:14 Lipitor - PO 20 mg HS RADHA Administration Calcitriol 0.25 mcg 03/25/19 16:00 03/28/19 12:09 Rocaltrol - PO 0.25 mcg DAILY RADHA Administration Epoetin Kosta 5,000 unit 03/26/19 11:21 Procrit - IVPUSH 03/26/19 11:22 ONCE ONE Ferrous Sulfate 325 mg 03/28/19 10:00 03/28/19 12:08 Feosol - PO 325 mg DAILY RADHA Administration Fluticasone Propionate 1 spray 03/23/19 19:29 Flonase - NS DAILY PRN NASAL CONGESTION Folic Acid 1 mg 03/24/19 10:00 03/28/19 12:08 Folic Acid - PO 1 mg DAILY RADHA Administration Heparin Sodium (Porcine) 5,000 unit 03/24/19 22:00 03/28/19 12:08 Heparin - SQ 5,000 unit BID RADHA Administration Leflunomide 20 mg 03/24/19 10:00 03/28/19 12:09 Arava - PO 20 mg DAILY RADHA Administration Montelukast Sodium 10 mg 03/23/19 22:00 03/27/19 21:14 Singulair - PO 10 mg HS ARD[facility] Administration Prednisone 5 mg 03/24/19 10:00 03/28/19 12:08 Deltasone - PO 5 mg DAILY RADHA Administration Impression 1. vasculitis - pauci-immunie 2. ESRD 3. proteinuria 4. HTN 5. anemia Plan - HD today - will transfuse prbc as he has surgery tomorrow - vascular for fistula - pending placement - cont epogen and venofer - renal diet
[2019-03-28 16:07] LABS: HEP B CORE AB, TOT Negative (Negative)
--- NOTE | 2019-03-28 16:16 | PN ---
Teaching Attending Note Name of Resident: Morena Mejía ATTENDING PHYSICIAN STATEMENT I saw and evaluated the patient. I reviewed the resident's note and discussed the case with the resident. I agree with the resident's findings and plan as documented. SUBJECTIVE: Feels well - no complaints. No further nausea. No CP/SOB. OBJECTIVE: Afebrile, Hemodynamically Stable on HD during interview. Last Vital Signs Temp Pulse Resp BP Pulse Ox 98.7 F 68 22 H 142/68 96 03/28/19 15:59 03/28/19 15:59 03/28/19 15:59 03/28/19 15:59 03/27/19 21:00 Heart - S1, S2, SM Lungs - decreased air entry at bases. RIJ Permacath Abdomen - Soft, non-tender. Bowel Sounds normal. Extremities - mild edema, No calf tenderness. Neuro - AAO x 3. Tone/Power normal all extremities. 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 Laboratory Results - last 24 hr 03/26/19 03/26/19 03/27/19 09:10 21:20 11:30 WBC RBC Hgb Hct MCV MCH MCHC RDW Plt Count MPV Absolute Neuts (auto) Neutrophils % Lymphocytes % Monocytes % Eosinophils % Basophils % Nucleated RBC % Sodium Potassium Chloride Carbon Dioxide Anion Gap BUN Creatinine Est GFR (CKD-EPI)AfAm Est GFR (CKD-EPI)NonAf Random Glucose Calcium Hep A IgM Ab Confirm Negative Hepatitis A Ab Total Positive H Hep Bs Antigen Negative Hep Bs Antibody Non reactive Hep B Core Total Ab Negative Hep B Core IgM Ab Negative Hepatitis Be Antibody Negative Hepatitis Be Antigen Negative Hep C Ab Diagnostic <0.1 Hepatitis C Ab (EIA) <0.1 Blood Type O POSITIVE Antibody Screen Negative Crossmatch See Detail 03/28/19 03/28/19 03/28/19 08:35 08:35 11:40 WBC 4.8 RBC 2.29 L Hgb 7.0 L Hct 20.6 L MCV 89.8 MCH 30.6 MCHC 34.1 RDW 14.9 Plt Count 191 MPV 6.9 L Absolute Neuts (auto) 3.3 Neutrophils % 69.9 Lymphocytes % 23.3 D Monocytes % 4.9 Eosinophils % 1.1 Basophils % 0.8 Nucleated RBC % 0 Sodium 138 Potassium 3.6 Chloride 102 Carbon Dioxide 29 Anion Gap 7 L BUN 52.8 H 22.2 H Creatinine 4.6 H 2.3 H Est GFR (CKD-EPI)AfAm 15.78 36.48 Est GFR (CKD-EPI)NonAf 13.61 31.47 Random Glucose 185 H Calcium 7.8 L Hep A IgM Ab Confirm Hepatitis A Ab Total Hep Bs Antigen Hep Bs Antibody Hep B Core Total Ab Hep B Core IgM Ab Hepatitis Be Antibody Hepatitis Be Antigen Hep C Ab Diagnostic Hepatitis C Ab (EIA) Blood Type Antibody Screen Crossmatch Current Medications Generic Name Dose Route Start Last Admin Trade Name Freq PRN Reason Stop Dose Admin Allopurinol 300 mg 03/24/19 10:00 03/28/19 12:08 Zyloprim - PO 300 mg DAILY RADHA Administration Atorvastatin Calcium 20 mg 03/23/19 22:00 03/27/19 21:14 Lipitor - PO 20 mg HS RADHA Administration Calcitriol 0.25 mcg 03/25/19 16:00 03/28/19 12:09 Rocaltrol - PO 0.25 mcg DAILY RADHA Administration Epoetin Kosta 5,000 unit 03/26/19 11:21 Procrit - IVPUSH 03/26/19 11:22 ONCE ONE Ferrous Sulfate 325 mg 03/28/19 10:00 03/28/19 12:08 Feosol - PO 325 mg DAILY RADHA Administration Fluticasone Propionate 1 spray 03/23/19 19:29 Flonase - NS DAILY PRN NASAL CONGESTION Folic Acid 1 mg 03/24/19 10:00 03/28/19 12:08 Folic Acid - PO 1 mg DAILY RADHA Administration Heparin Sodium (Porcine) 5,000 unit 03/24/19 22:00 03/28/19 12:08 Heparin - SQ 5,000 unit BID RADHA Administration Leflunomide 20 mg 03/24/19 10:00 03/28/19 12:09 Arava - PO 20 mg DAILY RADHA Administration Montelukast Sodium 10 mg 03/23/19 22:00 03/27/19 21:14 Singulair - PO 10 mg HS RADHA Administration Prednisone 5 mg 03/24/19 10:00 03/28/19 12:08 Deltasone - PO 5 mg DAILY RADHA Administration Home Medications Medication Instructions Recorded Atorvastatin Ca [Lipitor] 20 mg PO HS #30 tablet 07/15/17 Furosemide [Lasix -] 40 mg PO DAILY #30 tablet 07/15/17 Montelukast Na [Singulair -] 10 mg PO HS 09/30/17 Allopurinol [Zyloprim -] 300 mg PO DAILY 10/26/18 Folic Acid 1 mg PO DAILY 10/26/18 Methotrexate [Mexate -] 2.5 mg PO WEEKLY 10/26/18 Prednisone 5 mg PO DAILY 10/26/18 Doxycycline Monohydrate [Monodox] 100 mg PO Q12H #24 capsule 10/27/18 Leflunomide 20 mg PO DAILY 03/22/19 Sulfamethoxazole/Trimethoprim 1 tablet PO WEEKLY 03/22/19 [Sulfamethoxazole-Tmp Ds Tablet] ASSESSMENT AND PLAN: 53 year old male with past medical history of HTN, HLD, 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 1. ESRD sec to Granulomatous polyangiitis (no lung involvement) - Admitted for permacath placement and initiation on HD s/p R permacath placement and initiation on HD. Nephrologyfollowing. Rheumatology eval appreciated - Continue Leflunomide and Prednisone (intolerant to Rituximab and poor response to Cyclophosphamide IV pulses) Discontinue Lasix as per Neph Arterial/Venous UE Duplex for vein mapping done 03/26 - AVF formation surgery scheduled 03/29 by Vascular Sx. NPO MN. 2. HLD - on Lipitor. 3. Anemia, multifavctorial in etiology - ESRD, KAREN H/H 7.0/20.6 Iron Sat 7%/Ferritin 309 IV Venofer/Epogen as per nephrology for transfusion of 1 unit PRBCs on HD today prior to surgery tomorrow. 4. Hypocalcemia sec ESRD, Hyperparathyroidism - Nephrology input requested re: Hypocalcemia - recommend starting Calcitriol. Low dose 0.25mcg daily started. DVT Px - Heparin SQ Dispo - awaiting placement at a HD center as he is a newly initiated HD patient.
[2019-03-28] MEDS: ATORVASTATIN CA 20 MG TABLET (FP) PO SCH (21:57)
[2019-03-28] MEDS: MONTELUKAST NA 10 MG TABLET PO SCH (21:57)
[2019-03-29 08:39] LABS: BASO % 0.6 % (0-2.0); HEMOGLOBIN 9.3 GM/dL (11.7-16.9); LYMPH % 17.9 % (8-40); MCH 29.9 pg (25.7-33.7); MCHC 34.5 g/dl (32.0-35.9); MEAN CELL VOLUME 86.9 fl (80-96); NEUT % 72.5 % (42.8-82.8); PLATELET COUNT 215 K/MM3 (134-434); RBC 3.11 M/mm3 (4.00-5.60); RDW 15.8 % (11.9-15.9); WHITE BLOOD COUNT 8.3 K/mm3 (4.0-10.0)
[2019-03-29 09:01] LABS: CALCIUM 8.4 mg/dL (8.5-10.1); CREATININE 5.3 mg/dL (0.55-1.3); POTASSIUM 4.1 mmol/L (3.5-5.1)
[2019-03-29] MEDS: CALCITRIOL 0.25 MCG CAPSULE (FP) PO SCH (10:20)
[2019-03-29] MEDS: predniSONE 5 MG TABLET (UD) PO SCH (10:20)
[2019-03-29] MEDS: FERROUS SO4 325 MG TABLET (FP) PO SCH (10:20)
[2019-03-29] MEDS: ALLOPURINOL 100 MG TABLET (FP) PO SCH (10:21)
[2019-03-29] MEDS: FOLIC ACID 1 MG TABLET (FP) PO SCH (10:21)
[2019-03-29] MEDS: LEFLUNOMIDE 10 MG TABLET PO SCH (10:31)
[2019-03-29] MEDS: HEPARIN NA (PORCINE) 5,000 UNITS/ML 1ML VIAL SQ SCH ×2 (11:09→21:32)
[2019-03-29] MEDS ORDERED: guaiFENesin 200 MG/10 ML 10 ML UNIT-DOSE CUPS PO PRN (12:38)
--- NOTE | 2019-03-29 13:00 | PN ---
Physical Exam: SUBJECTIVE: Patient seen and examined in the morning. No acute events overnight. No complaints of chest pain, no shortness of breath, no abdominal pain, no nausea, no vomiting, no diarrhea. Patient has cough, which has persisted for a week. Chest x-ray from admission and day after admission shows clear lungs. OBJECTIVE: Vital Signs Period Temp Pulse Resp BP Sys/Burch Pulse Ox Last 24 Hr 98.4 F-98.7 F 68-76 14-22 111-146/68-90 95 GENERAL: The patient is awake, alert, and fully oriented, in no acute distress. HEAD: Normal with no signs of trauma. EYES: PERRL, extraocular movements intact, sclera anicteric, conjunctiva clear. ENT: Ears normal, nares patent, oropharynx clear without exudates, moist mucous membranes. NECK: Trachea midline, full range of motion, supple. LUNGS: Breath sounds equal, clear to auscultation bilaterally, no wheezes, no crackles, no accessory muscle use. HEART: Regular rate and rhythm, S1, S2 , 2/6 systolic murmur ABDOMEN: Soft, nontender, nondistended, normoactive bowel sounds, no guarding EXTREMITIES: 2+ pulses, warm, well-perfused, no edema. NEUROLOGICAL: Cranial nerves II through XII grossly intact. PSYCH: Normal mood, normal affect. SKIN: Warm, dry, normal turgor, no rashes or lesions noted Laboratory Results - last 24 hr 03/27/19 03/29/19 03/29/19 11:30 07:28 07:28 WBC 8.3 RBC 3.11 L Hgb 9.3 L Hct 27.0 L D MCV 86.9 MCH 29.9 MCHC 34.5 RDW 15.8 Plt Count 215 MPV 7.0 L Absolute Neuts (auto) 6.0 Neutrophils % 72.5 Lymphocytes % 17.9 D Monocytes % 8.0 Eosinophils % 1.0 Basophils % 0.6 Nucleated RBC % 0 Sodium 142 Potassium 4.1 Chloride 106 Carbon Dioxide 27 Anion Gap 9 BUN 53.0 H Creatinine 5.3 H Est GFR (CKD-EPI)AfAm 13.30 Est GFR (CKD-EPI)NonAf 11.47 Random Glucose 81 Calcium 8.4 L Hep A IgM Ab Confirm Negative Hepatitis A Ab Total Positive H Hep Bs Antigen Negative Hep Bs Antibody Non reactive Hep B Core Total Ab Negative Hep B Core IgM Ab Negative Hepatitis Be Antibody Negative Hepatitis Be Antigen Negative Active Medications Generic Name Dose Route Start Last Admin Trade Name Freq PRN Reason Stop Dose Admin Allopurinol 300 mg 03/24/19 10:00 03/29/19 10:21 Zyloprim - PO 300 mg DAILY RADHA Administration Atorvastatin Calcium 20 mg 03/23/19 22:00 03/28/19 21:57 Lipitor - PO 20 mg HS RADHA Administration Calcitriol 0.25 mcg 03/25/19 16:00 03/29/19 10:20 Rocaltrol - PO 0.25 mcg DAILY RADHA Administration Epoetin Kosta 5,000 unit 03/26/19 11:21 Procrit - IVPUSH 03/26/19 11:22 ONCE ONE Ferrous Sulfate 325 mg 03/28/19 10:00 03/29/19 10:20 Feosol - PO 325 mg DAILY RADHA Administration Fluticasone Propionate 1 spray 03/23/19 19:29 Flonase - NS DAILY PRN NASAL CONGESTION Folic Acid 1 mg 03/24/19 10:00 03/29/19 10:21 Folic Acid - PO 1 mg DAILY RADHA Administration Guaifenesin 10 ml 03/29/19 12:38 Robitussin - PO Q4H PRN COUGH Heparin Sodium (Porcine) 5,000 unit 03/24/19 22:00 03/29/19 11:09 Heparin - SQ 5,000 unit BID RADHA Administration Leflunomide 20 mg 03/24/19 10:00 03/29/19 10:31 Arava - PO 20 mg DAILY RADHA Administration Montelukast Sodium 10 mg 03/23/19 22:00 03/28/19 21:57 Singulair - PO 10 mg HS RADHA Administration Prednisone 5 mg 03/24/19 10:00 03/29/19 10:20 Deltasone - PO 5 mg DAILY RADHA Administration ASSESSMENT/PLAN: 53 M PMH of HTN, HLD, Granulomatous polyangiitis with pauci-immune glomerulonepthritis, vasculitis, 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 1)ESRD -Tolerated HD yesterday. -Permacath in place. -Will have fistula created on 03/30 on the left arm. -Creatinine elevated on admission, improving with HD -Vascular consulted, appreciate recs -Nephrology consulted, appreciate recs 2)Granulomatous polyangiitis with pauci-immune glomerulonepthritis -Continue Prednisone 5mg PO Daily -Continue Singulair 10 mg PO HS -Continue leflunomide 20 mg PO Daily -Rheumatology consulted, appreciate recs 3)Normoctyic anemia -Follow CBC -Iron deficiency anemia -Hgb 9.3 today 4)HTN -Currently holding Lasix -monitoring BP, will hold anti hypertensive medication for now as patient is normotensive 5)HLD -Continue Lipitor 20 mg PO HS F: Oral Hydration E: Trend CMP N: Renal diet DVT: SCDs Dispo: Admitted to medicine floors Visit type - Emergency Visit Emergency Visit: Yes ED Registration Date: 03/22/19 Care time: The patient presented to the Emergency Department on the above date and was hospitalized for further evaluation of their emergent condition. - New Patient This patient is new to me today: No - Critical Care Critical Care patient: No ATTENDING PHYSICIAN STATEMENT I saw and evaluated the patient. I reviewed the resident's note and discussed the case with the resident. I agree with the resident's findings and plan as documented. SUBJECTIVE: OBJECTIVE: ASSESSMENT AND PLAN:
--- NOTE | 2019-03-29 15:33 | PN ---
Progress Note, Physician History of Present Illness: Pt seen and examined at bedside. He is awake and alert. He will go for AVF tomorrow. - Current Medication List Current Medications: Active Medications Allopurinol (Zyloprim -) 300 mg PO DAILY [facility] Last Admin: 03/29/19 10:21 Dose: 300 mg Atorvastatin Calcium (Lipitor -) 20 mg PO HS [facility] Last Admin: 03/28/19 21:57 Dose: 20 mg Calcitriol (Rocaltrol -) 0.25 mcg PO DAILY [facility] Last Admin: 03/29/19 10:20 Dose: 0.25 mcg Epoetin Kosta (Procrit -) 5,000 unit IVPUSH ONCE ONE Stop: 03/26/19 11:22 Ferrous Sulfate (Feosol -) 325 mg PO DAILY [facility] Last Admin: 03/29/19 10:20 Dose: 325 mg Fluticasone Propionate (Flonase -) 1 spray NS DAILY PRN PRN Reason: NASAL CONGESTION Folic Acid (Folic Acid -) 1 mg PO DAILY [facility] Last Admin: 03/29/19 10:21 Dose: 1 mg Guaifenesin (Robitussin -) 10 ml PO Q4H PRN PRN Reason: COUGH Last Admin: 03/29/19 13:20 Dose: 10 ml Heparin Sodium (Porcine) (Heparin -) 5,000 unit SQ BID [facility] Last Admin: 03/29/19 11:09 Dose: 5,000 unit Leflunomide (Arava -) 20 mg PO DAILY [facility] Last Admin: 03/29/19 10:31 Dose: 20 mg Montelukast Sodium (Singulair -) 10 mg PO HS [facility] Last Admin: 03/28/19 21:57 Dose: 10 mg Prednisone (Deltasone -) 5 mg PO DAILY [facility] Last Admin: 03/29/19 10:20 Dose: 5 mg - Objective Vital Signs: Vital Signs Temperature 98.4 F 03/29/19 09:00 Pulse Rate 76 03/29/19 09:00 Respiratory Rate 14 03/29/19 09:00 Blood Pressure 135/90 03/29/19 09:00 O2 Sat by Pulse Oximetry (%) 95 03/29/19 10:00 Constitutional: Yes: Calm Eyes: Yes: Conjunctiva Clear HENT: Yes: Atraumatic Cardiovascular: Yes: S1, S2 Respiratory: Yes: CTA Bilaterally Gastrointestinal: Yes: Soft Genitourinary: Yes: WNL Edema: No Integumentary: Yes: WNL Neurological: Yes: Oriented Psychiatric: Yes: Oriented Labs: CBC, BMP 03/29/19 07:28 03/29/19 07:28 INR, PTT INR 1.04 (0.83-1.09) 03/23/19 06:30 Problem List - Problems (1) End-stage renal disease needing dialysis Code(s): N18.6 - END STAGE RENAL DISEASE; Z99.2 - DEPENDENCE ON RENAL DIALYSIS (2) Anemia Code(s): D64.9 - ANEMIA, UNSPECIFIED Qualifiers: Anemia type: due to chronic kidney disease Chronic kidney disease stage: unspecified stage Qualified Code(s): N18.9 - Chronic kidney disease, unspecified; D63.1 - Anemia in chronic kidney disease Assessment/Plan Current Medications Generic Name Dose Route Start Last Admin Trade Name Freq PRN Reason Stop Dose Admin Allopurinol 300 mg 03/24/19 10:00 03/29/19 10:21 Zyloprim - PO 300 mg DAILY RADHA Administration Atorvastatin Calcium 20 mg 03/23/19 22:00 03/28/19 21:57 Lipitor - PO 20 mg HS RADHA Administration Calcitriol 0.25 mcg 03/25/19 16:00 03/29/19 10:20 Rocaltrol - PO 0.25 mcg DAILY RADHA Administration Epoetin Kosta 5,000 unit 03/26/19 11:21 Procrit - IVPUSH 03/26/19 11:22 ONCE ONE Ferrous Sulfate 325 mg 03/28/19 10:00 03/29/19 10:20 Feosol - PO 325 mg DAILY RADHA Administration Fluticasone Propionate 1 spray 03/23/19 19:29 Flonase - NS DAILY PRN NASAL CONGESTION Folic Acid 1 mg 03/24/19 10:00 03/29/19 10:21 Folic Acid - PO 1 mg DAILY RADHA Administration Guaifenesin 10 ml 03/29/19 12:38 03/29/19 13:20 Robitussin - PO 10 ml Q4H PRN Administration COUGH Heparin Sodium (Porcine) 5,000 unit 03/24/19 22:00 03/29/19 11:09 Heparin - SQ 5,000 unit BID RADHA Administration Leflunomide 20 mg 03/24/19 10:00 03/29/19 10:31 Arava - PO 20 mg DAILY RADHA Administration Montelukast Sodium 10 mg 03/23/19 22:00 03/28/19 21:57 Singulair - PO 10 mg HS RADHA Administration Prednisone 5 mg 03/24/19 10:00 03/29/19 10:20 Deltasone - PO 5 mg DAILY RADHA Administration Impression 1. vasculitis - pauci-immunie 2. ESRD 3. proteinuria 4. HTN 5. anemia Plan - fistula tomorrow - will evaluate for HD tomorrow - discussed with Rheum, will cont prednisone 5 mg - HD tomorrow or Tuesday - cont epogen and venofer - renal diet
--- NOTE | 2019-03-29 18:00 | PN ---
Teaching Attending Note Name of Resident: Morena Mejía ATTENDING PHYSICIAN STATEMENT I saw and evaluated the patient. I reviewed the resident's note and discussed the case with the resident. I agree with the resident's findings and plan as documented. SUBJECTIVE: Feels well - no complaints. No further nausea. OBJECTIVE: Afebrile, Hemodynamically Stable. Last Vital Signs Temp Pulse Resp BP Pulse Ox 98.4 F 76 14 135/90 95 03/29/19 09:00 03/29/19 09:00 03/29/19 09:00 03/29/19 09:00 03/29/19 10:00 Heart - S1, S2, SM Lungs - decreased air entry at bases. RIJ Permacath Abdomen - Soft, non-tender. Bowel Sounds normal. Extremities - mild edema, No calf tenderness. Neuro - AAO x 3. Tone/Power normal all extremities. 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 Laboratory Results - last 24 hr 03/29/19 03/29/19 03/29/19 07:28 07:28 15:45 WBC 8.3 RBC 3.11 L Hgb 9.3 L Hct 27.0 L D MCV 86.9 MCH 29.9 MCHC 34.5 RDW 15.8 Plt Count 215 MPV 7.0 L Absolute Neuts (auto) 6.0 Neutrophils % 72.5 Lymphocytes % 17.9 D Monocytes % 8.0 Eosinophils % 1.0 Basophils % 0.6 Nucleated RBC % 0 Sodium 142 Potassium 4.1 Chloride 106 Carbon Dioxide 27 Anion Gap 9 BUN 53.0 H Creatinine 5.3 H Est GFR (CKD-EPI)AfAm 13.30 Est GFR (CKD-EPI)NonAf 11.47 Random Glucose 81 Calcium 8.4 L Blood Type O POSITIVE Antibody Screen Negative Current Medications Generic Name Dose Route Start Last Admin Trade Name Freq PRN Reason Stop Dose Admin Allopurinol 300 mg 03/24/19 10:00 03/29/19 10:21 Zyloprim - PO 300 mg DAILY RADHA Administration Atorvastatin Calcium 20 mg 03/23/19 22:00 03/28/19 21:57 Lipitor - PO 20 mg HS RADHA Administration Calcitriol 0.25 mcg 03/25/19 16:00 03/29/19 10:20 Rocaltrol - PO 0.25 mcg DAILY RADHA Administration Epoetin Kosta 5,000 unit 03/26/19 11:21 Procrit - IVPUSH 03/26/19 11:22 ONCE ONE Ferrous Sulfate 325 mg 03/28/19 10:00 03/29/19 10:20 Feosol - PO 325 mg DAILY RADHA Administration Fluticasone Propionate 1 spray 03/23/19 19:29 Flonase - NS DAILY PRN NASAL CONGESTION Folic Acid 1 mg 03/24/19 10:00 03/29/19 10:21 Folic Acid - PO 1 mg DAILY RADHA Administration Guaifenesin 10 ml 03/29/19 12:38 03/29/19 13:20 Robitussin - PO 10 ml Q4H PRN Administration COUGH Heparin Sodium (Porcine) 5,000 unit 03/24/19 22:00 03/29/19 11:09 Heparin - SQ 5,000 unit BID RADHA Administration Leflunomide 20 mg 03/24/19 10:00 03/29/19 10:31 Arava - PO 20 mg DAILY RADHA Administration Montelukast Sodium 10 mg 03/23/19 22:00 03/28/19 21:57 Singulair - PO 10 mg HS RADHA Administration Prednisone 5 mg 03/24/19 10:00 03/29/19 10:20 Deltasone - PO 5 mg DAILY RADHA Administration Home Medications Medication Instructions Recorded Atorvastatin Ca [Lipitor] 20 mg PO HS #30 tablet 07/15/17 Furosemide [Lasix -] 40 mg PO DAILY #30 tablet 07/15/17 Montelukast Na [Singulair -] 10 mg PO HS 09/30/17 Allopurinol [Zyloprim -] 300 mg PO DAILY 10/26/18 Folic Acid 1 mg PO DAILY 10/26/18 Methotrexate [Mexate -] 2.5 mg PO WEEKLY 10/26/18 Prednisone 5 mg PO DAILY 10/26/18 Doxycycline Monohydrate [Monodox] 100 mg PO Q12H #24 capsule 10/27/18 Leflunomide 20 mg PO DAILY 03/22/19 Sulfamethoxazole/Trimethoprim 1 tablet PO WEEKLY 03/22/19 [Sulfamethoxazole-Tmp Ds Tablet] ASSESSMENT AND PLAN: 53 year old male with past medical history of HTN, HLD, 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 1. ESRD sec to Granulomatous polyangiitis (no lung involvement) - Admitted for permacath placement and initiation on HD s/p R permacath placement and initiation on HD. Nephrologyfollowing. Rheumatology eval appreciated - Continue Leflunomide and Prednisone (intolerant to Rituximab and poor response to Cyclophosphamide IV pulses) Lasix discontinued as per Neph Arterial/Venous UE Duplex for vein mapping done 03/26 - AVF formation surgery delayed until 03/30 by Vascular Sx. NPO MN. 2. HLD - on Lipitor. 3. Anemia, multifavctorial in etiology - ESRD, KAREN H/H 7.0/20.6 Iron Sat 7%/Ferritin 309 IV Venofer/Epogen as per nephrology s/p transfusion of 1 unit PRBCs on HD 03/27 4. Hypocalcemia sec ESRD, Hyperparathyroidism - Low dose Calcitriol 0.25mcg daily started. DVT Px - Heparin SQ Dispo - awaiting placement at a HD center as he is a newly initiated HD patient.
[2019-03-29] MEDS: MONTELUKAST NA 10 MG TABLET PO SCH (21:32)
[2019-03-29] MEDS: ATORVASTATIN CA 20 MG TABLET (FP) PO SCH (21:32)
[2019-03-30] MEDS ORDERED: HEPARIN NA (PORCINE) 5,000 UNITS/ML 1ML VIAL ONE ×2 (07:15→10:09)
[2019-03-30] MEDS ORDERED: LIDOCAINE HCL 1%, 10 MG/ML (20ML VIAL) ONE (07:16)
[2019-03-30] MEDS ORDERED: ONDANSETRON 4 MG/2 ML VIAL IVPUSH PRN ×2 (08:26→11:38)
[2019-03-30] MEDS ORDERED: ROPIVACAINE HCL 0.5% 30ML VIAL ONE (08:27)
[2019-03-30] MEDS ORDERED: POVIDONE-IODINE OINTMENT 10% - 28.4 GM TUBE ONE (08:27)
[2019-03-30] MEDS ORDERED: MIDAZOLAM HCL 2 MG/2 ML SINGLE DOSE VIAL ONE ×3 (08:29→08:34)
[2019-03-30] MEDS ORDERED: PROPOFOL 20 ML ONE ×3 (08:29→09:34)
[2019-03-30] MEDS ORDERED: LIDOCAINE HCL/PF 2% SDV 5ML VIAL ONE (08:30)
[2019-03-30 09:00] LABS: BASO % 0.7 % (0-2.0); EOS % 1.2 % (0-4.5); HEMATOCRIT 26.7 % (35.4-49); HEMOGLOBIN 9.1 GM/dL (11.7-16.9); LYMPH % 20.3 % (8-40); MCH 30.2 pg (25.7-33.7); MCHC 34.2 g/dl (32.0-35.9); MEAN CELL VOLUME 88.1 fl (80-96); MONO % 7.1 % (3.8-10.2); NEUT % 70.7 % (42.8-82.8); PLATELET COUNT 232 K/MM3 (134-434); RBC 3.03 M/mm3 (4.00-5.60); RDW 15.2 % (11.9-15.9)
[2019-03-30] MEDS ORDERED: ceFAZolin SODIUM 1 GM VIAL IVPB ONE ×2 (09:20→09:22)
[2019-03-30 09:35] LABS: BLOOD UREA NITROGEN 66.4 mg/dL (7-18); CALCIUM 8.1 mg/dL (8.5-10.1); CREATININE 6.4 mg/dL (0.55-1.3); POTASSIUM 4.2 mmol/L (3.5-5.1)
[2019-03-30] MEDS: LEFLUNOMIDE 10 MG TABLET PO SCH (09:36)
[2019-03-30] MEDS: predniSONE 5 MG TABLET (UD) PO SCH (09:36)
[2019-03-30] MEDS: FOLIC ACID 1 MG TABLET (FP) PO SCH (09:37)
[2019-03-30] MEDS: ALLOPURINOL 100 MG TABLET (FP) PO SCH (09:37)
[2019-03-30] MEDS: HEPARIN NA (PORCINE) 5,000 UNITS/ML 1ML VIAL SQ SCH ×2 (09:37→21:43)
[2019-03-30] MEDS: FERROUS SO4 325 MG TABLET (FP) PO SCH (09:37)
[2019-03-30] MEDS: CALCITRIOL 0.25 MCG CAPSULE (FP) PO SCH (09:37)
[2019-03-30] MEDS ORDERED: LIDOCAINE HCL 1%, 10 MG/ML (20ML VIAL) INF ONE (09:38)
--- NOTE | 2019-03-30 11:33 | OP ---
Operative Note - Note: Operative Date: 03/30/19 Pre-Operative Diagnosis: ESRD Operation: Creation of left cephalic vein fistula Post-Operative Diagnosis: Same as Pre-op Surgeon: Raad Mir Anesthesia: Fractional Estimated Blood Loss (mls): 30 Operative Report Dictated: Yes
[2019-03-30] MEDS ORDERED: FLUTICASONE PROP 0.05% 16 GM NASAL SPRAY NS PRN (11:38)
[2019-03-30] MEDS ORDERED: EPOETIN ALFA 10,000 UNIT/1 ML VIAL IVPUSH ONE (11:38)
[2019-03-30] MEDS ORDERED: oxyCODONE HCL 5 MG TABLET PO ONE ×2 (12:45→23:33)
--- NOTE | 2019-03-30 14:08 | PN ---
Physical Exam: SUBJECTIVE: Patient seen and examined in the morning. No acute events overnight. No complaints of chest pain, no shortness of breath, no abdominal pain, no nausea, no vomiting, no diarrhea. OBJECTIVE: Vital Signs Period Temp Pulse Resp BP Sys/Burch Pulse Ox Last 24 Hr 97.9 F-98.3 F 65-80 14-20 118-150/80-90 94-100 GENERAL: The patient is awake, alert, and fully oriented, in no acute distress. HEAD: Normal with no signs of trauma. EYES: PERRL, extraocular movements intact, sclera anicteric, conjunctiva clear. ENT: Ears normal, nares patent, oropharynx clear without exudates, moist mucous membranes. NECK: Trachea midline, full range of motion, supple. LUNGS: Breath sounds equal, clear to auscultation bilaterally, no wheezes, no crackles, no accessory muscle use. HEART: Regular rate and rhythm, S1, S2 , 2/6 systolic murmur ABDOMEN: Soft, nontender, nondistended, normoactive bowel sounds, no guarding EXTREMITIES: 2+ pulses, warm, well-perfused, no edema. NEUROLOGICAL: Cranial nerves II through XII grossly intact. PSYCH: Normal mood, normal affect. SKIN: Warm, dry, normal turgor, no rashes or lesions noted Laboratory Results - last 24 hr 03/29/19 03/30/19 03/30/19 15:45 07:55 07:55 WBC 8.0 RBC 3.03 L Hgb 9.1 L Hct 26.7 L MCV 88.1 MCH 30.2 MCHC 34.2 RDW 15.2 Plt Count 232 MPV 7.0 L Absolute Neuts (auto) 5.7 Neutrophils % 70.7 Lymphocytes % 20.3 Monocytes % 7.1 Eosinophils % 1.2 Basophils % 0.7 Nucleated RBC % 0 Sodium 139 Potassium 4.2 Chloride 105 Carbon Dioxide 24 Anion Gap 9 BUN 66.4 H Creatinine 6.4 H Est GFR (CKD-EPI)AfAm 10.58 Est GFR (CKD-EPI)NonAf 9.13 Random Glucose 82 Calcium 8.1 L Blood Type O POSITIVE Antibody Screen Negative Active Medications Generic Name Dose Route Start Last Admin Trade Name Freq PRN Reason Stop Dose Admin Allopurinol 300 mg 03/31/19 10:00 Zyloprim - PO DAILY RADHA Atorvastatin Calcium 20 mg 03/30/19 22:00 Lipitor - PO HS [facility] Calcitriol 0.25 mcg 03/31/19 10:00 Rocaltrol - PO DAILY [facility] Epoetin Kosta 5,000 unit 03/30/19 11:38 Procrit - IVPUSH 03/30/19 11:39 ONCE ONE Fentanyl 50 mcg 03/30/19 11:38 Sublimaze Injection - IVPUSH 03/31/19 08:25 [id number] PRN PAIN-PACU ORDER X 4 DOSES ONLY Ferrous Sulfate 325 mg 03/31/19 10:00 Feosol - PO DAILY [facility] Fluticasone Propionate 1 spray 03/30/19 11:38 Flonase - NS DAILY PRN NASAL CONGESTION Folic Acid 1 mg 03/31/19 10:00 Folic Acid - PO DAILY [facility] Guaifenesin 10 ml 03/30/19 11:38 Robitussin - PO Q4H PRN COUGH Heparin Sodium (Porcine) 5,000 unit 03/30/19 22:00 Heparin - SQ BID [facility] Leflunomide 20 mg 03/31/19 10:00 Arava - PO DAILY [facility] Montelukast Sodium 10 mg 03/30/19 22:00 Singulair - PO HS [facility] Ondansetron HCl 4 mg 03/30/19 11:38 Zofran Injection IVPUSH 03/31/19 08:25 Q6H PRN NAUSEA AND/OR VOMITING Prednisone 5 mg 03/31/19 10:00 Deltasone - PO DAILY [facility] ASSESSMENT/PLAN: 53 M PMH of HTN, HLD, Granulomatous polyangiitis with pauci-immune glomerulonepthritis, vasculitis, who present to the ED from [employer] for ESRD. 1)ESRD -HD tomorrow. -Permacath in place. -AV Fistula created on 03/30. -Creatinine elevated on admission, improving with HD -Vascular consulted, appreciate recs -Nephrology consulted, appreciate recs 2)Granulomatous polyangiitis with pauci-immune glomerulonepthritis -Continue Prednisone 5mg PO Daily -Continue Singulair 10 mg PO HS -Continue leflunomide 20 mg PO Daily -Rheumatology consulted, appreciate recs 3)Normoctyic anemia -Follow CBC -Iron deficiency anemia 4)HTN -Currently holding Lasix -monitoring BP, will hold anti hypertensive medication for now as patient is normotensive 5)HLD -Continue Lipitor 20 mg PO HS F: Oral Hydration E: Trend CMP N: Renal diet DVT: SCDs Dispo: Admitted to medicine floors Visit type - Emergency Visit Emergency Visit: Yes ED Registration Date: 03/22/19 Care time: The patient presented to the Emergency Department on the above date and was hospitalized for further evaluation of their emergent condition. - New Patient This patient is new to me today: No - Critical Care Critical Care patient: No ATTENDING PHYSICIAN STATEMENT I saw and evaluated the patient. I reviewed the resident's note and discussed the case with the resident. I agree with the resident's findings and plan as documented. SUBJECTIVE: OBJECTIVE: ASSESSMENT AND PLAN:
--- NOTE | 2019-03-30 14:56 | PN ---
Teaching Attending Note Name of Resident: Morena Mejía ATTENDING PHYSICIAN STATEMENT I saw and evaluated the patient. I reviewed the resident's note and discussed the case with the resident. I agree with the resident's findings and plan as documented. SUBJECTIVE: Feels well - no complaints. s/p AVF placement by Vascular Sx. OBJECTIVE: Afebrile, Hemodynamically Stable. Last Vital Signs Temp Pulse Resp BP Pulse Ox 98.3 F 80 20 132/88 95 03/30/19 12:15 03/30/19 12:15 03/30/19 12:15 03/30/19 12:15 03/30/19 12:20 Heart - S1, S2, SM Lungs - decreased air entry at bases. RIJ Permacath Abdomen - Soft, non-tender. Bowel Sounds normal. Extremities - mild edema, No calf tenderness. UE - surgical fistula formation site dressed. Neuro - AAO x 3. Tone/Power normal all extremities. 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 Laboratory Results - last 24 hr 03/29/19 03/30/19 03/30/19 15:45 07:55 07:55 WBC 8.0 RBC 3.03 L Hgb 9.1 L Hct 26.7 L MCV 88.1 MCH 30.2 MCHC 34.2 RDW 15.2 Plt Count 232 MPV 7.0 L Absolute Neuts (auto) 5.7 Neutrophils % 70.7 Lymphocytes % 20.3 Monocytes % 7.1 Eosinophils % 1.2 Basophils % 0.7 Nucleated RBC % 0 Sodium 139 Potassium 4.2 Chloride 105 Carbon Dioxide 24 Anion Gap 9 BUN 66.4 H Creatinine 6.4 H Est GFR (CKD-EPI)AfAm 10.58 Est GFR (CKD-EPI)NonAf 9.13 Random Glucose 82 Calcium 8.1 L Blood Type O POSITIVE Antibody Screen Negative Current Medications Generic Name Dose Route Start Last Admin Trade Name Freq PRN Reason Stop Dose Admin Allopurinol 300 mg 03/31/19 10:00 Zyloprim - PO DAILY RADHA Atorvastatin Calcium 20 mg 03/30/19 22:00 Lipitor - PO HS RADHA Calcitriol 0.25 mcg 03/31/19 10:00 Rocaltrol - PO DAILY RADHA Epoetin Kosta 5,000 unit 03/30/19 11:38 Procrit - IVPUSH 03/30/19 11:39 ONCE ONE Fentanyl 50 mcg 03/30/19 11:38 Sublimaze Injection - IVPUSH 03/31/19 08:25 [id number] PRN PAIN-PACU ORDER X 4 DOSES ONLY Ferrous Sulfate 325 mg 03/31/19 10:00 Feosol - PO DAILY [facility] Fluticasone Propionate 1 spray 03/30/19 11:38 Flonase - NS DAILY PRN NASAL CONGESTION Folic Acid 1 mg 03/31/19 10:00 Folic Acid - PO DAILY [facility] Guaifenesin 10 ml 03/30/19 11:38 Robitussin - PO Q4H PRN COUGH Heparin Sodium (Porcine) 5,000 unit 03/30/19 22:00 Heparin - SQ BID RAD[facility] Leflunomide 20 mg 03/31/19 10:00 Arava - PO DAILY [facility] Montelukast Sodium 10 mg 03/30/19 22:00 Singulair - PO HS [facility] Ondansetron HCl 4 mg 03/30/19 11:38 Zofran Injection IVPUSH 03/31/19 08:25 Q6H PRN NAUSEA AND/OR VOMITING Prednisone 5 mg 03/31/19 10:00 Deltasone - PO DAILY [facility] Home Medications Medication Instructions Recorded Atorvastatin Ca [Lipitor] 20 mg PO HS #30 tablet 07/15/17 Furosemide [Lasix -] 40 mg PO DAILY #30 tablet 07/15/17 Montelukast Na [Singulair -] 10 mg PO HS 09/30/17 Allopurinol [Zyloprim -] 300 mg PO DAILY 10/26/18 Folic Acid 1 mg PO DAILY 10/26/18 Methotrexate [Mexate -] 2.5 mg PO WEEKLY 10/26/18 Prednisone 5 mg PO DAILY 10/26/18 Doxycycline Monohydrate [Monodox] 100 mg PO Q12H #24 capsule 10/27/18 Leflunomide 20 mg PO DAILY 03/22/19 Sulfamethoxazole/Trimethoprim 1 tablet PO WEEKLY 03/22/19 [Sulfamethoxazole-Tmp Ds Tablet] ASSESSMENT AND PLAN: 53 year old male with past medical history of HTN, HLD, 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 1. ESRD sec to Granulomatous polyangiitis (no lung involvement) - Admitted for permacath placement and initiation on HD s/p R permacath placement and initiation on HD. Nephrology following. Rheumatology eval appreciated - Continue Leflunomide and Prednisone (intolerant to Rituximab and poor response to Cyclophosphamide IV pulses) Lasix discontinued as per Neph Arterial/Venous UE Duplex for vein mapping done 03/26 - currently s/p AVF formation surgery 03/30 by Vascular Sx. 2. HLD - on Lipitor. 3. Anemia, multifavctorial in etiology - ESRD, KAREN H/H 9.07/12 s/p 1 unit PRBCs 03/27 Iron Sat 7%/Ferritin 309 IV Venofer/Epogen as per nephrology 4. Hypocalcemia sec ESRD, Hyperparathyroidism - Low dose Calcitriol 0.25mcg daily started. DVT Px - Heparin SQ Dispo - awaiting placement at a HD center as he is a newly initiated HD patient.
[2019-03-30] MEDS ORDERED: SODIUM CHLORIDE 250 ML IV PRN (16:50)
[2019-03-30] MEDS ORDERED: IRON SUCROSE INJECTION 100 MG in SODIUM CHLORIDE 95 ML IVPB ONE (16:50)
[2019-03-30] MEDS: guaiFENesin 200 MG/10 ML 10 ML UNIT-DOSE CUPS PO PRN (16:52)
--- NOTE | 2019-03-30 16:55 | PN ---
Progress Note, Physician History of Present Illness: Pt seen and examined at bedside. He had the avf placed today. - Current Medication List Current Medications: Active Medications Allopurinol (Zyloprim -) 300 mg PO DAILY [facility] Atorvastatin Calcium (Lipitor -) 20 mg PO HS [facility] Calcitriol (Rocaltrol -) 0.25 mcg PO DAILY [facility] Epoetin Kosta (Procrit -) 5,000 unit IVPUSH ONCE ONE Stop: 03/30/19 11:39 Fentanyl (Sublimaze Injection -) 50 mcg IVPUSH [id number] PRN PRN Reason: PAIN-PACU ORDER X 4 DOSES ONLY Stop: 03/31/19 08:25 Ferrous Sulfate (Feosol -) 325 mg PO DAILY [facility] Fluticasone Propionate (Flonase -) 1 spray NS DAILY PRN PRN Reason: NASAL CONGESTION Folic Acid (Folic Acid -) 1 mg PO DAILY [facility] Guaifenesin (Robitussin -) 10 ml PO Q4H PRN PRN Reason: COUGH Heparin Sodium (Porcine) (Heparin -) 5,000 unit SQ BID [facility] Leflunomide (Arava -) 20 mg PO DAILY [facility] Montelukast Sodium (Singulair -) 10 mg PO HS [facility] Ondansetron HCl (Zofran Injection) 4 mg IVPUSH Q6H PRN PRN Reason: NAUSEA AND/OR VOMITING Stop: 03/31/19 08:25 Prednisone (Deltasone -) 5 mg PO DAILY [facility] - Objective Vital Signs: Vital Signs Temperature 98.3 F 03/30/19 12:15 Pulse Rate 80 03/30/19 12:15 Respiratory Rate 20 03/30/19 12:15 Blood Pressure 132/88 03/30/19 12:15 O2 Sat by Pulse Oximetry (%) 95 03/30/19 12:20 Constitutional: Yes: Calm Eyes: Yes: Conjunctiva Clear HENT: Yes: Atraumatic Cardiovascular: Yes: S1, S2 Respiratory: Yes: CTA Bilaterally Gastrointestinal: Yes: Soft ...Rectal Exam: Yes: Hemorrhoids/External Extremities: Yes: Other (avf with thrill and bruit, pt still has numbness in entire arm post op) Neurological: Yes: Oriented Psychiatric: Yes: Oriented Labs: CBC, BMP 03/30/19 07:55 03/30/19 07:55 INR, PTT INR 1.04 (0.83-1.09) 03/23/19 06:30 Problem List - Problems (1) End-stage renal disease needing dialysis Code(s): N18.6 - END STAGE RENAL DISEASE; Z99.2 - DEPENDENCE ON RENAL DIALYSIS (2) Anemia Code(s): D64.9 - ANEMIA, UNSPECIFIED Qualifiers: Anemia type: due to chronic kidney disease Chronic kidney disease stage: unspecified stage Qualified Code(s): N18.9 - Chronic kidney disease, unspecified; D63.1 - Anemia in chronic kidney disease Assessment/Plan Current Medications Generic Name Dose Route Start Last Admin Trade Name Freq PRN Reason Stop Dose Admin Allopurinol 300 mg 03/31/19 10:00 Zyloprim - PO DAILY [facility] Atorvastatin Calcium 20 mg 03/30/19 22:00 Lipitor - PO HS [facility] Calcitriol 0.25 mcg 03/31/19 10:00 Rocaltrol - PO DAILY [facility] Epoetin Kosta 5,000 unit 03/30/19 11:38 Procrit - IVPUSH 03/30/19 11:39 ONCE ONE Epoetin Kosta 5,000 unit 03/30/19 16:50 Epogen - IVPUSH 03/30/19 16:51 ONCE ONE Fentanyl 50 mcg 03/30/19 11:38 Sublimaze Injection - IVPUSH 03/31/19 08:25 [id number] PRN PAIN-PACU ORDER X 4 DOSES ONLY Ferrous Sulfate 325 mg 03/31/19 10:00 Feosol - PO DAILY [facility] Fluticasone Propionate 1 spray 03/30/19 11:38 Flonase - NS DAILY PRN NASAL CONGESTION Folic Acid 1 mg 03/31/19 10:00 Folic Acid - PO DAILY [facility] Guaifenesin 10 ml 03/30/19 11:38 03/30/19 16:52 Robitussin - PO 10 ml Q4H PRN Administration COUGH Heparin Sodium (Porcine) 5,000 unit 03/30/19 22:00 Heparin - SQ BID RADHA Sodium Chloride 250 mls @ 3,000 mls/hr 03/30/19 16:50 Normal Saline - IV 03/31/19 16:50 PRN PRN Hypotension during Dialysis Iron Sucrose 100 mg/ Sodium 100 mls @ 200 mls/hr 03/30/19 16:50 Chloride IVPB 03/30/19 17:19 ONCE ONE Leflunomide 20 mg 03/31/19 10:00 Arava - PO DAILY [facility] Montelukast Sodium 10 mg 03/30/19 22:00 Singulair - PO HS [facility] Ondansetron HCl 4 mg 03/30/19 11:38 Zofran Injection IVPUSH 03/31/19 08:25 Q6H PRN NAUSEA AND/OR VOMITING Prednisone 5 mg 03/31/19 10:00 Deltasone - PO DAILY [facility] Impression 1. vasculitis - pauci-immunie 2. ESRD 3. proteinuria 4. HTN 5. anemia Plan - HD today - pending placement - discussed with vascular - cont epogen and venofer - renal diet
[2019-03-30] MEDS ORDERED: EPOETIN ALFA 2,000 UNIT/1 ML VIAL IVPUSH ONE (18:00)
[2019-03-30] MEDS: ATORVASTATIN CA 20 MG TABLET (FP) PO SCH (21:43)
[2019-03-30] MEDS: MONTELUKAST NA 10 MG TABLET PO SCH (21:43)
[2019-03-30] MEDS ORDERED: ACETAMINOPHEN 500 MG TABLET (FP) PO ONE (22:09)
[2019-03-31] MEDS ORDERED: PT OWN MED DRAWER 7, Y5N ONE (09:04)
[2019-03-31] MEDS: FOLIC ACID 1 MG TABLET (FP) PO SCH (09:08)
[2019-03-31] MEDS: HEPARIN NA (PORCINE) 5,000 UNITS/ML 1ML VIAL SQ SCH ×2 (09:09→21:36)
[2019-03-31] MEDS: FERROUS SO4 325 MG TABLET (FP) PO SCH (09:09)
[2019-03-31] MEDS: ALLOPURINOL 100 MG TABLET (FP) PO SCH (09:09)
[2019-03-31] MEDS: CALCITRIOL 0.25 MCG CAPSULE (FP) PO SCH (09:09)
[2019-03-31] MEDS: predniSONE 5 MG TABLET (UD) PO SCH (09:09)
[2019-03-31] MEDS: guaiFENesin 200 MG/10 ML 10 ML UNIT-DOSE CUPS PO PRN (09:10)
[2019-03-31] MEDS: LEFLUNOMIDE 10 MG TABLET PO SCH (09:10)
--- NOTE | 2019-03-31 17:36 | PN ---
Progress Note (short form) - Note Progress Note: SUBJECTIVE: Feels well - no complaints. POD 1 s/p AVF placement by Vascular Sx. OBJECTIVE: Afebrile, Hemodynamically Stable. Last Vital Signs Temp Pulse Resp BP Pulse Ox 98.8 F 86 20 126/74 97 03/31/19 15:47 03/31/19 15:47 03/31/19 15:47 03/31/19 15:47 03/30/19 22:00 Heart - S1, S2, SM Lungs - decreased air entry at bases. RIJ Permacath Abdomen - Soft, non-tender. Bowel Sounds normal. Extremities - mild edema, No calf tenderness. LUE - surgical fistula formation site dressed. Neuro - AAO x 3. Tone/Power normal all extremities. 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 Laboratory Results - last 24 hr 03/26/19 09:10 Blood Type O POSITIVE Antibody Screen Negative Crossmatch See Detail Current Medications Generic Name Dose Route Start Last Admin Trade Name Freq PRN Reason Stop Dose Admin Allopurinol 300 mg 03/31/19 10:00 03/31/19 09:09 Zyloprim - PO 300 mg DAILY RADHA Administration Atorvastatin Calcium 20 mg 03/30/19 22:00 03/30/19 21:43 Lipitor - PO 20 mg HS RADHA Administration Calcitriol 0.25 mcg 03/31/19 10:00 03/31/19 09:09 Rocaltrol - PO 0.25 mcg DAILY RAD[facility] Administration Ferrous Sulfate 325 mg 03/31/19 10:00 03/31/19 09:09 Feosol - PO 325 mg DAILY [facility] Administration Fluticasone Propionate 1 spray 03/30/19 11:38 Flonase - NS DAILY PRN NASAL CONGESTION Folic Acid 1 mg 03/31/19 10:00 03/31/19 09:08 Folic Acid - PO 1 mg DAILY [facility] Administration Guaifenesin 10 ml 03/30/19 11:38 03/31/19 09:10 Robitussin - PO 10 ml Q4H PRN Administration COUGH Heparin Sodium (Porcine) 5,000 unit 03/30/19 22:00 03/31/19 09:09 Heparin - SQ 5,000 unit BID RADHA Administration Leflunomide 20 mg 03/31/19 10:00 03/31/19 09:10 Arava - PO 20 mg DAILY [facility] Administration Montelukast Sodium 10 mg 03/30/19 22:00 03/30/19 21:43 Singulair - PO 10 mg HS RADHA Administration Prednisone 5 mg 03/31/19 10:00 03/31/19 09:09 Deltasone - PO 5 mg DAILY RADHA Administration Home Medications Medication Instructions Recorded Atorvastatin Ca [Lipitor] 20 mg PO HS #30 tablet 07/15/17 Furosemide [Lasix -] 40 mg PO DAILY #30 tablet 07/15/17 Montelukast Na [Singulair -] 10 mg PO HS 09/30/17 Allopurinol [Zyloprim -] 300 mg PO DAILY 10/26/18 Folic Acid 1 mg PO DAILY 10/26/18 Methotrexate [Mexate -] 2.5 mg PO WEEKLY 10/26/18 Prednisone 5 mg PO DAILY 10/26/18 Doxycycline Monohydrate [Monodox] 100 mg PO Q12H #24 capsule 10/27/18 Leflunomide 20 mg PO DAILY 03/22/19 Sulfamethoxazole/Trimethoprim 1 tablet PO WEEKLY 03/22/19 [Sulfamethoxazole-Tmp Ds Tablet] ASSESSMENT AND PLAN: 53 year old male with past medical history of HTN, HLD, 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 1. ESRD sec to Granulomatous polyangiitis (no lung involvement) - Admitted for permacath placement and initiation on HD s/p R permacath placement and initiation on HD. POD 1 s/p LUE AVF formation. Febrile overnight post-op. No clear evidence of infection. Incentive Spirometry. If any further fever, will perform septic screen/bernabe-culture. Nephrology/Vascular Sx following. Rheumatology eval appreciated - Continue Leflunomide and Prednisone (intolerant to Rituximab and poor response to Cyclophosphamide IV pulses) Lasix discontinued as per Neph 2. HLD - on Lipitor. 3. Anemia, multifactorial in etiology - ESRD, KAREN H/H 9.3 s/p 1 unit PRBCs 03/27 Iron Sat 7%/Ferritin 309 IV Venofer/Epogen as per nephrology 4. Hypocalcemia sec ESRD, Hyperparathyroidism - Low dose Calcitriol 0.25mcg daily started. DVT Px - Heparin SQ Dispo - awaiting placement at a HD center as he is a newly initiated HD patient. Visit type - Emergency Visit Emergency Visit: Yes ED Registration Date: 03/22/19 Care time: The patient presented to the Emergency Department on the above date and was hospitalized for further evaluation of their emergent condition. - New Patient This patient is new to me today: No - Critical Care Critical Care patient: No - Discharge Referral Referred to [facility] Med [facility] No
--- NOTE | 2019-03-31 18:34 | PN ---
Progress Note, Physician History of Present Illness: Pt seen and examined at bedside. He is awake and alert. He tolerated HD yesterday. - Current Medication List Current Medications: Active Medications Allopurinol (Zyloprim -) 300 mg PO DAILY [facility] Last Admin: 03/31/19 09:09 Dose: 300 mg Atorvastatin Calcium (Lipitor -) 20 mg PO HS [facility] Last Admin: 03/30/19 21:43 Dose: 20 mg Calcitriol (Rocaltrol -) 0.25 mcg PO DAILY [facility] Last Admin: 03/31/19 09:09 Dose: 0.25 mcg Ferrous Sulfate (Feosol -) 325 mg PO DAILY [facility] Last Admin: 03/31/19 09:09 Dose: 325 mg Fluticasone Propionate (Flonase -) 1 spray NS DAILY PRN PRN Reason: NASAL CONGESTION Folic Acid (Folic Acid -) 1 mg PO DAILY [facility] Last Admin: 03/31/19 09:08 Dose: 1 mg Guaifenesin (Robitussin -) 10 ml PO Q4H PRN PRN Reason: COUGH Last Admin: 03/31/19 09:10 Dose: 10 ml Heparin Sodium (Porcine) (Heparin -) 5,000 unit SQ BID [facility] Last Admin: 03/31/19 09:09 Dose: 5,000 unit Leflunomide (Arava -) 20 mg PO DAILY [facility] Last Admin: 03/31/19 09:10 Dose: 20 mg Montelukast Sodium (Singulair -) 10 mg PO HS [facility] Last Admin: 03/30/19 21:43 Dose: 10 mg Prednisone (Deltasone -) 5 mg PO DAILY [facility] Last Admin: 03/31/19 09:09 Dose: 5 mg - Objective Vital Signs: Vital Signs Temperature 98.8 F 03/31/19 15:47 Pulse Rate 86 03/31/19 15:47 Respiratory Rate 20 03/31/19 15:47 Blood Pressure 126/74 03/31/19 15:47 O2 Sat by Pulse Oximetry (%) 97 03/30/19 22:00 Constitutional: Yes: Calm Eyes: Yes: Conjunctiva Clear HENT: Yes: Atraumatic Neck: Yes: Supple Cardiovascular: Yes: S1, S2 Respiratory: Yes: CTA Bilaterally Gastrointestinal: Yes: Normal Bowel Sounds, Soft Genitourinary: Yes: WNL Extremities: Yes: Other (fistula with thrill and bruit, sensation and motor intact) Edema: No Neurological: Yes: Oriented Psychiatric: Yes: Oriented Labs: CBC, BMP 03/30/19 07:55 03/30/19 07:55 INR, PTT INR 1.04 (0.83-1.09) 03/23/19 06:30 Problem List - Problems (1) End-stage renal disease needing dialysis Code(s): N18.6 - END STAGE RENAL DISEASE; Z99.2 - DEPENDENCE ON RENAL DIALYSIS (2) Anemia Code(s): D64.9 - ANEMIA, UNSPECIFIED Qualifiers: Anemia type: due to chronic kidney disease Chronic kidney disease stage: unspecified stage Qualified Code(s): N18.9 - Chronic kidney disease, unspecified; D63.1 - Anemia in chronic kidney disease Assessment/Plan Current Medications Generic Name Dose Route Start Last Admin Trade Name Freq PRN Reason Stop Dose Admin Allopurinol 300 mg 03/31/19 10:00 03/31/19 09:09 Zyloprim - PO 300 mg DAILY RAD[facility] Administration Atorvastatin Calcium 20 mg 03/30/19 22:00 03/30/19 21:43 Lipitor - PO 20 mg HS RADHA Administration Calcitriol 0.25 mcg 03/31/19 10:00 03/31/19 09:09 Rocaltrol - PO 0.25 mcg DAILY RAD[facility] Administration Ferrous Sulfate 325 mg 03/31/19 10:00 03/31/19 09:09 Feosol - PO 325 mg DAILY [facility] Administration Fluticasone Propionate 1 spray 03/30/19 11:38 Flonase - NS DAILY PRN NASAL CONGESTION Folic Acid 1 mg 03/31/19 10:00 03/31/19 09:08 Folic Acid - PO 1 mg DAILY RAD[facility] Administration Guaifenesin 10 ml 03/30/19 11:38 03/31/19 09:10 Robitussin - PO 10 ml Q4H PRN Administration COUGH Heparin Sodium (Porcine) 5,000 unit 03/30/19 22:00 03/31/19 09:09 Heparin - SQ 5,000 unit BID RADAH Administration Leflunomide 20 mg 03/31/19 10:00 03/31/19 09:10 Arava - PO 20 mg DAILY RAD[facility] Administration Montelukast Sodium 10 mg 03/30/19 22:00 03/30/19 21:43 Singulair - PO 10 mg HS ARDHA Administration Prednisone 5 mg 03/31/19 10:00 03/31/19 09:09 Deltasone - PO 5 mg DAILY RADHA Administration Impression 1. vasculitis - pauci-immunie 2. ESRD 3. proteinuria 4. HTN 5. anemia Plan - pt tolerated HD yesterday - next HD Tuesday - placement pending medical insurance - cont epogen and venofer - renal diet
[2019-03-31] MEDS: ATORVASTATIN CA 20 MG TABLET (FP) PO SCH (21:36)
[2019-03-31] MEDS: MONTELUKAST NA 10 MG TABLET PO SCH (21:36)
[2019-04-01] MEDS: predniSONE 5 MG TABLET (UD) PO SCH (09:03)
[2019-04-01] MEDS: FOLIC ACID 1 MG TABLET (FP) PO SCH (09:03)
[2019-04-01] MEDS: FERROUS SO4 325 MG TABLET (FP) PO SCH (09:03)
[2019-04-01] MEDS: HEPARIN NA (PORCINE) 5,000 UNITS/ML 1ML VIAL SQ SCH ×2 (09:03→22:23)
[2019-04-01] MEDS: CALCITRIOL 0.25 MCG CAPSULE (FP) PO SCH (09:03)
[2019-04-01] MEDS: ALLOPURINOL 100 MG TABLET (FP) PO SCH (09:03)
[2019-04-01] MEDS: LEFLUNOMIDE 10 MG TABLET PO SCH (09:04)
--- NOTE | 2019-04-01 11:10 | PN ---
Physical Exam: SUBJECTIVE: Patient seen and examined at bedside. No acute events overnight. OBJECTIVE: Vital Signs Period Temp Pulse Resp BP Sys/Burch Pulse Ox Last 24 Hr 98.3 F-98.9 F 69-86 20-20 124-135/73-74 98 GENERAL: NAD HEAD: AT/NC EYES: EOMI Sclera Clear. ENT: MMM. NECK: Trachea midline, full range of motion, supple. LUNGS: CTAB HEART: RRR S1S2 Systolic Murmur ABDOMEN: Soft NDNT. EXTREMITIES: AVF LUE NEUROLOGICAL: Cranial nerves II through XII grossly intact. PSYCH: Normal mood, normal affect. SKIN: Warm, dry, normal turgor, no rashes or lesions noted Active Medications Generic Name Dose Route Start Last Admin Trade Name Freq PRN Reason Stop Dose Admin Allopurinol 300 mg 03/31/19 10:00 04/01/19 09:03 Zyloprim - PO 300 mg DAILY RADHA Administration Atorvastatin Calcium 20 mg 03/30/19 22:00 03/31/19 21:36 Lipitor - PO 20 mg HS RADHA Administration Calcitriol 0.25 mcg 03/31/19 10:00 04/01/19 09:03 Rocaltrol - PO 0.25 mcg DAILY RADHA Administration Ferrous Sulfate 325 mg 03/31/19 10:00 04/01/19 09:03 Feosol - PO 325 mg DAILY RADHA Administration Fluticasone Propionate 1 spray 03/30/19 11:38 Flonase - NS DAILY PRN NASAL CONGESTION Folic Acid 1 mg 03/31/19 10:00 04/01/19 09:03 Folic Acid - PO 1 mg DAILY RADHA Administration Guaifenesin 10 ml 03/30/19 11:38 03/31/19 09:10 Robitussin - PO 10 ml Q4H PRN Administration COUGH Heparin Sodium (Porcine) 5,000 unit 03/30/19 22:00 04/01/19 09:03 Heparin - SQ 5,000 unit BID RADHA Administration Leflunomide 20 mg 03/31/19 10:00 04/01/19 09:04 Arava - PO 20 mg DAILY RADHA Administration Montelukast Sodium 10 mg 03/30/19 22:00 03/31/19 21:36 Singulair - PO 10 mg HS RADHA Administration Prednisone 5 mg 03/31/19 10:00 04/01/19 09:03 Deltasone - PO 5 mg DAILY RADHA Administration ASSESSMENT/PLAN: 53 M PMH of HTN, HLD, Granulomatous polyangiitis with pauci-immune glomerulonepthritis, vasculitis, who present to the ED from sourcing coordinator for ESRD. 1)ESRD -HD tomorrow, 04/02/2019 -POD#2 Lft AV fistula creation -Creatinine elevated on admission, improving with HD -Vascular consulted, appreciate recs -Nephrology consulted, appreciate recs 2)Granulomatous polyangiitis with pauci-immune glomerulonepthritis -Continue Prednisone 5mg PO Daily -Continue Singulair 10 mg PO HS -Continue leflunomide 20 mg PO Daily -Rheumatology consulted, appreciate recs #Hypocalcemia 2/2 ESRD -Calcitriol .25 daily 3)Normoctyic anemia -Follow CBC -Iron deficiency anemia -cont epogen and venofer #Gouty Arthritis -on Allopurinol 300 mg/d. 4)HTN -Currently holding Lasix -monitoring BP, will hold anti hypertensive medication for now as patient is normotensive 5)HLD -Continue Lipitor 20 mg PO HS F: Oral Hydration E: Trend CMP N: Renal diet DVT: SCDs Dispo: Med-Surg Visit type - Emergency Visit Emergency Visit: Yes ED Registration Date: 03/22/19 Care time: The patient presented to the Emergency Department on the above date and was hospitalized for further evaluation of their emergent condition. - New Patient This patient is new to me today: No - Critical Care Critical Care patient: No ATTENDING PHYSICIAN STATEMENT I saw and evaluated the patient. I reviewed the resident's note and discussed the case with the resident. I agree with the resident's findings and plan as documented. SUBJECTIVE: OBJECTIVE: ASSESSMENT AND PLAN:
--- NOTE | 2019-04-01 12:03 | PN ---
Teaching Attending Note Name of Resident: Israel Guidry ATTENDING PHYSICIAN STATEMENT I saw and evaluated the patient. I reviewed the resident's note and discussed the case with the resident. I agree with the resident's findings and plan as documented. SUBJECTIVE: Feels well - no complaints. POD 2 s/p AVF placement by Vascular Sx. OBJECTIVE: Afebrile, Hemodynamically Stable. Last Vital Signs Temp Pulse Resp BP Pulse Ox 98.9 F 69 20 135/73 98 04/01/19 05:47 04/01/19 05:47 04/01/19 05:47 04/01/19 05:47 03/31/19 21:00 Heart - S1, S2, SM Lungs - decreased air entry at bases. Abdomen - Soft, non-tender. Bowel Sounds normal. Extremities - mild edema, No calf tenderness. LUE - surgical fistula formation site dressed. Neuro - AAO x 3. Tone/Power normal all extremities. 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 Current Medications Generic Name Dose Route Start Last Admin Trade Name Freq PRN Reason Stop Dose Admin Allopurinol 300 mg 03/31/19 10:00 04/01/19 09:03 Zyloprim - PO 300 mg DAILY RADHA Administration Atorvastatin Calcium 20 mg 03/30/19 22:00 03/31/19 21:36 Lipitor - PO 20 mg HS RADHA Administration Calcitriol 0.25 mcg 03/31/19 10:00 04/01/19 09:03 Rocaltrol - PO 0.25 mcg DAILY RADHA Administration Ferrous Sulfate 325 mg 03/31/19 10:00 04/01/19 09:03 Feosol - PO 325 mg DAILY RADHA Administration Fluticasone Propionate 1 spray 03/30/19 11:38 Flonase - NS DAILY PRN NASAL CONGESTION Folic Acid 1 mg 03/31/19 10:00 04/01/19 09:03 Folic Acid - PO 1 mg DAILY RADHA Administration Guaifenesin 10 ml 03/30/19 11:38 03/31/19 09:10 Robitussin - PO 10 ml Q4H PRN Administration COUGH Heparin Sodium (Porcine) 5,000 unit 03/30/19 22:00 04/01/19 09:03 Heparin - SQ 5,000 unit BID RADHA Administration Leflunomide 20 mg 03/31/19 10:00 04/01/19 09:04 Arava - PO 20 mg DAILY RADHA Administration Montelukast Sodium 10 mg 03/30/19 22:00 03/31/19 21:36 Singulair - PO 10 mg HS RADHA Administration Prednisone 5 mg 03/31/19 10:00 04/01/19 09:03 Deltasone - PO 5 mg DAILY RADHA Administration Home Medications Medication Instructions Recorded Atorvastatin Ca [Lipitor] 20 mg PO HS #30 tablet 07/15/17 Furosemide [Lasix -] 40 mg PO DAILY #30 tablet 07/15/17 Montelukast Na [Singulair -] 10 mg PO HS 09/30/17 Allopurinol [Zyloprim -] 300 mg PO DAILY 10/26/18 Folic Acid 1 mg PO DAILY 10/26/18 Methotrexate [Mexate -] 2.5 mg PO WEEKLY 10/26/18 Prednisone 5 mg PO DAILY 10/26/18 Doxycycline Monohydrate [Monodox] 100 mg PO Q12H #24 capsule 10/27/18 Leflunomide 20 mg PO DAILY 03/22/19 Sulfamethoxazole/Trimethoprim 1 tablet PO WEEKLY 03/22/19 [Sulfamethoxazole-Tmp Ds Tablet] ASSESSMENT AND PLAN: 53 year old male with past medical history of HTN, HLD, 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 1. ESRD sec to Granulomatous polyangiitis (no lung involvement) - Admitted for permacath placement and initiation on HD s/p R permacath placement and initiation on HD. POD 2 s/p LUE AVF formation. No further post-op fevers. Nephrology/Vascular Sx following. Rheumatology eval appreciated - Continue Leflunomide and Prednisone (intolerant to Rituximab and poor response to Cyclophosphamide IV pulses) Lasix discontinued as per Neph Awaiting emergency Medicaid for HD center placement. 2. HLD - on Lipitor. 3. Anemia, multifactorial in etiology - ESRD, KAREN H/H 9.07/12 s/p 1 unit PRBCs 03/27 Iron Sat 7%/Ferritin 309 IV Venofer/Epogen as per nephrology 4. Hypocalcemia sec ESRD, Hyperparathyroidism - Low dose Calcitriol 0.25mcg daily started. DVT Px - Heparin SQ Dispo - awaiting Medicaid/placement at a HD center as he is a newly initiated HD patient.
[2019-04-01] MEDS: guaiFENesin 200 MG/10 ML 10 ML UNIT-DOSE CUPS PO PRN (12:48)
[2019-04-01] MEDS ORDERED: SODIUM CHLORIDE 250 ML IV PRN (20:05)
--- NOTE | 2019-04-01 20:05 | PN ---
Progress Note, Physician History of Present Illness: Pt seen and examined at bedside. He is awake and alert. - Current Medication List Current Medications: Active Medications Allopurinol (Zyloprim -) 300 mg PO DAILY [facility] Last Admin: 04/01/19 09:03 Dose: 300 mg Atorvastatin Calcium (Lipitor -) 20 mg PO HS [facility] Last Admin: 03/31/19 21:36 Dose: 20 mg Calcitriol (Rocaltrol -) 0.25 mcg PO DAILY [facility] Last Admin: 04/01/19 09:03 Dose: 0.25 mcg Ferrous Sulfate (Feosol -) 325 mg PO DAILY [facility] Last Admin: 04/01/19 09:03 Dose: 325 mg Fluticasone Propionate (Flonase -) 1 spray NS DAILY PRN PRN Reason: NASAL CONGESTION Folic Acid (Folic Acid -) 1 mg PO DAILY [facility] Last Admin: 04/01/19 09:03 Dose: 1 mg Guaifenesin (Robitussin -) 10 ml PO Q4H PRN PRN Reason: COUGH Last Admin: 04/01/19 12:48 Dose: 10 ml Heparin Sodium (Porcine) (Heparin -) 5,000 unit SQ BID [facility] Last Admin: 04/01/19 09:03 Dose: 5,000 unit Leflunomide (Arava -) 20 mg PO DAILY [facility] Last Admin: 04/01/19 09:04 Dose: 20 mg Montelukast Sodium (Singulair -) 10 mg PO HS [facility] Last Admin: 03/31/19 21:36 Dose: 10 mg Prednisone (Deltasone -) 5 mg PO DAILY [facility] Last Admin: 04/01/19 09:03 Dose: 5 mg - Objective Vital Signs: Vital Signs Temperature 98.4 F 04/01/19 14:33 Pulse Rate 82 04/01/19 14:33 Respiratory Rate 20 04/01/19 14:33 Blood Pressure 137/81 04/01/19 14:33 O2 Sat by Pulse Oximetry (%) 98 04/01/19 09:00 Constitutional: Yes: Calm Eyes: Yes: Conjunctiva Clear HENT: Yes: Atraumatic Cardiovascular: Yes: S1, S2 Respiratory: Yes: CTA Bilaterally Gastrointestinal: Yes: Soft Genitourinary: Yes: WNL Musculoskeletal: Yes: WNL Extremities: Yes: Other (fistula with thrill and bruit, sensation and motor fully intact) Edema: No Integumentary: Yes: WNL Neurological: Yes: Oriented Psychiatric: Yes: Oriented Labs: CBC, BMP 03/30/19 07:55 03/30/19 07:55 INR, PTT INR 1.04 (0.83-1.09) 03/23/19 06:30 Problem List - Problems (1) End-stage renal disease needing dialysis Code(s): N18.6 - END STAGE RENAL DISEASE; Z99.2 - DEPENDENCE ON RENAL DIALYSIS (2) Anemia Code(s): D64.9 - ANEMIA, UNSPECIFIED Qualifiers: Anemia type: due to chronic kidney disease Chronic kidney disease stage: unspecified stage Qualified Code(s): N18.9 - Chronic kidney disease, unspecified; D63.1 - Anemia in chronic kidney disease Assessment/Plan Current Medications Generic Name Dose Route Start Last Admin Trade Name Freq PRN Reason Stop Dose Admin Allopurinol 300 mg 03/31/19 10:00 04/01/19 09:03 Zyloprim - PO 300 mg DAILY RADHA Administration Atorvastatin Calcium 20 mg 03/30/19 22:00 03/31/19 21:36 Lipitor - PO 20 mg HS RADHA Administration Calcitriol 0.25 mcg 03/31/19 10:00 04/01/19 09:03 Rocaltrol - PO 0.25 mcg DAILY RADHA Administration Ferrous Sulfate 325 mg 03/31/19 10:00 04/01/19 09:03 Feosol - PO 325 mg DAILY RADHA Administration Fluticasone Propionate 1 spray 03/30/19 11:38 Flonase - NS DAILY PRN NASAL CONGESTION Folic Acid 1 mg 03/31/19 10:00 04/01/19 09:03 Folic Acid - PO 1 mg DAILY RADHA Administration Guaifenesin 10 ml 03/30/19 11:38 04/01/19 12:48 Robitussin - PO 10 ml Q4H PRN Administration COUGH Heparin Sodium (Porcine) 5,000 unit 03/30/19 22:00 04/01/19 09:03 Heparin - SQ 5,000 unit BID RADHA Administration Leflunomide 20 mg 03/31/19 10:00 04/01/19 09:04 Arava - PO 20 mg DAILY RADHA Administration Montelukast Sodium 10 mg 03/30/19 22:00 03/31/19 21:36 Singulair - PO 10 mg HS RADHA Administration Prednisone 5 mg 03/31/19 10:00 04/01/19 09:03 Deltasone - PO 5 mg DAILY RADHA Administration Impression 1. vasculitis - pauci-immunie 2. ESRD 3. proteinuria 4. HTN 5. anemia Plan - HD tomorrow - placement pending medical insurance - cont epogen and venofer - renal diet
[2019-04-01] MEDS: ATORVASTATIN CA 20 MG TABLET (FP) PO SCH (22:23)
[2019-04-01] MEDS: MONTELUKAST NA 10 MG TABLET PO SCH (22:23)
[2019-04-02 11:06] LABS: HEMATOCRIT 24.7 % (35.4-49); HEMOGLOBIN 8.3 GM/dL (11.7-16.9); MCH 30.4 pg (25.7-33.7); MCHC 33.4 g/dl (32.0-35.9); MEAN PLT VOLUME 6.6 fl (7.5-11.1); PLATELET COUNT 255 K/MM3 (134-434); RBC 2.72 M/mm3 (4.00-5.60); RDW 15.7 % (11.9-15.9); WHITE BLOOD COUNT 7.3 K/mm3 (4.0-10.0)
[2019-04-02] MEDS ORDERED: HEPARIN NA (PORCINE) 5,000 UNITS/ML 1ML VIAL IVPUSH ONE (11:15)
[2019-04-02] MEDS ORDERED: EPOETIN ALFA 2,000 UNIT/1 ML VIAL IVPUSH ONE (11:15)
[2019-04-02] MEDS ORDERED: IRON SUCROSE INJECTION 100 MG in SODIUM CHLORIDE 95 ML IVPB ONE (11:15)
[2019-04-02 11:41] LABS: ALBUMIN 2.3 g/dl (3.4-5.0); BILIRUBIN,TOTAL 0.4 mg/dL (0.2-1); BLOOD UREA NITROGEN 72.6 mg/dL (7-18); CALCIUM 7.5 mg/dL (8.5-10.1); CREATININE 7.1 mg/dL (0.55-1.3); TOT PROT 4.9 g/dl (6.4-8.2)
--- NOTE | 2019-04-02 13:53 | PN ---
Physical Exam: SUBJECTIVE: Patient seen and examined. Lying comfortably in bed. No acute events overnight. No complaints of SOB, chest pain, abd pain, back pain, or other concerns. OBJECTIVE: Vital Signs Period Temp Pulse Resp BP Sys/Burch Pulse Ox Last 24 Hr 97.8 F-98.4 F 70-90 18-20 130-156/72-94 98 GENERAL: The patient is awake, alert, and fully oriented, in no acute distress. HEAD: NC/AT EYES: EOMI, no scleral icterus ENT: Moist mucous membranes NECK: Trachea midline, full range of motion, supple. LUNGS: Breath sounds equal, clear to auscultation bilaterally, no wheezes, no crackles, no accessory muscle use. HEART: RRR, S1, S2 ABDOMEN: Soft, nontender, nondistended, normoactive bowel sounds, no guarding EXTREMITIES: 2+ pulses, warm, well-perfused, no edema. LUE with AV fistula with palpable thrill NEUROLOGICAL: Normal speech, gait not observed. Sensation intact throughout. PSYCH:appropriate mood and affect. SKIN: Warm, dry, normal turgor, no rashes or lesions noted Laboratory Results - last 24 hr 04/02/19 04/02/19 10:30 10:30 WBC 7.3 RBC 2.72 L Hgb 8.3 L Hct 24.7 L MCV 91.0 MCH 30.4 MCHC 33.4 RDW 15.7 Plt Count 255 MPV 6.6 L Sodium 141 Potassium 4.0 Chloride 104 Carbon Dioxide 25 Anion Gap 12 BUN 72.6 H Creatinine 7.1 H Est GFR (CKD-EPI)AfAm 9.34 Est GFR (CKD-EPI)NonAf 8.06 Random Glucose 120 H Calcium 7.5 L Phosphorus 6.0 H Magnesium 2.0 Total Bilirubin 0.4 AST 16 ALT 15 Alkaline Phosphatase 115 Total Protein 4.9 L Albumin 2.3 L Active Medications Generic Name Dose Route Start Last Admin Trade Name Freq PRN Reason Stop Dose Admin Allopurinol 300 mg 03/31/19 10:00 04/01/19 09:03 Zyloprim - PO 300 mg DAILY RADHA Administration Atorvastatin Calcium 20 mg 03/30/19 22:00 04/01/19 22:23 Lipitor - PO 20 mg HS RADHA Administration Calcitriol 0.25 mcg 03/31/19 10:00 04/01/19 09:03 Rocaltrol - PO 0.25 mcg DAILY RADHA Administration Ferrous Sulfate 325 mg 03/31/19 10:00 04/01/19 09:03 Feosol - PO 325 mg DAILY RADHA Administration Fluticasone Propionate 1 spray 03/30/19 11:38 Flonase - NS DAILY PRN NASAL CONGESTION Folic Acid 1 mg 03/31/19 10:00 04/01/19 09:03 Folic Acid - PO 1 mg DAILY RADHA Administration Guaifenesin 10 ml 03/30/19 11:38 04/01/19 12:48 Robitussin - PO 10 ml Q4H PRN Administration COUGH Heparin Sodium (Porcine) 5,000 unit 03/30/19 22:00 04/01/19 22:23 Heparin - SQ 5,000 unit BID RADHA Administration Sodium Chloride 250 mls @ 3,000 mls/hr 04/01/19 20:05 Normal Saline - IV 04/02/19 20:05 PRN PRN Hypotension during Dialysis Leflunomide 20 mg 03/31/19 10:00 04/01/19 09:04 Arava - PO 20 mg DAILY RADHA Administration Montelukast Sodium 10 mg 03/30/19 22:00 04/01/19 22:23 Singulair - PO 10 mg HS RADHA Administration Prednisone 5 mg 03/31/19 10:00 04/01/19 09:03 Deltasone - PO 5 mg DAILY RADHA Administration Trimethoprim/Sulfamethoxazole 1 each 04/02/19 13:45 Bactrim Ds - PO WEEKLY RADHA ASSESSMENT/PLAN: 53 y/o/m with PMHx of HTN, HLD, 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 1)ESRD -HD today. Further HD as per Nephro -Permacath in place. -AV Fistula created on 03/30. -Creatinine elevated on admission, improvement post HD. 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 Discharge pending Medicaid/placement at a HD center as he is a newly initiated HD patient. Visit type - Emergency Visit Emergency Visit: Yes ED Registration Date: 03/22/19 Care time: The patient presented to the Emergency Department on the above date and was hospitalized for further evaluation of their emergent condition. - New Patient This patient is new to me today: Yes Date on this admission: 04/02/19 - Critical Care Critical Care patient: No ATTENDING PHYSICIAN STATEMENT I saw and evaluated the patient. I reviewed the resident's note and discussed the case with the resident. I agree with the resident's findings and plan as documented. SUBJECTIVE: OBJECTIVE: ASSESSMENT AND PLAN:
[2019-04-02] MEDS ORDERED: PT OWN MED DRAWER 7, Y5N ONE (14:26)
[2019-04-02] MEDS: guaiFENesin 200 MG/10 ML 10 ML UNIT-DOSE CUPS PO PRN (14:29)
[2019-04-02] MEDS: FERROUS SO4 325 MG TABLET (FP) PO SCH (14:30)
[2019-04-02] MEDS: FOLIC ACID 1 MG TABLET (FP) PO SCH (14:30)
[2019-04-02] MEDS: ALLOPURINOL 100 MG TABLET (FP) PO SCH (14:30)
[2019-04-02] MEDS: predniSONE 5 MG TABLET (UD) PO SCH (14:30)
[2019-04-02] MEDS: LEFLUNOMIDE 10 MG TABLET PO SCH (14:31)
[2019-04-02] MEDS: HEPARIN NA (PORCINE) 5,000 UNITS/ML 1ML VIAL SQ SCH ×2 (14:31→21:31)
[2019-04-02] MEDS: CALCITRIOL 0.25 MCG CAPSULE (FP) PO SCH (14:31)
--- NOTE | 2019-04-02 16:09 | PN ---
Progress Note, Physician History of Present Illness: Pt seen and examined at bedside. He is tolerating HD. - Current Medication List Current Medications: Active Medications Allopurinol (Zyloprim -) 300 mg PO DAILY [facility] Last Admin: 04/02/19 14:30 Dose: 300 mg Atorvastatin Calcium (Lipitor -) 20 mg PO HS [facility] Last Admin: 04/01/19 22:23 Dose: 20 mg Calcitriol (Rocaltrol -) 0.25 mcg PO DAILY [facility] Last Admin: 04/02/19 14:31 Dose: 0.25 mcg Ferrous Sulfate (Feosol -) 325 mg PO DAILY [facility] Last Admin: 04/02/19 14:30 Dose: 325 mg Fluticasone Propionate (Flonase -) 1 spray NS DAILY PRN PRN Reason: NASAL CONGESTION Folic Acid (Folic Acid -) 1 mg PO DAILY [facility] Last Admin: 04/02/19 14:30 Dose: 1 mg Guaifenesin (Robitussin -) 10 ml PO Q4H PRN PRN Reason: COUGH Last Admin: 04/02/19 14:29 Dose: 10 ml Heparin Sodium (Porcine) (Heparin -) 5,000 unit SQ BID [facility] Last Admin: 04/02/19 14:31 Dose: 5,000 unit Sodium Chloride (Normal Saline -) 250 mls @ 3,000 mls/hr IV PRN PRN PRN Reason: Hypotension during Dialysis Stop: 04/02/19 20:05 Leflunomide (Arava -) 20 mg PO DAILY [facility] Last Admin: 04/02/19 14:31 Dose: 20 mg Montelukast Sodium (Singulair -) 10 mg PO HS [facility] Last Admin: 04/01/19 22:23 Dose: 10 mg Prednisone (Deltasone -) 5 mg PO DAILY [facility] Last Admin: 04/02/19 14:30 Dose: 5 mg Trimethoprim/Sulfamethoxazole (Bactrim Ds -) 1 each PO Tu@1000 [facility] - Objective Vital Signs: Vital Signs Temperature 97.9 F 04/02/19 15:49 Pulse Rate 74 04/02/19 15:49 Respiratory Rate 20 04/02/19 15:49 Blood Pressure 134/74 04/02/19 15:49 O2 Sat by Pulse Oximetry (%) 98 04/01/19 21:00 Constitutional: Yes: Calm Eyes: Yes: Conjunctiva Clear HENT: Yes: Atraumatic Neck: Yes: Supple Cardiovascular: Yes: S1, S2 Respiratory: Yes: CTA Bilaterally Gastrointestinal: Yes: Soft Genitourinary: Yes: WNL Musculoskeletal: Yes: WNL Edema: No Neurological: Yes: Oriented Psychiatric: Yes: Oriented Labs: CBC, BMP 04/02/19 10:30 04/02/19 10:30 INR, PTT INR 1.04 (0.83-1.09) 03/23/19 06:30 Problem List - Problems (1) End-stage renal disease needing dialysis Code(s): N18.6 - END STAGE RENAL DISEASE; Z99.2 - DEPENDENCE ON RENAL DIALYSIS (2) Anemia Code(s): D64.9 - ANEMIA, UNSPECIFIED Qualifiers: Anemia type: due to chronic kidney disease Chronic kidney disease stage: unspecified stage Qualified Code(s): N18.9 - Chronic kidney disease, unspecified; D63.1 - Anemia in chronic kidney disease Assessment/Plan Current Medications Generic Name Dose Route Start Last Admin Trade Name Freq PRN Reason Stop Dose Admin Allopurinol 300 mg 03/31/19 10:00 04/02/19 14:30 Zyloprim - PO 300 mg DAILY RADHA Administration Atorvastatin Calcium 20 mg 03/30/19 22:00 04/01/19 22:23 Lipitor - PO 20 mg HS RADHA Administration Calcitriol 0.25 mcg 03/31/19 10:00 04/02/19 14:31 Rocaltrol - PO 0.25 mcg DAILY RADHA Administration Ferrous Sulfate 325 mg 03/31/19 10:00 04/02/19 14:30 Feosol - PO 325 mg DAILY RADHA Administration Fluticasone Propionate 1 spray 03/30/19 11:38 Flonase - NS DAILY PRN NASAL CONGESTION Folic Acid 1 mg 03/31/19 10:00 04/02/19 14:30 Folic Acid - PO 1 mg DAILY RADHA Administration Guaifenesin 10 ml 03/30/19 11:38 04/02/19 14:29 Robitussin - PO 10 ml Q4H PRN Administration COUGH Heparin Sodium (Porcine) 5,000 unit 03/30/19 22:00 04/02/19 14:31 Heparin - SQ 5,000 unit BID RADHA Administration Sodium Chloride 250 mls @ 3,000 mls/hr 04/01/19 20:05 Normal Saline - IV 04/02/19 20:05 PRN PRN Hypotension during Dialysis Leflunomide 20 mg 03/31/19 10:00 04/02/19 14:31 Arava - PO 20 mg DAILY RADHA Administration Montelukast Sodium 10 mg 03/30/19 22:00 04/01/19 22:23 Singulair - PO 10 mg HS RADHA Administration Prednisone 5 mg 03/31/19 10:00 04/02/19 14:30 Deltasone - PO 5 mg DAILY RADHA Administration Trimethoprim/Sulfamethoxazole 1 each 04/03/19 10:00 Bactrim Ds - PO Tu@1000 RADHA Impression 1. vasculitis - pauci-immunie 2. ESRD 3. proteinuria 4. HTN 5. anemia Plan - HD today - placement pending medical insurance - cont epogen and venofer - renal diet
--- NOTE | 2019-04-02 16:39 | PN ---
Teaching Attending Note Name of Resident: Guero Nicolas ATTENDING PHYSICIAN STATEMENT I saw and evaluated the patient. I reviewed the resident's note and discussed the case with the resident. I agree with the resident's findings and plan as documented. SUBJECTIVE: Feels well - no complaints. POD 3 s/p AVF placement by Vascular Sx. OBJECTIVE: Afebrile, Hemodynamically Stable. Stable on HD during medical intervew and exam. Last Vital Signs Temp Pulse Resp BP Pulse Ox 97.9 F 74 20 134/74 98 04/02/19 15:49 04/02/19 15:49 04/02/19 15:49 04/02/19 15:49 04/02/19 09:00 Heart - S1, S2, SM Lungs - decreased air entry at bases. Abdomen - Soft, non-tender. Bowel Sounds normal. Extremities - mild edema, No calf tenderness. LUE - surgical fistula formation site dressed. Neuro - AAO x 3. Tone/Power normal all extremities. 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 Laboratory Results - last 24 hr 04/02/19 04/02/19 10:30 10:30 WBC 7.3 RBC 2.72 L Hgb 8.3 L Hct 24.7 L MCV 91.0 MCH 30.4 MCHC 33.4 RDW 15.7 Plt Count 255 MPV 6.6 L Sodium 141 Potassium 4.0 Chloride 104 Carbon Dioxide 25 Anion Gap 12 BUN 72.6 H Creatinine 7.1 H Est GFR (CKD-EPI)AfAm 9.34 Est GFR (CKD-EPI)NonAf 8.06 Random Glucose 120 H Calcium 7.5 L Phosphorus 6.0 H Magnesium 2.0 Total Bilirubin 0.4 AST 16 ALT 15 Alkaline Phosphatase 115 Total Protein 4.9 L Albumin 2.3 L Current Medications Generic Name Dose Route Start Last Admin Trade Name Freq PRN Reason Stop Dose Admin Allopurinol 300 mg 03/31/19 10:00 04/02/19 14:30 Zyloprim - PO 300 mg DAILY RADHA Administration Atorvastatin Calcium 20 mg 03/30/19 22:00 04/01/19 22:23 Lipitor - PO 20 mg HS RADHA Administration Calcitriol 0.25 mcg 03/31/19 10:00 04/02/19 14:31 Rocaltrol - PO 0.25 mcg DAILY RADHA Administration Ferrous Sulfate 325 mg 03/31/19 10:00 04/02/19 14:30 Feosol - PO 325 mg DAILY RADHA Administration Fluticasone Propionate 1 spray 03/30/19 11:38 Flonase - NS DAILY PRN NASAL CONGESTION Folic Acid 1 mg 03/31/19 10:00 04/02/19 14:30 Folic Acid - PO 1 mg DAILY RADHA Administration Guaifenesin 10 ml 03/30/19 11:38 04/02/19 14:29 Robitussin - PO 10 ml Q4H PRN Administration COUGH Heparin Sodium (Porcine) 5,000 unit 03/30/19 22:00 04/02/19 14:31 Heparin - SQ 5,000 unit BID RADHA Administration Sodium Chloride 250 mls @ 3,000 mls/hr 04/01/19 20:05 Normal Saline - IV 04/02/19 20:05 PRN PRN Hypotension during Dialysis Leflunomide 20 mg 03/31/19 10:00 04/02/19 14:31 Arava - PO 20 mg DAILY RADHA Administration Montelukast Sodium 10 mg 03/30/19 22:00 04/01/19 22:23 Singulair - PO 10 mg HS RADHA Administration Prednisone 5 mg 03/31/19 10:00 04/02/19 14:30 Deltasone - PO 5 mg DAILY RADHA Administration Trimethoprim/Sulfamethoxazole 1 each 04/03/19 10:00 Bactrim Ds - PO Tu@1000 [facility] Home Medications Medication Instructions Recorded Atorvastatin Ca [Lipitor] 20 mg PO HS #30 tablet 07/15/17 Furosemide [Lasix -] 40 mg PO DAILY #30 tablet 07/15/17 Montelukast Na [Singulair -] 10 mg PO HS 09/30/17 Allopurinol [Zyloprim -] 300 mg PO DAILY 10/26/18 Folic Acid 1 mg PO DAILY 10/26/18 Methotrexate [Mexate -] 2.5 mg PO WEEKLY 10/26/18 Prednisone 5 mg PO DAILY 10/26/18 Doxycycline Monohydrate [Monodox] 100 mg PO Q12H #24 capsule 10/27/18 Leflunomide 20 mg PO DAILY 03/22/19 Sulfamethoxazole/Trimethoprim 1 tablet PO WEEKLY 03/22/19 [Sulfamethoxazole-Tmp Ds Tablet] ASSESSMENT AND PLAN: 53 year old male with past medical history of HTN, HLD, Granulomatous polyangiitis with pauci-immune glomerulonephritis, Vasculitis (on cyclophosphamide/Methotrexate), presented to the ED as advised by his medical billing representative for further management of worsening CKD and worsening uremia with nausea. 1. ESRD sec to Granulomatous polyangiitis (no lung involvement) - Admitted for permacath placement and initiation on HD s/p R permacath placement and initiation on HD. POD 3 s/p LUE AVF formation. Nephrology/Vascular Sx following. Rheumatology eval appreciated - Continue Leflunomide and Prednisone (intolerant to Rituximab and poor response to Cyclophosphamide IV pulses). Bactrim Px. Lasix discontinued as per Neph Obtained emergency Medicaid today but still awaiting HD center placement. 2. HLD - on Lipitor. 3. Anemia, multifactorial in etiology - ESRD, KAREN H/H 8.3/24.7 s/p 1 unit PRBCs 12/10 Iron Sat 7%/Ferritin 309 IV Venofer/Epogen as per nephrology 4. Hypocalcemia sec ESRD/Hyperparathyroidism - low dose Calcitriol 0.25mcg daily started. DVT Px - Heparin SQ Dispo - awaiting placement at a HD center as he is a newly initiated HD patient.
[2019-04-02] MEDS: ATORVASTATIN CA 20 MG TABLET (FP) PO SCH (21:31)
[2019-04-02] MEDS: MONTELUKAST NA 10 MG TABLET PO SCH (21:31)
[2019-04-03 07:59] LABS: HEMATOCRIT 26.8 % (35.4-49); HEMOGLOBIN 8.8 GM/dL (11.7-16.9); MCH 29.9 pg (25.7-33.7); MCHC 32.8 g/dl (32.0-35.9); MEAN CELL VOLUME 91.3 fl (80-96); MEAN PLT VOLUME 6.5 fl (7.5-11.1); PLATELET COUNT 263 K/MM3 (134-434); RBC 2.94 M/mm3 (4.00-5.60); RDW 15.7 % (11.9-15.9); WHITE BLOOD COUNT 7.7 K/mm3 (4.0-10.0)
--- NOTE | 2019-04-03 08:18 | DS ---
Physical Exam: SUBJECTIVE: Patient seen and examined. No acute events overnight. Patient without complaints. No pain at site of AV fistula. Patient to have HD today and to be discharged afterward. No chest pain, SOB, abd pain, cough, or pain at fistula site. OBJECTIVE: Vital Signs Period Temp Pulse Resp BP Sys/Burch Pulse Ox Last 24 Hr 97.8 F-98.4 F 70-90 18-20 129-149/70-96 97-98 PHYSICAL EXAM GENERAL: The patient is awake, alert, and fully oriented, NAD HEAD: NC/AT EYES: EOMI, no scleral icterus, PERRL ENT: Moist mucous membranes NECK: Trachea midline, full range of motion, supple. LUNGS: Breath sounds equal, clear to auscultation bilaterally, no wheezes, no crackles, no accessory muscle use. HEART: RRR, S1, S2 CHEST: Permacath in place without signs of edema, erythema or swelling. ABDOMEN: Soft, nontender, nondistended, normoactive bowel sounds, no guarding EXTREMITIES: 2+ pulses, warm, well-perfused, no edema. LUE with AV fistula with palpable thrill. [place] in place without signs of infection or erythema. NEUROLOGICAL: Normal speech, gait not observed. Sensation intact throughout. PSYCH:appropriate mood and affect. SKIN: Warm, dry, normal turgor, no rashes or lesions noted LABS Laboratory Results - last 24 hr 04/02/19 04/02/19 10:30 10:30 WBC 7.3 RBC 2.72 L Hgb 8.3 L Hct 24.7 L MCV 91.0 MCH 30.4 MCHC 33.4 RDW 15.7 Plt Count 255 MPV 6.6 L Sodium 141 Potassium 4.0 Chloride 104 Carbon Dioxide 25 Anion Gap 12 BUN 72.6 H Creatinine 7.1 H Est GFR (CKD-EPI)AfAm 9.34 Est GFR (CKD-EPI)NonAf 8.06 Random Glucose 120 H Calcium 7.5 L Phosphorus 6.0 H Magnesium 2.0 Total Bilirubin 0.4 AST 16 ALT 15 Alkaline Phosphatase 115 Total Protein 4.9 L Albumin 2.3 L HOSPITAL COURSE: Date of Admission:03/22/19 Date of Discharge: 04/03/19 53 y/o/m with PMHx of HTN, HLD, 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 Surgery was consulted and patient had a right sided permacath placed for HD and had an AV fistula created for continuing HD. Nephrology was consulted for recommendations on HD. Rheumatology was consulted for evaluation of Granulomatous polyangiitis and believed that the disease was not currently active. Emergency medicaid was obtained and arrangements were made for placement of patient in a HD center. Patient was continued on home medications. Lasix was discontinued as per Nephrology. Patient was started on ferrous sulfate for iron deficiency anemia. Additionally patient was started on calcitrol for hypocalcemia secondary to ESRD and hyperparathyroidism. Minutes to complete discharge: 36 Discharge Summary Problems reviewed: Yes Reason For Visit: END STAGE RENAL DISEASE NEEDING DIALYSIS Current Active Problems End-stage renal disease needing dialysis (Acute) Condition: Stable - Instructions Diet, Activity, Other Instructions: You presented to the hospital on recommendation from your bread room hand for management of your kidney disease and were found to have worsening chronic kidney disease requiring AV fistula placement and continuing dialysis. Medication Changes 1. Continue taking ferrous sulfate to help replete your iron stores. You will need to have repeat lab work drawn, please discuss further with your PCP. Follow up with the following physicians: 1. PCP in one week, please call to schedule follow up to further manage your kidney disease. 2. Dr. Mir, Surgery, for further assessment on the maturation of your AV fistula. 3. Dr. Mayorga, Nephrology, for further management of your kidney disease and dialysis. Follow up labs: 1. Continue to have kidney function checked as directed by your bread room hand. Activity and Diet 1. You are being discharged to a home. Recommend daily exercise to strengthen your muscles. 2. Please continue to monitor your diet as you need to drink plenty of fluids and follow a renal diet. 3. Cont HD via Permacath per schedule set-up for you. Continue all your other medications as prescribed Please return to the ER if you have any signs or symptoms of chest pain, shortness of breath, uncontrollable fever, chills, nausea, vomiting, numbness, tingling, or weakness in any part of your body, changes in vision, or slurred speech. Please return to the ER if symptoms persist, worsen, or new symptoms arise. Referrals: Kevin Matias MD [Staff Physician] - Jocelin Leon MD [Primary Care Provider] - Raad Mir DO [Staff Physician] - Stephon Mayorga MD [Staff Physician] - Disposition: HOME - Home Medications Comprehensive Discharge Medication List: Ambulatory Orders Atorvastatin Ca [Lipitor] 20 mg PO HS #30 tablet 07/15/17 Furosemide [Lasix -] 40 mg PO DAILY #30 tablet 07/15/17 Montelukast Na [Singulair -] 10 mg PO HS 09/30/17 Allopurinol [Zyloprim -] 300 mg PO DAILY 10/26/18 Folic Acid 1 mg PO DAILY 10/26/18 Methotrexate [Mexate -] 2.5 mg PO WEEKLY 10/26/18 Prednisone 5 mg PO DAILY 10/26/18 Leflunomide 20 mg PO DAILY 03/22/19 Sulfamethoxazole/Trimethoprim [Sulfamethoxazole-Tmp Ds Tablet] 1 tablet PO WEEKLY 03/22/19 This patient is new to me today: No Emergency Visit: Yes ED Registration Date: 03/22/19 Care time: The patient presented to the Emergency Department on the above date and was hospitalized for further evaluation of their emergent condition. Critical Care patient: No - Discharge Referral Referred to [facility] Med P.C.: No ATTENDING PHYSICIAN STATEMENT I saw and evaluated the patient. I reviewed the resident's note and discussed the case with the resident. I agree with the resident's findings and plan as documented. SUBJECTIVE: OBJECTIVE: ASSESSMENT AND PLAN:
[2019-04-03 08:49] LABS: ALBUMIN 2.4 g/dl (3.4-5.0); BILIRUBIN,TOTAL 0.6 mg/dL (0.2-1); BLOOD UREA NITROGEN 41.2 mg/dL (7-18); CREATININE 5.1 mg/dL (0.55-1.3); POTASSIUM 4.2 mmol/L (3.5-5.1); TOT PROT 4.9 g/dl (6.4-8.2)
[2019-04-03] MEDS ORDERED: PT OWN MED DRAWER 7, Y5N ONE (09:33)
[2019-04-03] MEDS: ALLOPURINOL 100 MG TABLET (FP) PO SCH (09:52)
[2019-04-03] MEDS: FOLIC ACID 1 MG TABLET (FP) PO SCH (09:53)
[2019-04-03] MEDS: HEPARIN NA (PORCINE) 5,000 UNITS/ML 1ML VIAL SQ SCH ×2 (09:53→22:28)
[2019-04-03] MEDS: FERROUS SO4 325 MG TABLET (FP) PO SCH (09:53)
[2019-04-03] MEDS: predniSONE 5 MG TABLET (UD) PO SCH (09:53)
[2019-04-03] MEDS: CALCITRIOL 0.25 MCG CAPSULE (FP) PO SCH (09:53)
[2019-04-03] MEDS: LEFLUNOMIDE 10 MG TABLET PO SCH (09:54)
[2019-04-03] MEDS ORDERED: SULFAMETHOXAZOLE/TRIMETHOPRIM 800MG/160MG D.S. TABLET PO SCH (10:00)
--- NOTE | 2019-04-03 10:50 | PN ---
Teaching Attending Note Name of Resident: Guero Nicolas ATTENDING PHYSICIAN STATEMENT I saw and evaluated the patient. I reviewed the resident's note and discussed the case with the resident. I agree with the resident's findings and plan as documented. SUBJECTIVE: Feels well - no complaints. POD 4 s/p AVF placement by Vascular Sx. OBJECTIVE: Afebrile, Hemodynamically Stable. Last Vital Signs Temp Pulse Resp BP Pulse Ox 98.0 F 71 20 149/96 97 04/03/19 05:49 04/03/19 05:49 04/03/19 05:49 04/03/19 05:49 04/02/19 21:00 Heart - S1, S2, SM Lungs - decreased air entry at bases. RIJ HD catheter Abdomen - Soft, non-tender. Bowel Sounds normal. Extremities - mild edema, No calf tenderness. LUE - surgical fistula formation site dressed. Neuro - AAO x 3. Tone/Power normal all extremities. 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 Laboratory Results - last 24 hr 04/02/19 04/02/19 04/03/19 10:30 10:30 07:30 WBC 7.3 7.7 RBC 2.72 L 2.94 L Hgb 8.3 L 8.8 L Hct 24.7 L 26.8 L MCV 91.0 91.3 MCH 30.4 29.9 MCHC 33.4 32.8 RDW 15.7 15.7 Plt Count 255 263 MPV 6.6 L 6.5 L Sodium 141 Potassium 4.0 Chloride 104 Carbon Dioxide 25 Anion Gap 12 BUN 72.6 H Creatinine 7.1 H Est GFR (CKD-EPI)AfAm 9.34 Est GFR (CKD-EPI)NonAf 8.06 Random Glucose 120 H Calcium 7.5 L Phosphorus 6.0 H Magnesium 2.0 Total Bilirubin 0.4 AST 16 ALT 15 Alkaline Phosphatase 115 Total Protein 4.9 L Albumin 2.3 L 04/03/19 07:30 WBC RBC Hgb Hct MCV MCH MCHC RDW Plt Count MPV Sodium 141 Potassium 4.2 Chloride 104 Carbon Dioxide 29 Anion Gap 8 BUN 41.2 H Creatinine 5.1 H Est GFR (CKD-EPI)AfAm 13.93 Est GFR (CKD-EPI)NonAf 12.02 Random Glucose 77 Calcium 8.0 L Phosphorus Magnesium Total Bilirubin 0.6 AST 15 ALT 18 Alkaline Phosphatase 103 Total Protein 4.9 L Albumin 2.4 L Current Medications Generic Name Dose Route Start Last Admin Trade Name Freq PRN Reason Stop Dose Admin Allopurinol 300 mg 03/31/19 10:00 04/03/19 09:52 Zyloprim - PO 300 mg DAILY RADHA Administration Atorvastatin Calcium 20 mg 03/30/19 22:00 04/02/19 21:31 Lipitor - PO 20 mg HS RADHA Administration Calcitriol 0.25 mcg 03/31/19 10:00 04/03/19 09:53 Rocaltrol - PO 0.25 mcg DAILY RADHA Administration Ferrous Sulfate 325 mg 03/31/19 10:00 04/03/19 09:53 Feosol - PO 325 mg DAILY RADHA Administration Fluticasone Propionate 1 spray 03/30/19 11:38 Flonase - NS DAILY PRN NASAL CONGESTION Folic Acid 1 mg 03/31/19 10:00 04/03/19 09:53 Folic Acid - PO 1 mg DAILY RADHA Administration Guaifenesin 10 ml 03/30/19 11:38 04/02/19 14:29 Robitussin - PO 10 ml Q4H PRN Administration COUGH Heparin Sodium (Porcine) 5,000 unit 03/30/19 22:00 04/03/19 09:53 Heparin - SQ 5,000 unit BID RADHA Administration Leflunomide 20 mg 03/31/19 10:00 04/03/19 09:54 Arava - PO 20 mg DAILY RADHA Administration Montelukast Sodium 10 mg 03/30/19 22:00 04/02/19 21:31 Singulair - PO 10 mg HS RADHA Administration Prednisone 5 mg 03/31/19 10:00 04/03/19 09:53 Deltasone - PO 5 mg DAILY RADHA Administration Home Medications Medication Instructions Recorded Atorvastatin Ca [Lipitor] 20 mg PO HS #30 tablet 07/15/17 Furosemide [Lasix -] 40 mg PO DAILY #30 tablet 07/15/17 Montelukast Na [Singulair -] 10 mg PO HS 09/30/17 Allopurinol [Zyloprim -] 300 mg PO DAILY 10/26/18 Folic Acid 1 mg PO DAILY 10/26/18 Methotrexate [Mexate -] 2.5 mg PO WEEKLY 10/26/18 Prednisone 5 mg PO DAILY 10/26/18 Leflunomide 20 mg PO DAILY 03/22/19 ASSESSMENT AND PLAN: 53 year old male with past medical history of HTN, HLD, 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 1. ESRD sec to Granulomatous polyangiitis (no lung involvement) - Admitted for permacath placement and initiation on HD s/p R permacath placement and initiation on HD. POD 4 s/p LUE AVF formation. Nephrology/Vascular Sx following. Rheumatology eval appreciated - Continue Leflunomide and Prednisone (intolerant to Rituximab and poor response to Cyclophosphamide IV pulses). Bactrim Px. Lasix discontinued as per Neph Obtained emergency Medicaid, awaiting final arrangements for HD center placement. 2. HLD - on Lipitor. 3. Anemia, multifactorial in etiology - ESRD, KAREN H/H 8.8/26 s/p 1 unit PRBCs 03/27 Iron Sat 7%/Ferritin 309 IV Venofer/Epogen as per nephrology 4. Hypocalcemia sec ESRD/Hyperparathyroidism - low dose Calcitriol 0.25mcg daily started. DVT Px - Heparin SQ Dispo - awaiting placement at a HD center as he is a newly initiated HD patient.
[2019-04-03 12:21] VITALS: BMI 29.0
[2019-04-03] MEDS: guaiFENesin 200 MG/10 ML 10 ML UNIT-DOSE CUPS PO PRN (16:09)
[2019-04-03] MEDS ORDERED: IBUPROFEN 400 MG TABLET (FP) PO PRN (16:34)
[2019-04-03] MEDS ORDERED: SODIUM CHLORIDE 250 ML IV PRN (16:55)
--- NOTE | 2019-04-03 16:55 | PN ---
Progress Note, Physician History of Present Illness: Pt seen and examined at bedside. He is awake and alert. He denies shortness of breath. - Current Medication List Current Medications: Active Medications Allopurinol (Zyloprim -) 300 mg PO DAILY [facility] Last Admin: 04/03/19 09:52 Dose: 300 mg Atorvastatin Calcium (Lipitor -) 20 mg PO HS [facility] Last Admin: 04/02/19 21:31 Dose: 20 mg Calcitriol (Rocaltrol -) 0.25 mcg PO DAILY [facility] Last Admin: 04/03/19 09:53 Dose: 0.25 mcg Ferrous Sulfate (Feosol -) 325 mg PO DAILY [facility] Last Admin: 04/03/19 09:53 Dose: 325 mg Fluticasone Propionate (Flonase -) 1 spray NS DAILY PRN PRN Reason: NASAL CONGESTION Folic Acid (Folic Acid -) 1 mg PO DAILY [facility] Last Admin: 04/03/19 09:53 Dose: 1 mg Guaifenesin (Robitussin -) 10 ml PO Q4H PRN PRN Reason: COUGH Last Admin: 04/03/19 16:09 Dose: 10 ml Heparin Sodium (Porcine) (Heparin -) 5,000 unit SQ BID [facility] Last Admin: 04/03/19 09:53 Dose: 5,000 unit Leflunomide (Arava -) 20 mg PO DAILY [facility] Last Admin: 04/03/19 09:54 Dose: 20 mg Montelukast Sodium (Singulair -) 10 mg PO HS [facility] Last Admin: 04/02/19 21:31 Dose: 10 mg Prednisone (Deltasone -) 5 mg PO DAILY [facility] Last Admin: 04/03/19 09:53 Dose: 5 mg - Objective Vital Signs: Vital Signs Temperature 98.3 F 04/03/19 13:34 Pulse Rate 76 04/03/19 13:34 Respiratory Rate 18 04/03/19 13:34 Blood Pressure 129/70 04/03/19 13:34 O2 Sat by Pulse Oximetry (%) 96 04/03/19 09:00 Constitutional: Yes: Calm Eyes: Yes: Conjunctiva Clear HENT: Yes: Atraumatic Neck: Yes: Supple Cardiovascular: Yes: S1, S2 Respiratory: Yes: CTA Bilaterally Gastrointestinal: Yes: Soft Genitourinary: Yes: WNL Musculoskeletal: Yes: WNL Extremities: Yes: Other (fistula with thrill and bruit) Neurological: Yes: Oriented Psychiatric: Yes: Oriented Labs: CBC, BMP 04/03/19 07:30 04/03/19 07:30 INR, PTT INR 1.04 (0.83-1.09) 03/23/19 06:30 Problem List - Problems (1) End-stage renal disease needing dialysis Code(s): N18.6 - END STAGE RENAL DISEASE; Z99.2 - DEPENDENCE ON RENAL DIALYSIS (2) Anemia Code(s): D64.9 - ANEMIA, UNSPECIFIED Qualifiers: Anemia type: due to chronic kidney disease Chronic kidney disease stage: unspecified stage Qualified Code(s): N18.9 - Chronic kidney disease, unspecified; D63.1 - Anemia in chronic kidney disease Assessment/Plan Current Medications Generic Name Dose Route Start Last Admin Trade Name Freq PRN Reason Stop Dose Admin Allopurinol 300 mg 03/31/19 10:00 04/03/19 09:52 Zyloprim - PO 300 mg DAILY RADHA Administration Atorvastatin Calcium 20 mg 03/30/19 22:00 04/02/19 21:31 Lipitor - PO 20 mg HS RADHA Administration Calcitriol 0.25 mcg 03/31/19 10:00 04/03/19 09:53 Rocaltrol - PO 0.25 mcg DAILY RADHA Administration Ferrous Sulfate 325 mg 03/31/19 10:00 04/03/19 09:53 Feosol - PO 325 mg DAILY RADHA Administration Fluticasone Propionate 1 spray 03/30/19 11:38 Flonase - NS DAILY PRN NASAL CONGESTION Folic Acid 1 mg 03/31/19 10:00 04/03/19 09:53 Folic Acid - PO 1 mg DAILY RADHA Administration Guaifenesin 10 ml 03/30/19 11:38 04/03/19 16:09 Robitussin - PO 10 ml Q4H PRN Administration COUGH Heparin Sodium (Porcine) 5,000 unit 03/30/19 22:00 04/03/19 09:53 Heparin - SQ 5,000 unit BID RADHA Administration Leflunomide 20 mg 03/31/19 10:00 04/03/19 09:54 Arava - PO 20 mg DAILY RADHA Administration Montelukast Sodium 10 mg 03/30/19 22:00 04/02/19 21:31 Singulair - PO 10 mg HS RADHA Administration Prednisone 5 mg 03/31/19 10:00 04/03/19 09:53 Deltasone - PO 5 mg DAILY RADHA Administration Impression 1. vasculitis - pauci-immunie 2. ESRD 3. proteinuria 4. HTN 5. anemia Plan - will arrange for HD tomorrow - pt has HD set up as outpt and is report on Tuesday at [address] - cont epogen and venofer - renal diet
[2019-04-03] MEDS: MONTELUKAST NA 10 MG TABLET PO SCH (22:28)
[2019-04-03] MEDS: ATORVASTATIN CA 20 MG TABLET (FP) PO SCH (22:28)
[2019-04-04 06:21] VITALS: TEMP 98.2
[2019-04-04] MEDS ORDERED: IRON SUCROSE INJECTION 100 MG in SODIUM CHLORIDE 95 ML IVPB ONE (08:00)
[2019-04-04] MEDS ORDERED: EPOETIN ALFA 2,000 UNIT/1 ML VIAL IVPUSH ONE (08:00)
[2019-04-04 09:30] LABS: HEMATOCRIT 26.9 % (35.4-49); HEMOGLOBIN 8.9 GM/dL (11.7-16.9); MCH 30.4 pg (25.7-33.7); MCHC 33.1 g/dl (32.0-35.9); MEAN CELL VOLUME 91.7 fl (80-96); MEAN PLT VOLUME 6.8 fl (7.5-11.1); PLATELET COUNT 284 K/MM3 (134-434); RBC 2.94 M/mm3 (4.00-5.60); RDW 15.7 % (11.9-15.9); WHITE BLOOD COUNT 6.2 K/mm3 (4.0-10.0)
[2019-04-04 12:02] VITALS: PULSE 80
[2019-04-04 12:48] VITALS: BP 142/81
--- NOTE | 2019-04-04 13:12 | PN ---
Progress Note, Physician History of Present Illness: Pt seen and examined at bedside. He is tolerating HD. He may be discharged after HD. - Current Medication List Current Medications: Active Medications Allopurinol (Zyloprim -) 300 mg PO DAILY [facility] Last Admin: 04/03/19 09:52 Dose: 300 mg Atorvastatin Calcium (Lipitor -) 20 mg PO HS [facility] Last Admin: 04/03/19 22:28 Dose: 20 mg Calcitriol (Rocaltrol -) 0.25 mcg PO DAILY [facility] Last Admin: 04/03/19 09:53 Dose: 0.25 mcg Ferrous Sulfate (Feosol -) 325 mg PO DAILY [facility] Last Admin: 04/03/19 09:53 Dose: 325 mg Fluticasone Propionate (Flonase -) 1 spray NS DAILY PRN PRN Reason: NASAL CONGESTION Folic Acid (Folic Acid -) 1 mg PO DAILY [facility] Last Admin: 04/03/19 09:53 Dose: 1 mg Guaifenesin (Robitussin -) 10 ml PO Q4H PRN PRN Reason: COUGH Last Admin: 04/03/19 16:09 Dose: 10 ml Heparin Sodium (Porcine) (Heparin -) 5,000 unit SQ BID [facility] Last Admin: 04/03/19 22:28 Dose: 5,000 unit Sodium Chloride (Normal Saline -) 250 mls @ 3,000 mls/hr IV PRN PRN PRN Reason: Hypotension during Dialysis Stop: 04/04/19 16:55 Leflunomide (Arava -) 20 mg PO DAILY [facility] Last Admin: 04/03/19 09:54 Dose: 20 mg Montelukast Sodium (Singulair -) 10 mg PO HS [facility] Last Admin: 04/03/19 22:28 Dose: 10 mg Prednisone (Deltasone -) 5 mg PO DAILY [facility] Last Admin: 04/03/19 09:53 Dose: 5 mg - Objective Vital Signs: Vital Signs Temperature 98.2 F 04/04/19 08:00 Pulse Rate 80 04/04/19 12:48 Respiratory Rate 18 04/04/19 12:48 Blood Pressure 142/81 04/04/19 12:48 O2 Sat by Pulse Oximetry (%) 97 04/04/19 09:00 Constitutional: Yes: Calm Eyes: Yes: Conjunctiva Clear HENT: Yes: Atraumatic Neck: Yes: Supple Cardiovascular: Yes: S1, S2 Respiratory: Yes: CTA Bilaterally Gastrointestinal: Yes: Soft Genitourinary: Yes: WNL Musculoskeletal: Yes: WNL Extremities: Yes: Other (fistula with thrill and bruit) Neurological: Yes: Oriented Psychiatric: Yes: Oriented Labs: CBC, BMP 04/04/19 08:30 04/03/19 07:30 INR, PTT INR 1.04 (0.83-1.09) 03/23/19 06:30 Problem List - Problems (1) End-stage renal disease needing dialysis Code(s): N18.6 - END STAGE RENAL DISEASE; Z99.2 - DEPENDENCE ON RENAL DIALYSIS (2) Anemia Code(s): D64.9 - ANEMIA, UNSPECIFIED Qualifiers: Anemia type: due to chronic kidney disease Chronic kidney disease stage: unspecified stage Qualified Code(s): N18.9 - Chronic kidney disease, unspecified; D63.1 - Anemia in chronic kidney disease Assessment/Plan Current Medications Generic Name Dose Route Start Last Admin Trade Name Freq PRN Reason Stop Dose Admin Allopurinol 300 mg 03/31/19 10:00 04/03/19 09:52 Zyloprim - PO 300 mg DAILY RADHA Administration Atorvastatin Calcium 20 mg 03/30/19 22:00 04/03/19 22:28 Lipitor - PO 20 mg HS RADHA Administration Calcitriol 0.25 mcg 03/31/19 10:00 04/03/19 09:53 Rocaltrol - PO 0.25 mcg DAILY RADHA Administration Ferrous Sulfate 325 mg 03/31/19 10:00 04/03/19 09:53 Feosol - PO 325 mg DAILY RADHA Administration Fluticasone Propionate 1 spray 03/30/19 11:38 Flonase - NS DAILY PRN NASAL CONGESTION Folic Acid 1 mg 03/31/19 10:00 04/03/19 09:53 Folic Acid - PO 1 mg DAILY RADHA Administration Guaifenesin 10 ml 03/30/19 11:38 04/03/19 16:09 Robitussin - PO 10 ml Q4H PRN Administration COUGH Heparin Sodium (Porcine) 5,000 unit 03/30/19 22:00 04/03/19 22:28 Heparin - SQ 5,000 unit BID RADHA Administration Sodium Chloride 250 mls @ 3,000 mls/hr 04/03/19 16:55 Normal Saline - IV 04/04/19 16:55 PRN PRN Hypotension during Dialysis Leflunomide 20 mg 03/31/19 10:00 04/03/19 09:54 Arava - PO 20 mg DAILY RADHA Administration Montelukast Sodium 10 mg 03/30/19 22:00 04/03/19 22:28 Singulair - PO 10 mg HS RADHA Administration Prednisone 5 mg 03/31/19 10:00 04/03/19 09:53 Deltasone - PO 5 mg DAILY RADHA Administration Impression 1. vasculitis - pauci-immunie 2. ESRD 3. proteinuria 4. HTN 5. anemia Plan - HD today - he has HD set up as out for Tuesday at 4 pm - vascular follow up as outpt - cont prednisone for vasculitis, discussed with rheum - cont epogen and venofer - renal diet
[2019-04-04] MEDS: FERROUS SO4 325 MG TABLET (FP) PO SCH (13:27)
[2019-04-04] MEDS: FOLIC ACID 1 MG TABLET (FP) PO SCH (13:27)
[2019-04-04] MEDS: predniSONE 5 MG TABLET (UD) PO SCH (13:27)
[2019-04-04] MEDS: ALLOPURINOL 100 MG TABLET (FP) PO SCH (13:27)
[2019-04-04] MEDS: LEFLUNOMIDE 10 MG TABLET PO SCH (13:27)
[2019-04-04] MEDS: CALCITRIOL 0.25 MCG CAPSULE (FP) PO SCH (13:28)
[2019-04-04] MEDS ORDERED: PT OWN MED DRAWER 7, Y5N ONE (13:58)
--- NOTE | 2019-04-04 17:15 | PN ---
Physical Exam: SUBJECTIVE: Patient seen and examined. No acute events overnight. Patient without complaints. No pain at site of AV fistula. Patient had HD yesterday. No chest pain, SOB, abd pain, cough, or pain at fistula site. OBJECTIVE: Vital Signs Period Temp Pulse Resp BP Sys/Burch Pulse Ox Last 24 Hr 98.2 F-98.9 F 71-82 18-20 120-142/70-86 97 GENERAL: The patient is awake, alert, and fully oriented, NAD HEAD: NC/AT EYES: EOMI, no scleral icterus, PERRL ENT: Moist mucous membranes NECK: Trachea midline, full range of motion, supple. LUNGS: Breath sounds equal, clear to auscultation bilaterally, no wheezes, no crackles, no accessory muscle use. HEART: RRR, S1, S2 CHEST: Permacath in place without signs of edema, erythema or swelling. ABDOMEN: Soft, nontender, nondistended, normoactive bowel sounds, no guarding EXTREMITIES: 2+ pulses, warm, well-perfused, no edema. LUE with AV fistula with palpable thrill. [place] in place without signs of infection or erythema. NEUROLOGICAL: Normal speech, gait not observed. Sensation intact throughout. PSYCH:appropriate mood and affect. SKIN: Warm, dry, normal turgor, no rashes or lesions noted Laboratory Results - last 24 hr 04/04/19 04/04/19 08:30 08:30 WBC 6.2 RBC 2.94 L Hgb 8.9 L Hct 26.9 L MCV 91.7 MCH 30.4 MCHC 33.1 RDW 15.7 Plt Count 284 MPV 6.8 L Magnesium 2.1 ASSESSMENT/PLAN: 53 y/o/m with PMHx of HTN, HLD, Granulomatous polyangiitis with pauci-immune glomerulonepthritis, vasculitis, who presented to the ED from [facility] for ESRD requiring AV fistula placement and HD. 1)ESRD -HD yesterday. Further HD as per Nephro -Permacath in place. -AV Fistula created on 03/30. -Creatinine elevated on admission, improvement post HD. -Vascular consulted, appreciate recs -Nephrology consulted, appreciate recs 2)Granulomatous polyangiitis with pauci-immune glomerulonepthritis -Continue Prednisone 5mg PO Daily -Continue Singulair 10 mg PO HS -Continue leflunomide 20 mg PO Daily -Rheumatology consulted, appreciate recs 3)Normoctyic anemia -Follow CBC -Iron deficiency anemia - continue Feosol 325mg daily 4)HTN -Currently holding Lasix -monitoring BP, will hold anti hypertensive medication for now as patient is normotensive 5)HLD -Continue Lipitor 20 mg PO HS F: Oral Hydration E: Trend CMP N: Renal diet Propylaxis - SCDs, Heparin Dispo: Admitted to med surg. Discharge pending Medicaid/placement at a HD center as he is a newly initiated HD patient. Per Nephro patient has outpatient HD center placement for Tuesday. Visit type - Emergency Visit Emergency Visit: Yes ED Registration Date: 03/22/19 Care time: The patient presented to the Emergency Department on the above date and was hospitalized for further evaluation of their emergent condition. - New Patient This patient is new to me today: No - Critical Care Critical Care patient: No ATTENDING PHYSICIAN STATEMENT I saw and evaluated the patient. I reviewed the resident's note and discussed the case with the resident. I agree with the resident's findings and plan as documented. SUBJECTIVE: OBJECTIVE: ASSESSMENT AND PLAN:
--- NOTE | 2019-04-04 17:35 | PN ---
Teaching Attending Note Name of Resident: Guero Nicolas ATTENDING PHYSICIAN STATEMENT I saw and evaluated the patient. I reviewed the resident's note and discussed the case with the resident. I agree with the resident's findings and plan as documented. SUBJECTIVE: Feels well - no complaints. POD 5 s/p AVF placement by Vascular Sx. OBJECTIVE: Afebrile, Hemodynamically Stable. interviewed while on HD via [facility]IJ permacath Last Vital Signs Temp Pulse Resp BP Pulse Ox 98.2 F 80 18 142/81 97 04/04/19 08:00 04/04/19 12:48 04/04/19 12:48 04/04/19 12:48 04/04/19 09:00 Heart - S1, S2, SM Lungs - decreased air entry at bases. RIJ HD catheter Abdomen - Soft, non-tender. Bowel Sounds normal. Extremities - mild edema, No calf tenderness. LUE - surgical fistula formation site dressed. Neuro - AAO x 3. Tone/Power normal all extremities. 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 Laboratory Results - last 24 hr 04/04/19 04/04/19 08:30 08:30 WBC 6.2 RBC 2.94 L Hgb 8.9 L Hct 26.9 L MCV 91.7 MCH 30.4 MCHC 33.1 RDW 15.7 Plt Count 284 MPV 6.8 L Magnesium 2.1 Discharge Medications Medication Instructions Recorded Atorvastatin Ca [Lipitor] 20 mg PO HS #30 tablet 07/15/17 Montelukast Na [Singulair -] 10 mg PO HS 09/30/17 Allopurinol [Zyloprim -] 300 mg PO DAILY 10/26/18 Folic Acid 1 mg PO DAILY 10/26/18 Methotrexate [Mexate -] 2.5 mg PO WEEKLY 10/26/18 Prednisone 5 mg PO DAILY 10/26/18 Leflunomide 20 mg PO DAILY 03/22/19 Calcitriol [Calcitriol -] 0.25 mcg PO DAILY #30 capsule 04/03/19 Ferrous Sulfate [Feosol] 325 mg PO DAILY #30 ud 04/03/19 ASSESSMENT AND PLAN: 53 year old male with past medical history of HTN, HLD, 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 1. ESRD sec to Granulomatous polyangiitis (no lung involvement) - Admitted for permacath placement and initiation on HD s/p R permacath placement and initiation on HD. POD 5 s/p LUE AVF formation - for vascular Sx follow up as out-patient. Rheumatology eval appreciated - Continue Leflunomide and Prednisone (intolerant to Rituximab and poor response to Cyclophosphamide IV pulses). Bactrim Px. Lasix discontinued as per Neph Obtained emergency Medicaid, and now place at HD center secured. Medically clear for discharge after HD today - HD set up for 4pm 04/06/19 at [facility] center. 2. HLD - on Lipitor. 3. Anemia, multifactorial in etiology - ESRD, KAREN H/H 7.9/24.9 s/p 1 unit PRBCs 12 Iron Sat 7%/Ferritin 309 IV Venofer/Epogen as per nephrology 4. Hypocalcemia sec ESRD/Hyperparathyroidism - low dose Calcitriol 0.25mcg daily started. DVT Px - Heparin SQ Dispo - secured place at outpatient HD center- next HD set up for 04/06/19 4pm
--- NOTE | 2019-04-18 19:32 | OP ---
DATE OF OPERATION: 03/30/2019 PREOPERATIVE DIAGNOSIS: End-stage renal disease. POSTOPERATIVE DIAGNOSIS: End-stage renal disease. PROCEDURE: Creation of left brachiocephalic vein fistula. SURGEON: Raad Birch DO ANESTHESIA: Fractional with nerve block. TOTAL BLOOD LOSS: 50 mL. INDICATIONS: Patient is a 53-year-old male that has end-stage renal disease and needs permanent dialysis access. Preoperative vein mapping showed he has a good cephalic vein in the left arm above the antecubital space. The patient was consented for the procedure, understanding all risks, benefits, alternatives. Patient was then given a supraclavicular nerve block by Anesthesia in the holding area. DESCRIPTION OF PROCEDURE: Patient was then brought to the operating room. Once in the operating suite, placed on the operating table in the supine manner. Using ultrasound guidance we were able to map out our brachial artery and our cephalic vein. Those were marked below the antecubital space. Using a skin marker, diagonal incision was drawn over both of them. We then went ahead and prepped and draped the left arm in the sterile surgical manner. We then went ahead and injected 10 mL of lidocaine 1% over our incision. Using a 15-blade we made a 4-cm incision. Electrocautery was used to control hemostasis. Using electrocautery, we were able to get through all of the subcutaneous tissue and we got down to the cephalic vein. The cephalic vein was then dissected anteriorly and posteriorly and all branches were ligated using 4-0 silk. We then went ahead and went medially and dissected through the fascia and got down to the brachial artery. The brachial artery was then dissected anteriorly and posteriorly and vessel loops were placed proximally and distally. Then, 5000 units of IV heparin were administered to the patient. We then went ahead and ligated our cephalic vein distally and transected. We then placed a 4-American feeding tube and we were able to place the feeding tube all of the way up into the upper arm and there was good draw back. The vein dilated up appropriately. We then went ahead and made a 7-mm venotomy on the vein. The vein had enough length to be transposed over to the brachial artery. At this point, we got distal and proximal draw on our artery. We then used a 15-blade and arteriotomy was made extending it to 7-mm. We then used 6-0 Prolene double-arm and stay sutures were placed on the artery. We then went ahead and used 6-0 Prolene double-arm and went outside on the vein and outside of the artery and ran the suture around to perform anastomosis between the artery and the vein. Once completed, we opened the distal artery first and then the proximal artery. There was good thrill in the AV fistula. At this point, the surgical site was well irrigated. Then 3-0 Vicryl was used and the subcutaneous tissue was reapproximated in the interrupted manner. Skin was closed with skin tracy. There was good thrill going all of the way up the arm in the cephalic vein. At this point, 4 x 4's and Tegaderm were placed. Patient tolerated the procedure with no complications. Total blood loss was 50 mL. RAAD BIRCH DO NP/[id number]
--- NOTE | 2019-04-19 09:09 | OP ---
DATE OF OPERATION: 03/23/2019 PREOPERATIVE DIAGNOSIS: Acute renal failure. POSTOPERATIVE DIAGNOSIS: Acute renal failure. PROCEDURE PERFORMED: Insertion of PermCath. SURGEON: Raad Birch DO ANESTHESIA: Fractional. BLOOD LOSS: 10 mL. INDICATIONS: Patient is a 53-year-old male who comes in in acute renal failure and needs PermCath insertion. DESCRIPTION OF PROCEDURE: The patient was consented for the procedure, understanding all risks, benefits and alternatives. He was then taken to the operating room. Once in the operating room, he was laid on the operating table in the supine manner and the area of the right neck and chest were prepped and draped in a sterile surgical manner. Under ultrasound guidance, we visualized the right internal jugular vein and 10 mL of lidocaine 1% was injected in the area. We then went ahead and used our Micropuncture needle and punctured the right internal jugular vein under ultrasound guidance. A Micropuncture wire was inserted. A micropuncture sheath was inserted, and a 0.035 floppy guidewire was inserted under fluoroscopy. We then injected 10 mL of lidocaine 1% above and below the clavicle. We then used an 11 blade and made a 1-cm incision at the puncture site. Using a 15 blade, we made a 1-cm incision below the clavicle. We then tunneled the PermCath up to the puncture site. We then went ahead and placed a break-away sheath over the guidewire into the vein under fluoroscopy, and the cannula and guidewire were removed. The catheter was placed inside the sheath. The sheath was broken away as the catheter was placed inside the vein. The neck of the catheter was nice and smooth. The tip of the catheter was located outside the right atrium. We then samuel back on each port of the catheter, and there was good flow. Heparinized saline was injected; 2000 units of IV heparin was injected into each port. We then used 4-0 Biosyn and 2 simple stitches were placed at the puncture site; 3-0 nylon was used to attach the catheter to the skin. Biopatch, Steri-Strips, 4 x 4s and Tegaderm were placed. The patient tolerated the procedure with no complications. The patient was transferred to PACU in stable condition, where a chest x-ray will be ordered. RAAD BIRCH DO [employer]/[id number]
== END 2019-04-04 13:58 | disposition home or self-care (01) | DRG 444 ==
LOC: JER 16:48 → JERBED 18:54 → J6S 03-23 13:21
PROVIDERS: ADMIT Internal Medicine
PROC: 05HY33Z Insertion of Infusion Device into Upper Vein, Percutaneous Approach (ICD-10-PCS; 2019-03-23)
PROC: 30233N1 Transfusion of Nonautologous Red Blood Cells into Peripheral Vein, Percutaneous Approach (ICD-10-PCS; 2019-03-28)
PROC: 031 Upper Arteries, Bypass (ICD-10-PCS; principal; 2019-03-30 09:38)
PROC: 5A1D70Z Performance of Urinary Filtration, Intermittent, Less than 6 Hours Per Day (ICD-10-PCS; 2019-04-04)
DX: I12.0 Hypertensive chronic kidney disease with stage 5 chronic kidney disease or end stage renal disease (principal); E21.3 Hyperparathyroidism, unspecified; R80.9 Proteinuria, unspecified; E83.51 Hypocalcemia; M31.31 Wegener's granulomatosis with renal involvement; E11.22 Type 2 diabetes mellitus with diabetic chronic kidney disease; D63.1 Anemia in chronic kidney disease; N18.6 End stage renal disease; M10.9 Gout, unspecified; E66.3 Overweight; Z68.29 Body mass index [BMI] 29.0-29.9, adult; E88.09 Other disorders of plasma-protein metabolism, not elsewhere classified
CPT/HCPCS: 36415; 36430; 36511; 71045-TC-FY; 76000-TC-FY; 76775-TC; 80048; 80053; 80074; 81003; 82565; 82728; 83540; 83550; 83735; 83970; 84100; 84443; 84520; 85025; 85027; 85044; 85610; 85730; 86704; 86706; 86707; 86708; 86709; 86803; 86850; 86900; 86901; 86922; 87340; 93005; 93010; 93931; 93971; 94010; 94760; 97116-GP; 99284-25; G0008; J0885; J1644; J1756; P9038; P9058; Q2036

== ENCOUNTER 2020-04-12 13:52 | Emergency (ER) | payer OTHER ==
[2020-04-12 14:19] VITALS: BMI 28.8
[2020-04-12] MEDS ORDERED: TRANEXAMIC ACID 1000 MG/10 ML VIAL IVPUSH ONE (14:47)
[2020-04-12] MEDS ORDERED: OXYMETAZOLINE 0.05% NASAL SOLUTION 15 ML BOTTLE NS ONE (14:47)
[2020-04-12 15:23] LABS: BASO % 0.8 % (0-2.0); EOS % 0.7 % (0-4.5); HEMATOCRIT 36.4 % (35.4-49); HEMOGLOBIN 11.6 GM/dL (11.7-16.9); LYMPH % 28.8 % (8-40); MCH 32.2 pg (25.7-33.7); MEAN CELL VOLUME 100.7 fl (80-96); MEAN PLT VOLUME 7.9 fl (7.5-11.1); MONO % 10.5 % (3.8-10.2); NEUT % 59.2 % (42.8-82.8); PLATELET COUNT 184 K/MM3 (134-434); RBC 3.62 M/mm3 (4.00-5.60); RDW 18.5 % (11.9-15.9); WHITE BLOOD COUNT 5.5 K/mm3 (4.0-10.0)
[2020-04-12 15:33] LABS: INR 0.99 (0.83-1.09)
[2020-04-12 15:35] LABS: ACTIVATED PTT 34.1 SECONDS (25.2-36.5)
[2020-04-12 15:47] LABS: POTASSIUM 5.3 mmol/L (3.5-5.1)
[2020-04-12 15:48] LABS: CALCIUM 8.1 mg/dL (8.5-10.1)
[2020-04-12 15:49] LABS: ALBUMIN 3.8 g/dl (3.4-5.0); BLOOD UREA NITROGEN 75.9 mg/dL (7-18)
[2020-04-12 15:54] LABS: BILIRUBIN,TOTAL 0.8 mg/dL (0.2-1); TOT PROT 6.6 g/dl (6.4-8.2)
[2020-04-12] MEDS ORDERED: SODIUM ZIRCONIUM CYCLOSILICATE (LOKELMA) 5 GM PACKET PO ONE (16:41)
[2020-04-12] MEDS ORDERED: AMOX TR/POT CLAV 875MG/125MG TABLETS (FP) PO ONE (16:47)
[2020-04-12] MEDS ORDERED: AMOX TR/POT CLAV 875MG/125MG TABLETS (FP) ONE (16:51)
[2020-04-12] MEDS ORDERED: SODIUM ZIRCONIUM CYCLOSILICATE (LOKELMA) 5 GM PACKET ONE (16:52)
[2020-04-12 18:02] LABS: EOS % 0.3 % (0-4.5); HEMOGLOBIN 10.5 GM/dL (11.7-16.9); MCH 32.5 pg (25.7-33.7); MEAN CELL VOLUME 101.6 fl (80-96); MEAN PLT VOLUME 7.4 fl (7.5-11.1); MONO % 10.2 % (3.8-10.2); NEUT % 66.5 % (42.8-82.8); PLATELET COUNT 157 K/MM3 (134-434); RBC 3.25 M/mm3 (4.00-5.60); RDW 18.5 % (11.9-15.9); WHITE BLOOD COUNT 5.5 K/mm3 (4.0-10.0)
[2020-04-12 18:42] VITALS: BP 189/76; PULSE 76; TEMP 98.1
== END 2020-04-12 18:59 | disposition home or self-care (01) ==
LOC: JER 13:52
PROC: 3E033GC Introduction of Other Therapeutic Substance into Peripheral Vein, Percutaneous Approach (ICD-10-PCS; principal; 2020-04-12)
DX: R04.0 Epistaxis (principal)
CPT/HCPCS: 36415; 80053; 85025; 85610; 85730; 86850; 86900; 86901; 99284-25

== ENCOUNTER 2020-04-14 08:55 | Emergency (ER) | payer OTHER ==
[2020-04-14 09:18] VITALS: BP 148/79; PULSE 89; TEMP 98.5; BMI 28.8
== END 2020-04-14 11:26 | disposition home or self-care (01) ==
LOC: JER 08:55 → JERFT 08:55
DX: R04.0 Epistaxis (principal)
CPT/HCPCS: 99282-25

== ENCOUNTER 2020-04-21 06:53 | Emergency (ER) | payer OTHER ==
[2020-04-21 07:20] VITALS: BMI 29.2
[2020-04-21] MEDS ORDERED: OXYMETAZOLINE 0.05% NASAL SOLUTION 15 ML BOTTLE NS ONE (07:52)
[2020-04-21] MEDS ORDERED: TRANEXAMIC ACID 1000 MG/10 ML VIAL ONE (08:19)
[2020-04-21] MEDS ORDERED: TRANEXAMIC ACID 1000 MG/10 ML VIAL IVPUSH ONE (08:20)
[2020-04-21 08:42] LABS: HEMATOCRIT 26.9 % (35.4-49); HEMOGLOBIN 8.8 GM/dL (11.7-16.9); LYMPH % 12.3 % (8-40); MCH 31.4 pg (25.7-33.7); MCHC 32.6 g/dl (32.0-35.9); MEAN CELL VOLUME 96.3 fl (80-96); MEAN PLT VOLUME 7.9 fl (7.5-11.1); MONO % 4.3 % (3.8-10.2); NEUT % 82.4 % (42.8-82.8); PLATELET COUNT 185 K/MM3 (134-434); RBC 2.79 M/mm3 (4.00-5.60); RDW 16.7 % (11.9-15.9); WHITE BLOOD COUNT 4.7 K/mm3 (4.0-10.0)
[2020-04-21 08:52] LABS: INR 1.18 (0.83-1.09); PROTHROMBIN TIME (PATIENT) 14.4 SEC (9.7-13.0)
[2020-04-21 08:54] LABS: ACTIVATED PTT 33.7 SECONDS (25.2-36.5)
[2020-04-21 08:56] LABS: ALBUMIN 2.9 g/dl (3.4-5.0); CALCIUM 7.4 mg/dL (8.5-10.1)
[2020-04-21 09:01] LABS: BILIRUBIN,TOTAL 0.7 mg/dL (0.2-1); TOT PROT 5.3 g/dl (6.4-8.2)
[2020-04-21 09:04] LABS: BLOOD UREA NITROGEN 50.4 mg/dL (7-18)
[2020-04-21 09:06] LABS: CREATININE 11.3 mg/dL (0.55-1.3)
[2020-04-21 13:07] VITALS: BP 115/72; PULSE 87; TEMP 98.1
== END 2020-04-21 12:05 | disposition home or self-care (01) ==
LOC: JER 06:53
PROC: 3E033GC Introduction of Other Therapeutic Substance into Peripheral Vein, Percutaneous Approach (ICD-10-PCS; principal; 2020-04-21)
DX: R04.0 Epistaxis (principal)
CPT/HCPCS: 36415; 80053; 85025; 85610; 85730; 99284-25

== ENCOUNTER 2020-04-22 12:34 | Emergency (ER) | payer OTHER ==
[2020-04-22 12:55] VITALS: BMI 28.8
[2020-04-22] MEDS ORDERED: SODIUM CHLORIDE 0.9% 500 ML INFUS.BAG IV ONE (17:03)
[2020-04-22] MEDS ORDERED: FAMOTIDINE 20 MG/50 ML IVPB 20 MG/50 ML MG IVPB ONE ×2 (17:03→18:10)
[2020-04-22 17:17] VITALS: BP 153/86
[2020-04-22] MEDS ORDERED: ONDANSETRON 4 MG/2 ML VIAL IVPUSH ONE (17:26)
[2020-04-22] MEDS ORDERED: ACETAMINOPHEN 1000 MG/100 ML BAG IVPB ONE (17:30)
[2020-04-22] MEDS ORDERED: ACETAMINOPHEN INJECTION 100 ML IVPB ONE (18:10)
[2020-04-22] MEDS ORDERED: ONDANSETRON 4 MG/2 ML VIAL ONE (18:10)
[2020-04-22 18:11] LABS: BASO % 1.1 % (0-2.0); HEMATOCRIT 27.3 % (35.4-49); HEMOGLOBIN 8.8 GM/dL (11.7-16.9); LYMPH % 12.1 % (8-40); MCHC 32.2 g/dl (32.0-35.9); MEAN CELL VOLUME 96.2 fl (80-96); MEAN PLT VOLUME 7.5 fl (7.5-11.1); MONO % 2.8 % (3.8-10.2); PLATELET COUNT 219 K/MM3 (134-434); RBC 2.83 M/mm3 (4.00-5.60); RDW 16.6 % (11.9-15.9); WHITE BLOOD COUNT 5.6 K/mm3 (4.0-10.0)
[2020-04-22 18:18] LABS: INR 1.09 (0.83-1.09); PROTHROMBIN TIME (PATIENT) 13.1 SEC (9.7-13.0)
[2020-04-22 18:20] LABS: ACTIVATED PTT 31.6 SECONDS (25.2-36.5)
[2020-04-22 18:35] LABS: CHLORIDE 96 mmol/L (98-107); SODIUM 129 mmol/L (136-145)
[2020-04-22 18:38] LABS: ANION GAP 9 MMOL/L (8-16); BLOOD UREA NITROGEN 67.3 mg/dL (7-18); CALCIUM 7.4 mg/dL (8.5-10.1); CO2 25 mmol/L (21-32); GLUCOSE,RANDOM 91 mg/dL (74-106); LIPASE 626 U/L (73-393)
[2020-04-22 18:41] LABS: SGOT/AST 28 U/L (15-37); SGPT/ALT 18 U/L (13-61)
[2020-04-22 18:43] LABS: BILIRUBIN,TOTAL 0.6 mg/dL (0.2-1); TOT PROT 5.7 g/dl (6.4-8.2)
[2020-04-22 18:44] LABS: ALK PHOS 63 U/L (45-117)
[2020-04-22 18:45] LABS: LDH 391 U/L (87-246)
[2020-04-22 18:51] LABS: CREATININE 15.4 mg/dL (0.55-1.3)
[2020-04-22] MEDS ORDERED: DEXAMETHASONE SOD PHOSPHATE 4 MG/1 ML VIAL IVPUSH ONE (19:46)
[2020-04-22] MEDS ORDERED: DEXAMETHASONE SOD PHOSPHATE 10 MG/1 ML VIAL ONE (20:14)
[2020-04-22 22:13] VITALS: PULSE 81; TEMP 99.1
[2020-04-23] MEDS ORDERED: SODIUM ZIRCONIUM CYCLOSILICATE (LOKELMA) 5 GM PACKET PO ONE (08:32)
== END 2020-04-22 22:13 | disposition short-term general hospital (02) ==
LOC: JER 12:34
PROC: 3E0333Z Introduction of Anti-inflammatory into Peripheral Vein, Percutaneous Approach (ICD-10-PCS; principal; 2020-04-22)
PROC: 3E033GC Introduction of Other Therapeutic Substance into Peripheral Vein, Percutaneous Approach (ICD-10-PCS; 2020-04-22)
PROC: 3E033GC Introduction of Other Therapeutic Substance into Peripheral Vein, Percutaneous Approach (ICD-10-PCS; 2020-04-22)
PROC: 3E033GC Introduction of Other Therapeutic Substance into Peripheral Vein, Percutaneous Approach (ICD-10-PCS; 2020-04-22)
DX: M31.31 Wegener's granulomatosis with renal involvement (principal); R19.7 Diarrhea, unspecified; R50.9 Fever, unspecified
CPT/HCPCS: 36415; 71045-TC-FY; 80053; 82550; 82728; 83605; 83615; 83690; 84484; 85025; 85610; 85730; 86140; 87804; 93005; 93010; 99285-25; J0131